=== PATIENT | female | born 1985 | race Caucasian/White ===

== ENCOUNTER 2018-05-07 19:38 | Emergency (ER) | payer OTHER, SELFPAY ==
[2018-05-07 19:39] VITALS: BP 126/77; PULSE 105; RESP 18; TEMP 37.2; O2SAT 98; BMI 28.3
[2018-05-07] MEDS: Morphine 4 MG/ML Syringe IV (20:51)
[2018-05-07] MEDS: 0.9% Normal Saline 1,000 ML 1000 ML IV (20:51)
[2018-05-07] MEDS: Ondansetron 4 MG/2 ML Vial IV (20:51)
[2018-05-07 21:03] LABS: Bacteria 0 SEEN /hpf (None Seen); Mucous, Urine 0 SEEN /hpf (<or=2+); Red Blood Cells-Urine 0 SEEN /hpf (0-5); White Blood Cells 0 SEEN /hpf (0-5)
[2018-05-07 21:13] LABS: Absolute Lymphocyte Count 0.53 X10^3/ul (0.83-4.51); Absolute Neutrophil Count 1.3 X10^3/uL (2.0-7.7); Basophil# 0.01 X10^3/uL; Basophil% 0.5 % (0-1); Hematocrit 38.3 % (37-47); Hemoglobin 12.1 g/dl (12.0-15.0); Lymphocyte # 0.53 X10^3/ul (4.0); Lymphocyte % 26.9 % (19-41); Mean Corp Hgb Conc 31.6 g/gl (32-36); Mean Corpuscular Hgb 26.7 pg (27.0-32.0); Mean Corpuscular Volume 84.4 fL (81-99); Mean Platelet Vol. 9.1 fl (6.2-12.0); Monocyte# 0.11 X10^3/uL; Monocyte% 5.6 % (0-10); Neutrophil # 1.32 X10^3/uL (2.7-7.7); Platelet Count 175 K/mm3 (150-450); RBC Distribution Width CV 14.4 % (11.6-14.6); RBC Distribution Width SD 44.6 fl (35.1-43.9); Red Blood Count 4.54 M/mm3 (4.2-5.4)
[2018-05-07 21:16] LABS: Color, Urine Yellow (Yellow); Glucose, Dipstick Normal (Normal); Ketone-Dipstick Negative (Negative); Leukocyte Esterase-Dipstick Negative /ul (Negative); Nitrite-Dipstick Negative (Negative); Occult Blood-Urine 25 /ul (Negative); Protein-Dipstick Negative (Negative); Urine Bilirubin Dipstick Negative (Negative); Urine Clarity Clear (Clear); Urine Urobilinogen Normal (Normal)
[2018-05-07 21:21] LABS: Squamous Epithelial Cells - UA 0-5 SEEN /hpf (5-10)
[2018-05-07 21:22] LABS: Differential Indicated SCAN CRITERIA MET; POSITIVE COUNT NO; POSITIVE DIFFERENTIAL YES; POSITIVE MORPHOLOGY NO
[2018-05-07 21:30] LABS: AST(SGOT) 49 U/L (15-37); Alanine Aminotransfer ALT/SGPT 62 U/L (13-56); Albumin, Serum 3.7 g/dL (3.2-5.0); Alkaline Phosphatase 118 U/L (45-117); Anion Gap 7 (5-15); BUN 8 mg/dL (7-18); BUN/Creat Ratio 9.2 RATIO (10-20); Bilirubin, Direct 0.11 mg/dL (0.00-0.30); Calcium,Total 8.5 mg/dL (8.5-10.1); Chloride 107 mmol/L (98-107); Creatinine, Serum 0.87 mg/dL (0.55-1.02); EST Glomerular Filtration Rate 80 mL/min (>60); Est Glom Filt Rate - Afr Amer 96 mL/min (>60); Estimated Creatinine Clearance 82.76 ml/min; Globulin 4.2 g/dL (2.2-4.2); Glucose 96 mg/dL (74-106); Lipase 172 U/L (73-393); Potassium 3.6 mmol/L (3.5-5.1); Protein, Total 7.9 g/dL (6.4-8.2); Sodium Level 139 mmol/L (136-145)
[2018-05-07 21:34] LABS: Pregnancy, Serum, hCG Quali. NEGATIVE Negative (0-9 Nonpreg)
[2018-05-07 21:47] LABS: Differential Comment SCANNED
[2018-05-07 22:58] VITALS: BP 111/66; PULSE 82; RESP 16; O2SAT 99
--- NOTE | 2018-05-07 23:15 | ED.DCSUM_ITS ---
- ER Visit Summary Date of Service: 05/07/18 Chief Complaint: Abdominal pain History of Present Illness: The patient is a [address] Horn. She is a G 10 P7 who reports that she had a miscarriage on March 24 at approximately 7 weeks 2 days of based on her last menstrual period. She is concerned that she has retained products of conception. Patient reports that following the miscarriage she had gradually improved and her vaginal bleeding had stopped. She did not in fact, she had a menstrual period approximately 10 days ago. She denies any odor to this. However, patient reports that 3 days ago she developed cramping suprapubic pain and low back pain. States pain is 6 out of 10 at worst and 1 out of 10 currently. It is worsened by nothing and relieved by nothing. She also states that she has spotting vaginally that began 3 days ago. She denies any vaginal discharge. She reports that her urine feels hot. She denies any frequency or hematuria. Patient also reports that she has had a fever of 101.3? and chills. She complains of a slight cough. She reports a headache is 410 severity. She has a history of similar headaches. She also has generalized weakness. Physical Examination: Vitals: Stable. Afebrile. General: Well-nourished and well-developed. Head: Normocephalic atraumatic. Neck: Supple, no lymphadenopathy. No JVD. Nontender. Cardiovascular: Regular rate and rhythm. No murmurs. Respiratory: No respiratory distress. Clear to auscultation bilaterally. Abdominal: Soft, moderate suprapubic and right lower quadrant tenderness to palpation, nondistended, normal bowel sounds. No guarding, rebound, or peritoneal signs. Back: Nontender. Extremities: Nontender, no edema. Skin: Normal color, no rash. Neurologic: Alert and oriented ?3. Cranial nerves II through XII are intact. Normal strength and sensation. Psych: Normal affect. Test Results: CBC is remarkable for a white count of 2. Chem-7 is normal. LFTs marked for an alk phos of 118, ALT of 62, and AST 49. UA is negative. test is negative. Transvaginal ultrasound shows endometrium to be 20 mm in thickness and heterogenous. There is no definite evidence of retained products of conception. Clinical Impression(s) from Imaging Studies Transvaginal US 05/07/18 20:31 IMPRESSION: The endometrium is thickened and heterogeneous in echogenicity. The endometrium measures 20 mm in thickness. There is no definite evidence of retained products of conception. There is a cervical nabothian cyst. There are bilateral simple ovarian cysts. There is a minimal amount of fluid in the cul-de-sac. Electronically Signed: Alfonso Enciso MD at 22:07 EDT , Service support , Abdomen/Pelvis CT 05/07/18 20:32 IMPRESSION: 1. Mild splenomegaly. 2. The uterus is bulky in size. The endometrium is thickened, measuring up to 13 mm. 3. There is an umbilical hernia containing a knuckle of nondistended small bowel. 4. 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 5. There is no evidence of free intra-abdominal or intrapelvic air, fluid, or inflammatory process. Electronically Signed: Alfonso Enciso MD at 23:05 EDT , Service support , Emergency Department Course and Treatment: Patient had an IV placed. She was given a liter normal saline. She was given dose of morphine and Zofran IV. She is resting comfortably. Treatment Plan: The patient was discussed with Dr. Reyes. Does not appear that at this time that there is an indication to take her to the operating room for a D&C. However, he would like her to follow-up in 1-2 days for another exam. Return to the emergency department for any worsening symptoms. Disposition: To home in improved and stable condition. Impression: 1. Thickened endometrium. 2. Leukopenia. 3. Umbilical hernia. This note was generated with [employer] dictation software. It may contain incorrect words, spelling, and punctuation that were not noted in review of the chart prior to signing ED Disposition - Plan for ED Patient: Disposition: Home or Assisted Living Chief Complaint: Vag Bleeding Instructions: ED Pelvic Pain [facility] Referrals: Omar Reyes MD [STAFF PHYSICIAN] - 1 Day for another exam
== END 2018-05-07 23:27 | disposition home or self-care (01) ==
PROVIDERS: Emergency Provider Emergency Medicine; Family Provider Family Medicine; PCP Family Medicine
DX: R93.8 Abnormal findings on diagnostic imaging of other specified body structures (principal); D72.819 Decreased white blood cell count, unspecified; K42.9 Umbilical hernia without obstruction or gangrene
CPT/HCPCS: 74177; 76830; 80048; 80076; 81001; 83690; 84703; 85025; 99283; J7030; Q9967; A4216; J2405

== ENCOUNTER 2023-10-13 13:59 | Inpatient (IN) | payer OTHER, SELFPAY ==
[2023-10-13] VITALS (9 sets, daily range): BP systolic 120–152; BP diastolic 83–95; PULSE 105–115; RESP 18–24; TEMP 36.4; O2SAT 97–100; BMI 32.1; BMI 30.5
--- OUTSIDE RECORDS SUMMARY | 2023-10-13 14:21 | XMS RPT_ITS | CCD ---
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 Name Role Phone UPTAIN, CRYSTAL CNM Admitting Unavailable UPTAIN, CRYSTAL CNM Attending Unavailable UPTAIN, CRYSTAL CNM Primary Care Unavailable UPTAIN, CRYSTAL CNM Attending Unavailable UPTAIN, CRYSTAL CNM Primary Care Unavailable UPTAIN, CRYSTAL CNM Admitting Unavailable Results Test Name Value Interpretation Reference Range Facil ity Encounters Encounter Date Encounter Type Care Provider Facility Start: 09-20-2022 End: 09-21-2022 Evaluation and management of inpatient CRYSTAL CNM [facility] Start: 07-27-2022 End: 07-27-2022 ambulatory CRYSTAL CNM [facility] Summary Purpose Family History No Family History Records FoundNo Family History Records FoundNo Family History Records Found Advance Directives No Advanced Directives Records FoundNo Advanced Directives Records FoundNo Advanced Directives Records Found Additional Source Comments INFORMATION SOURCE (unrecogn ized section and content) DATE CREATED AUTHOR AUTHOR'S ORGANIZ ATION 09/03/2022 [facility] DATE CREATED AUTHOR AUTHOR'S ORGANIZ ATION 09/21/2022 [facility] FOR RECORDS PERTAINING TO PATIENTS WHO ARE OR HAVE BEEN ENROLLED IN A CHEMICAL DEPENDENCY/SUBSTANCEABUSE PROGRAM, SOME INFORMATION MAY BE OMITTED. This clinical summary was aggregated from multiple sources. Caution should be exercised in using it in the provision of clinical care. This summary normalizes information from multiple sources, and as a consequence, information in this document may materially change the coding, format and clinical context of patient data. In addition, data may be omitted in some cases. CLINICAL DECISIONS SHOULD BE BASED ON THE PRIMARY CLINICAL RECORDS. [employer] provides no warranty or guarantee of the accuracy or completeness of information in this document.
--- NOTE | 2023-10-13 14:45 | EX.ED.DYSGE1 ---
HPI <AUSTIN George - Last Filed: 10/13/23 18:31> History of Present Illness Chief Complaint: Shortness of Breath Narrative Narrative: Patient presenting today due to shortness of breath that started suddenly this afternoon. She reports that she was walking down to the basement to grab clothes for her children when she had sudden onset shortness of breath. She reports midsternal chest pain with breathing. She reports on Saturday she had a few episodes of vomiting which has resolved. She denies any fevers, chills, abdominal pain. She is 9 weeks , she is . She denies any chronic health conditions. PFSH <AUSTIN George - Last Filed: 10/13/23 18:31> PFSH Home Medications No Known/Unobtainable [No Known Home Medications] 06/16/14 [History Last Taken Unknown] Allergy/AdvReac Type Severity Reaction Status Date / Time No Known Allergies Allergy Verified 05/07/18 19:42 Family History (Updated 10/13/23 @ 18:[address] Lachelle Fletcher DO) Sister FH: thromboembolic disease Social History (Updated 10/13/23 @ 18:[address] Lachelle Fletcher DO) household members: family housing: house current occupation: [employer] Smoking Status: Never smoker alcohol intake: never substance use type: does not use ROS <AUSTIN George - Last Filed: 10/13/23 18:31> ROS ED Constitutional Constitutional ED: Denies chills or fever(s) Cardiovascular Cardiovascular: Reports chest pain; Denies palpitations Respiratory/Chest Respiratory/Chest: Reports dyspnea, dyspnea on exertion and tachypnea; Denies cough Gastrointestinal Gastrointestinal: Denies abdominal pain, nausea or vomiting Genitourinary Genitourinary ED: Denies dysuria, hematuria or urinary frequency Musculoskeletal Musculoskeletal: Denies arthralgias or myalgias Integumentary Denies rash Neurologic Neurologic: Denies weakness EXAM <AUSTIN George Last Filed: 10/13/23 18:31> Physical Exam Const Vital Signs: 10/13/23 14:00 10/13/23 14:04 10/13/23 14:05 Temperature 97.6 F L Temperature Source Temporal Pulse Rate 112 H Respiratory Rate 24 H Respiratory Effort Short of Breath Respiratory Depth Normal Respiratory Pattern Tachypnea Blood Pressure 152/91 H Blood Pressure Mean 111 Pulse Ox 99 Oxygen Delivery Method Room Air Room Air 10/13/23 15:31 10/13/23 16:00 10/13/23 17:56 Temperature Temperature Source Pulse Rate 115 H 108 H 111 H Respiratory Rate 20 H 22 H 20 H Respiratory Effort Respiratory Depth Respiratory Pattern Blood Pressure 144/94 H 123/83 H 125/95 H Blood Pressure Mean 110 96 105 Pulse Ox 98 98 98 Oxygen Delivery Method Room Air Room Air Room Air 10/13/23 18:00 Temperature Temperature Source Pulse Rate 108 H Respiratory Rate 23 H Respiratory Effort Respiratory Depth Respiratory Pattern Blood Pressure 120/88 H Blood Pressure Mean 98 Pulse Ox 97 Oxygen Delivery Method Room Air Positive well nourished, well developed and no apparent distress General Appearance ED: well developed HEENT Reports normocephalic and head/scalp atraumatic Mouth ED: Yes moist mucous membranes normal Eyes PERRL and EOMs intact bilaterally Neck full ROM and supple Chest Wall inspection of chest normal Resp clear to auscultation bilaterally Resp Narrative: Tachypneic. Cardio regular rate and regular rhythm GI soft to palpation, non-tender, non-distended and no masses Back/Spine normal ROM and normal to inspection Extremity normal to inspection and full ROM Neuro oriented x3, CN's II-XII intact bilaterally, moves all extremities, no focal motor deficits and no sensory deficits noted Sensorium / Orientation: awake and alert Psych mental status grossly normal and thought process normal Skin no rashes or lesions noted and no wounds <Dr. Rita Austin, DO - Last Filed: 10/13/23 20:19> Physical Exam Const Vital Signs: 10/13/23 14:00 10/13/23 14:04 10/13/23 14:05 Temperature 97.6 F L Temperature Source Temporal Pulse Rate 112 H Respiratory Rate 24 H Respiratory Effort Short of Breath Respiratory Depth Normal Respiratory Pattern Tachypnea Blood Pressure 152/91 H Blood Pressure Mean 111 Pulse Ox 99 Oxygen Delivery Method Room Air Room Air 10/13/23 15:31 10/13/23 16:00 10/13/23 17:56 Temperature Temperature Source Pulse Rate 115 H 108 H 111 H Respiratory Rate 20 H 22 H 20 H Respiratory Effort Respiratory Depth Respiratory Pattern Blood Pressure 144/94 H 123/83 H 125/95 H Blood Pressure Mean 110 96 105 Pulse Ox 98 98 98 Oxygen Delivery Method Room Air Room Air Room Air 10/13/23 18:00 Temperature Temperature Source Pulse Rate 108 H Respiratory Rate 23 H Respiratory Effort Respiratory Depth Respiratory Pattern Blood Pressure 120/88 H Blood Pressure Mean 98 Pulse Ox 97 Oxygen Delivery Method Room Air [facility] <AUSTIN George - Last Filed: 10/13/23 18:31> [facility] Narrative Medical decision making narrative: Patient presenting due to sudden onset shortness of breath. Symptoms started when she was walking down into her basement this afternoon. did call squad. She does appears tachypneic. She reported having a history of a DVT during her last , however she said that this was never confirmed. She had swelling in one of her legs but never underwent an ultrasound or took blood thinners to treat this. She has no history of known blood clots. She reports that her sister did have a PE during her . Patient is currently 9 weeks , she has not had any issues to date but has not had an ultrasound to confirm intrauterine . Labs obtained and patient has a troponin of 866. Differentials include NSTEMI, myocarditis, pericarditis, PE. Cardiology was consulted, they recommend obtaining a CTA. I did speak with the radiologist who reports that CTA shows bilateral PEs, no evidence of right-sided heart strain. Dr. Marie with OB was consulted, he recommends treating with heparin. Transvaginal ultrasound will be obtained to confirm intrauterine . Pulmonology was consulted, this agreed that patient can stay here for treatment versus being transferred. Will speak with the hospitalist for admission. She has been started on a heparin drip. Lab Data Attestation: I reviewed the patient's lab results. Lab results narrative: Hemoglobin 11.9, potassium 3.1, troponin 866, TSH 0.22 Labs: Laboratory Results - last 24 hr 10/13/23 10/13/23 15:00 17:49 WBC 8.5 RBC 4.70 Hgb 11.9 L Hct 37.6 MCV 80.0 L MCH 25.3 L MCHC 31.6 L RDW Std Deviation 45.8 H RDW Coeff of Garima 15.9 H Plt Count 215 MPV 9.7 Immature Gran % (Auto) 0.200 Neut % (Auto) 78.6 H Lymph % (Auto) 15.8 L [place] % (Auto) 4.5 Eos % (Auto) 0.7 Baso % (Auto) 0.2 Absolute Neuts (auto) 6.7 Absolute Lymphs (auto) 1.35 Nucleated RBC % 0 PT 13.2 INR 1.0 APTT 25.1 Sodium 140 Potassium 3.1 L Chloride 109 H Carbon Dioxide 25.0 Anion Gap 6 BUN 5 L Creatinine 0.74 Est GFR (MDRD) Af Amer 113 Est GFR (MDRD) Non-Af 93 BUN/Creatinine Ratio 6.8 L Glucose 174 H Calcium 9.1 Iron 20 L TIBC 365 Iron Saturation 5.5 L Ferritin 16 Troponin I High Sens 866 H* 1840 H* B-Natriuretic Peptide 39.4 TSH 0.22 L Free T4 0.96 Radiography Diagnostic Testing: Clinical Impression(s) from Imaging Studies Chest X-Ray 10/13/23 15:14 IMPRESSION: No radiographic evidence of acute cardiopulmonary disease. Electronically Signed: Bryan Aguirre MD at 15:31 EST , Chest CTA 10/13/23 15:38 IMPRESSION: (NOT LISTED IN ORDER OF SIGNIFICANCE) There is no saddle embolus. There is no heart strain. Bilateral pulmonary emboli. Non standard communication findings protocol was initiated. 10/13/2023 4:29 PM Electronically Signed: Bryan Aguirre MD at 16:31 EST , ADDENDUM: 10/13/23 1647 IMPRESSION: (NOT LISTED IN ORDER OF SIGNIFICANCE) There is no saddle embolus. There is no heart strain. Bilateral pulmonary emboli. Non standard communication findings protocol was initiated. 10/13/2023 4:29 PM N.B. : The above Results were Read Back by Bryan Aguirre MD to AUSTIN George, and understanding confirmed on 10/13/2023 16:40:11 (ET). Electronically Signed: Bryan Aguirre MD at 16:31 EST , Obstetrics Ultrasound 10/13/23 15:38 IMPRESSION: There is a single live intrauterine with a heart rate of 170 bpm. Electronically Signed: Bryan Aguirre MD at 17:45 EST , EKG Initial EKG: Comments: 110 bpm, sinus tachycardia, ST depression in leads II, III, and aVF. <Dr. Rita Austin, DO - Last Filed: 10/13/23 20:19> [facility] Lab Data Labs: Laboratory Results - last 24 hr 10/13/23 10/13/23 15:00 17:49 WBC 8.5 RBC 4.70 Hgb 11.9 L Hct 37.6 MCV 80.0 L MCH 25.3 L MCHC 31.6 L RDW Std Deviation 45.8 H RDW Coeff of Garima 15.9 H Plt Count 215 MPV 9.7 Immature Gran % (Auto) 0.200 Neut % (Auto) 78.6 H Lymph % (Auto) 15.8 L [place] % (Auto) 4.5 Eos % (Auto) 0.7 Baso % (Auto) 0.2 Absolute Neuts (auto) 6.7 Absolute Lymphs (auto) 1.35 Nucleated RBC % 0 PT 13.2 INR 1.0 APTT 25.1 Sodium 140 Potassium 3.1 L Chloride 109 H Carbon Dioxide 25.0 Anion Gap 6 BUN 5 L Creatinine 0.74 Est GFR (MDRD) Af Amer 113 Est GFR (MDRD) Non-Af 93 BUN/Creatinine Ratio 6.8 L Glucose 174 H Calcium 9.1 Iron 20 L TIBC 365 Iron Saturation 5.5 L Ferritin 16 Troponin I High Sens 866 H* 1840 H* B-Natriuretic Peptide 39.4 TSH 0.22 L Free T4 0.96 Radiography Diagnostic Testing: Clinical Impression(s) from Imaging Studies Chest X-Ray 10/13/23 15:14 IMPRESSION: No radiographic evidence of acute cardiopulmonary disease. Electronically Signed: Bryan Aguirre MD at 15:31 EST , Chest CTA 10/13/23 15:38 IMPRESSION: (NOT LISTED IN ORDER OF SIGNIFICANCE) There is no saddle embolus. There is no heart strain. Bilateral pulmonary emboli. Non standard communication findings protocol was initiated. 10/13/2023 4:29 PM Electronically Signed: Bryan Aguirre MD at 16:31 EST , ADDENDUM: 10/13/23 1647 IMPRESSION: (NOT LISTED IN ORDER OF SIGNIFICANCE) There is no saddle embolus. There is no heart strain. Bilateral pulmonary emboli. Non standard communication findings protocol was initiated. 10/13/2023 4:29 PM N.B. : The above Results were Read Back by Bryan Aguirre MD to AUSTIN George, and understanding confirmed on 10/13/2023 16:40:11 (ET). Electronically Signed: Bryan Aguirre MD at 16:31 EST , Obstetrics Ultrasound 10/13/23 15:38 IMPRESSION: There is a single live intrauterine with a heart rate of 170 bpm. Electronically Signed: Bryan Aguirre MD at 17:45 EST , Rhythm Strip Rhythm Strip: Sinus Tach Rate: 110 Ectopy: None EKG Initial EKG: Attestation: I personally reviewed and interpreted this EKG as follows: Management Discussion w/another healthcare provider: Hospitalist and Global Sales Director (UNIT CLERK, Cardiology, Pulm) Treatment and Re-Evaluation :: I have personally performed a face to face assessment of the patient and have reviewed the [place] Note. I performed a substantive portion of the visit including all aspects of the following. My rico findings include: History is patient is a 37-year-old female with no significant past medical history of the (questionable history of DVT but states she never had it formally diagnosed or treated) presenting with worsening shortness of breath that started today. She had some mild stomach flu a couple days ago. She is not having significant chest pain but there is a can pleuritic component to her shortness of breath. Patient is currently approximately 9 weeks with her last menstrual period approximately the middle of July. She is . She follows with a sports leadership instructor [facility]. Has not had any evaluation for this yet. On arrival patient is ill-appearing. She is tachypneic and tachycardic. She is pale. Clear breath sounds. Abdomen soft and nontender. EKG shows tachycardia with ST depressions in the inferior and lateral leads. Differential includes pulmonary emboli, myocarditis, pericarditis, sepsis, pneumonia and symptomatic anemia and less likely ACS given the story. Patient is found to have significant elevation of her high-sensitivity troponin. Other labs largely normal. BNP is added on. Case is discussed with Dr. Godinez, cardiology on-call given her EKG abnormalities and his elevated troponin. He agrees that PE, aortic dissection and myocarditis are on the differential. He recommends a CTA. If there is no PE or aortic dissection likely transfer for further evaluation myocarditis. Defer aspirin until results come back. Discussed risk and benefits of contrast and radiation associated with early and at this time I feel that the benefits greatly with the risk. Patient and agreeable with obtaining a CT. CTA shows bilateral submassive pulmonary emboli. There is no signs of heart strain. Her BNP is surprisingly normal. Patient is given IV fluids and Tylenol with improvement of symptoms in the ER. She is hemodynamically stable and having no O2 requirements. Case then discussed with Dr. Mireles, pulmonology on-call who feels that without true signs of right heart strain (CT findings or elevated BNP) patient was unlikely to be a candidate for clot retrieval and could stay here. They will perform an echocardiogram. Case is discussed with gynecology on-call, Dr. Marsha Marie, who will is in agreement that it is best her mother is with [facility] baby and to start the patient on heparin drip. Did discuss with patient if she would like to be transferred for second opinion about clot retrieval at a tertiary facility. She is comfortable staying here and starting the heparin drip. Patient is admitted to hospital service, Dr. Fletcher. Transvaginal ultrasound does confirm single intrauterine gestation with heart tones present. Patient is uptrending troponin in the emergency room I suspect that is from the pulmonary emboli. Cardiology is aware of her EKG and troponin levels. Other additions or changes: [None] <Dr. Rita Austin, DO - Last Filed: 10/13/23 20:19> Critical Care Time Critical Care Time: Yes Critical care time (excluding procedures): 30-74 minutes (35), Discussing w/Patient &/or Family/Exchange Underwriting Consultant, Discussing w/Consultants, Arranging Admission or Transfer and Performing Direct Patient Care at Bedside Discharge Plan Dx/Rx/DC Orders Clinical Impression: Elevated troponin I level, , Abnormal TSH, Bilateral pulmonary embolism, Hypokalemia Disposition Disposition: Acute Care Hospital [facility] Discharge Date/Time: 10/13/23 19:28
--- NOTE | 2023-10-13 15:14 | RAD_ITS ---
EXAM: XR CHEST, 2 VIEWS CLINICAL INDICATION: chest pain TECHNIQUE: Frontal and lateral views of the chest. COMPARISON: No relevant prior studies available. FINDINGS: LUNGS AND PLEURAL SPACES: Unremarkable. No consolidation or edema. No pneumothorax. No effusion. HEART: Unremarkable. Cardiac silhouette not enlarged. MEDIASTINUM: Central airways and mediastinal contour are unremarkable. BONES/JOINTS: Unremarkable. No acute fracture. SOFT TISSUES: Unremarkable. RAD/Chest PA and Lateral IMPRESSION: No radiographic evidence of acute cardiopulmonary disease. Electronically Signed: Bryan Aguirre MD at 15:31 EST ,
[2023-10-13 15:18] LABS: Absolute Lymphocyte Count 1.35 X10^3/uL (0.83-4.51); Absolute Neutrophil Count 6.7 X10^3/uL (2.0-7.7); Basophil# 0.02 X10^3/uL; Basophil% 0.2 % (0-1); Eosinophil# 0.06 X10^3/uL; Eosinophils% 0.7 % (0-5); Hematocrit 37.6 % (37-47); Hemoglobin 11.9 g/dL (12.0-15.0); Lymphocyte # 1.35 X10^3/ul (0.83-4.51); Lymphocyte % 15.8 % (19-41); Mean Corp Hgb Conc 31.6 g/dL (32-36); Mean Corpuscular Hgb 25.3 pg (27.0-32.0); Mean Platelet Vol. 9.7 fl (6.2-12.0); Monocyte# 0.38 X10^3/uL; Monocyte% 4.5 % (0-10); NRBC Flagged by Analyzer 0 % (0-5); Neutrophil % 78.6 % (47-70); Platelet Count 215 K/mm3 (150-450); RBC Distribution Width CV 15.9 % (11.6-14.6); RBC Distribution Width SD 45.8 fl (35.1-43.9); White Blood Count 8.5 K/mm3 (4.4-11.0)
[2023-10-13 15:33] LABS: Anion Gap 6 (5-15); BUN 5 mg/dL (7-18); BUN/Creat Ratio 6.8 RATIO (10-20); Calcium,Total 9.1 mg/dL (8.5-10.1); Chloride 109 mmol/L (98-107); Creatinine, Serum 0.74 mg/dL (0.55-1.02); EST Glomerular Filtration Rate 93 mL/min (>60); Est Glom Filt Rate - Afr Amer 113 mL/min (>60); Glucose 174 mg/dL (74-106); Potassium 3.1 mmol/L (3.5-5.1); Sodium Level 140 mmol/L (136-145); Troponin-I HS (w/2H Reflex) 866 pg/mL (3.0-54.0)
--- NOTE | 2023-10-13 15:38 | CT_ITS ---
We are attempting to reach an attending provider to discuss findings. An addendum with communication details will be sent when the communication is complete. STUDY: CTA CHEST REASON FOR EXAM: Female, 37 years old. shortness of breath TECHNIQUE: The examination was performed with the intravenous administration of 100 cc of IV Isovue 370 contrast material. Post-processing of the angiographic images was performed, with axial imaging and 3D reconstruction. MIPS images were obtained. Individualized dose optimization techniques were used for this CT. COMPARISON: None. FINDINGS: There is no saddle embolus. There is no heart strain. Large bilateral pulmonary emboli. These extend from the main branch to the first and second order branches. Normal thoracic aorta and visualized great vessels. There is no demonstrated aortic dissection. Normal heart and pericardium with no evidence for calcifications of the coronary arteries. Normal mediastinum. Normal hilar regions. Normal visualized trachea and bronchi. The lungs are well expanded. Normal pulmonary parenchyma. Normal pleura. Normal chest wall structures. Normal osseous structures. Normal visualized upper abdomen. CT/CTA Chest W/WO Contrast IMPRESSION: (NOT LISTED IN ORDER OF SIGNIFICANCE) There is no saddle embolus. There is no heart strain. Bilateral pulmonary emboli. Non standard communication findings protocol was initiated. 10/13/2023 4:29 PM Electronically Signed: Bryan Aguirre MD at 16:31 EST ,
--- NOTE | 2023-10-13 15:38 | US_ITS ---
STUDY: FIRST TRIMESTER OBSTETRICAL ULTRASOUND REASON FOR EXAM: Female, 37 years old. to confirm -- PATIENT BEING ADMITTED WITH P.E''S TECHNIQUE: Transvaginal US was obtained to better visualized the ovaries. TECHNICAL QUALITY: Adequate. PRIOR ULTRASOUND: None. FINDINGS: There is visualization of a single gestational sac in a normal intrauterine position. The mean sac diameter (MSD) measures 33 mm, indicating an estimated gestational age (EGA) of 8 weeks, 4 days. The gestational sac shape is within normal limits. There is a visualized yolk sac. The yolk sac measures 4 mm. The placenta is non-visualized. Due to early gestation, the placenta is not seen. There is visualization of a live embryo. The crown-rump length (CRL) measures 25 mm, indicating an estimated gestational age (EGA) of 9 weeks, 0 days. There is demonstrated cardiac activity with a heart rate of 170 bpm. The estimated gestation age (EGA) by LMP is 9 weeks, 4 days. The estimated date of delivery (CLEO) by LMP is 11.29.23. The estimated gestation age (EGA) by US is 8 weeks, 6 days. The estimated date of delivery (CLEO) by US is 8.26.24. The uterus measures 13.5 cm. There is no demonstrated uterine fibroid. The cervix is closed. The right ovary measures 3 cm. There is no right ovarian cyst. There is no visualized right adnexal mass or complex lesion. The left ovary measures 3 cm. 60 mm left cyst. There is no visualized left adnexal mass or complex lesion. There is no fluid in the cul de sac. US/Transvaginal w/Preg US IMPRESSION: There is a single live intrauterine with a heart rate of 170 bpm. Electronically Signed: Bryan Aguirre MD at 17:45 EST ,
[2023-10-13] MEDS: Acetaminophen 325 MG Tablet 650 MG PO ×2 (15:47→23:30)
[2023-10-13] MEDS: 0.9% Normal Saline (1000mL) 1,000 ML 999 ML IV (15:48)
[2023-10-13 16:24] LABS: BNP,B-Type NATRIURETIC PEPTIDE 39.4 pg/mL (0-100)
[2023-10-13 16:36] LABS: Thyroid Stim Hormone (TSH) 0.22 uIU/mL (0.358-3.74)
[2023-10-13 17:03] LABS: Reflex Troponin-HS? (from REC) Y
[2023-10-13 17:09] LABS: Partial Thromboplast Time 25.1 Seconds (24.1-36.2)
[2023-10-13 17:17] LABS: Prothrombin Time (Protime)PT. 13.2 SECONDS (11.7-14.9)
[2023-10-13] MEDS: Heparin Injection (Vial) 5,000 UNIT/ML VIAL 4000 UNIT IV (17:45)
[2023-10-13] MEDS: HEPARIN/D5w 25,000 UNITS 25,000 UNITS/250 ML IV.SOLN. 10 UNITS CONT INF (17:49)
--- NOTE | 2023-10-13 18:15 | HP.PCM.HOS_ITS ---
HPI - General General Date of Admission: 10/13/23 Date of Service: 10/13/23 Chief Complaint: Shortness of breath HPI Narrative AUGUSTIN GARCIA, is a 37 F who presented to the emergency department at [facility] on 10/13/2023 due to acute onset shortness of breath. Patient reported that she was walking down to the basement to grab close for her children when she had sudden onset of shortness of breath. She reported that she also noted midsternal chest pain that was pleuritic in nature at that time as well. She had been feeling well overall other than last Saturday she had a couple episodes of vomiting but has had no other issues since. She is at 9 weeks and is . She has never had any previous thromboembolic events with primary pregnancies. She does have a sister who had a thromboembolic event during and was on Lovenox during her and for about 6 months following was anticoagulated. She has no other family members that she knows of who have had previous clotting disorders. Vital signs on presentation showed a temperature of 97.6, heart rates between 108 and 115, blood pressures 120/88, respiratory rate has been between 20 and 24 and oxygen saturations are 97 to 99% on room air. CBC shows a normal white count with a mild left shift at a 78.6% neutrophilia and I suspect this is a stress response as she has no signs of infection. Hemoglobin is 11.9 and she has microcytic which may be iron deficiency anemia related to so iron studies are pending. Coags were normal. Her chemistry panel revealed hypokalemia with a potassium of 3.1, normal renal function and a TSH of 0.22. BNP was normal at 39.4. Initial troponin was 866. EKG was sinus tachycardia with an S1Q3T3, normal intervals and no ST-T wave changes concerning for acute ischemia. Chest x-ray was unremarkable. CT of the chest showed no saddle emboli and no heart strain however she does have large bilateral PE that extend from the main branch to the first and second order branches. Obstetrics ultrasound was performed with 9 weeks and demonstrated a single live intrauterine with a heart rate of 170 bpm estimated 8 weeks and 6 days. Cervix was closed. No adnexal masses or complex lesions were identified and there was no fluid in the cul-de-sac. The case was discussed with pulmonary medicine and then they indicated that they would be willing to admit her here and she did not need thrombus retrieval. Recommended initiating heparin drip. PFSH no medical history Home Medications No Known/Unobtainable [No Known Home Medications] 06/16/14 [History Last Taken Unknown] Allergy/AdvReac Type Severity Reaction Status Date / Time No Known Allergies Allergy Verified 05/07/18 19:42 Family History (Updated 10/13/23 @ 18:[address] Lachelle Fletcher DO) Sister FH: thromboembolic disease no surgical history Social History (Updated 10/13/23 @ 18:[address] Lachelle Fletcher DO) household members: family housing: house current occupation: [employer] Smoking Status: Never smoker alcohol intake: never substance use type: does not use ROS Constitutional Constitutional: Reports fatigue; Denies anorexia, change in weight, chills, fever(s), malaise, night sweats, weakness or other Eyes Eyes: Denies blurry vision, change in eye color, change in vision, discharge from eye(s), double vision, erythema, eye pain, loss of vision or other ENT HEENT: Denies abnormal hearing, dysphagia, ear pain, epistaxis, headache(s), hearing loss, nasal congestion, nasal discharge, post nasal drip, sinus pressure, sore throat or other Cardiovascular Cardiovascular: Reports chest pain and dyspnea on exertion; Denies claudication, edema, lightheadedness, orthopnea, palpitations, paroxysmal nocturnal dyspnea, rapid heart rate, syncope or other Respiratory/Chest Respiratory/Chest: Reports dyspnea and shortness of breath with exertion; Denies cough, excessive phlegm production, hemoptysis, productive cough, shortness of breath at rest, wheezing or other Gastrointestinal Gastrointestinal: Denies abdominal pain, coffee ground emesis, constipation, diarrhea, dyspepsia, hematemesis, hematochezia, loose stools, melena, nausea, vomiting or other Genitourinary Genitourinary: Denies burning urination, difficulty urinating, dysuria, hematuria, nocturia, urinary frequency, urinary hesitancy, urinary incontinence, urinary urgency or other Musculoskeletal Musculoskeletal: Denies arthralgias, back pain, joint pain, joint stiffness, joint swelling, myalgias, neck pain or other Neurologic Neurologic: Denies abnormal gait, abnormal speech, confusion, disequilibrium, dizziness, focal weakness, headache(s), numbness, paresthesias, seizure-like activity, seizures, syncope, tingling, tremor(s) or other Psychiatric Psychiatric: Denies anxiety, depression, homicidal ideation, suicidal ideation or other Endocrine Endocrinology: Denies change in body appearance, cold intolerance, excessive sweating, heat intolerance, polydipsia, polyuria or other Hematologic/Lymphatic Hematologic/Lymphatic: Denies anemia, easy bleeding, easy bruising, lymphadenopathy or other Allergic/Immunologic Allergic/Immunologic: Denies rhinitis, hives, eczemia, asthma or other Vital Signs Vital Signs Vital Signs: 10/13/23 14:00 10/13/23 14:04 10/13/23 14:05 Temperature 97.6 F L Temperature Source Temporal Pulse Rate 112 H Respiratory Rate 24 H Respiratory Effort Short of Breath Respiratory Depth Normal Respiratory Pattern Tachypnea Blood Pressure 152/91 H Blood Pressure Mean 111 Pulse Ox 99 Oxygen Delivery Method Room Air Room Air 10/13/23 15:31 10/13/23 16:00 10/13/23 17:56 Temperature Temperature Source Pulse Rate 115 H 108 H 111 H Respiratory Rate 20 H 22 H 20 H Respiratory Effort Respiratory Depth Respiratory Pattern Blood Pressure 144/94 H 123/83 H 125/95 H Blood Pressure Mean 110 96 105 Pulse Ox 98 98 98 Oxygen Delivery Method Room Air Room Air Room Air Weight Weight: 87.7 kg Body Mass Index (BMI) 32.1 Physical Exam Const alert, oriented x3, no apparent distress, healthy appearing and well nourished; Negative for average body habitus Constitutional Narrative: Obese, Levy, white female, lying in bed, appears comfortable, nontoxic, at bedside General Appearance: cooperative HEENT normocephalic, head/scalp atraumatic, hearing grossly normal bilaterally and moist oral mucous membranes Eyes PERRL and EOMs intact bilaterally Eyes Narrative: No scleral icterus Resp normal respiratory effort, no retractions, no use of accessory muscles and clear to auscultation bilaterally Auscultation: Negative for rales, rhonchi or wheezes Cardio regular rhythm, S1 normal heart sound, S2 normal heart sound, no murmurs, no rub, no gallops and no clicks Cardio Narrative: Tachycardic GI normal to inspection, nondistended, normoactive bowel sounds, soft to palpation and non-tender Extremity no clubbing, cyanosis or edema Extremity Narrative: Pedal pulses are 2+ Neuro oriented x3, moves all extremities and no focal motor deficits Speech: speech normal Psych affect normal Psych Narrative: Very pleasant, interacts appropriately Results Lab / Micro Data 10/13/23 15:00 10/13/23 15:00 Labs: Laboratory Results - last 24 hr 10/13/23 15:00: WBC 8.5, RBC 4.70, Hgb 11.9 L, Hct 37.6, MCV 80.0 L, MCH 25.3 L, MCHC 31.6 L, RDW Std Deviation 45.8 H, RDW Coeff of Garima 15.9 H, Plt Count 215, MPV 9.7, Immature Gran % (Auto) 0.200, Neut % (Auto) 78.6 H, Lymph % (Auto) 15.8 L, Rosebud % (Auto) 4.5, Eos % (Auto) 0.7, Baso % (Auto) 0.2, Absolute Neuts (auto) 6.7, Absolute Lymphs (auto) 1.35, Nucleated RBC % 0, PT 13.2, INR 1.0, APTT 25.1, Sodium 140, Potassium 3.1 L, Chloride 109 H, Carbon Dioxide 25.0, Anion Gap 6, BUN 5 L, Creatinine 0.74, Est GFR (MDRD) Af Amer 113, Est GFR (MDRD) Non- Af 93, BUN/Creatinine Ratio 6.8 L, Glucose 174 H, Calcium 9.1, Troponin I High Sens 866 H*, B-Natriuretic Peptide 39.4, TSH 0.22 L Micro: Microbiology 10/13/23 14:55 Mucosa - Nose SARS-CoV-2, Influenza & RSV (PCR) - Final Imagaing Radiology Impression Chest X-Ray 10/13/23 15:14 IMPRESSION: No radiographic evidence of acute cardiopulmonary disease. Electronically Signed: Bryan Aguirre MD at 15:31 EST , Chest CTA 10/13/23 15:38 IMPRESSION: (NOT LISTED IN ORDER OF SIGNIFICANCE) There is no saddle embolus. There is no heart strain. Bilateral pulmonary emboli. Non standard communication findings protocol was initiated. 10/13/2023 4:29 PM Electronically Signed: Bryan Aguirre MD at 16:31 EST , ADDENDUM: 10/13/23 1647 IMPRESSION: (NOT LISTED IN ORDER OF SIGNIFICANCE) There is no saddle embolus. There is no heart strain. Bilateral pulmonary emboli. Non standard communication findings protocol was initiated. 10/13/2023 4:29 PM N.B. : The above Results were Read Back by Bryan Aguirre MD to AUSTIN George, and understanding confirmed on 10/13/2023 16:40:11 (ET). Electronically Signed: Bryan Aguirre MD at 16:31 EST , Obstetrics Ultrasound 10/13/23 15:38 IMPRESSION: There is a single live intrauterine with a heart rate of 170 bpm. Electronically Signed: Bryan Aguirre MD at 17:45 EST , Assessment & Plan Assessment/Plan (1) Bilateral pulmonary embolism: (2) Anemia affecting ninth : (3) Tachycardia: (4) Hypokalemia: (5) Elevated troponin I level: (6) Abnormal TSH: PLAN: Plan Bilateral pulmonary emboli -Not saddle on CT -No right heart strain seen on CT however troponin is elevated -Will cycle enzymes -BNP is normal -Check echocardiogram -Continue heparin drip initiated the emergency department -Will need Lovenox on discharge due to -This would be considered provoked as she is --> patient has not had any previous venous thromboembolic event with prior pregnancies -Pulmonary medicine consultation -Would recommend hematology follow-up as an outpatient to rule out any genetic predisposition given family history and Levy background Tachycardia -Suspect related to acute PE -Will monitor as she is treated Hypokalemia -40 mill equivalents p.o. potassium -Recheck in a.m. 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
--- OUTSIDE RECORDS SUMMARY | 2023-10-13 18:24 | XMS RPT_ITS | CCD ---
Author Name Unknown Address [address] [place] [address] Organization [facility] Care Team Providers Care Field Assessor Name Role Phone UPTAIN, CRYSTAL CNM Admitting Unavailable UPTAIN, CRYSTAL CNM Attending Unavailable UPTAIN, CRYSTAL CNM Primary Care Unavailable UPTAIN, CRYSTAL CNM Attending Unavailable UPTAIN, CRYSTAL CNM Primary Care Unavailable UPTAIN, CRYSTAL CNM Admitting Unavailable Results Test Name Value Interpretation Reference Range Facil ity Encounters Encounter Date Encounter Type Care Provider Facility Start: 09-20-2022 End: 09-21-2022 Evaluation and management of inpatient CRYSTAL CNM [facility] Start: 07-27-2022 End: 07-27-2022 ambulatory CRYSTAL CNM [facility] Summary Purpose Family History No Family History Records FoundNo Family History Records FoundNo Family History Records Found Advance Directives No Advanced Directives Records FoundNo Advanced Directives Records FoundNo Advanced Directives Records Found Additional Source Comments INFORMATION SOURCE (unrecogn ized section and content) DATE CREATED AUTHOR AUTHOR'S ORGANIZ ATION 09/03/2022 [facility] DATE CREATED AUTHOR AUTHOR'S ORGANIZ ATION 09/21/2022 [facility] FOR RECORDS PERTAINING TO PATIENTS WHO ARE [...] BE BASED ON THE PRIMARY CLINICAL RECORDS. [employer] provides no warranty or guarantee of the accuracy or completeness of information in this document.
[2023-10-13 18:26] LABS: Troponin-I HS 1840 pg/mL (3.0-54.0)
[2023-10-13 18:48] LABS: Iron 20 ug/dL (50-170); Iron Binding Capacity,Total 365 ug/dL (250-450); PERCENT IRON SATURATION 5.5 % (15.0-55.0); T4 Free Direct 0.96 ng/dL (0.76-1.46)
[2023-10-13 18:51] LABS: Ferritin 16 ng/mL (8-252)
--- NOTE | 2023-10-13 19:35 | VDLE_ITS ---
Reason For Study: Pulmonary Embolism RIGHT LEFT GSV is normal. GSV is normal. CFV is compressible, spontaneous, phasic, CFV is compressible, spontaneous, phasic, competent and demonstrates normal competent, and demonstrates normal augmentation. augmentation. FV is compressible, spontaneous, phasic, FV is compressible, spontaneous, phasic, competent and demonstrates normal competent and demonstrates normal augmentation. augmentation. POP V is compressible, spontaneous, phasic, POP V is compressible, spontaneous, phasic, competent and demonstrates normal competent and demonstrates normal augmentation. augmentation. T/P Trunk is compressible. T/P Trunk is compressible. PTV is compressible. PTV is compressible. RT PerV is compressible. LT PerV is compressible. Procedure This is a venous duplex using B-mode, color flow and spectral Doppler. Exam performed portable in patient room. A preliminary report was called and/or faxed to Lexis GARCIA. VL/Venous Duplex US - Quentin Extrem Interpretation Summary Deep veins of the bilateral lower extremities are patent and compressible segme ntally. There is no evidence of bilateral lower extremity deep vein thrombosis. The bilateral great saphenous veins appear patent and compressible segmentally. Ordering Physician: Lachelle Fletcher Referring Physician: Arie Horn Performed By: Pauline Martínez, GEORGIE, RVT
[2023-10-13] MEDS: Potassium Chloride Oral Tablet 20 MEQ 40 MEQ PO (20:00)
[2023-10-13 22:20] LABS: Troponin-I HS 1985 pg/mL (3.0-54.0)
[2023-10-14 00:21] VITALS: BP 118/86; PULSE 107; RESP 18; TEMP 36.4; O2SAT 99
--- NOTE | 2023-10-14 00:21 | NURSING ---
Patient states the tylenol helped with her chest pain feels much better. Denies any SOB
[2023-10-14 00:50] LABS: Partial Thromboplast Time 36.5 Seconds (24.1-36.2)
[2023-10-14] MEDS: Heparin Injection (Vial) 5,000 UNIT/ML VIAL IV (01:03)
[2023-10-14 03:58] VITALS: RESP 18; O2SAT 98
[2023-10-14 05:29] VITALS: BP 98/77; PULSE 100; RESP 18; TEMP 36.9; O2SAT 99
--- NOTE | 2023-10-14 05:55 | ECHOD_ITS ---
Reason For Study: PE Procedure This was a 2D Doppler, Color Flow transthoracic echocardiogram. Exam performed portable in patient room. Left Ventricle Normal LV size. D shaped septum in diastole. Left ventricular systolic function is normal. The estimated ejection fraction is 60 %. Stage 1 diastolic dysfunction. No regional wall motion abnormalities noted. Right Ventricle Moderately dilated right ventricle. Moderate global right ventricular systolic dysfunction. Apical sparing noted. Atria Normal left atrium. Normal right atrium. Mitral Valve Normal mitral valve. Tricuspid Valve Normal tricuspid valve. Mild to moderate (1-2+) tricuspid valve insufficiency. Pulmonary artery systolic pressure is 41 mmHg. Mild pulmonary hypertension. Aortic Valve Normal aortic valve. Trisinus/trileaflet aortic valve. Pulmonic Valve Normal pulmonic valve. Great Vessels Normal aortic root. The pulmonary artery is normal size. Normal inferior vena cava. Pericardium/Pleural No pericardial effusion. MMode/2D Measurements & Calculations LVIDd: 3.6 cm IVSd: 0.98 cm Ao root diam: 2.8 cm LVIDs: 2.1 cm LVPWd: 0.98 cm RVDd: 4.4 cm FS: 41.6 % LAV(MOD-bp): 29.1 ml LVAd ap4: 21.5 cm2 SV(MOD-sp4): 37.4 ml LAV(MOD-bp) Indexed: 15.3 ml/m2 LVLd ap4: 7.7 cm LAV(MOD-sp2): 26.9 ml EDV(MOD-sp4): 51.4 ml LAV(MOD-sp4): 27.9 ml EDV(sp4-el): 51.0 ml LVAs ap4: 10.3 cm2 LVLs ap4: 7.0 cm ESV(MOD-sp4): 14.0 ml ESV(sp4-el): 13.0 ml EF(MOD-sp4): 72.8 % EF(sp4-el): 74.6 % SV(sp4-el): 38.1 ml LA A4 area: 13.7 cm2 LA dimension(2D): 3.3 cm RA A4 area: 16.4 cm2 TAPSE: 1.3 cm Doppler Measurements & Calculations MV E max lopez: 38.9 cm/sec Lat Peak E' Lopez: 16.6 cm/sec Med Peak E' Lopez: 8.5 cm/sec MV A max lopez: 75.9 cm/sec E/E' lat: 2.4 E/E' med: 4.6 MV E/A: 0.51 Ao V2 max: 135.9 cm/sec LV V1 max: 111.1 cm/sec PA V2 max: 97.5 cm/sec Ao max P.4 mmHg LV V1 max P.9 mmHg TR max lopez: 308.0 cm/sec TR max P.9 mmHg ECHO/Echo Complete Interpretation Summary Normal LV size. Left ventricular systolic function is normal. The estimated ejection fraction is 60 %. D shaped septum in diastole. Stage 1 diastolic dysfunction. Moderately dilated right ventricle. Apical sparing noted Mild pulmonary hypertension. Ordering Physician: Lachelle Fletcher Referring Physician: Arie Horn Performed By: Maria T Alford RDCS
[2023-10-14 07:09] LABS: Absolute Lymphocyte Count 2.04 X10^3/uL (0.83-4.51); Absolute Neutrophil Count 5.3 X10^3/uL (2.0-7.7); Basophil# 0.02 X10^3/uL; Basophil% 0.3 % (0-1); Eosinophil# 0.04 X10^3/uL; Eosinophils% 0.5 % (0-5); Hematocrit 34.3 % (37-47); Lymphocyte # 2.04 X10^3/ul (0.83-4.51); Lymphocyte % 25.9 % (19-41); Mean Corp Hgb Conc 32.1 g/dL (32-36); Mean Corpuscular Hgb 25.4 pg (27.0-32.0); Mean Corpuscular Volume 79.2 fL (81-99); Mean Platelet Vol. 9.6 fl (6.2-12.0); Monocyte# 0.41 X10^3/uL; Monocyte% 5.2 % (0-10); NRBC Flagged by Analyzer 0 % (0-5); Neutrophil # 5.34 X10^3/uL (2.7-7.7); Neutrophil % 67.6 % (47-70); Platelet Count 228 K/mm3 (150-450); RBC Distribution Width CV 15.9 % (11.6-14.6); RBC Distribution Width SD 45.9 fl (35.1-43.9); Red Blood Count 4.33 M/mm3 (4.2-5.4); White Blood Count 7.9 K/mm3 (4.4-11.0)
[2023-10-14 07:42] LABS: ALB/GLOB Ratio 0.8 RATIO (0.9-2.4); AST(SGOT) 29 U/L (15-37); Alanine Aminotransfer ALT/SGPT 58 U/L (13-56); Albumin, Serum 2.8 g/dL (3.2-5.0); Alkaline Phosphatase 75 U/L (45-117); Anion Gap 6 (5-15); BUN 6 mg/dL (7-18); BUN/Creat Ratio 13.4 RATIO (10-20); Calcium,Total 8.5 mg/dL (8.5-10.1); Chloride 112 mmol/L (98-107); Creatinine, Serum 0.45 mg/dL (0.55-1.02); EST Glomerular Filtration Rate 165 mL/min (>60); Est Glom Filt Rate - Afr Amer 200 mL/min (>60); Estimated Creatinine Clearance 180.57 ml/min; Globulin 3.4 g/dL (2.2-4.2); Glucose 157 mg/dL (74-106); Magnesium 1.9 mg/dL (1.6-2.6); Phosphorus 2.6 mg/dL (2.5-4.9); Potassium 3.6 mmol/L (3.5-5.1); Protein, Total 6.2 g/dL (6.4-8.2); Sodium Level 138 mmol/L (136-145)
--- NOTE | 2023-10-14 08:00 | EX.PCM.CONCC ---
Assessment & Plan Assessment/Plan (1) Bilateral pulmonary embolism: PLAN: Plan RECOMMENDATIONS: 1. Okay to transition from heparin to Lovenox. 2. Await results of echocardiogram. 3. The patient may ultimately benefit from evaluation for any hypercoagulable conditions on an outpatient basis. 4. Perform walking oximetry study prior to consideration for discharge home. IMPRESSIONS: 1. Bilateral pulmonary embolism The patient presented with shortness of breath and chest discomfort with radiographic evidence of extensive bilateral pulmonary emboli, without evidence of right heart strain. Although BNP was normal, the patient did have an elevated troponin. Her thromboembolism is likely precipitated by her underlying . She has no pre-existing hypercoagulable conditions. The patient was initially managed with a heparin infusion. Okay from my perspective to transition to Lovenox. Her echocardiogram is still pending. I would recommend that she complete a walking oximetry study prior to consideration for discharge home. Otherwise, the patient will need to remain on Lovenox throughout the remainder of her . She may ultimately benefit from outpatient hematology evaluation for any underlying hypercoagulable conditions. This note was generated with [employer] dictation software. It may contain incorrect words, spelling, and punctuation that were not noted in checking the note before signing. HPI Consult Data Date of Consult: 10/14/23 HPI Narrative Reason for Consultation: Bilateral pulmonary emboli HPI Narrative: The patient is a 37-year-old female, with a history as outlined below, who presented to the emergency department on October 13 with shortness of breath. This was associated with midsternal chest discomfort as well. The patient is currently 9 weeks . She denied a history of venous thromboembolic disease. The patient did report that her sister was diagnosed with a DVT during her last 1 year ago. However, there is no family history of any hypercoagulable conditions. The patient denies any recent travel or prolonged immobility. On presentation to the emergency department, the patient was noted to be afebrile and hemodynamically stable. She was initially maintaining appropriate oxygen saturations on room air. Laboratory evaluation revealed no evidence of a leukocytosis. Chemistry profile was notable for a potassium of 3.1 and normal creatinine. BNP was normal. However, troponin was elevated initially at 866 and has climbed to 1985. CTA chest showed bilateral pulmonary emboli without evidence of right heart strain. The patient was subsequently placed on a heparin infusion and admitted to the progressive care unit for further management. Echocardiogram is still pending. [facility] Medical History no medical history Home Medications No Known/Unobtainable [No Known Home Medications] 06/16/14 [History Last Taken Unknown] Allergy/AdvReac Type Severity Reaction Status Date / Time No Known Allergies Allergy Verified 05/07/18 19:42 Family History (Updated 10/13/23 @ 18:[address] Lachelle Fletcher DO) Sister FH: thromboembolic disease Surgical History no surgical history Social History (Updated 10/13/23 @ 18:[address] Lachelle Fletcher, ) household members: family housing: house current occupation: [employer] Smoking Status: Never smoker alcohol intake: never substance use type: does not use ROS ROS Narrative 10 systems were reviewed with pertinent positives as noted in the HPI above. Physical Exam Const alert and no apparent distress General Appearance: cooperative HEENT normocephalic, head/scalp atraumatic and moist oral mucous membranes Eyes PERRL, EOMs intact bilaterally and conjunctivae normal Neck supple General: trachea midline Chest inspection of chest normal Resp normal respiratory effort Auscultation: Negative for rales, rhonchi or wheezes Cardio regular rate and regular rhythm GI normal to inspection, nondistended, normoactive bowel sounds Extremity no clubbing, cyanosis or edema Skin no rashes or lesions noted Neuro CN's II-XII intact bilaterally, moves all extremities and no focal motor deficits Psych cooperative and affect normal Lab / Micro Data 10/14/23 06:35 10/14/23 06:35 Labs: Laboratory Results - last 24 hr 10/13/23 15:00: WBC 8.5, RBC 4.70, Hgb 11.9 L, Hct 37.6, MCV 80.0 L, MCH 25.3 L, MCHC 31.6 L, RDW Std Deviation 45.8 H, RDW Coeff of Garima 15.9 H, Plt Count 215, MPV 9.7, Immature Gran % (Auto) 0.200, Neut % (Auto) 78.6 H, Lymph % (Auto) 15.8 L, [place] % (Auto) 4.5, Eos % (Auto) 0.7, Baso % (Auto) 0.2, Absolute Neuts (auto) 6.7, Absolute Lymphs (auto) 1.35, Nucleated RBC % 0, PT 13.2, INR 1.0, APTT 25.1, Sodium 140, Potassium 3.1 L, Chloride 109 H, Carbon Dioxide 25.0, Anion Gap 6, BUN 5 L, Creatinine 0.74, Est GFR (MDRD) Af Amer 113, Est GFR (MDRD) Non-Af 93, BUN/Creatinine Ratio 6.8 L, Glucose 174 H, Calcium 9.1, Troponin I High Sens 866 H*, B-Natriuretic Peptide 39.4, TSH 0.22 L 10/13/23 17:49: Iron 20 L, TIBC 365, Iron Saturation 5.5 L, Ferritin 16, Troponin I High Sens 1840 H*, Free T4 0.96 10/13/23 21:44: Troponin I High Sens 1985 H* 10/13/23 22:55: APTT 36.5 H 10/14/23 06:35: WBC 7.9, RBC 4.33, Hgb 11.0 L, Hct 34.3 L, MCV 79.2 L, MCH 25.4 L, MCHC 32.1, RDW Std Deviation 45.9 H, RDW Coeff of Garima 15.9 H, Plt Count 228, MPV 9.6, Immature Gran % (Auto) 0.500, Neut % (Auto) 67.6, Lymph % (Auto) 25.9, [place] % (Auto) 5.2, Eos % (Auto) 0.5, Baso % (Auto) 0.3, Absolute Neuts (auto) 5.3, Absolute Lymphs (auto) 2.04, Nucleated RBC % 0, Sodium 138, Potassium 3.6, Chloride 112 H, Carbon Dioxide 20.0 L, Anion Gap 6, BUN 6 L, Creatinine 0.45 L, Estim Creat Clear Calc 180.57, Est GFR (MDRD) Af Amer 200, Est GFR (MDRD) Non-Af 165, BUN/Creatinine Ratio 13.4, Glucose 157 H, Calcium 8.5, Phosphorus 2.6, Magnesium 1.9, Total Bilirubin 0.30, AST 29, ALT 58 H, Alkaline Phosphatase 75, Total Protein 6.2 L, Albumin 2.8 L, Globulin 3.4, Albumin/Globulin Ratio 0.8 L Micro: Microbiology 10/13/23 14:55 Mucosa - Nose SARS-CoV-2, Influenza & RSV (PCR) - Final Rhythm Strip Rhythm Strip: Sinus Tach Rate: 110 Ectopy: None Imagaing Radiology Impression Chest X-Ray 10/13/23 15:14 IMPRESSION: No radiographic evidence of acute cardiopulmonary disease. Electronically Signed: Bryan Aguirre MD at 15:31 EST , Chest CTA 10/13/23 15:38 IMPRESSION: (NOT LISTED IN ORDER OF SIGNIFICANCE) There is no saddle embolus. There is no heart strain. Bilateral pulmonary emboli. Non standard communication findings protocol was initiated. 10/13/2023 4:29 PM Electronically Signed: Bryan Aguirre MD at 16:31 EST Reading Location ID and State: [facility] / [place] , Service support , ADDENDUM: 10/13/23 1647 IMPRESSION: (NOT LISTED IN ORDER OF SIGNIFICANCE) There is no saddle embolus. There is no heart strain. Bilateral pulmonary emboli. Non standard communication findings protocol was initiated. 10/13/2023 4:29 PM N.B. : The above Results were Read Back by Bryan Aguirre MD to AUSTIN George, and understanding confirmed on 10/13/2023 16:40:11 (ET). Electronically Signed: Bryan Aguirre MD at 16:31 EST , Obstetrics Ultrasound 10/13/23 15:38 IMPRESSION: There is a single live intrauterine with a heart rate of 170 bpm. Electronically Signed: Bryan Aguirre MD at 17:45 EST , Charges/Coding Visit Charges Inpatient E&M: 97613 Init Hosp L2
--- NOTE | 2023-10-14 08:09 | PCM.PN.HOSP ---
Reason for Visit Reason for Visit: Diagnoses Hypokalemia (10/13/23) Other pulmonary embolism without acute cor pulmonale (10/13/23) Supervision of with grand multiparity, unspecified trimester (10/13/23) Anemia complicating , unspecified trimester (10/13/23) Tachycardia, unspecified (10/13/23) Other specified abnormal findings of blood chemistry (10/13/23) Objective Data Objective Data Vital Signs: Vital Signs Temp Pulse Resp BP Pulse Ox O2 Del Method 98.4 F 100 18 98/77 99 Room Air 10/14/23 05:29 10/14/23 05:29 10/14/23 05:29 10/14/23 05:29 10/14/23 05:29 10/14/23 05:29 Oxygen Delivery Method Room Air Weight: 183 lb 6.793 oz Body Mass Index (BMI) 30.5 Intake & Output: Intake and Output for Last 24 Hours 10/12/23 10/13/23 10/14/23 23:59 23:59 23:59 Intake Total 1000 / 1000 72.33 / 72.33 Balance 1000 / 1000 72.33 / 72.33 Lab / Micro Data 10/14/23 06:35 10/14/23 06:35 Labs: Laboratory Results - last 24 hr 10/13/23 15:00: WBC 8.5, RBC 4.70, Hgb 11.9 L, Hct 37.6, MCV 80.0 L, MCH 25.3 L, MCHC 31.6 L, RDW Std Deviation 45.8 H, RDW Coeff of Garima 15.9 H, Plt Count 215, MPV 9.7, Immature Gran % (Auto) 0.200, Neut % (Auto) 78.6 H, Lymph % (Auto) 15.8 L, [place] % (Auto) 4.5, Eos % (Auto) 0.7, Baso % (Auto) 0.2, Absolute Neuts (auto) 6.7, Absolute Lymphs (auto) 1.35, Nucleated RBC % 0, PT 13.2, INR 1.0, APTT 25.1, Sodium 140, Potassium 3.1 L, Chloride 109 H, Carbon Dioxide 25.0, Anion Gap 6, BUN 5 L, Creatinine 0.74, Est GFR (MDRD) Af Amer 113, Est GFR (MDRD) Non-Af 93, BUN/Creatinine Ratio 6.8 L, Glucose 174 H, Calcium 9.1, Troponin I High Sens 866 H*, B-Natriuretic Peptide 39.4, TSH 0.22 L 10/13/23 17:49: Iron 20 L, TIBC 365, Iron Saturation 5.5 L, Ferritin 16, Troponin I High Sens 1840 H*, Free T4 0.96 10/13/23 21:44: Troponin I High Sens 1985 H* 10/13/23 22:55: APTT 36.5 H 10/14/23 06:35: WBC 7.9, RBC 4.33, Hgb 11.0 L, Hct 34.3 L, MCV 79.2 L, MCH 25.4 L, MCHC 32.1, RDW Std Deviation 45.9 H, RDW Coeff of Garima 15.9 H, Plt Count 228, MPV 9.6, Immature Gran % (Auto) 0.500, Neut % (Auto) 67.6, Lymph % (Auto) 25.9, [place] % (Auto) 5.2, Eos % (Auto) 0.5, Baso % (Auto) 0.3, Absolute Neuts (auto) 5.3, Absolute Lymphs (auto) 2.04, Nucleated RBC % 0, Sodium 138, Potassium 3.6, Chloride 112 H, Carbon Dioxide 20.0 L, Anion Gap 6, BUN 6 L, Creatinine 0.45 L, Estim Creat Clear Calc 180.57, Est GFR (MDRD) Af Amer 200, Est GFR (MDRD) Non-Af 165, BUN/Creatinine Ratio 13.4, Glucose 157 H, Calcium 8.5, Phosphorus 2.6, Magnesium 1.9, Total Bilirubin 0.30, AST 29, ALT 58 H, Alkaline Phosphatase 75, Total Protein 6.2 L, Albumin 2.8 L, Globulin 3.4, Albumin/Globulin Ratio 0.8 L Micro: Microbiology 10/13/23 14:55 Mucosa - Nose SARS-CoV-2, Influenza & RSV (PCR) - Final Radiography Diagnostic Testing: Radiology Impression Chest X-Ray 10/13/23 15:14 IMPRESSION: No radiographic evidence of acute cardiopulmonary disease. Electronically Signed: Bryan Aguirre MD at 15:31 EST , Chest CTA 10/13/23 15:38 IMPRESSION: (NOT LISTED IN ORDER OF SIGNIFICANCE) There is no saddle embolus. There is no heart strain. Bilateral pulmonary emboli. Non standard communication findings protocol was initiated. 10/13/2023 4:29 PM Obstetrics Ultrasound 10/13/23 15:38 IMPRESSION: There is a single live intrauterine with a heart rate of 170 bpm. Rhythm Strip Rhythm Strip: Sinus Tach Rate: 110 Ectopy: None Physical Exam Narrative Patient is short of breath, dyspnea at rest. Denies chest pain or tightness. Seen and examined. Physical exam General: Alert, Oriented x3, Cooperative HEENT: Atraumatic, PERRLA, EOMI, Normocephalic Oral: No Gingival or Mucosal Lesions/ Ulcerations Neck: Supple, No JVD, Negative Carotid Bruits Lungs: Air entry diminished in bilateral lung bases. No crepitation/rhonchi Cardiovascular: Regular rate, Regular Rhythm, P2 not loud. No murmurs Abdomen: Bowel Sounds Present, Soft, Non Tender, Non-Distended : No renal angle tenderness. No suprapubic tenderness. Extremities: No edema, Capillary Refill Less than 3 Seconds Skin: No rashes, No breakdown Musculoskeletal: No Tenderness to Palpation of Joints or Extremities Neurological: Cranial nerves II-XII grossly intact, DTR 2+/4. No acute focal neurological deficit. Psych/Mental Status: Flat affect Assessment & Plan Assessment/Plan (1) Bilateral pulmonary embolism: (2) Anemia affecting ninth : (3) Hypokalemia: PLAN: Plan This is a 37-year-old female was admitted with shortness of breath, midsternal chest discomfort and found to be 9 weeks . No previous history of thromboembolic disease. Bilateral pulmonary emboli resulting into moderate RV dilatation/right heart failure and elevated troponin -Not saddle on CT -No right heart strain seen on CT , troponin elevated 866, 1840 and 1984. -BNP is normal -2D echo shows moderate dilatation of RV. EF 60%. Consistent with mild pulmonary hypertension -Patient's heparin drip changed to Lovenox. I talked to flake drier Dr. Call. He recommended to continue enoxaparin 1 mg/kg body weight till 6 weeks . Needs to see her after she completes enoxaparin after liver. -Pulmonary medicine consultation reviewed and appreciated. Hypokalemia -40 mill equivalents p.o. potassium -Recheck in a.m. -Check a magnesium level Abnormal TSH -TSH on presentation was 0.22. Free T4 normal at 0.96. -Suspect euthyroid sick. Repeat thyroid function test after 6 weeks. Microcytic anemia -Suspect patient may be iron deficiency as she is Serum iron 20, TIBC normal. Iron saturation of 5.5% ferritin 16 consistent with iron deficiency anemia. IV iron infusion ordered and then continue oral iron supplement 9 week -Nonviable at this point so no [employer] involvement needed at this time -She is -Ultrasound was performed and did demonstrate a viable fetus with a heart rate of 170 -Outpatient follow-up after discharge DVT prophylaxis -Full anticoagulation as noted above CODE STATUS Full code Clinical Impression(s) from Imaging Studies Chest X-Ray 10/13/23 15:14 IMPRESSION: No radiographic evidence of acute cardiopulmonary disease. Electronically Signed: Bryan Aguirre MD at 15:31 EST , Chest CTA 10/13/23 15:38 IMPRESSION: (NOT LISTED IN ORDER OF SIGNIFICANCE) There is no saddle embolus. There is no heart strain. Bilateral pulmonary emboli. Non standard communication findings protocol was initiated. 10/13/2023 4:29 PM Electronically Signed: Bryan Aguirre MD at 16:31 EST , ADDENDUM: 10/13/23 1647 IMPRESSION: (NOT LISTED IN ORDER OF SIGNIFICANCE) There is no saddle embolus. There is no heart strain. Bilateral pulmonary emboli. Non standard communication findings protocol was initiated. 10/13/2023 4:29 PM N.B. : The above Results were Read Back by Bryan Aguirre MD to AUSTIN George, and understanding confirmed on 10/13/2023 16:40:11 (ET). Electronically Signed: Bryan Aguirre MD at 16:31 EST , Obstetrics Ultrasound 10/13/23 15:38 IMPRESSION: There is a single live intrauterine with a heart rate of 170 bpm. Electronically Signed: Bryan Aguirre MD at 17:45 EST , Echocardiogram 10/14/23 05:55 Interpretation Summary Normal LV size. Left ventricular systolic function is normal. The estimated ejection fraction is 60 %. D shaped septum in diastole. Stage 1 diastolic dysfunction. Moderately dilated right ventricle. Apical sparing noted Mild pulmonary hypertension. Charges/Coding Visit Charges Inpatient E&M: 49421 Subs Hosp L2
[2023-10-14 08:16] LABS: Partial Thromboplast Time 40.3 Seconds (24.1-36.2)
[2023-10-14 09:17] VITALS: BP 122/82; PULSE 108; RESP 16; TEMP 36.5; O2SAT 96
[2023-10-14] MEDS: Acetaminophen 325 MG Tablet 650 MG PO (09:21)
[2023-10-14] MEDS: Enoxaparin 80 MG/0.8 ML Syringe SC ×2 (10:18→20:37)
--- NOTE | 2023-10-14 10:55 | CASEMGMT ---
RADHA BROOKS Face to Face with patient for initial transition planning/care coordination assessment. RN CM introduced self and role at [facility]. Patient lying in bed, alert and oriented, at bedside. Patient willing to participate in assessment and is able to answer all questions appropriately. Care providers, pharmacy, and demographics verified. Patient wishes to discharge home, denies need for home health at this time. Patient states she has no further needs or concerns at this time. CM to follow for discharge planning needs that may arise. PCP: Kory Specialists: Beth[facility] Glover [place] Preferred Pharmacy: [facility]; [facility] retail at discharge. Insurance: [employer] Prescription Benefit: none Living Will/HPOA:none LNOK: Living Arrangements: Patient lives with and family in a 3 story home with bed and bath on first floor, 3 steps and railing to enter the home. Patient states she is independent at home. Transportation: driving service DME/HHC: Patient has access to shower chair and wheelchair. Patient has generator for electricity. Will monitor for home oxygen, prefers [employer] for DME. No previous HHC or SNF Disposition Plan: Patient to discharge home with family support and follow-up plans in place. Violet KIM, RN, CM
[2023-10-14 14:29] VITALS: BP 112/72; PULSE 101; RESP 16; TEMP 36.7; O2SAT 98
[2023-10-14] MEDS: Sodium Ferric Gluconat/Sucrose 250 MG in 0.9% Normal Saline (250mL Bag) 250 ML 135 MG IV (16:43)
[2023-10-14] MEDS: 0.9% Saline Lock 10 ML Syringe IV (16:44)
[2023-10-14 20:35] VITALS: BP 116/78; PULSE 95; RESP 14; TEMP 36.6; O2SAT 98
[2023-10-15 03:00] VITALS: BP 107/70; PULSE 85; RESP 14; TEMP 36.9; O2SAT 95
[2023-10-15 07:33] VITALS: O2SAT 96
--- NOTE | 2023-10-15 08:08 | DCINST_ITS ---
Discharge Instructions Diet Discharge Diet: No restrictions Activity Discharge Activity: Return to Normal Activity Weight Bearing Status: Weight bearing as tolerated Dressing / Incision Call your doctor if you observe: Fever of 101 or Higher, Coldness, Increased Pain, Numbness or Tingling, Change in Color, Inability to urinate, Inability to have a bowel movement, Using more than 1 pad per hour, Shortness of breath, Dizziness, Fainting spells, Swelling in the ankles, Chest pain, Prolonged hiccupping, Increased palpitations (irregular heartbeat) and Calf discomfort Follow Up Care When: IN 2 WEEKS Test Results: Test results from this visit will be discussed in further detail at your follow- up appointment, if applicable. Discharge Plan Admission Admit Date/Time: 10/13/23 18:11 Attending Provider: Gilson Daily Primary Care Provider: Arie Horn Consulting Providers: Richy Kitchen; Valdez Sullivan; Kaden Mireles; Alex Gardner; Tiffani Pereira; Telly Franklin; Brandi Madera; Maggy Adhikari; Esau Davis; Tony Giang; Xavier Colón; Alejandro Herrera; Lachelle Fletcher Discharge Orders/Prescriptions Prescriptions: New enoxaparin 80 mg/0.8 mL Syringe 80 mg subcut Q12 30 Days Qty: 48 0RF Rx Instructions: Enoxaparin to continue throughout to 6 weeks . folic acid 1 mg tablet 1 mg PO DAILY Qty: 30 2RF ferrous sulfate [FeroSul] 325 mg (65 mg iron) tablet 325 mg PO QODAY Qty: 30 2RF ascorbic acid (vitamin C) 500 mg tablet 500 mg PO BID Qty: 60 2RF Referrals / Follow Up: Donn Aguilar MD [Med Staff - Active Staff] - Within 1 Month (Follow up blood clot in lungs) Lesley Castillo MD [Med Staff - Active Staff] - See Referral Note (After delivery of the baby.) Arie Horn DO [Primary Care Provider] - Within 1 Week Disposition Disposition (needs filled in before D/C Order can be placed): Home, Self Care
--- NOTE | 2023-10-15 08:13 | DS.PCM_ITS ---
Providers Date of Admission: 10/13/23 Primary Care Physician: Dr. Arie Horn, Consultations 10/13/23 19:35 Consult: Net Mobile Developer / Pulmonary Medicine Routine Consulting Provider: Intensivists/Pulmonary Med Reason for Consult: PE EMERGENT Consult: No Notified: No Date Notified: 10/13/23 Time Notified: 18:13 10/14/23 00:23 Consult: Net Mobile Developer / Pulmonary Medicine Routine Consulting Provider: Intensivists/Pulmonary Med Reason for Consult: PE EMERGENT Consult: No Notified: Yes Date Notified: 10/14/23 Time Notified: 00:23 Method of Notification: Verbal Reason For Visit: B PULMONARY EMBOLI Diagnosis Discharge Diagnosis (1) Bilateral pulmonary embolism: Status: Acute Code(s): I26.99 - Other pulmonary embolism without acute cor pulmonale (2) Anemia affecting ninth : Status: Acute Code(s): O99.019 - Anemia complicating , unspecified trimester; O09.40 - Supervision of with grand multiparity, unspecified trimester (3) Hypokalemia: Status: Acute Code(s): E87.6 - Hypokalemia Plan This is a 37-year-old female was admitted with shortness of breath, midsternal c hest discomfort and found to be 9 weeks . No previous history of thromboembolic disease. Bilateral pulmonary emboli resulting into moderate RV dilatation/right heart failure and elevated troponin -Not saddle on CT -No right heart strain seen on CT , troponin elevated 866, 1840 and 1985. -BNP is normal -2D echo shows moderate dilatation of RV. EF 60%. Consistent with mild pulmonary hypertension -Patient's heparin drip changed to Lovenox. I talked to litigation associate Dr. Call. He recommended to continue enoxaparin 1 mg/kg body weight till 6 weeks . The patient needs to see him after she completes enoxaparin in hematology clinic for workup for hypercoagulable disorder. -Pulmonary medicine consultation reviewed and appreciated. 10/15: Tachypnea has resolved. Pulse ox 96% on room air. Hypokalemia -40 mill equivalents p.o. potassium Hypokalemia resolved. Abnormal TSH -TSH on presentation was 0.22. Free T4 normal at 0.96. -Suspect euthyroid sick. Repeat thyroid function test after 6 weeks. Microcytic anemia -Suspect patient may be iron deficiency as she is Serum iron 20, TIBC normal. Iron saturation of 5.5% ferritin 16 consistent with iron deficiency anemia. IV iron infusion ordered and then continue oral iron supplement 10/15: Prescriptions given for ferrous sulfate and ascorbic acid and folic acid. 9 week -Nonviable at this point so no MONUMENT STONECUTTER involvement needed at this time -She is -Ultrasound was performed and did demonstrate a viable fetus with a heart rate of 170 -Outpatient follow-up after discharge DVT prophylaxis -Full anticoagulation as noted above CODE STATUS Full code Discharge medication reconciliation done. Discharge follow-up instructions completed. Discharge process discussed with the patient and all questions were answered to patient's satisfaction. Follow with PCP in 1 to 2 weeks Total time spent, exact 35 minutes on discharge meds reconciliation, examination, coordination of care with nurses and ancillary staff, review of imaging and blood test and discussion with the patient on follow-up instructions. Clinical Impression(s) from Imaging Studies Chest X-Ray 10/13/23 15:14 IMPRESSION: No radiographic evidence of acute cardiopulmonary disease. Electronically Signed: Bryan Aguirre MD at 15:31 EST , Chest CTA 10/13/23 15:38 IMPRESSION: (NOT LISTED IN ORDER OF SIGNIFICANCE) There is no saddle embolus. There is no heart strain. Bilateral pulmonary emboli. Non standard communication findings protocol was initiated. 10/13/2023 4:29 PM Electronically Signed: Bryan Aguirre MD at 16:31 EST , ADDENDUM: 10/13/23 1647 IMPRESSION: (NOT LISTED IN ORDER OF SIGNIFICANCE) There is no saddle embolus. There is no heart strain. Bilateral pulmonary emboli. Non standard communication findings protocol was initiated. 10/13/2023 4:29 PM N.B. : The above Results were Read Back by Bryan Aguirre MD to AUSTIN George, and understanding confirmed on 10/13/2023 16:40:11 (ET). Electronically Signed: Bryan Aguirre MD at 16:31 EST , Obstetrics Ultrasound 10/13/23 15:38 IMPRESSION: There is a single live intrauterine with a heart rate of 170 bpm. Electronically Signed: Bryan Aguirre MD at 17:45 EST , Echocardiogram 10/14/23 05:55 Interpretation Summary Normal LV size. Left ventricular systolic function is normal. The estimated ejection fraction is 60 %. D shaped septum in diastole. Stage 1 diastolic dysfunction. Moderately dilated right ventricle. Apical sparing noted Mild pulmonary hypertension. Medications at Discharge Home Medications ascorbic acid (vitamin C) 500 mg tablet 500 mg PO BID #60 tabs 10/15/23 enoxaparin 80 mg/0.8 mL subcutaneous syringe 80 mg (0.8 mL) subcut Q12 1 month #48 mL 10/15/23 ferrous sulfate 325 mg (65 mg iron) tablet (FeroSul) 325 mg PO QODAY #30 tabs 10/15/23 folic acid 1 mg tablet 1 mg PO DAILY #30 tabs 10/15/23 Physical Exam Narrative Patient does not have chest pain or shortness of breath. Shortness of breath is improved. Patient had mild tiny bit coughed up some blood. Seen and examined. Physical exam General: Alert, Oriented x3, Cooperative HEENT: Atraumatic, PERRLA, EOMI, Normocephalic Oral: Oral mucosa moist. No Gingival or Mucosal Lesions/ Ulcerations Neck: Supple, No JVD, Negative Carotid Bruits Lungs: Air entry equal in bilateral lung bases. No crepitation/rhonchi Cardiovascular: Regular rate, Regular Rhythm, P2 not loud. No murmurs Abdomen: Bowel Sounds Present, Soft, Non Tender, Non-Distended : No renal angle tenderness. No suprapubic tenderness. Extremities: No edema, Capillary Refill Less than 3 Seconds Skin: No rashes, No breakdown Musculoskeletal: No Tenderness to Palpation of Joints or Extremities Neurological: Cranial nerves II-XII grossly intact, DTR 2+/4. No acute focal neurological deficit. Psych/Mental Status: Flat affect Weight / BMI Weight Weight: 183 lb 6.793 oz Body Mass Index (BMI) 30.5 ABG / Lab / Microbiology Data 10/14/23 06:35 10/14/23 06:35 Laboratory: Laboratory Results - last 24 hr 10/14/23 06:35: APTT 40.3 H Microbiology: Microbiology 10/13/23 14:55 Mucosa - Nose SARS-CoV-2, Influenza & RSV (PCR) - Final Radiography Diagnostic Testing: Radiology Impression Venous Doppler Study 10/13/23 19:35 Interpretation Summary Deep veins of the bilateral lower extremities are patent and compressible segmentally. There is no evidence of bilateral lower extremity deep vein thrombosis. The bilateral great saphenous veins appear patent and compressible segmentally. Ordering Physician: Lachelle Fletcher Referring Physician: Arie Horn Performed By: Pauline Martínez RDCS, RVT Echocardiogram 10/14/23 05:55 Interpretation Summary Normal LV size. Left ventricular systolic function is normal. The estimated ejection fraction is 60 %. D shaped septum in diastole. Stage 1 diastolic dysfunction. Moderately dilated right ventricle. Apical sparing noted Mild pulmonary hypertension. Ordering Physician: Lachelle Fletcher Referring Physician: Arie Horn Performed By: Maria T Alford RDCS D/C Instructions Discharge Diet: No restrictions Weight Bearing Status: Weight bearing as tolerated Call your doctor if you observe: Fever of 101 or Higher, Coldness, Increased Pain, Numbness or Tingling, Change in Color, Inability to urinate, Inability to have a bowel movement, Using more than 1 pad per hour, Shortness of breath, Dizziness, Fainting spells, Swelling in the ankles, Chest pain, Prolonged hiccupping, Increased palpitations (irregular heartbeat) and Calf discomfort When: IN 2 WEEKS Meaningful Use Info Meaningful Use Diagnoses (Choose all that apply): VTE VTE Anticoag overlap given w/in hospital stay or rx'd at me?: Yes Pt receive overlap for 5 days?: No Reason overlap not ordered, prescribed, or given for 5 days: Treatment Not Indicated Discharge Plan Admission Admit Date/Time: 10/13/23 18:11 Attending Provider: Gilson Daily Primary Care Provider: Arie Horn Consulting Providers: Richy Kitchen; Valdez Sullivan; Kaden Mireles; Alex Gardner; Tiffani Pereira; Telly Franklin; Brandi Madera; Maggy Adhikari; Esau Davis; Tony Giang; Xavier Colón; Alejandro Herrera; Lachelle Fletcher Discharge Orders/Prescriptions Prescriptions: New enoxaparin 80 mg/0.8 mL Syringe 80 mg subcut Q12 30 Days Qty: 48 0RF Rx Instructions: Enoxaparin to continue throughout to 6 weeks . folic acid 1 mg tablet 1 mg PO DAILY Qty: 30 2RF ferrous sulfate [FeroSul] 325 mg (65 mg iron) tablet 325 mg PO QODAY Qty: 30 2RF ascorbic acid (vitamin C) 500 mg tablet 500 mg PO BID Qty: 60 2RF Referrals / Follow Up: Donn Aguilar MD [Med Staff - Active Staff] - Within 1 Month (Follow up blood clot in lungs) Lesley Castillo MD [Med Staff - Active Staff] - See Referral Note (After delivery of the baby.) Arie Horn DO [Primary Care Provider] - Within 1 Week Kaden Mireles DO [Med Staff - Active Staff] - Within 1 Month (Bilateral pulmonary embolism with RV dilatation) Disposition Disposition (needs filled in before D/C Order can be placed): Home, Self Care Charges/Coding Visit Charges Inpatient E&M: 59369 Disch Hosp >30min
[2023-10-15 08:33] VITALS: BP 117/77; PULSE 88; RESP 16; TEMP 36.3; O2SAT 96
[2023-10-15] MEDS: Enoxaparin 80 MG/0.8 ML Syringe SC (08:44)
--- NOTE | 2023-10-15 10:42 | CASEMGMT ---
Patient has order for discharge. Patient discharging on Lovenox, cost is $62.50. RN CM in to discuss needs at discharge. RN CM updated patient regarding cost of medication. Patient and deny needs or help at discharge. Patient denies any questions or concerns.
[2023-10-15 10:46] VITALS: O2SAT 96; O2SAT 98
== END 2023-10-15 13:14 | disposition home or self-care (01) | DRG 831 ==
LOC: ED 14:34 → PCU 18:19
PROVIDERS: Physician Assistant; Admitting Provider Internal Medicine; Emergency Provider Emergency Medicine; PCP Family Medicine; Visit Provider Internal Medicine
DX: O88.211 Thromboembolism in pregnancy, first trimester (principal); I26.09 Other pulmonary embolism with acute cor pulmonale; D50.8 Other iron deficiency anemias; E87.6 Hypokalemia; O99.011 Anemia complicating pregnancy, first trimester; O99.891 Other specified diseases and conditions complicating pregnancy; R94.6 Abnormal results of thyroid function studies; O99.281 Endocrine, nutritional and metabolic diseases complicating pregnancy, first trimester; Z3A.09 9 weeks gestation of pregnancy
CPT/HCPCS: 36415; 71046; 71275; 76817; 80048; 80053; 82728; 83540; 83550; 83735; 83880; 84100; 84439; 84443; 84484; 85025; 85610; 85730; 87631; 93005; 93306; 93970; 94668; 97802; 99252; 99285; J7030; J7050; Q9967; A4216; G0463; J2916

== ENCOUNTER 2023-11-18 10:04 | Emergency (ER) | payer OTHER, SELFPAY ==
[2023-11-18 10:05] VITALS: BP 133/76; PULSE 86; RESP 18; TEMP 36.2; O2SAT 99
--- NOTE | 2023-11-18 10:23 | EKG12_ITS ---
Test Reason : CP/SOB Blood Pressure : / mmHG Vent. Rate : 081 BPM Atrial Rate : 081 BPM P-R Int : 150 ms QRS Dur : 084 ms QT Int : 380 ms P-R-T Axes : 048 060 024 degrees QTc Int : 441 ms Normal sinus rhythm Normal ECG Confirmed by ROLAND JUAREZ, MANOHAR ([id number]), offline editor AMOR ORTIZ ([id number]) on 11/25/2023 9:49:46 AM Referred By: Confirmed By:MITA WATKINS MD
--- NOTE | 2023-11-18 10:24 | ED.VIS.DYS ---
HPI History of Present Illness Chief Complaint: Shortness of Breath Informant: patient and spouse/S.O. Onset/Context/Timing Onset: Weeks Context: gradual Current Severity: Mild Maximum Severity: Mild Worsened by: Exertion Relieved by: Rest Associated Symptoms Negative for cough Chest Pain: Positive for None Narrative Narrative: 38-year-old female history of multiple pulmonary emboli diagnosed on October 13 with CTA. She is currently 15 weeks . Ab1. She has a due date of May 15 this year. She been short of breath since diagnosed with blood clots in September. She is currently and has been on Lovenox shots twice daily and says she has not missed them. Denies any chest pain. No fever or cough. PE Risk Factors: Positive for Prior DVT or PE and - (15 weeks .); Negative for Cancer, OCP + Smoking + > 35, Recent immobilization, Recent surgery or Recent travel Prior similar symptoms: Yes Recent Illness/Hospitalization: Yes PFSH PFSH Medical History Abnormal TSH Bilateral pulmonary embolism Home Medications ascorbic acid (vitamin C) 500 mg tablet 500 mg PO BID #60 tabs 10/15/23 [Rx Last Taken Unknown] enoxaparin 80 mg/0.8 mL subcutaneous syringe 80 mg (0.8 mL) subcut Q12 1 month #48 mL 10/15/23 [Rx Last Taken Unknown] ferrous sulfate 325 mg (65 mg iron) tablet (FeroSul) 325 mg PO QODAY #30 tabs 10/15/23 [Rx Last Taken Unknown] folic acid 1 mg tablet 1 mg PO DAILY #30 tabs 10/15/23 [Rx Last Taken Unknown] Allergy/AdvReac Type Severity Reaction Status Date / Time No Known Allergies Allergy Verified 11/18/23 10:04 Family History Sister FH: thromboembolic disease Social History household members: family housing: house current occupation: [employer] Smoking Status: Never smoker alcohol intake: never substance use type: does not use ROS ROS ED ROS Narrative Shortness of breath. Review of Systems ROS Unobtainable: Denies due to encephalopathy Constitutional Constitutional ED: Denies chills or fever(s) Eyes Eyes: Denies blurry vision ENT ENT ED: Denies ear pain Cardiovascular Cardiovascular: Denies chest pain Respiratory/Chest Respiratory/Chest: Reports dyspnea and dyspnea on exertion; Denies cough Gastrointestinal Gastrointestinal: Denies abdominal pain Genitourinary Genitourinary ED: Denies dysuria or hematuria Musculoskeletal Musculoskeletal: Denies arthralgias Integumentary Denies abscess Neurologic Neurologic: Denies headache(s) Psychiatric Psychiatric: Denies anxiety Endocrine Endocrinology: Denies cold intolerance Hematologic/Lymphatic Hematologic/Lymphatic: Denies lymphadenopathy Allergic/Immunologic Allergic/Immunologic ED: Denies mouth swelling, tongue swelling or urticaria EXAM Physical Exam Narrative Exam Narrative: 38-year-old female no acute distress. Vital signs stable afebrile. Heart rate 86. Pulse ox 99% on room air no signs hypoxia. Clinically looks well. at bedside. HEENT exam unremarkable. Moist membranes. Neck nontender no JVD. No lymphadenopathy. Lungs clear to auscultation bilaterally. Heart regular rhythm no murmur. Rate about 85. Chest wall and ribs nontender. Abdomen soft nontender. Normal bowel sounds no peritoneal signs. Gravid nontender uterus. Moving all 4 extremities. Calves are nontender without edema or cords. Neurologically she is awake alert no focal motor deficits. Const Vital Signs: 11/18/23 10:05 11/18/23 10:36 11/18/23 10:36 Temperature 97.1 F L Temperature Source Temporal Pulse Rate 86 Respiratory Rate 18 Respiratory Effort Normal Non-Labored Respiratory Depth Normal Respiratory Pattern Normal Blood Pressure 133/76 H Blood Pressure Mean 95 Pulse Ox 99 100 Oxygen Delivery Method Room Air Room Air Room Air 11/18/23 11:57 11/18/23 13:28 Temperature Temperature Source Pulse Rate 76 81 Respiratory Rate 16 16 Respiratory Effort Respiratory Depth Respiratory Pattern Blood Pressure 120/69 108/67 Blood Pressure Mean 86 80 Pulse Ox 98 98 Oxygen Delivery Method Room Air Room Air Positive well nourished and well developed; Negative for cachectic, contractures or unkempt General Appearance ED: well developed and NAD; Negative for unkempt, cachectic, contractures or pallor Nutritional Appearance: Negative for cachectic HEENT Reports moist mucous membranes atraumatic; Negative for trauma or tenderness Eyes PERRL and EOMs intact bilaterally General Eye ED: Negative for pale conjunctiva or scleral icterus Neck no lymphadenopathy, supple, no meningeal signs and no JVD General: Negative for tenderness Lymph Lymphatic: Negative for other Chest Wall Chest: Negative for other Resp normal respiratory effort and clear to auscultation bilaterally Effort and Inspection: Negative for pain with movement Auscultation: Negative for rales, rhonchi or wheezes Cardio regular rate, regular rhythm, S1 normal heart sound, S2 normal heart sound and no murmurs Rate: Negative for bradycardia or tachycardic Rhythm: Negative for abnormal rhythm GI non-tender, non-distended and no masses GI Narrative: Gravid uterus. Nontender. Auscultation: normoactive bowel sounds Palpation: soft; Negative for tender, guarding or rebound tenderness present Back/Spine no CVA tenderness and normal to inspection General Back: Negative for CVA tenderness Extremity normal to inspection General Extremety ED: Negative for edema or tenderness General Extremity: Negative for edema Neuro CN's II-XII intact bilaterally Sensorium / Orientation: alert, oriented to person, oriented to place and oriented to time; Negative for orientation impaired, confused, lethargic or stuporous Speech: speech normal Motor Exam: strength 5/5 throughout Psych mental status grossly normal Appearance: Negative for unkempt Attitude: No agitated Mood & Affect: Negative for depressed, anxious or tearful Thought Process: normal thought process Skin no wounds and skin turgor normal General Skin Exam: Negative for jaundice or pallor Lesions: no lesions Rashes: no rashes Trauma: Negative for abrasion or laceration MDM MDM MDM Narrative Medical decision making narrative: 38-year-old female currently 15 weeks with a due date in April. Diagnosed with blood clots bilaterally in late September. Has been on Lovenox shots since then. Complaint shortness of breath. Vital signs are stable. Pulse ox 9 9%. Screening labs are being obtained. Repeat exam patient doing well at 2:25 PM. We went over all of her test results. Potassium slightly low. Otherwise she will continue her Lovenox shots. And follow-up she has an OB appointment at the end of this week. Return if she is feeling worse. History & Record Review Discussion w/independent historian: Patient Additional record(s) reviewed:: Prior inpatient record, Prior outpatient record, Prior ED visit and Prior labs Lab Data Attestation: I reviewed the patient's lab results. Lab results narrative: CBC normal. White count 7. H&H 13 and 39. Platelets 226. BMP shows a potassium 3.2. 7. BUN is 6 creatinine 0.5. Glucose 77. Troponin 5. Chest x-ray normal. Labs: Laboratory Results - last 24 hr 11/18/23 10:30 WBC 7.4 RBC 4.83 Hgb 13.0 Hct 39.7 MCV 82.2 MCH 26.9 L MCHC 32.7 RDW Std Deviation 52.6 H RDW Coeff of Garima 17.6 H Plt Count 226 MPV 9.2 Immature Gran % (Auto) 0.700 Neut % (Auto) 64.3 Lymph % (Auto) 27.4 [place] % (Auto) 6.4 Eos % (Auto) 0.9 Baso % (Auto) 0.3 Absolute Neuts (auto) 4.8 Absolute Lymphs (auto) 2.03 Nucleated RBC % 0 Sodium 138 Potassium 3.2 L Chloride 109 H Carbon Dioxide 22.0 Anion Gap 7 BUN 6 L Creatinine 0.52 L Estim Creat Clear Calc 153.72 Est GFR (MDRD) Af Amer 170 Est GFR (MDRD) Non-Af 141 BUN/Creatinine Ratio 11.6 Glucose 77 Calcium 9.3 Troponin I High Sens 5 Radiography Chest X-Ray - ED: 1 View, Read by ED Physician, Read by Radiologist, Heart, Lungs, Mediastinum, Bony Structures and No Acute Disease Diagnostic Testing: Clinical Impression(s) from Imaging Studies Chest X-Ray 11/18/23 10:25 IMPRESSION: Normal x-ray examination of the chest. Electronically Signed: Anton Vitale MD at 10:51 EST , Chest x-ray, portable, single view interpreted by myself and the radiologist shows no acute abnormality. Normal cardiac silhouette. Normal lung sauceda. No effusions. No infiltrates. Rhythm Strip Rhythm Strip: Sinus Rhythm Rate: 81 Ectopy: None EKG Initial EKG: Attestation: I personally reviewed and interpreted this EKG as follows: Interpretation: Sinus Rhythm and No Acute Injury Pattern Comments: Normal sinus rhythm rate 81 no acute signs of PA or ischemia. Discharge Plan Triage Chief Complaint: Shortness of Breath ED Provider: Reese Steele Dx/Rx/DC Orders Clinical Impression: History of blood clots, Acute dyspnea, Chronic anticoagulation, Second trimester Instructions: Pulmonary Embolism, ED Dyspnea Prescriptions: No Action enoxaparin 80 mg/0.8 mL Syringe 80 mg subcut Q12 30 Days Qty: 48 0RF Rx Instructions: Enoxaparin to continue throughout to 6 weeks . folic acid 1 mg tablet 1 mg PO DAILY Qty: 30 2RF ferrous sulfate [FeroSul] 325 mg (65 mg iron) tablet 325 mg PO QODAY Qty: 30 2RF ascorbic acid (vitamin C) 500 mg tablet 500 mg PO BID Qty: 60 2RF Primary Care Provider: Arie Horn Referrals: Arie Horn DO [Primary Care Provider] - Samantha Blandon MD [Med Staff - Active Staff] - Keep Luis M appointment Activity Restrictions/Additional Instructions: Make sure you continue your Lovenox shots. Follow-up with your [facility] appointment later this week. Your potassium was slightly low at 3.2 plenty of fruits and vegetables and that should improve. Disposition Disposition: Home, Self Care
--- NOTE | 2023-11-18 10:25 | RAD_ITS ---
STUDY: X-RAY CHEST REASON FOR EXAM: Female, 38 years old. Chest pain TECHNIQUE: Single AP portable view of the chest. COMPARISON: Comparison is made with prior study dated October 13, 2023. FINDINGS: The lungs are clear and expanded. There is no demonstrated pleural abnormality. Normal size heart. Normal mediastinum and arlet. Normal visualized pulmonary arteries. Normal visualized aortic arch and descending thoracic aorta. Normal visualized thoracic spine. Normal visualized ribs, clavicles, and shoulders. There is no demonstrated abnormality of the visualized soft tissue structures of the upper abdomen. RAD/Chest 1 View (Portable) IMPRESSION: Normal x-ray examination of the chest. Electronically Signed: Anton Vitale MD at 10:51 [facility] ,
[2023-11-18 10:36] VITALS: O2SAT 100; BMI 30.1
[2023-11-18 10:53] LABS: Absolute Lymphocyte Count 2.03 X10^3/uL (0.83-4.51); Absolute Neutrophil Count 4.8 X10^3/uL (2.0-7.7); Basophil# 0.02 X10^3/uL; Basophil% 0.3 % (0-1); Eosinophil# 0.07 X10^3/uL; Eosinophils% 0.9 % (0-5); Hematocrit 39.7 % (37-47); Lymphocyte # 2.03 X10^3/ul (0.83-4.51); Lymphocyte % 27.4 % (19-41); Mean Corp Hgb Conc 32.7 g/dL (32-36); Mean Corpuscular Hgb 26.9 pg (27.0-32.0); Mean Corpuscular Volume 82.2 fL (81-99); Mean Platelet Vol. 9.2 fl (6.2-12.0); Monocyte# 0.47 X10^3/uL; Monocyte% 6.4 % (0-10); NRBC Flagged by Analyzer 0 % (0-5); Neutrophil # 4.76 X10^3/uL (2.7-7.7); Neutrophil % 64.3 % (47-70); Platelet Count 226 K/mm3 (150-450); RBC Distribution Width CV 17.6 % (11.6-14.6); RBC Distribution Width SD 52.6 fl (35.1-43.9); Red Blood Count 4.83 M/mm3 (4.2-5.4); White Blood Count 7.4 K/mm3 (4.4-11.0)
[2023-11-18 11:14] LABS: Anion Gap 7 (5-15); BUN 6 mg/dL (7-18); BUN/Creat Ratio 11.6 RATIO (10-20); Calcium,Total 9.3 mg/dL (8.5-10.1); Chloride 109 mmol/L (98-107); Creatinine, Serum 0.52 mg/dL (0.55-1.02); EST Glomerular Filtration Rate 141 mL/min (>60); Est Glom Filt Rate - Afr Amer 170 mL/min (>60); Estimated Creatinine Clearance 153.72 ml/min; Glucose 77 mg/dL (74-106); Potassium 3.2 mmol/L (3.5-5.1); Sodium Level 138 mmol/L (136-145); Troponin-I HS 5 pg/mL (3.0-54.0)
[2023-11-18 11:57] VITALS: BP 120/69; PULSE 76; RESP 16; O2SAT 98
[2023-11-18 13:28] VITALS: BP 108/67; PULSE 81; RESP 16; O2SAT 98
[2023-11-18 14:36] VITALS: BP 112/72; PULSE 81; RESP 16; TEMP 36.6; O2SAT 100
== END 2023-11-18 14:38 | disposition home or self-care (01) ==
PROVIDERS: Emergency Provider Emergency Medicine; PCP Family Medicine; Visit Provider Emergency Medicine
DX: O99.891 Other specified diseases and conditions complicating pregnancy (principal); R06.02 Shortness of breath; O09.522 Supervision of elderly multigravida, second trimester; Z79.01 Long term (current) use of anticoagulants; Z86.711 Personal history of pulmonary embolism; Z3A.15 15 weeks gestation of pregnancy
CPT/HCPCS: 71045; 80048; 84484; 85025; 93005; 99284; A4216

== ENCOUNTER 2024-04-30 07:17 | Inpatient (IN) | payer SELFPAY ==
[2024-04-30] VITALS (18 sets, daily range): BP systolic 99–129; BP diastolic 54–79; PULSE 65–102; RESP 15–18; TEMP 36.2–36.9; O2SAT 97–99; BMI 32.3
[2024-04-30] MEDS: Lactated Ringers 1,000 ML 50 ML IV (07:55)
[2024-04-30 08:21] LABS: Absolute Lymphocyte Count 1.32 X10^3/uL (0.83-4.51); Absolute Neutrophil Count 4.8 X10^3/uL (2.0-7.7); Basophil# 0.04 X10^3/uL; Basophil% 0.6 % (0-1); Eosinophil# 0.09 X10^3/uL; Eosinophils% 1.3 % (0-5); Hematocrit 34.6 % (37-47); Hemoglobin 11.8 g/dL (12.0-15.0); Lymphocyte # 1.32 X10^3/ul (0.83-4.51); Lymphocyte % 19.3 % (19-41); Mean Corp Hgb Conc 34.1 g/dL (32-36); Mean Corpuscular Hgb 30.9 pg (27.0-32.0); Mean Corpuscular Volume 90.6 fL (81-99); Mean Platelet Vol. 9.5 fl (6.2-12.0); Monocyte# 0.41 X10^3/uL; NRBC Flagged by Analyzer 0 % (0-5); Neutrophil # 4.83 X10^3/uL (2.7-7.7); Neutrophil % 70.8 % (47-70); Platelet Count 150 K/mm3 (150-450); RBC Distribution Width CV 14.6 % (11.6-14.6); RBC Distribution Width SD 47.7 fl (35.1-43.9); Red Blood Count 3.82 M/mm3 (4.2-5.4); White Blood Count 6.8 K/mm3 (4.4-11.0)
[2024-04-30 08:28] LABS: Bedside Glucose 152 mg/dL (74-106)
--- NOTE | 2024-04-30 08:34 | PCM.HP.OB ---
HPI - General General Date of Admission: 04/30/24 Date of Service: 04/30/24 Chief Complaint: induction HPI Narrative AUGUSTIN GARCIA, is a 38 F who presents for scheduled IOL. She offers no complaints. No pain, vb, lof. Good FM. PFSH [facility] Medical History (Updated 04/30/24 @ 08:[address] Bhargavi Wade, DO) Abnormal TSH Bilateral pulmonary embolism Home Medications ?Medication ?Instructions ?Recorded ?Last Taken ?Type ascorbic acid (vitamin C) 500 mg 500 mg PO BID vitamin #60 tabs 10/15/23 04/29/24 Rx tablet enoxaparin 80 mg/0.8 mL 80 mg (0.8 mL) subcut Q12 10/15/23 04/29/24 Rx subcutaneous syringe pulmonary embolism 1 month #48 mL ferrous sulfate 325 mg (65 mg 325 mg PO QODAY anemia #30 tabs 10/15/23 04/29/24 Rx iron) tablet (FeroSul) folic acid 1 mg tablet 1 mg PO DAILY #30 tabs 10/15/23 04/30/24 Rx insulin NPH isoph U-100 human 100 22 unit subcut DAILY diabetes 04/30/24 04/29/24 History unit/mL subcutaneous suspension (Humulin N NPH U-100 Insulin (isophane susp)) insulin lispro 100 unit/mL 6 unit subcut DAILY diabetes 04/30/24 04/29/24 History subcutaneous solution [id number] 5 ml PO DAILY 04/30/24 04/29/24 History Allergy/AdvReac Type Severity Reaction Status Date / Time No Known Allergies Allergy Verified 04/30/24 07:30 Family History (Reviewed 11/21/23 @ 08:26 by Marita Murillo FIRE PREVENTION INSPECTOR, FIRE PREVENTION INSPECTOR-C) Sister FH: thromboembolic disease Social History (Reviewed 11/21/23 @ 08:26 by Marita Murillo FIRE PREVENTION INSPECTOR, FIRE PREVENTION INSPECTOR-C) household members: family housing: house current occupation: [employer] Smoking Status: Never smoker alcohol intake: never substance use type: does not use NST FHR Rate Baby A Baseline: 145 Variability:: Moderate Accelerations:: 15 x 15 Decelerations:: None NST Reactive:: Yes FHR Category:: Category I Uterine Activity:: irregular Vital Signs Vital Signs Vital Signs: 04/30/24 08:08 04/30/24 08:08 04/30/24 08:08 Pulse Rate 96 Blood Pressure 116/75 BP Systolic 116 BP Diastolic 75 Pulse Ox 98 Weight Weight: 194 lb 4 oz Body Mass Index (BMI) 32.3 Physical Exam Const alert and no apparent distress General Appearance: comfortable HEENT normocephalic Resp normal respiratory effort GI soft to palpation, non-tender and non-distended Narrative: Cvx 4/70/-2, head well applied Labs Labs Labs: Antibody Screen Pending Hct 34.6 % (37-47) L Hgb 11.8 g/dL (12.0-15.0) L Obstetrics Ultrasound Syphilis Total Ab Pending Assessment & Plan (1) Bilateral pulmonary embolism: PLAN: Therapeutic lovenox held 24 hours (2) 38 weeks gestation of : (3) Advanced maternal age (AMA) in : (4) GDM, class A2: PLAN: Poorly controlled in . Discussed with patient may need insulin drip. Diabetic protocol (5) History of hemorrhage: (6) History of : (7) Encounter for planned induction of labor: PLAN: AROM performed in usual sterile fashion with return of clear fluid. Pitocin per protocol. GBS negative. Pelvis adequate and EFW < 4500 grams. Anticipate vaginal delivery
[2024-04-30 09:42] LABS: Bedside Glucose 113 mg/dL (74-106)
[2024-04-30 09:50] LABS: Syphilis Antibodies Non-reactive
[2024-04-30] MEDS: Oxytocin 15 Units/NS 250ml 15 UNITS/250 ML IV.SOLN 2 UNITS IV (10:22)
[2024-04-30 10:58] LABS: Bedside Glucose 115 mg/dL (74-106)
[2024-04-30 11:59] LABS: Bedside Glucose 113 mg/dL (74-106)
[2024-04-30 12:43] LABS: Bedside Glucose 93 mg/dL (74-106)
--- NOTE | 2024-04-30 12:51 | PCM.PN.BLA ---
Progress Note pt feeling cramping and ctx's are mild for her. Assessment & Plan Assessment/Plan (1) Encounter for planned induction of labor: PLAN: Cvx unchanged. Cont pitocin per protocol. Patient leaking small amounts of clear fluid. On cervical exam hole in amniotic membranes digitally extended and moderate amount of clear fluid noted on exam. head well applied to cervix and category 1 tracing. Anticipate vaginal delivery. (2) History of : (3) History of hemorrhage: (4) GDM, class A2: (5) Advanced maternal age (AMA) in : (6) 38 weeks gestation of :
--- NOTE | 2024-04-30 14:12 | PCM.OPRPT ---
Problems Associated Problem List Diagnoses (1) Vaginal delivery: (2) Encounter for planned induction of labor: (3) History of : (4) History of hemorrhage: (5) GDM, class A2: (6) Advanced maternal age (AMA) in : (7) 38 weeks gestation of : (8) Bilateral pulmonary embolism: Report of Operation Date of Procedure: 04/30/24 Pre-Operative Diagnosis: 38 week gestation, PE in , uncontrolled A2GDM, AMA Post-Operative Diagnosis: As above Surgery/Procedure Performed:: Description of Surgical Findings:: Called for delivery. Upon entering the room, infant was on mother's chest bonding and the cord was clamped and cut. A VMI was delivered by nursing staff with loose nuchal cord x 1 that was reduced. The cord was clamped and cut prior to entering the room. Apgars 8, 9. The placenta was delivered with fundal massage and noted to be normal appearing and intact with 3VC. Fundus firm and bleeding hemostatic. No lacerations noted. Vaginal sweep performed and sponge count was correct. Surgeon: Bhargavi Wade Type of Anesthesia: None Special Medications: None Specimen's removed: Placenta Drains: None Estimated Blood Loss (mL): 150 Fluids Replaced: N/A Description of Procedure: See above Grafts/Implants Used: None Complications None Admit VTE Documentation VTE Present on Admission: Yes VTE Mechan Device Prophylaxis: SCD's VTE Pharm Prophylaxis ordered?: Yes
[2024-04-30] MEDS: Oxytocin 15 Units/NS 250ml 15 UNITS/250 ML IV.SOLN 83 UNITS IV (14:22)
[2024-04-30 15:11] LABS: Bedside Glucose 142 mg/dL (74-106)
[2024-04-30] MEDS: Acetaminophen 500 MG Tablet 1000 MG PO (15:42)
--- NOTE | 2024-04-30 20:15 | NURSING ---
pt educated on Rubella Non Immune status. Pt declined MMR vaccine.
[2024-04-30] MEDS: Enoxaparin 80 MG/0.8 ML Syringe SC (21:58)
[2024-04-30 22:24] LABS: Bedside Glucose 119 mg/dL (74-106)
[2024-05-01 03:30] VITALS: BP 99/72; PULSE 77; RESP 15; TEMP 36.2; O2SAT 97
[2024-05-01 06:34] LABS: Bedside Glucose 106 mg/dL (74-106)
--- NOTE | 2024-05-01 08:31 | PCM.PN.OB ---
Subjective Subjective Doing well. Breast feeding. Pain and bleeding controlled. Ambulating without difficulty. Objective Data Objective Data Vital Signs: Vital Signs Temp Pulse Resp BP Pulse Ox O2 Del Method 97.2 F L 77 15 99/72 97 Room Air 05/01/24 03:30 05/01/24 03:30 05/01/24 03:30 05/01/24 03:30 05/01/24 03:30 05/01/24 03:30 Oxygen Delivery Method Room Air Weight: 88.11 kg Body Mass Index (BMI) 32.3 Intake & Output: Intake and Output for Last 24 Hours 04/29/24 04/30/24 05/01/24 23:59 23:59 23:59 Intake Total 741.44 / 741.44 Output Total 150 / 150 Balance 591.44 / 591.44 Lab / Micro Data 04/30/24 07:50 Labs: Laboratory Results - last 24 hr 04/30/24 07:50: Syphilis Total Ab Non-reactive, Blood Type A POSITIVE, Antibody Screen NEGATIVE 04/30/24 09:23: POC Glucose 113 H 04/30/24 10:37: POC Glucose 115 H 04/30/24 11:38: POC Glucose 113 H 04/30/24 12:23: POC Glucose 93 04/30/24 14:50: POC Glucose 142 H 04/30/24 21:58: POC Glucose 119 H 05/01/24 06:15: POC Glucose 106 ROS Constitutional Constitutional: Denies fatigue, fever(s) or malaise Eyes Eyes: Denies change in vision ENT HEENT: Denies dizziness or headache(s) Cardiovascular Cardiovascular: Denies chest pain, dyspnea or lightheadedness Respiratory/Chest Respiratory/Chest: Denies cough or dyspnea Gastrointestinal Gastrointestinal: Denies change in bowel habits Genitourinary Genitourinary: Denies burning urination or genital lesions Integumentary Integumentary: Denies rash Neurologic Neurologic: Denies confusion, dizziness, headache(s), numbness or weakness Physical Exam Const alert and no apparent distress Narrative: Fundus firm, below umbilicus. Assessment & Plan (1) Vaginal delivery: (2) GDM, class A2: (3) Advanced maternal age (AMA) in : (4) Bilateral pulmonary embolism:
[2024-05-01 08:37] VITALS: BP 102/76; PULSE 79; RESP 16; TEMP 36.6; O2SAT 97
--- NOTE | 2024-05-01 08:39 | PCM.DC.SUM ---
Providers Date of Admission: 04/30/24 Date of Discharge: 05/01/24 Primary Care Physician: Dr. Arie Horn DO Reason For Visit: INDUCTION Diagnosis Discharge Diagnosis (1) Vaginal delivery: Status: Acute Code(s): O80 - Encounter for full-term uncomplicated delivery (2) GDM, class A2: Status: Acute Code(s): O24.419 - Gestational diabetes mellitus in , unspecified control (3) Advanced maternal age (AMA) in : Status: Acute (4) Bilateral pulmonary embolism: Status: Acute Code(s): I26.99 - Other pulmonary embolism without acute cor pulmonale Medications at Discharge Home Medications ferrous sulfate 325 mg (65 mg iron) tablet (FeroSul) 325 mg PO QODAY anemia #30 tabs 10/15/23 folic acid 1 mg tablet 1 mg PO DAILY #30 tabs 10/15/23 insulin NPH isoph U-100 human 100 unit/mL subcutaneous suspension (Humulin N NPH U-100 Insulin (isophane susp)) 22 unit subcut DAILY diabetes 04/30/24 insulin lispro 100 unit/mL subcutaneous solution 6 unit subcut DAILY diabetes 04/30/24 ybzqdnhjpbrf-cynn-nieqcuzo 5 ml PO DAILY 04/30/24 enoxaparin 80 mg/0.8 mL subcutaneous syringe 80 mg (0.8 mL) subcut Q12 pulmonary embolism 1 month #48 mL 05/01/24 Hospital Course Operations None Procedures None Summary of Care Provided Minutes Spent on Discharge: 22 Physical Exam Const alert and no apparent distress Narrative: Fundus firm, below umbilicus. Weight / BMI Weight Weight: 88.11 kg Body Mass Index (BMI) 32.3 ABG / Lab / Microbiology Data 04/30/24 07:50 Laboratory: Laboratory Results - last 24 hr 04/30/24 07:50: Syphilis Total Ab Non-reactive, Blood Type A POSITIVE, Antibody Screen NEGATIVE 04/30/24 09:23: POC Glucose 113 H 04/30/24 10:37: POC Glucose 115 H 04/30/24 11:38: POC Glucose 113 H 04/30/24 12:23: POC Glucose 93 04/30/24 14:50: POC Glucose 142 H 04/30/24 21:58: POC Glucose 119 H 05/01/24 06:15: POC Glucose 106 D/C Instructions May resume sexual activity in: 6 weeks Please Follow Up With: Samantha Blandon MD When: Follow up with our office in 1-2 and 6 weeks or as needed. [phone] Meaningful Use Info Meaningful Use Meaningful Use Diagnoses (Choose all that apply): None applicable Ischemic Stroke Statin Dosing Therapy Reference: STATIN DOSE THERAPY REFERENCE: * Patients > 75 years receive moderate or high dose statin therapy. * Patients 75 years or YOUNGER should receive HIGH intensity statin dose unless contraindicated. You will be required to document reason for non-treatment if statin daily dose does not meet guidelines. HIGH DOSE STATIN THERAPY DAILY Atorvastatin > than or = to 40 mg Rosuvastatin > than or = to 20 mg Amlodipine + Atorvastatin > than or = to 2.5/40 mg Ezetimibe + Simvastatin 10/80 mg Simvastatin 80mg Discharge Plan Admission Admit Date/Time: 04/30/24 07:17 Primary Reason for Your Visit: IOL Attending Provider: Bhargavi Wade Primary Care Provider: Arie Horn Discharge Orders/Prescriptions Prescriptions: Continued folic acid 1 mg tablet 1 mg PO DAILY Qty: 30 2RF ferrous sulfate [FeroSul] 325 mg (65 mg iron) tablet 325 mg PO QODAY Qty: 30 2RF Humulin N NPH U-100 Insulin 100 unit/mL suspension 22 unit subcut DAILY Rx Instructions: 22 UNITS BEFORE BREAKFAST AND 48 UNITS BEFORE BED insulin lispro 100 unit/mL solution 6 unit subcut DAILY Rx Instructions: 8 UNITS WITH BREAKFAST AND 6 UNITS WITH DINNER jzfkpfhvwzeu-btlu-sjschutz Liquid 5 ml PO DAILY enoxaparin 80 mg/0.8 mL Syringe 80 mg subcut Q12 30 Days Qty: 48 1RF Rx Instructions: Enoxaparin to continue throughout to 6 weeks . Discontinued ascorbic acid (vitamin C) 500 mg tablet 500 mg PO BID Qty: 60 2RF Referrals / Follow Up: Arie Horn DO [Primary Care Provider] -
[2024-05-01 09:03] LABS: Bedside Glucose 101 mg/dL (74-106)
[2024-05-01] MEDS: Enoxaparin 80 MG/0.8 ML Syringe SC (10:36)
[2024-05-01 11:07] LABS: Bedside Glucose 180 mg/dL (74-106)
--- NOTE | 2024-05-01 11:17 | CASEMGMT ---
Social Work Assessment Labor and Delivery Unit Patient Address: [address] [place] [address] [address] [place] [address] Phone number: [phone] Date of Referral: 04/30/24 Time of Referral:?1947 Referred By: Bhargavi Wade Date of Intervention: ?05/01/24? Time of Intervention:? 929 Reason for Referral:? History obtained from: medical records, MOB and FOB Household composition: Patient's parent/guardian status:? ? Medical History: ? Educational Status:? Financial Status: Supplies:?? Childcare/Caregiver(s):? Transportation:?? Programs/Agencies Involved: ??? Children Services/Legal Issues:??? Behavioral Health Issues: ??Mental Health History:??? Substance Use History:?? Family History:? Drug Screens: ?? Family/Social Stressors:? Support Systems: Depression/Shaken Baby/Safe Sleeping:? ASSESSMENT:? Safe Plan of Care for related to substance use:? PLAN:? ?No other services requested or indicated.
--- NOTE | 2024-05-01 11:21 | CASEMGMT ---
Social Work Assessment Labor and Delivery Unit Patient Address:[address] [place] [address] [address] [place] [address] Phone number: [phone] Date of Referral: 04/30/24 Time of Referral:? 1947 Referred By: Bhargavi Wade Date of Intervention: ??05/01/24 Time of Intervention:? 914 Reason for Referral:?hx of depression Sw completed chart review and acknowledges social work consult due to maternal history of depression. Sw presented to bedside and introduced self to mother of baby (MOB- Yajaira) and father of baby (FOB- Gato). Sw explained reason for sw involvement and completed psychosocial assessment. History obtained from: medical records, MOB and FOB Household composition: Currently residing in the family home is MIKAELA TURNER, their 9 older children (Darby- 17, Lindy- 16, Annie- 15, John- 14, Leda- 10, Paul- 8, Cathy- 6, Karen- 4, Lisa- 18 mos) and now baby when ready for discharge. Parents deny any issues or concerns regarding their housing. Patient's parent/guardian status:? ?MOB states that she and MIKAELA met in the [facility] community, they have been together for 18 years. No concerns reported of domestic violence or intimate partner violence. Medical History: ?JOHNNY is 11, para- 8- now 9 following labor and delivery. JOHNNY received routine care during with [facility]. JOHNNY presented to hospital for scheduled induction of labor at 38 weeks gestation and delivered baby via vaginal delivery on 04/30/24. Baby boy, named Kahlil, was born weighing 8lb 1oz with apgars of 8 and 9 at one and five minutes of life, respectfully. JOHNNY is breast feeding and states that it is going okay, baby will be followed by Dr. Horn for pediatric care. Educational Status:? Both parents completed 8th grade- as is common in the [facility] community. 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 Supplies:?? Parents have obtained all necessary baby supplies, including: care seat, safe sleep space, clothes, diapers and wipes. Childcare/Caregiver(s):? MOB will be the primary caregiver to baby, with help from her older children. Transportation:?? Parents use horse and buggy for transportation needs, and hire a lokie driver for longer distance trips. Programs/Agencies Involved: ??Parents are not connected to any community resources that provide financial assistance. ? Children Services/Legal Issues:?No history of children services involvement. NO issues or concerns warranting referral to be made at this time. ?? Behavioral Health Issues: ??Mental Health History: FORoshan denies mental health history. MOB states that she has never been diagnosed with anxiety or depression, but is able to recognize that she has experienced depression in the past. MOB states that they lost their first baby due to medical issues when he was a couple of weeks old. MOB states that when she got with her second baby, she experienced a lot of guilt and grief. MOB states that she has been prescribed medications to help her mental health several times after her deliveries. MOB states that she has not been on any medications since 2018, and reports that she knows how to manage her mental health symptoms now without medication assistance. ??? Substance Use History: Parents deny substance use?? Family History:?No family history of addiction or significant mental health diagnoses. ???Drug Screens: ??No drug screens completed. Family/Social Stressors:? Parents deny any issues or concerns Support Systems: MOB states that MIKAELA and her siblings are her biggest supports. Depression/Shaken Baby/Safe Sleeping:? Sw educated parents on signs and symptoms of bay blues and mood and anxiety disorders. MOB states that she has been able to recognize that she starts to have the blues during her , and then her period is not bad- she starts to feel more like herself after she delivers the baby. MOB states that she feels really good now, denies feeling anxious or sad. FOB reports that he would be able to recognize if MOB were struggling with her mental health during this time and would know how to help and support her. Sw educated parents on shaken baby prevention and ABCs of safe sleep. ASSESSMENT:? MOB and baby admitted following labor and delivery. MOB and FOB both interacted and participated in completion of psychosocial assessment. MOB was talkative and open regarding her mental health history which is not always common in the [facility] culture. FOB also allowed MOB to answer questions asked by sw. Parents appear to be positive supports to one another. Parents open and receptive to sw involvement and support. Literature provided on signs and symptoms of baby blues and mood and anxiety disorders to be on the lookout for, shaken baby and safe sleep information, [employer] Me Grow info and list of [place] resources. PLAN:? MOB and baby to be discharged when medically ready for discharge. ?No other services requested or indicated. Hector Ellis, FOREST TECHNOLOGY PROFESSOR, HANDTOOLS REPAIRER
[2024-05-01 12:32] LABS: Bedside Glucose 100 mg/dL (74-106)
[2024-05-01 12:57] VITALS: BP 104/69; PULSE 78; RESP 16; TEMP 36; O2SAT 96
== END 2024-05-01 15:00 | disposition home or self-care (01) | DRG 805 ==
PROVIDERS: Admitting Provider Obstetrics & Gynecology; PCP Family Medicine; Referring Provider Obstetrics & Gynecology; Visit Provider Obstetrics & Gynecology
DX: O88.22 Thromboembolism in childbirth (principal); Z37.0 Single live birth; I26.99 Other pulmonary embolism without acute cor pulmonale; O24.429 Gestational diabetes mellitus in childbirth, unspecified control; O69.81X0 Labor and delivery complicated by cord around neck, without compression, not applicable or unspecified; Z79.01 Long term (current) use of anticoagulants; Z3A.38 38 weeks gestation of pregnancy; Z87.59 Personal history of other complications of pregnancy, childbirth and the puerperium
CPT/HCPCS: 59025; 59050; 82962; 85025; 86780; 86850; 86900; 86901; 99221; J7120; G0378

== ENCOUNTER 2025-05-28 20:39 | Emergency (ER) | payer SELFPAY ==
[2025-05-28 20:40] VITALS: BP 145/95; PULSE 83; RESP 16; TEMP 36.4; O2SAT 100; BMI 29.1
--- NOTE | 2025-05-28 22:02 | EDS_ITS ---
HPI History of Present Illness Chief Complaint: Lower Extremity Injury [facility] Medical History (Updated 05/28/25 @ 23:[address] David Avila, DO) History of blood transfusion hemorrhage depression Headache Diabetes mellitus Abnormal TSH Bilateral pulmonary embolism Home Medications ?Medication ?Instructions ?Recorded ?Last Taken ?Type soybean, fermented 50 mg capsule 100 mg PO BID 5 05/28/25 History (Nattokinase) sunflax complex 1,000 mg PO BID 05/28/25 Unk nown History zinc 50 mg capsule 50 mg PO DAILY 05/28/25 Unkn own History Allergy/AdvReac Type Severity Reaction Status Date / Time No Known Allergies Allergy Verified 05/28/25 20:41 Family History (Reviewed 11/21/23 @ 08:26 by Marita Murillo CHIEF SUBSTATION OPERATOR, CHIEF SUBSTATION OPERATOR-C) Sister FH: thromboembolic disease Surgical History History of gynecologic surgery History of surgery Social History (Reviewed 11/21/23 @ 08:26 by Marita Murillo CHIEF SUBSTATION OPERATOR, CHIEF SUBSTATION OPERATOR-C) household members: family housing: house current occupation: [employer] Smoking Status: Never smoker alcohol intake: never substance use type: does not use EXAM Physical Exam Const Vital Signs: 05/28/25 20:40 Temperature 97.6 F L Temperature Source Oral Pulse Rate 83 Respiratory Rate 16 Blood Pressure 145/95 H Blood Pressure Mean 111 Pulse Ox 100 Oxygen Delivery Method Room Air MDM MDM MDM Narrative Medical decision making narrative: HISTORY OF PRESENT ILLNESS: Chief complaint: Thigh pain 39-year-old female presents concern for right upper thigh pain. Notes from recent bruising is localized to the right thigh. 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 She further states her daughter came up to her and put her fingers onto her thigh which caused some pain but otherwise no trauma noted. She notes bruising and she felt like her vein burst in her leg. Patient denies active cancer, being bedridden for greater than 3 days, denies unilateral leg swelling, denies any varicose veins, denies any calf tenderness, denies tenderness along deep venous system. Denies major surgery within 12 weeks, recent paralysis, previous DVT. REVIEW OF SYSTEMS: Pertinent positives: Leg pain Pertinent negatives: Leg swelling, numbness, tingling PHYSICAL EXAM: Nursing triage notes reviewed, Vital signs reviewed Constitutional: please see mdm Extremities: No edema, TTP Neuro: Intact sensation L1-S1 dermatomal distributions. Intact 5/5 strength in hip flexion (T12-L3). Knee extension (L2-L4). Ankle dorsiflexion (L4-L5). Ankle plantar flexion (S1). Great toe extension (L5). 2+ patellar and Achilles DTRs. Skin: No rash or lesions noted approximate 2 x 2 area of ecchymosis noted to the right anterior thigh. No palpable hematoma. No crepitus bullae fluctuance or induration MEDICAL DECISION MAKING: Chief Complaint: please see HPI External records reviewed: Reviewed prior imaging studies: Reviewed DVT ultrasound from September 2023 which is negative for acute DVT Factors affecting care: none Social determinants of health: none History obtained from others: none Consults: none [facility] Narrative: Patient was initially hemodynamically stable, afebrile and nontoxic-appearing. Exam with TTP over right thigh. Obvious bruising over right thigh. No cellulitis. No palpable hematoma or abscess. No pain along the deep veins of the right thigh or right calf. I considered the following differential diagnosis: Musculoskeletal injury, DVT, cellulitis, hematoma The patient's exam is most consistent with bruise Offered DVT ultrasound given history of PE patient refused ultrasound this time stating she did not think she had blood clot and is comfortable maximization that she is suffering from a bruise. Patient was discharged stable condition. Strict return precautions were discussed The patient and/or family, caregivers express understanding. The patient and/or family, caregivers agrees with the plan. Shared decision making: I will have a discussion with the patient and or visitors regarding risk/benefits of further testing or admission. They will be made aware of of the risk/benefits inherent in this decision they will be given the opportunity to voice understanding. Total critical care time today provided was at least 0 minutes. This excludes separately billable procedures. Critical care time (if documented) is secondary to the patient having high probability of clinically significant/life threatening deterioration in the patient's condition which required my urgent intervention. Impression: 1. acute leg pain 2. Hx of PE Dispo: discharge home This note was generated with [employer] dictation software. It may contain incorrect words, spelling, and punctuation that were not noted in review of the chart prior to signing. Discharge Plan Triage Chief Complaint: Lower Extremity Injury ED Provider: David Avila Dx/Rx/DC Orders Clinical Impression: Contusion Instructions: Bruises (Contusions) Prescriptions: No Action Nattokinase 50 mg capsule 100 mg PO BID sunflax complex 1,000 mg PO BID zinc 50 mg capsule 50 mg PO DAILY Primary Care Provider: Dania Dean NP Referrals: Arie Horn, DO [Non-Staff] - Activity Restrictions/Additional Instructions: Thank you for trusting us with your care today! Your presentation is most consistent with a bruise. This should resolve on its own. He can take Tylenol and ibuprofen as well as ice to relieve symptoms Please take Tylenol (2 pills, 650 mg), ibuprofen (2 pills, 400 mg) every 6 hours as needed for pain and fever control. Please return to the emergency department if your symptoms change or worsen. Specifically develop chest pain, shortness of breath or if you lose consciousness. Please follow with your primary care physician for further outpatient evaluation and management. Print Language: Sammarinese Disposition Disposition: Home, Self Care
--- OUTSIDE RECORDS SUMMARY | 2025-05-28 22:22 | XMS RPT_ITS | CCD ---
Author Organization [facility]iniSyn[facility] Care Team Providers Care Negative Cutter Name Role Phone UPTAIN, CRYSTAL CNM Admitting Unavailable UPTAIN, CRYSTAL CNM Attending Unavailable UPTAIN, CRYSTAL CNM Primary Care Unavailable UPTAIN, CRYSTAL CNM Attending Unavailable UPTAIN, CRYSTAL CNM Primary Care Unavailable UPTAIN, CRYSTAL CNM Admitting Unavailable Dr. Arie Escoto Primary Care Provider Dr. Riat Austin Emergency Provider Dr. Lachelle Fletcher Admit Provider Dr. Lachelle Fletcher Attending Provider Dr. Lachelle Fletcher Other Provider Dr. Richy Kitchen Other Provider Dr. Valdez Sullivan Other Provider Dr. Kaden Mireles Attending Provider Dr. Kaden Mireles Other Provider Dr. Alex Gardner Other Provider Dr. Tiffani Pereira Other Provider Dr. Telly Franklin Other Provider Dr. Brandi Madera Other Provider Dr. Maggy Adhikari Other Provider Unavailable Dr. Esau Davis Other Provider Dr. Tony Giang Other Provider Dr. Xavier Colón Other Provider Dr. Alejandro Herrera Other Provider Dr. Gilson Daily Other Provider Dr. Gilson Daily Attending Provider [phone] Dr. Jairon Delgado Attending Provider [phone] John Teixeira Attending Provider [phone] Unavailable Primary Care Provider Unavailabl e Unavailable Primary Care Provider Unavailabl e Arie Escoto DO Primary Care Provider [phone] John Teixeira Attending Unavailable Tigist, Arie Primary Care Unavailable Tigist, Arie Primary Care Unavailable Richy Kitchen Consulting Unavailable Chance, Lachelle Admitting Unavailable Gilson Daily Attending Unavailable Nate, Valdez Consulting Unavailable Brown, Kaden Consulting Unavailable Kendra, Alex Consulting Unavailable Habtegebriel, Tiffani Consulting Unavailab le Dand, Telly Consulting Unavailable Cassy, Brandi Consulting Unavailable Aljundi, Lamia Consulting Unavailable Irukulla, Esau Consulting Unavailable Rahat, Tony Consulting Unavailable Eldon, Xavier Consulting Unavailable Javier, Alejandro Consulting Unavailable Chance, Lachelle Consulting Unavailable Killian Gilson Consulting Unavailable Linda Fletcheryn Attending Unavailable Kaden Mireles Attending Unavailable Gilson Daily Referring Unavailable TigistArie Primary Care Unavailable TigistrAie grajeda Referring Unavailable Lidia WEISS, Marita Attending Unavailable Jairon Delgado Attending Unavailable Tigist, Arie Primary Care Unavailable Linda Fletcheryn Referring Unavailable Wiswell, Isra Admitting Unavailable Isra Wade Attending Unavailable Wiswell, Isra Referring Unavailable TigistArie Primary Care Unavailable Tigist, Arie Primary Care Unavailable Reese Steele Attending Unavailable Tigist, Arie Primary Care Unavailable Imtiaz Richy Consulting Unavailable Chance, Lachelle Admitting Unavailable Gilson Daily Attending Unavailable Nate, Valdez Consulting Unavailable Brown, Kaden Consulting Unavailable Kendra, Alex Consulting Unavailable Habtegebriel, Tiffani Consulting Unavailab le Dand, Telly Consulting Unavailable Cassy, Brandi Consulting Unavailable Aljundi, Lamia Consulting Unavailable Irukulla, Esau Consulting Unavailable Rahat, Tony Consulting Unavailable Eldon, Xavier Consulting Unavailable Javier, Alejandro Consulting Unavailable Chance, Lachelle Consulting Unavailable DONN LOVE Referring Unavailable ARIE ESCOTO Primary Care Unavailable SELF Referring Unavailable DONN LOVE Attending Unavailable TIGIST ARIEJAMAR RUTH Primary Care Unavailable WISKEE, ISRA Attending Unavailable WISWELL, ISRA Referring Unavailable TIGIST, ARIE WINCIL Primary Care Unavailable BOBBY SHARP Attending Unavailable TIGIST, ARIE WINCIL Primary Care Unavailable WISWELL, ISRA Referring Unavailable BOBBY SHARP Attending Unavailable TIGIST, ARIE WINCIL Primary Care Unavailable KIESHA CHILDS Attending Unavailable SELF Referring Unavailable TIGIST, ARIEJAMAR NIELSENCIL Primary Care Unavailable MAURO, ISRA Attending Unavailable SELF Referring Unavailable TIGIST, ARIEJAMAR NIELSENCIL Primary Care Unavailable SELF Referring Unavailable TIGIST, ARIE WINCIL Primary Care Unavailable FAISAL CARTER Attending Unavaila ble Medications Current Medications Medication Drug Class(es) Dates Sig (Normalized) Sig (Original) Ascorbic Acid (20 sources) Vitamin C Start: 10-15-2023 take 1 tablet by mouth twice daily ascorbic acid (VITAMIN C ORAL) Take 1 tablet by mouth two times a day. 10/15/2023 Active Start: 10-15-2023 take 1 tablet by jackie th twice daily ascorbic acid (VITAMIN C ORAL) Take 1 tablet by mouth two times a day. 0 10/15/2023 Active Start: 10-15-2023 ascorbic acid (VITAMIN C ORAL) TWICE A DAY 0 10/15/2023 Active Start: 10-15-2023 take 500 mg by mouth twice kiet ly Ascorbic Acid (Vitamin C) Active 500 MG PO TWICE A DAY 60 October 15, 2023 12:00am Comment on above: TWICE A DAY Take 1 tablet by jackie th two times a day. chromium picolinate 0.2 mg oral tablet (20 sources) take 1 tablet by mouth three times daily Chromium Picolinate 200 mcg tab Take 1 tablet by mouth three times a day. Active copper 313 mg drug implant (4 sources) Copper-containing Intrauterine Device Start: copper (PARAGARD) 380 square mm intrauterine device 1 Intra Uterine Device by INTRAUTERINE route one time only for 1 dose. 1 Each 07/29/2024 Active Start: 07-22-2024 End: 07-22-2024 copper (PARAGARD) 380 square mm intrauterine device 1 Intra Uterine Device by INTRAUTERINE route one time only for 1 dose. 1 Each 07/22/2024 07/22/2024 Discontinued Start: 07-22-2024 End: 07-22-2024 copper intrauterine device 3 80 square mm (PARAGARD) docosahexaenoic acid/epa (FI SH OIL ORAL) (20 sources) take 2 capsules by mouth three times daily docosahexaenoic acid/epa (FISH OIL ORAL) Take 2 capsules by mouth three times a day. Active take 2 capsules by m outh three times daily docosahexaenoic acid/epa (FISH OIL ORAL) Take 2 capsules by mouth three times a day. 0 Active Comment on above: Take 2 capsules by m outh three times a day. 0.8 ml enoxaparin sodium 100 mg/ml prefilled syringe (20 sources) Low Molecular Weight Heparin Start: 05-11-20 End: 06-10-20 inject 0.9 mL by subcutaneous injection every twelve hours enoxaparin (LOVENOX) 80 mg/0.8 mL Indications: Routine follow-up Inject 0.9 mL subcutaneously every 12 hours. 96 mL 05/11/2024 06/10/2024 Active Start: 10-15-2023 End: 04-26-2024 enoxaparin (LOVENOX) 80 mg/0 .8 mL Indications: 24 weeks gestation of , History of blood clots INJECT CONTENTS OF ONE SYRINGE SUBCUTANEOUSLY EVERY TWELVE HOURS 0.8 mL 2 01/27/2024 04/26/2024 Active Start: 10-15-2023 Enoxaparin Act saurav 80 MG SC EVERY 12 HOURS 48 October 15, 2023 12:00am Enoxaparin to continue throughout to 6 weeks . Comment on above: INJECT CONTENTS OF O NE SYRINGE SUBCUTANEOUSLY EVERY TWELVE HOURS ferrous sulfate 325 mg oral tablet (20 sources) Start: 01-16-2024 End: 03-10-2024 take 1 tablet by mouth every other day ferrous sulfate 325 mg (65 mg iron) tablet Take 1 tablet by mouth every other day. 30 tablet 2 03/10/2024 Active Start: 10-15-2023 End: 01-16-2024 take 1 tablet by mouth every other day ferrous sulfate 325 mg (65 mg iron) tablet Take 325 mg by mouth every other day. 0 10/15/2023 01/16/2024 Discontinued Comment on above: Take by mouth. Take 325 mg by mouth every other day. folic acid 1 mg oral tablet (20 sources) Start: 10-15-2023 End: 01-16-2024 take 1 tablet by mouth once daily folic acid 1 mg tablet Take 1 tablet by mouth once daily. 100 tablet 1 01/16/2024 Active Comment on above: DAILY Take 1 mg by mouth o nce daily. insulin isophane, human 100 unt/ml injectable suspension (20 sources) Start: 06-22-2024 HUMULIN N NPH U-100 INSULIN 100 unit/mL injection Administer 22 units before breakfast and 48 units before bed 10 mL 1 06/22/2024 Active Start: 04-24-2024 End: 06-19-2024 HUMULIN N NPH U-100 INSULIN 100 unit/mL injection Administer 22 units before breakfast and 48 units before bed 10 mL 1 04/24/2024 06/19/2024 Discontinued Start: 04-09-2024 End: 04-24-2024 HUMULIN N NPH U-100 INSULIN 100 unit/mL injection Administer 18 units before breakfast and 48 units before bed 10 mL 1 04/16/2024 04/24/2024 Discontinued Start: 04-02-2024 End: 04-09-2024 HUMULIN N NPH U-100 INSULIN 100 unit/mL injection Administer 14 units before breakfast and 46 units before bed 10 mL 1 04/02/2024 04/09/2024 Discontinued Start: 03-20-2024 End: 04-02-2024 HUMULIN N NPH U-100 INSULIN 100 unit/mL injection Administer 12 units before breakfast and 40 units before bed 10 mL 1 03/20/2024 04/02/2024 Discontinued Start: 03-10-2024 End: 03-17-2024 HUMULIN N NPH U-100 INSULIN 100 unit/mL injection Administer 12 units before gino breakfast and 30 units before bed 10 mL 1 03/17/2024 03/17/2024 Discontinued Start: 02-21-2024 End: 03-10-2024 HUMULIN N NPH U-100 INSULIN 100 unit/mL injection Indications: Pre-existing diabetes mellitus in in second trimester Administer 10 units before lunch and 14 units before dinner 10 mL 1 02/21/2024 03/10/2024 Discontinued Start: 02-04-2024 HUMULIN N NPH U-100 INSULIN 100 unit/mL injection Indications: Pre-existing diabetes mellitus in in second trimester Administer 10 units before breakfast and 12 units before dinner 10 mL 1 02/04/2024 Active Start: 01-27-2024 End: 02-04-2024 HUMULIN N NPH U-100 INSULIN 100 unit/mL injection Inject 18 Units subcutaneously daily at bedtime. 10 mL 1 01/27/2024 02/04/2024 Discontinued Start: 01-27-2024 End: 01-27-2024 HUMULIN N NPH U-100 INSULIN 100 unit/mL injection Inject 20 Units subcutaneously daily at bedtime. 10 mL 1 01/27/2024 01/27/2024 Discontinued Start: 01-24-2024 End: 01-27-2024 HUMULIN N NPH U-100 INSULIN 100 unit/mL injection Inject 16 Units subcutaneously daily at bedtime. 10 mL 1 01/24/2024 01/27/2024 Discontinued Start: 01-16-2024 HUMULIN N NPH U-100 INSULIN 100 unit/mL injection Inject 12 Units subcutaneously daily at bedtime. 10 mL 1 01/16/2024 Active insulin lispro 100 unt/ml injectable solution (20 sources) Insulin Analog Start: 04-24-2024 inject 8 [IU] by subcutaneous injection before breakfast insulin lispro 100 unit/mL injection Inject 8 units subcutaneously before breakfast and dinner. 3 mL 2 04/24/2024 Active Start: 04-16-2024 End: 04-24-2024 inject 6 [IU] by subcutaneous injection before breakfast insulin lispro 100 unit/mL injection Inject 6 units subcutaneously before breakfast and dinner. 0 04/16/2024 04/24/2024 Discontinued Start: 04-02-2024 End: 04-16-2024 inject 6 [IU] by subcutaneous injection once daily at dinner insulin lispro 100 unit/mL injection Inject 6 Units subcutaneously daily with dinner. 3 mL 1 04/02/2024 04/16/2024 Discontinued isopropyl alcohol 0.7 ml/ml medicated pad (20 sources) Start: 12-18-2023 alcohol swabs (ALCOHOL PREP PADS) Indications: Gestational diabetes mellitus (GDM) in second trimester, gestational diabetes method of control unspecified Use as directed to check glucose levels up to seven times daily. 200 Each 8 12/18/2023 Active Comment on above: Use as directed to c heck glucose levels up to seven times daily. metFORMIN hydrochloride 1000 mg oral tablet (6 sources) Biguanide Start: 07-06-2024 take 1 tablet by mouth twice daily metFORMIN (GLUCOPHAGE) 1,000 mg tablet Indications: Type 2 diabetes mellitus without complication, with long-term current use of insulin (HCC) Take 1 tablet by mouth two times a day. 180 tablet 07/06/2024 Active miconazole nitrate 20 mg/ml topical cream (5 sources) Azole Antifungal Start: 07-06-2024 miconazole 2 % cream Indications: care and examination , problem Apply a pea sized amount to nipples after each feed. 42.5 g 1 07/06/2024 Active OTC PRODUCT (20 sources) take 1 capsule by mouth three times weekly OTC PRODUCT Super Greens: Take one capsule by mouth three times weekly. Active take 1 capsule by mouth three ti mes weekly OTC PRODUCT Super Greens: Take one capsule by mouth three times weekly. 0 Active Comment on above: Super Greens: Take o ne capsule by mouth three times weekly. PNV no.95/ferrous fum/folic ac ( ORAL) (20 sources) PNV no.95/ferrou s fum/folic ac ( ORAL) Take 1 Tablespoonful by mouth once daily. Active PNV no.95/ferrou s fum/folic ac ( ORAL) Take 1 Tablespoonful by mouth once daily. 0 Active PNV no.95/ferrou s fum/folic ac ( ORAL) Take by mouth. 0 Active Comment on above: Take by mouth. Take 1 Tablespoonful by mouth once daily. 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-24-2024 Chronic Contraceptive and procreative management (20 sources) Sterilization requested; Translations: [Encounter for sterilization] Onset: 02-24-2024 02-24-2024 Episodic Diabetes mellitus without complication (2 sources) Type 2 diabetes mellitus without complication; Translations: [Type 2 diabetes mellitus without complications] Onset: 07-06-2024 07-06-2024 Chronic Diabetes or abnormal glucose tolerance complicating ; childbirth; or the puerperium (9 sources) Diabetes mellitus in mother complicating , childbirth AND/OR puerperium; Translations: [Unspecified pre-existing diabetes mellitus in , second trimester] 02-04-2024 Chronic Other complications of (2 sources) Anemia in mother complicating , childbirth AND/OR puerperium; Translations: [Anemia complicating , unspecified trimester] 10-13-2023 Chronic Other complications of (3 sources) Anemia complicating , unspecified trimester; Translations: [Anemia of mother, antepartum condition or complication] Onset: 10-24-2023 10-13-2023 Chronic Other complications of (1 source) Maternal obesity complicating , childbirth and the puerperium, antepartum; Translations: [Obesity complicating , second trimester] 12-30-2023 Chronic Other complications of (19 sources) High risk ; Translations: [Supervision of high risk , unspecified, first trimester] Onset: 10-25-2023 10-30-2023 Episodic Other complications of (10 sources) History of gestational diabetes mellitus; Translations: [Supervision of with other poor reproductive or obstetric history, unspecified trimester] Onset: 10-30-2023 10-30-2023 Episodic Other complications of (1 source) Headache; Translations: [Other specified related conditions, third trimester] 03-10-2024 Episodic Other complications of (1 source) Thromboembolism in , first trimester; Translations: [Thromboembolism in , first trimester] Onset: 03-28-2024 Episodic Phlebitis; thrombophlebitis and thromboembolism (1 source) H/O: thrombosis; Translations: [Personal history of other venous thrombosis and embolism] 01-27-2024 Episodic Residual codes; unclassified (4 sources) Gestation period, 11 weeks; Translations: [11 weeks gestation of ] Onset: 10-25-2023 10-30-2023 Episodic Residual codes; unclassified (3 sources) H/O: ; Translations: [Personal history of other complications of , childbirth and the puerperium] Onset: 10-30-2023 10-30-2023 Episodic Residual codes; unclassified (1 source) Gestation period, 10 weeks; Translations: [10 weeks gestation of ] 10-25-2023 Episodic Residual codes; unclassified (1 source) Gestation period, 15 weeks; Translations: [15 weeks gestation of ] 11-22-2023 Episodic Residual codes; unclassified (3 sources) Gestation period, 20 weeks; Translations: [20 weeks gestation of ] 12-30-2023 Episodic Residual codes; unclassified (1 source) Gestation period, 22 weeks; Translations: [22 weeks gestation of ] 01-16-2024 Episodic Residual codes; unclassified (1 source) Gestation period, 24 weeks; Translations: [24 weeks gestation of ] 01-27-2024 Episodic Residual codes; unclassified (2 sources) Gestation period, 28 weeks; Translations: [28 weeks gestation of ] 02-24-2024 Episodic Residual codes; unclassified (1 source) Gestation period, 30 weeks; Translations: [30 weeks gestation of ] 03-10-2024 Episodic Residual codes; unclassified (1 source) Gestation period, 32 weeks; Translations: [32 weeks gestation of ] 03-24-2024 Episodic Residual codes; unclassified (1 source) Gestation period, 33 weeks; Translations: [33 weeks gestation of ] 04-02-2024 Episodic Residual codes; unclassified (2 sources) Gestation period, 34 weeks; Translations: [34 weeks gestation of ] 04-09-2024 Episodic Residual codes; unclassified (1 source) Gestation period, 35 weeks; Translations: [35 weeks gestation of ] 04-16-2024 Episodic Residual codes; unclassified (1 source) Gestation period, 37 weeks; Translations: [37 weeks gestation of ] 04-24-2024 Episodic Residual codes; unclassified (1 source) 38 weeks gestation of ; Translations: [38 weeks gestation of ] Onset: 05-01-2024 Episodic Residual codes; unclassified (1 source) Difficulty in feeding at breast; Translations: [Other specified personal risk factors, not elsewhere classified] 07-06-2024 Episodic Unclassified (1 source) Other specified diseases and conditions complicating ; Translations: [Other specified diseases and conditions complicating ] Onset: 11-22-2023 Past or Other Problems Problem Classification Problem Date Documented Date Episodic/Chronic Cardiac dysrhythmias (5 sources) Tachycardia; Translations: [Tachycardia, unspecified] Onset: 10-24-2023 10-13-2023 Episodic Diabetes mellitus without complication (20 sources) High hemoglobin A1c level; Translations: [Other abnormal glucose] Onset: 11-25-2023 Resolved: 01-16-2024 11-25-2023 Episodic Diabetes or abnormal glucose tolerance complicating ; childbirth; or the puerperium (20 sources) Gestational diabetes mellitus; Translations: [Gestational diabetes mellitus in , unspecified control] Onset: 10-30-2023 Resolved: 01-16-2024 12-30-2023 Episodic Fluid and electrolyte disorders (5 sources) Hypokalemia; Translations: [Hypokalemia] Onset: 10-24-2023 10-13-2023 Episodic Other aftercare (1 source) 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; Translations: [Type 2 diabetes mellitus without complication, with long-term current use of insulin (HCC)] Onset: 07-06-2024 Episodic Other complications of (20 sources) Multigravida of advanced maternal age; Translations: [Supervision of elderly multigravida, first trimester] Onset: 10-25-2023 10-30-2023 Episodic Other complications of (20 sources) History of hemorrhage; Translations: [Supervision of with other poor reproductive or obstetric history, first trimester] Onset: 10-30-2023 10-30-2023 Episodic Other complications of (20 sources) Diseases of the digestive system complicating , first trimester; Translations: [Other current conditions classifiable elsewhere of mother, antepartum condition or complication] Onset: 10-30-2023 10-30-2023 Episodic Other complications of (1 source) Supervision of with grand multiparity, unspecified trimester; Translations: [Supervision of with grand multiparity, unspecified trimester] Onset: 10-24-2023 Episodic Other lower respiratory disease (1 source) Dyspnea, unspecified; Translations: [Dyspnea, unspecified] Onset: 11-21-2023 Episodic Other and delivery including normal (20 sources) with uncertain dates; Translations: [Encounter for supervision of normal , unspecified, first trimester] Onset: 10-25-2023 Resolved: 11-22-2023 10-30-2023 Episodic Other screening for suspected conditions (not mental disorders or infectious disease) (11 sources) High troponin I level; Translations: [Other specified abnormal findings of blood chemistry] Onset: 10-24-2023 10-13-2023 Episodic Pulmonary heart disease (20 sources) Pulmonary embolism; Translations: [Other pulmonary embolism without acute cor pulmonale] Onset: 10-24-2023 10-13-2023 Episodic Residual codes; unclassified (20 sources) Family history of stillbirth; Translations: [Family history of other specified conditions] Onset: 10-30-2023 10-30-2023 Episodic Residual codes; unclassified (20 sources) Family history of neurological disorder; Translations: [Family history of other congenital malformations, deformations and chromosomal abnormalities] Onset: 10-30-2023 10-30-2023 Episodic Residual codes; unclassified (20 sources) Personal history of other complications of , childbirth and the puerperium; Translations: [Personal history of other genital system and obstetric disorders] Onset: 10-30-2023 11-22-2023 Episodic Results Test Name Value Interpretation Reference Range Facility OV 08-21-2024 CNOV Office Visit (OBGYWM) ---- RADHAAUGUSTIN K ([id number]) 1985 F Date Time Provider Department 08/21/24 1:30 PM BOBBY SHARP During your visit today, we recorded the following information about you: Blood pressure Weight 118/60 88.5 kg Bobby Sharp APRN.WHARF LABOURER 08/21/2024 1:32 PM Signed Automotive Salesperson offered: Patient declines. Augustininocencia Garcia presents today for IUD check. She had a Paraguard placed on 07/29/2024. She has had no complications since placement. REVIEW OF SYSTEMS: SHIRT LINE OPERATOR: Negative for abnormal vaginal bleeding, abnormal vaginal discharge SENSITIVE EXAM: The sensitive examination was discussed with the Patient or Patient's Authorized Foundry Worker Apprentice. As applicable, any other physician, advance practice provider, medical student, or other health professional student that will be observing or involved in the sensitive examination for educational or training purposes was discussed with the Patient or Authorized Foundry Worker Apprentice. The Patient or Authorized Foundry Worker Apprentice has agreed to proceed with the sensitive examination. (Sensitive examination includes inspection and/or palpation of the breasts, pelvis, prostate and anorectal regions). PHYSICAL EXAMINATION: BP 118/60 Wt 195 lb (88.5kg) LMP 08/09/2023 ABDOMEN:soft, non-tender, no masses, no hepatosplenomegaly, and no lymphadenopathy EXTERNAL GENITALIA: Normal genitalia and Bartholins, Urethra, Sken'e normal CERVIX: smooth, no lesions and IUD strings visualized. IUD strings visible. UTERUS: normal size, regular, non-tender, and freely mobile ADNEXA: negative for tenderness or masses IMPRESSION/PLAN: IUD correctly positioned. Follow up for annual exam or sooner if needed. Medical Decision Making: Problems: Minimal: Self-limited or minor problem Risk: Minimal: Minimal risk from testing/treatment Moderate: Drug management Medical Decision Making Level: 2 - Straightforward Referring Provider: SELF [200] Allergies As of Date: 08/21/2024 (No Known Allergies) Date Reviewed: 08/21/2024 Reviewed by: Bobby Sharp APRN.WHARF LABOURER - Fully Assessed Reason for Visit: Follow Up [171] Cmt: IUD check Primary Visit Diagnosis:Surveilla nce of previously prescribed intrauterine contraceptive device [Z30.431] Prescriptions as of 08/21/2024 - copper (PARAGARD) 380 square mm intrauterine device 1 Intra Uterine Device by INTRAUTERINE route one time only for 1 dose. - metFORMIN (GLUCOPHAGE) 1,000 mg tablet Take 1 tablet by mouth two times a day. - miconazole 2 % cream Apply a pea sized amount to nipples after each feed. - Insulin Syringe-Needle U-100 0.3 mL 31 gauge x 5/16 1 Each two times a day as needed. - HUMULIN N NPH U-100 INSULIN 100 unit/mL injection Administer 22 units before breakfast and 48 units before bed - insulin lispro 100 unit/mL injection Inject 8 units subcutaneously before breakfast and dinner. - Chromium Picolinate 200 mcg tab Take 1 tablet by mouth three times a day. - blood sugar diagnostic test strip Use as directed to check glucose levels up to seven times daily. - Lancets Use as directed to check glucose levels up to seven times daily. - alcohol swabs (ALCOHOL PREP PADS) Use as directed to check glucose levels up to seven times daily. - docosahexaenoic acid/epa (FISH OIL ORAL) Take 2 capsules by mouth three times a day. - ascorbic acid (VITAMIN C ORAL) Take 1 tablet by mouth two times a day. - PNV no.95/ferrous fum/folic ac ( ORAL) Take 1 Tablespoonful by mouth once daily. Problem List As Of Date 08/21/2024 Noted Resolved Advanced maternal age in multigravida, first tr*10/25/2023 History of pulmonary embolism [Z86.711] 10/25/2023 with uncertain dates in first trimest*10/25/2023 11/22/2023 Insulin controlled gestational diabetes mellitu*10/30/2023 01/16/2024 History of [Z87.59] 10/30/2023 History of hemorrhage, currently pre*10/30/2023 Anxiety [F41.9] 10/30/2023 Family history of stillbirth [Z84.89] 10/30/2023 Family history of neural tube defect [Z82.79] 10/30/2023 Constipation during in first trimeste*10/30/2023 Elevated glucose tolerance test [R73.09] 11/25/2023 01/16/2024 Gestational diabetes mellitus (GDM) in second t*12/18/2023 Request for sterilization [Z30.2] 02/24/2024 Disposition: Return in 1 year (on 08/21/2025) for Annual Exam. Follow-up and Disposition History for Encounter Date Provider Department Center 08/21/2024 [id number] SHARP [facility] Encounter Status:Closed by BOBBY SHARP on 08/21/24 [facility] CNOVon 07-22-2024 CNOV Office Visit (ROBERT) ---- AUGUSTIN GARCIA ([id number]) 1985 F Date Time Provider Department 07/22/24 10:15 AM BOBBY SHARP During your visit today, we recorded the following information about you: Blood pressure Weight 114/78 87.1 kg Bobby Sharp APRN.CNP 07/29/2024 10:31 AM Addendum Automotive Salesperson offered: Patient declines. Augustin presents today for IUD insertion for contraception. Patient's last menstrual period was 08/09/2023. GC/chlamydia: Not done: no risk factors and/or patient declines screening test: negative Side effects including irregular bleeding were discussed with the patient. The patient understands that it should be removed in 10 years or sooner if the patient desires a . IUD source: office provided IUD lot #: [id number] Exp date: 06/23/2029 UNIVERSAL PROTOCOL / SAFETY CHECKLIST Procedure to be Performed: Intrauterine Device (IUD) insertion Paraguard Sign In: A Moment of CARE was completed. Personnel directly involved with the procedure wore the appropriate PPE (Personal Protective Equipment). Patient/Surrogate Stated/Verified: PATIENT VERIFIED(optional for EMERGENT procedures): Patient name, Date of , Relevant allergies, and The intended procedure Time Out Communication: Intended patient and procedure match the source documents. Consent documented and matches the intended procedure. Sign Out: SIGN OUT (optional for EMERGENT procedures): No specimen collected. All instruments, equipment, possible retained foreign bodies accounted for. Post-procedure follow-up management communicated and Plan of Care Visit completed when applicable. Bobby Sharp APRN.CNP The cervix was prepped with betadine. The uterus sounded to 7 cm and the uterus is Midposition.. Using sterile technique, the ParaGuard IUD was inserted without difficulty and the string was cut to 2-3 cm from the external os of the cervix. Patient tolerated procedure well. PLAN: Patient was advised to observe for signs and symptoms of infection including but not limited to fever, malodorous vaginal discharge and/or pain. The patient was told to check the string monthly for accurate placement. Bleeding expectations were reviewed. Follow up in one month. JENNIFER Anton Reanna, MA 07/22/2024 10:19 AM Signed POST IUD INSTRUCTIONS You may have irregular bleeding during the first 3 months of use. You may have mild-severe cramping for the next 48 hours. You may use over the counter medication (Motrin, Tylenol) as needed. Your IUD must be removed or replaced based on the following table: IUD Type Removed or replaced within: Mary Ann 3 years Kyleena 5 years Mirena 8 years Liletta 8 years Paragard 10 years Call the office for signs/symptoms of infection such as severe cramping, fever, or unusual bleeding. Check for string placement as instructed by your doctor. If you have any additional questions, please contact the office. Nahomy Rudd RN 07/22/2024 11:26 AM Signed Addended by: NAHOMY RUDD on: 07/22/2024 11:26 AM Modules accepted: Orders Referring Provider: ISRA WADE [[id number]] Allergies As of Date: 07/22/2024 (No Known Allergies) Date Reviewed: 07/22/2024 Reviewed by: Bobby Sharp APRN.WHARF LABOURER - Fully Assessed Reason for Visit: Insertion Of IUD [291] Primary Visit Diagnosis:Encounter for IUD insertion [Z30.430] Order(s):INSERT INTRAUTERINE DEVICE [[id number]] Order #: [id number] UA DIP,URINE HCG (POC) [5190231] Order #: [id number]. #:[id number] [] copper intrauterine device 380 square mm (PARAGARD)Disp: Rfl: copper (PARAGARD) 380 square mm intrauterine device1 Intra Uterine Device by INTRAUTERINE route one time only for 1 dose.Disp: 1 EachRfl: 0 Prescriptions as of 07/29/2024 - copper (PARAGARD) 380 square mm intrauterine device 1 Intra Uterine Device by INTRAUTERINE route one time only for 1 dose. - metFORMIN (GLUCOPHAGE) 1,000 mg tablet Take 1 tablet by mouth two times a day. - miconazole 2 % cream Apply a pea sized amount to nipples after each feed. - Insulin Syringe-Needle U-100 0.3 mL 31 gauge x 5/16 1 Each two times a day as needed. - HUMULIN N NPH U-100 INSULIN 100 unit/mL injection Administer 22 units before breakfast and 48 units before bed - insulin lispro 100 unit/mL injection Inject 8 units subcutaneously before breakfast and dinner. - Chromium Picolinate 200 mcg tab Take 1 tablet by mouth three times a day. - blood sugar diagnostic test strip Use as directed to check glucose levels up to seven times daily. - Lancets Use as directed to check glucose levels up to seven times daily. - alcohol swabs (ALCOHOL PREP PADS) Use as directed to check glucose levels up to seven times daily. - docosahexaenoic acid/epa (FISH OIL ORAL) Take 2 capsules by mouth three times a day. - ascorbic acid (more content not included)... Normal [facility] CNOVSPon 07-22-2024 CNOVSP Visit (SP) Office (DAPHNE) ---- AUGUSTIN GARCIA ([id number]) 1985 F Date Time Provider Department 07/22/24 9:00 AM KIESHA CHILDS During your visit today, we recorded the following information about you: Temperature Pulse Blood pressure Weight 97.1 degrees 93/minute 110/72 88 kg Kiesha Childs 07/24/2024 2:45 PM Signed Augustin Garcia 1985 HISTORY OF PRESENT ILLNESS: Augustin Garcia is a 38 year old female 17 weeks sudden onset dyspnea. Went to ER, CT scan showed multiple PE. Now on lovenox. Had possible similar symptoms last . Did not get it evaluated, and symptoms resolved in a few weeks. Now feels bettr on ac. 10 previous pregnancies went ok. Sister had a PE with . Other sisters with phlebitis. Here for follow up, 8 weeks post , off of lovenox. Reviewed hypercoag panel results with Dr. Love prior to visit. Interval Hx: Mrs. Garcia presents today for follow up of hypercoag workup. She reports feeling well. Denies new issues. No SOB, CP, palpitations. No edema. Denies bleeding or bruising. 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 Reviewed general preventative measures for DVTs. Reviewed that this is also hereditary. Pt acknowledged. CLINICAL IMPRESSION: PE in setting of , as such provoked Elevated Factor VII, demonstrated increased risk of blood clots - general prevention measures, no need for continued anticoagulation - expressed caution with hormonal OTCs RECOMMENDATION/PLAN : 1. Follow up as needed. Written and verbal health teaching given to patient, patient verbalizes understanding and agrees with treatment plan. PAST MEDICAL HISTORY Diagnosis Date Gestational diabetes Pulmonary embolism (HCC) 10/13/2023 PAST SURGICAL HISTORY Procedure Laterality Date DANDC, DIAG AND/OR THERAPEUTIC 2018 PAST SURGICAL HISTORY OF cyst removed from back FAMILY HISTORY Problem Relation Age of Onset No Known Problems Mother strong maternal side of diabetes - mother not officially diagnosed Hypertension Father DVT Sister other (gestational diabetes) Sister No Known Problems Sister No Known Problems Sister No Known Problems Sister No Known Problems Sister No Known Problems Sister No Known Problems Brother No Known Problems Brother No Known Problems Brother Diabetes Maternal Grandmother No Known Problems Maternal Grandfather No Known Problems Paternal Grandmother No Known Problems Paternal Grandfather Social History Tobacco Use Smoking status: Never Smokeless tobacco: Never Vaping Use Vaping status: Never Used Substance Use Topics Alcohol use: Never Drug use: Never ALLERGIES: ALLERGIES No Known Allergies CURRENT OUTPATIENT MEDICATIONS: metFORMIN (GLUCOPHAGE) 1,000 mg tablet Take 1 tablet by mouth two times a day. miconazole 2 % cream Apply a pea sized amount to nipples after each feed. Insulin Syringe-Needle U-100 0.3 mL 31 gauge x 5/16 1 Each two times a day as needed. HUMULIN N NPH U-100 INSULIN 100 unit/mL injection Administer 22 units before breakfast and 48 units before bed blood sugar diagnostic test strip Use as directed to check glucose levels up to seven times daily. Lancets Use as directed to check glucose levels up to seven times daily. alcohol swabs (ALCOHOL PREP PADS) Use as directed to check glucose levels up to seven times daily. PNV no.95/ferrous fum/folic ac ( ORAL) Take 1 Tablespoonful by mouth once daily. insulin lispro 100 unit/mL injection Inject 8 units subcutaneously before breakfast and dinner. ferrous sulfate 325 mg (65 mg iron) tablet Take 1 tablet by mouth every other day. (Patient not taking: Reported on 07/06/2024) Chromium Picolinate 200 mcg tab Take 1 tablet by mouth three times a day. folic acid 1 mg tablet Take 1 tablet by mouth once daily. (Patient not taking: Reported on 05/11/2024) OTC PRODUCT Super Greens: Take one capsule by mouth three times weekly. (Patient not taking: Reported on 07/06/2024) docosahexaenoic acid/epa (FISH OIL ORAL) Take 2 capsules by mouth three times a day. ascorbic acid (VITAMIN C ORAL) Take 1 tablet by mouth two times a day. REVIEW OF SYSTEMS: GENERAL: No fever, night sweats, weight loss or malaise. All other reviewed and negative other than HPI. All systems reviewed on 07/22/2024 with pertinent positives and negatives as outlined in the interval history. PHYSICAL EXAMINATION: VITAL SIGNS: BP 110/72 Pulse 93 Temp (Src) 97.1 (Temporal) Wt 194 lb (88.0kg) SpO2 97% LMP 08/09/2023 GENERAL APPEARANCE: Well appearing, in no acute distress, alert and oriented x3, well-hydrated, well nourished. LUNG (more content not included)... Normal [facility] UA DIP,URINE HCG (POC)on Beta HCG ( test) Ql (U) Negative Negative [facility] Comment on above: Location:[facility], [address], [place], [address] Brand Communications Manager (POCT) Internal QC [facility] Location:[facility], [address], [place], [address] [facility] POINT OF CARE [facility] Viviana 07-13-2024 STEW Telephone (DAPHNE) ---- AUGUSTIN GARCIA ([id number]) 1985 F Date Time Provider Department 07/13/24 DONN LOVE During your visit today, we recorded the following information about you: Marianela Fall 07/13/2024 10:21 AM Signed Lvm for patient to return the call. When patient calls back see if she can be moved to [facility] on the 07/22 Marianela Portilloparker BonillaAlexandria 07/14/2024 9:04 AM Signed Rescheduled with patient Allergies As of Date: 07/13/2024 (No Known Allergies) Date Reviewed: 07/06/2024 Reviewed by: Dania Zapata MA - Fully Assessed Reason for Visit: Appointment [186] Prescriptions as of 07/14/2024 - metFORMIN (GLUCOPHAGE) 1,000 mg tablet Take 1 tablet by mouth two times a day. - miconazole 2 % cream Apply a pea sized amount to nipples after each feed. - Insulin Syringe-Needle U-100 0.3 mL 31 gauge x 5/16 1 Each two times a day as needed. - HUMULIN N NPH U-100 INSULIN 100 unit/mL injection Administer 22 units before breakfast and 48 units before bed - insulin lispro 100 unit/mL injection Inject 8 units subcutaneously before breakfast and dinner. - ferrous sulfate 325 mg (65 mg iron) tablet Take 1 tablet by mouth every other day. - Chromium Picolinate 200 mcg tab Take 1 tablet by mouth three times a day. - folic acid 1 mg tablet Take 1 tablet by mouth once daily. - blood sugar diagnostic test strip Use as directed to check glucose levels up to seven times daily. - Lancets Use as directed to check glucose levels up to seven times daily. - alcohol swabs (ALCOHOL PREP PADS) Use as directed to check glucose levels up to seven times daily. - OTC PRODUCT Super Greens: Take one capsule by mouth three times weekly. - docosahexaenoic acid/epa (FISH OIL ORAL) Take 2 capsules by mouth three times a day. - ascorbic acid (VITAMIN C ORAL) Take 1 tablet by mouth two times a day. - PNV no.95/ferrous fum/folic ac ( ORAL) Take 1 Tablespoonful by mouth once daily. Problem List As Of Date 07/13/2024 Noted Resolved Advanced maternal age in multigravida, first tr*10/25/2023 History of pulmonary embolism [Z86.711] 10/25/2023 with uncertain dates in first trimest*10/25/2023 11/22/2023 Insulin controlled gestational diabetes mellitu*10/30/2023 01/16/2024 History of [Z87.59] 10/30/2023 History of hemorrhage, currently pre*10/30/2023 Anxiety [F41.9] 10/30/2023 Family history of stillbirth [Z84.89] 10/30/2023 Family history of neural tube defect [Z82.79] 10/30/2023 Constipation during in first trimeste*10/30/2023 Elevated glucose tolerance test [R73.09] 11/25/2023 01/16/2024 Gestational diabetes mellitus (GDM) in second t*12/18/2023 Request for sterilization [Z30.2] 02/24/2024 Encounter Status:Closed by ALEXANDRIA TAVERAS on 07/14/24 Normal [facility] CARDIOLIPIN IGG ABSon 2023 Cardiolipin IgG IA Qn (S) <9.0 Normal <15.0 [facility] Comment on above: Order Comment: Speci men Type: BLOOD SPECIMENOrdering Facility: [facility] Address: [address] [place] [address] Result Comment: <15 GPL Negative 15-20 GPL Indeterminate >20 GPL Positive The following results were obtained with the [employer] QUANTA Lite STEVE IgG III KATELYN. Cardiolipin IgG values obtained with the different manufacturers' assay methods may not be used interchangeably. The magnitude of the reported IgG levels cannot be correlated to an endpoint titer. Performed By: #### C NATALY, 5076-5, [facility] ####[facility] LABCLIA [id number] [facility] [id number] STATES OF [facility] CARDIOLIPIN IGM ABSon 2023 Cardiolipin IgM IA Qn (S) <9.0 Normal <12.5 [facility] Comment on above: Order Comment: Speci men Type: BLOOD SPECIMENOrdering Facility: [facility] Address: [address] [place] [address] Result Comment: <12. 5 MPL Negative 12.5-20 MPL Indeterminate >20 MPL Positive The following results were obtained with the [employer] QUANTA Lite STEVE IgM III KATELYN. Cardiolipin IgM values obtained with the different manufacturers' assay methods may not be used interchangeably. The magnitude of the reported IgM levels cannot be correlated to an endpoint titer. ??? Performed By: #### C NATALY, 5076-5, [place] ####[facility] LABCLIA [id number] [address] OF [facility] CNOVon 07-06-2024 CNOV Office Visit (ENWSTR) ---- AUGUSTIN GARCIA ([id number]) 1985 F Date Time Provider Department 07/06/24 2:20 PM FAISAL CARTER ENWSTR During your visit today, we recorded the following information about you: Temperature Pulse Blood pressure Weight 97.9 degrees 83/minute 120/70 86.7 kg Height 1.626 m Faisal Carter MD 07/12/2024 9:41 PM Signed [facility] Follow up note Referred by: Siri Narvaez APRN. CARMELINA Chief complaint: Diabetes Mellitus during History of present illness: Augustin Garcia is a 38 year old female with history of bilateral PE at 9 weeks of who initially presented to Endocrinology for evlaution of gestational diabetes mellitus at 25 weeks of gestation This was her 11th . She was told that she had GDM during last and then now She declined going on basal bolus recommended for better control during gestation We kept adjusting the doses of insulin as OBGYN sent us her readings, but I did not see her after the initial visit Delivery was on April 30. She is 3 months now Current regimen: Insulin NPH 24 units at bedtime, lispro 5 units with dinner. Denies any oral medication use in the past Denies missing any doses, using abdomen for insulin injections, and for lovenox For Bilateral PE at 9 weeks of - she is on lovenox Hba1c 6.3% at 12-13 weeks of gestation No hyperglycemic symptoms reported No known micro or macrovascular complications. She denies any eye exam done between last and this She has not seen diabetes education/dietitian in the past. She was offered a booklet guide to diabetes management by OBGYN and reports being helpful . Blood sugars -Self monitoring of blood sugar via fingerstick: 4 x daily -Brought blood glucose log for review: yes -BG log reviewed: --Fastin-140s --2 hours post breakfast: ranging from 90s-150s --Prelunch -90s-140s --2 hours post lunch- ranging from 110s-150s -- Predinner- 100s-150s --2 hours post dinner- ranging from 100s-150s . Hypoglycemia -Hypoglycemic episodes: occasionally -Frequency and timing of hypoglycemia: most tines after breakfast, often occurs if she a low protein meal -Hypoglycemia awareness: yes, feels shaky . Lifestyle -Exercise: not much -Diet: Breakfast: Lunch: Dinner: she is trying to eat low carb meals Eye exam: December 2023, no retinopathy ?Neuropathy: tingling in feet for the last few years ROS: SYSTEMIC: Denies fatigue, malaise, energy, Weight has been stable, heat/cold intolerance, polydipsia EYES: Denies blurring of vision, diplopia, pain/discomfort, excessive tearing, swelling of eye lids, bulging, redness, dryness, NECK: Denies goiter, lump, pain/discomfort, dysphagia, hoarseness, sore thorat RESPIRATORY: Denies dyspnea at rest/with exertion, orthopnea cough, pleuritic chest pain, snoring, apnea episodes CARDIOVASCULAR: Chest pain, palpitations, irregular heart beats GASTRO-INTESTINAL:D enies Nausea, vomiting, abdominal pain, hyperdefecation, rectal bleeding NEUROLOGICAL: Denies dizziness, lightheadedness, weakness, cramping, numbness/tingling of extremities MUSCULOSKELETAL: Denies joint pain, stiffness, swelling, cramping or weakness. GENITOURINARY: Denies polyuria, recurrent UTI/yeast infections SKIN: Denies dryness, brittle nails, hair loss, alopecia, excessive sweating, flushing, darkening of skin PSYCHIATRIC: Denies anxiety, depression, panic attacks, irritability, mood swings Past Medical History PAST MEDICAL HISTORY Diagnosis Date Gestational diabetes Pulmonary embolism (HCC) 10/13/2023 Past Surgical History PAST SURGICAL HISTORY Procedure Laterality Date DANDC, DIAG AND/OR THERAPEUTIC 2019 PAST SURGICAL HISTORY OF cyst removed from back Family History FAMILY HISTORY Problem Relation Age of Onset No Known Problems Mother strong maternal side of diabetes - mother not officially diagnosed Hypertension Father DVT Sister other (gestational diabetes) Sister No Known Problems Sister No Known Problems Sister No Known Problems Sister No Known Problems Sister No Known Problems Sister No Known Problems Brother No Known Problems Brother No Known Problems Brother Diabetes Maternal Grandmother No Known Problems Maternal Grandfather No Known Problems Paternal Grandmother No Known Problems Paternal Grandfather Social History Social History Tobacco Use Smoking status: Never Smokeless tobacco: Never Vaping Use Vaping status: Never Used Substance Use Topics Alcohol use: Never Drug use: Never Allergies ALLERGIES No Known Allergies Current Medications Current Outpatient Medications Medication Sig Dispense Refill Insulin Syringe-Needle U-100 0.3 mL 31 gauge x 5/16 1 Each two times a day as needed. 60 Each 1 HUMUL (more content not included)... Normal [facility] CNOVSPon 07-06-2024 CNOVSP Visit (SP) Office (DAPHNE) ---- RADHAAUGUSTIN Junie ([id number]) 1985 F Date Time Provider Department 07/06/24 11:30 AM DONN LOVE During your visit today, we recorded the following information about you: Temperature Pulse Blood pressure Weight 97.2 degrees 71/minute 104/69 87.8 kg Donn Love MD 07/06/2024 12:06 PM Signed (Elements copied from my note dated December 03, 2023, have been reviewed and updated where appropriate, and all reflect current assessment and medical decision making from today's encounter, July 06, 2024) HISTORY OF PRESENT ILLNESS: Augustin K Radha is a 38 year old female 17 weeks sudden onset dyspnea. Went to ER, CT scan showed multiple PE. Now on lovenox. Had possible similar symptoms last . Did not get it evaluated, and symptoms resolved in a few weeks. Now feels bettr on ac. 10 previous pregnancies went ok. Sister had a PE with . Other sisters with phlebitis. Here for follow up, 8 weeks post , off of lovenox. CLINICAL IMPRESSION: PE in setting of , as such provoked RECOMMENDATION/PLAN : 1. Will check hypercoagulation panel now. Follow up in 2 weeks Written and verbal health teaching given to patient, patient verbalizes understanding and agrees with treatment plan. PAST MEDICAL HISTORY Diagnosis Date Gestational diabetes Pulmonary embolism (HCC) 10/13/2023 PAST SURGICAL HISTORY Procedure Laterality Date DANDC, DIAG AND/OR THERAPEUTIC 2018 PAST SURGICAL HISTORY OF cyst removed from back FAMILY HISTORY Problem Relation Age of Onset No Known Problems Mother strong maternal side of diabetes - mother not officially diagnosed Hypertension Father DVT Sister other (gestational diabetes) Sister No Known Problems Sister No Known Problems Sister No Known Problems Sister No Known Problems Sister No Known Problems Sister No Known Problems Brother No Known Problems Brother No Known Problems Brother Diabetes Maternal Grandmother No Known Problems Maternal Grandfather No Known Problems Paternal Grandmother No Known Problems Paternal Grandfather Social History Tobacco Use Smoking status: Never Smokeless tobacco: Never Vaping Use Vaping status: Never Used Substance Use Topics Alcohol use: Never Drug use: Never ALLERGIES: ALLERGIES No Known Allergies CURRENT OUTPATIENT MEDICATIONS: HUMULIN N NPH U-100 INSULIN 100 unit/mL injection Administer 22 units before breakfast and 48 units before bed insulin lispro 100 unit/mL injection Inject 8 units subcutaneously before breakfast and dinner. Chromium Picolinate 200 mcg tab Take 1 tablet by mouth three times a day. docosahexaenoic acid/epa (FISH OIL ORAL) Take 2 capsules by mouth three times a day. ascorbic acid (VITAMIN C ORAL) Take 1 tablet by mouth two times a day. PNV no.95/ferrous fum/folic ac ( ORAL) Take 1 Tablespoonful by mouth once daily. Insulin Syringe-Needle U-100 0.3 mL 31 gauge x 5/16 1 Each two times a day as needed. ferrous sulfate 325 mg (65 mg iron) tablet Take 1 tablet by mouth every other day. (Patient not taking: Reported on 07/06/2024) folic acid 1 mg tablet Take 1 tablet by mouth once daily. (Patient not taking: Reported on 05/11/2024) blood sugar diagnostic test strip Use as directed to check glucose levels up to seven times daily. Lancets Use as directed to check glucose levels up to seven times daily. alcohol swabs (ALCOHOL PREP PADS) Use as directed to check glucose levels up to seven times daily. OTC PRODUCT Super Greens: Take one capsule by mouth three times weekly. (Patient not taking: Reported on 07/06/2024) REVIEW OF SYSTEMS: GENERAL: No fever, night sweats, weight loss or malaise. All other reviewed and negative other than HPI. PHYSICAL EXAMINATION: VITAL SIGNS: BP 104/69 Pulse 71 Temp (Src) 97.2 (Temporal) Wt 193 lb 8 oz (87.8kg) SpO2 97% LMP 08/09/2023 GENERAL APPEARANCE: Well appearing, in no acute distress, alert and oriented x3, well-hydrated, well nourished. I spent a total of 20 minutes on the date of the service which included preparing to see the patient, [id number] patient care, completing clinical documentation, obtaining and/or reviewing separately obtained history, counseling and educating the patient/family/care consultant, independently interpreting results (not separately reported), and communicating results to the patient/family/care consultant. Electronically Signed: Donn Love MD July 06, 2024 Referring Provider: SELF [200] Allergies As of Date: 07/06/2024 (No Known Allergies) Date Reviewed: 07/06/2024 Reviewed by: Rachid Dean MA - Fully Assessed Reason for Visit: Established Patient [175] Primary Visit Diagnosis:History of pulmonary embolism [Z86.711] Order(s):HYPERCOAG DIAG PNL [SQHYPER] Order #: [id number] FUTURE Follow-u (more content not included)... Normal [facility] COAG CORE PANEL Hailey 2023 aPTT Coag (PPP) [Time] 26.8 s Normal 23.0-32.[address] [facility] Comment on above: Order Comment: Speci men Type: BLOOD SPECIMENOrdering Facility: [facility] Address: [address] [place] [address] [place] [id number] Performed By: #### C ORPNL ####[facility] LABIA [id number] [place] [address] [place] Fibrinogen Coag (PPP) [Mass/Vol] 366 mg/dL Normal 200-400 [facility] Comment on above: Order Comment: Speci men Type: BLOOD SPECIMENOrdering Facility: [facility] Address: [address] [place] [address] Performed By: #### C ORPNL ####[facility] [id number] [place] [address] [place] INR Coag (PPP) [Relative time] 1.0 {INR} Normal 0.9-1.3 [facility] Comment on above: Order Comment: Speci men Type: BLOOD SPECIMENOrdering Facility: [facility] Address: [address] [place] [address] Result Comment: Nehal min K Antagonist (VKA) Therapeutic Range: INR 2 to 3 (Target INR of 2.5) Note: For patients treated with VKA drugs, such as warfarin, the [place] [employer] 2012 Guideline recommends a therapeutic INR range of 2 to 3 (target INR of 2.5). This recommendation includes high-risk patients with antiphospholipid syndrome with previous arterial or venous thromboembolism, current-generation mechanical or bioprosthetic aortic heart valve replacement. Note: Patients with mechanical aortic valve replacement and additional risk factors for thromboembolic events (atrial fibrillation, previous thromboembolism, LV dysfunction, hypercoagulable conditions) or an older generation mechanical AVR (i.e., ball in-Cage) or any mechanical MVR should have a INR therapeutic range of 2.5 to 3.5 (target INR of 3). Deacon GH, et al. Chest 2012, 141:7S-47S Matt RA, et al. [facility] 2017, 70: 252-289 Performed By: #### C ORPNL ####[facility] LABIA [id number] [place] [address] [place] PT Coag (PPP) [Time] 10.7 s Normal 9.7-13.0 [facility] Comment on above: Order Comment: Speci men Type: BLOOD SPECIMENOrdering Facility: [facility] Address: [address] [place] [address] Performed By: #### C ORPNL ####[facility] LABCLIA [id number] [place] [address] [place] CRP SerPl-mCncon 07-06-2024 CRP [Mass/Vol] 0.4 mg/dL Normal <0.9 [facility] Comment on above: Order Comment: Speci men Type: BLOOD SPECIMENOrdering Facility: [facility] Address: [address] [place] [address] Performed By: #### 1 988-5 ####[facility] LABIA [id number] [address] [place] Cardiolipin IgA Ser IA-aCnco n 07-06-2024 Cardiolipin IgA IA Qn (S) <9.0 Normal <12.0 [facility] Comment on above: Order Comment: Speci men Type: BLOOD SPECIMENOrdering Facility: [facility] Address: [address] [place] [address] Result Comment: <12 APL Negative 12-20 APL Indeterminate >20 APL Positive The following results were obtained with the [employer] QUANTA Lite STEVE IgA III KATELYN. Cardiolipin IgA values obtained with the different manufacturers' assay methods may not be used interchangeably. The magnitude of the reported IgA levels cannot be correlated to an endpoint titer. Performed By: #### C NATALY, 5076-5, VICKY ####[facility] LABIA [id number] [place] [address] [place] HYPERCOAG PANELon 07-06-2024 Activated protein C resistance Coag (PPP) [Time ratio] 2.52 Ratio Normal >1.96 [facility] Comment on above: Order Comment: Speci men Type: BLOOD SPECIMENOrdering Facility: [facility] Address: [address] [place] [address] Performed By: #### H COAG ####[facility] [id number] [place] [address] [place] Antithrombin actual/normal Chromogenic method (PPP) [Rel catalytic activity/Vol] 113 % Normal 84-138 [facility] Comment on above: Order Comment: Speci men Type: BLOOD SPECIMENOrdering Facility: [facility] Address: [address] [place] [address] Performed By: #### H COAG ####[facility] [id number] [place] [address] [place] aPTT Coag (Bld) [Time] 25.3 s Normal 24.0-35.1 [facility] Comment on above: Order Comment: Speci men Type: BLOOD SPECIMENOrdering Facility: [facility] Address: [address] [place] [address] Performed By: #### H COAG ####[facility] [id number] [place] [address] [place] aPTT W excess hexagonal phase phospholipid Coag (PPP) [Time] 41.4 seconds Normal 34.0-51.8 [facility] Comment on above: Order Comment: Speci men Type: BLOOD SPECIMENOrdering Facility: [facility] Address: [address] [place] [address] Performed By: #### H COAG ####[facility] [id number] [address] [place] Coagulation factor VIII activity actual/normal Coag (PPP) [Relative time] 209 % High 50-173 [facility] Comment on above: Order Comment: Speci men Type: BLOOD SPECIMENOrdering Facility: [facility] Address: [address] [place] [address] Result Comment: This test was developed, and its performance characteristics determined by the [facility] Department of Pathology and Laboratory Medicine. It has not been cleared or approved by the FDA. The [facility] Department of Pathology and Laboratory Medicine is regulated under CLIA as qualified to perform high-complexity testing. This test is used for clinical purposes. It should not be regarded as investigational or for research. Performed By: #### H COAG ####[facility] [id number] [place] [address] [place] Coagulation factor X activated act Coag Qn (PPP) <0.10 Normal <0.10 [facility] Comment on above: Order Comment: Speci men Type: BLOOD SPECIMENOrdering Facility: [facility] Address: [address] [place] [address] Result Comment: This test was developed, and its performance characteristics determined by the [facility] Department of Pathology and Laboratory Medicine. It has not been cleared or approved by the FDA. The [facility] Department of Pathology and Laboratory Medicine is regulated under CLIA as qualified to perform high-complexity testing. This test is used for clinical purposes. It should not be regarded as investigational or for research. Performed By: #### H COAG ####[facility] [id number] [place] [address] [place] Delta dRVVT Coag (PPP) [Time diff] 1.8 delta seconds Normal <7.1 [facility] Comment on above: Order Comment: Speci men Type: BLOOD SPECIMENOrdering Facility: [facility] Address: [address] [place] [address] Performed By: #### H COAG ####[facility] [id number] [place] [address] [place] dRVVT W excess hexagonal phase phospholipid actual/normal Coag (PPP) [Relative time] 39.6 seconds Normal 34.2-47.9 [facility] Comment on above: Order Comment: Speci men Type: BLOOD SPECIMENOrdering Facility: [facility] Address: [address] [place] [address] Performed By: #### H COAG ####[facility] [id number] [id number] [address] [place] Protein C actual/normal Coag (PPP) [Relative time] 155 % High 76-147 [facility] Comment on above: Order Comment: Speci men Type: BLOOD SPECIMENOrdering Facility: [facility] Address: [address] [place] [address] Performed By: #### H COAG ####[facility] LABCLIA [id number] [address] [place] Protein S actual/normal Coag (PPP) [Relative time] 79 % Normal 59-152 [facility] Comment on above: Order Comment: Speci men Type: BLOOD SPECIMENOrdering Facility: [facility] Address: [address] [place] [address] Performed By: #### H COAG ####[facility] LABIA [id number] [address] [place] Thrombin time Coag (PPP) [Time] <16.8 Normal <18.6 [facility] Comment on above: Order Comment: Speci men Type: BLOOD SPECIMENOrdering Facility: [facility] Address: [address] [place] [address] Performed By: #### H COAG ####[facility] [id number] [address] [place] PROTHROMBIN GENE PCRon 07-06 PROTHROMBIN GENE MUTATION Normal [facility] Comment on above: Order Comment: Speci men Type: BLOOD SPECIMENOrdering Facility: [facility] Address: [address] [place] [address] Result Comment: Prot hrombin Gene Mutation Laboratory Accession Number: [id number] Result: NORMAL Interpretation: The DNA sample is negative for the c.*97G>A variant (legacy name 88531V>A) in the 3' untranslated region of the Factor II (F2) gene. This result is not associated with an increased risk of thromboembolic disease. Thromboembolic disease is a multifactorial disorder and other causes are not excluded by this result. Methodology: Isolated Genomic DNA from the patient's blood specimen is evaluated for the c*97G>A (g.[id number]) variant of the F2 gene [RefSeq [id number];GRCh38/hg38] by multiplex polymerase chain reaction (PCR) followed by melting curve analysis. Limitations: This assay is designed to detect the c.*97G>A (78011H>A) variant in the F2 gene. Uncommon variants or single nucleotide polymorphisms may affect binding of probes and may rarely result in false negative, false positive or indeterminate results. This assay does not detect other disease-associated rare variants in F2 or other causes of thromboembolic disease. Disclaimer: This test was developed and its performance characteristics determined by [facility]'s Pathology and Laboratory Medicine Department. It has not been cleared or approved by the FDA. [facility]'s Pathology and Laboratory Medicine Department is regulated under CLIA as certified to perform high-complexity testing. This test is used for clinical purposes. It should not be regarded as investigational or for research. Testing and interpretation performed at [facility], [address] [place] [address]. [place] Number: [id number] References: 1) Inheritied Thrombophilias in . ACOG Practice Bulletin. No. 197. [place] [employer]. Obsete Gynecol 2018;132:e18-34. 2) Opalt SR, Cami FR, Julio César PH, and Brittni HOPE. A common genetic variation in the 3'-untranslated region of the prothrombin gene is associated with elevated plasma prothrombin levels and an increase in venous thrombosis. Blood 88:3698-703, 1995. 3) Charissa I, Ferny V, Jennifer C, Robbie K. Prothrombin 18097Q>T: 16 new cases, association with the 09534B>G polymorphism, and literature review. J Thromb Haemost. 2009;9:1585-7. As reviewed by Wendy Rivas, PhD, HCLD Performed By: #### P SHAN ####[facility] FILIBERTOWYMAGDALENO [id number] [address] CNPSahara 06-25-2024 CNPN Telephone (OBGYWM) ---- AUGUSTIN GARCIA ([id number]) 1985 F Date Time Provider Department 06/25/24 ISRA WADE During your visit today, we recorded the following information about you: Marisel Li LPN 06/25/2024 3:31 PM Addendum Left message to call office. Does patient want to schedule tubal sterilization or have IUD inserted? Patient will need to have surgery at [facility] d/t being self pay. Patient will need medical clearance for surgery from endocrinology and hemalogy Lynn Kunz RN 06/26/2024 9:17 AM Signed Spoke with patient. She would like tubal sterilization. She has appointments with endocrinology and hematology on Saturday. Aware we will reach out to her with the next available date for [place]. RADHA Mccall Annalee, LPN 07/17/2024 3:53 PM Signed Left message to call office. Next available date for surgery at [facility] is 08/18/2024 w/ Dr. Fields. Patient will need a pre-operative appointment Lynn Kunz RN 08/10/2024 2:31 PM Signed Patient had IUD inserted on 07/22/24. Lynn Kunz RN Allergies As of Date: 06/25/2024 (No Known Allergies) Date Reviewed: 04/24/2024 Reviewed by: Dania Zapata MA - Fully Assessed Reason for Visit: Schedule Surgery [1330] Prescriptions as of 08/10/2024 - copper (PARAGARD) 380 square mm intrauterine device 1 Intra Uterine Device by INTRAUTERINE route one time only for 1 dose. - metFORMIN (GLUCOPHAGE) 1,000 mg tablet Take 1 tablet by mouth two times a day. - miconazole 2 % cream Apply a pea sized amount to nipples after each feed. - Insulin Syringe-Needle U-100 0.3 mL 31 gauge x 5/16 1 Each two times a day as needed. - HUMULIN N NPH U-100 INSULIN 100 unit/mL injection Administer 22 units before breakfast and 48 units before bed - insulin lispro 100 unit/mL injection Inject 8 units subcutaneously before breakfast and dinner. - Chromium Picolinate 200 mcg tab Take 1 tablet by mouth three times a day. - blood sugar diagnostic test strip Use as directed to check glucose levels up to seven times daily. - Lancets Use as directed to check glucose levels up to seven times daily. - alcohol swabs (ALCOHOL PREP PADS) Use as directed to check glucose levels up to seven times daily. - docosahexaenoic acid/epa (FISH OIL ORAL) Take 2 capsules by mouth three times a day. - ascorbic acid (VITAMIN C ORAL) Take 1 tablet by mouth two times a day. - PNV no.95/ferrous fum/folic ac ( ORAL) Take 1 Tablespoonful by mouth once daily. Problem List As Of Date 06/25/2024 Noted Resolved Advanced maternal age in multigravida, first tr*10/25/2023 History of pulmonary embolism [Z86.711] 10/25/2023 with uncertain dates in first trimest*10/25/2023 11/22/2023 Insulin controlled gestational diabetes mellitu*10/30/2023 01/16/2024 History of [Z87.59] 10/30/2023 History of hemorrhage, currently pre*10/30/2023 Anxiety [F41.9] 10/30/2023 Family history of stillbirth [Z84.89] 10/30/2023 Family history of neural tube defect [Z82.79] 10/30/2023 Constipation during in first trimeste*10/30/2023 Elevated glucose tolerance test [R73.09] 11/25/2023 01/16/2024 Gestational diabetes mellitus (GDM) in second t*12/18/2023 Request for sterilization [Z30.2] 02/24/2024 Encounter Status:Closed by LYNN KUNZ on 08/10/24 Normal [facility] Bedside Glucoseon 05-01-2024 FINGERSTICK GLU 100 mg/dL Normal 74-106 [facility] Comment on above: Result Comment: HANSA FELIX OF PATIENT CARE PER NURSING PROTOCOL Performed By: #### L 501.080 #### [facility] [address] [place], [address] FINGERSTICK GLU 180 mg/dL High 74-106 [facility] Comment on above: Result Comment: HANSA GEMENT OF PATIENT CARE PER NURSING PROTOCOL Performed By: #### L 501.080 #### [facility] [address] [place], [address] FINGERSTICK GLU 101 mg/dL Normal 74-106 [facility] Comment on above: Result Comment: HANSA GEMENT OF PATIENT CARE PER NURSING PROTOCOL Performed By: #### L 501.080 #### [facility] [address] [place], [address] FINGERSTICK GLU 106 mg/dL Normal 74-106 [facility] Comment on above: Result Comment: HANSA GEMENT OF PATIENT CARE PER NURSING PROTOCOL Performed By: #### L 501.080 #### [facility] [address] [place], [address] Bedside Glucoseon 04-30-2024 FINGERSTICK GLU 119 mg/dL High 74-106 [facility] Comment on above: Result Comment: HANSA GEMENT OF PATIENT CARE PER NURSING PROTOCOL Performed By: #### L 501.080 #### [facility] [address] [place], [address] FINGERSTICK GLU 142 mg/dL High 74-106 [facility] Comment on above: Result Comment: HANSA GEMENT OF PATIENT CARE PER NURSING PROTOCOL Performed By: #### L 501.080 #### [facility] [address] [place], [address] FINGERSTICK GLU 93 mg/dL Normal 74-106 [facility] Comment on above: Result Comment: HANSA GEMENT OF PATIENT CARE PER NURSING PROTOCOL Performed By: #### L 501.080 ####[facility] [address] [place], [address] FINGERSTICK GLU 113 mg/dL High 74-106 [facility] Comment on above: Result Comment: HANSA GEMENT OF PATIENT CARE PER NURSING PROTOCOL Performed By: #### L 501.080 #### [facility] [address] [place], [address] FINGERSTICK GLU 115 mg/dL High 74-106 [facility] Comment on above: Result Comment: HANSA GEMENT OF PATIENT CARE PER NURSING PROTOCOL Performed By: #### L 501.080 #### [facility] [address] [place], [address] FINGERSTICK GLU 113 mg/dL High 74-106 [facility] Comment on above: Result Comment: HANSA GEMENT OF PATIENT CARE PER NURSING PROTOCOL Performed By: #### L 501.080 #### [facility] [address] [place], [address] FINGERSTICK GLU 152 mg/dL High 74-106 [facility] Comment on above: Result Comment: HANSA GEMENT OF PATIENT CARE PER NURSING PROTOCOL Performed By: #### L 501.080 #### [facility] [address] [place], [address] CBC W/Diff, Automatedon 08-0 8-2024 Absolute Lymph 1.32 X10 3/uL Normal 0.83-4.51 [facility] Comment on above: Performed By: #### L 501.080 #### [facility] [address] [place], [address] Absolute Neut 4.8 X10 3/uL Normal 2.0-7.7 [facility] Comment on above: Performed By: #### L 501.080 #### [facility] [address] [place], [address] Basophils/100 WBC (Bld) 0.6 % Normal 0-1 [facility] Comment on above: Performed By: #### L 501.080 #### [facility] [address] [place], [address] Eosinophils/100 WBC (Bld) 1.3 % Normal 0-5 [facility] Comment on above: Performed By: #### L 501.080 #### [facility] [address] [place], [address] Erythrocyte distribution width (RBC) [Ratio] 14.6 % Normal 11.6-14.6 [facility] Comment on above: Performed By: #### L 501.080 #### [facility] [address] [place], [address] Hematocrit (Bld) [Volume fraction] 34.6 % Low 37-47 [facility] Comment on above: Performed By: #### L 501.080 #### [facility] [address] [place], [address] Hemoglobin (Bld) [Mass/Vol] 11.8 g/dL Low 12.0-15.0 [facility] Comment on above: Performed By: #### L 501.080 #### [facility] [address] [place], [address] IG% 2.000 High 0.0-0.9 [facility] Comment on above: Result Comment: IG% - Immature Granulocytes (promyelocytes, myelocytes and metamyelocytes) > 1% indicates that a LEFT SHIFT is Present. Performed By: #### L 501.080 #### [facility] [address] [place], [address] Lymphocytes/100 WBC (Bld) 19.3 % Normal 19-41 [facility] Comment on above: Performed By: #### L 501.080 #### [facility] [address] [place], [address] MCH (RBC) [Entitic mass] 30.9 pg Normal 27.0-32.0 [facility] Comment on above: Performed By: #### L 501.080 #### [facility] [address] [place], [address] MCHC (RBC) [Mass/Vol] 34.1 g/dL Normal 32-36 [facility] Comment on above: Performed By: #### L 501.080 #### [facility] [address] [place], [address] MCV (RBC) [Entitic vol] 90.6 fL Normal 81-99 [facility] Comment on above: Performed By: #### L 501.080 #### [facility] [address] [place], [address] Monocytes/100 WBC (Bld) 6.0 % Normal 0-10 [facility] Comment on above: Performed By: #### L 501.080 #### [facility] [address] [place], [address] Neutrophils/100 WBC (Bld) 70.8 % High 47-70 [facility] Comment on above: Performed By: #### L 501.080 #### [facility] [address] [place], [address] Nucleated RBC (Bld) [#/Vol] 0 10*3/uL Normal 0-5 [facility] Comment on above: Performed By: #### L 501.080 #### [facility] [address] [place], [address] Platelet mean volume (Bld) [Entitic vol] 9.5 fL Normal 6.2-12.0 [facility] Comment on above: Performed By: #### L 501.080 #### [facility] [address] [place], [address] Platelets (Bld) [#/Vol] 150 10*3/uL Normal 150-450 [facility] Comment on above: Performed By: #### L 501.080 #### [facility] [address] [place], [address] RBC (Bld) [#/Vol] 3.82 10*6/uL Low 4.2-5.4 [facility] Comment on above: Performed By: #### L 501.080 #### [facility] [address] [place], [address] RDW SD 47.7 fl High 35.1-43.9 [facility] Comment on above: Performed By: #### L 501.080 #### [facility] [address] [place], [address] WBC (Bld) [#/Vol] 6.8 10*3/uL Normal 4.4-11.0 [facility] Comment on above: Performed By: #### L 501.080 #### [facility] [address] [place], [address] H AND P Exam - OB/GYNon 08-0 H&P Exam - PROPERTY CLERK [facility] Medical Records Department [address] [place] [address] H P Exam - PROPERTY CLERK 04/30/24 0834 MR#: [id number] Acct: [id number] Name: AUGUSTIN GARCIA Rep #: [id number] : 1985 38 From: Isra Wade DO PCP: Dr. Arie Escoto, Status:ADM IN Location: [id number] HPI - General General Date of Admission: 04/30/24 Date of Service: 04/30/24 Chief Complaint: induction HPI Narrative AUGUSTIN GARCIA, is a 38 F who presents for scheduled IOL. She offers no complaints. No pain, vb, lof. Good FM. PFSH [facility] Medical History (Updated 04/30/24 @ 08:[address] Isra Wade, DO) Abnormal TSH Bilateral pulmonary embolism Home Medications ???Medication ???Instructions ???Recorded ???Last Taken ???Type ascorbic acid (vitamin C) 500 mg 500 mg PO BID vitamin #60 tabs 10/15/23 04/29/24 Rx tablet enoxaparin 80 mg/0.8 mL 80 mg (0.8 mL) subcut Q12 10/15/23 04/29/24 Rx subcutaneous syringe pulmonary embolism 1 month #48 mL ferrous sulfate 325 mg (65 mg 325 mg PO QODAY anemia #30 tabs 10/15/23 04/29/24 Rx iron) tablet (FeroSul) folic acid 1 mg tablet 1 mg PO DAILY #30 tabs 10/15/23 04/30/24 Rx insulin NPH isoph U-100 human 100 22 unit subcut DAILY diabetes 04/30/24 04/29/24 History unit/mL subcutaneous suspension (Humulin N NPH U-100 Insulin (isophane susp)) insulin lispro 100 unit/mL 6 unit subcut DAILY diabetes 04/30/24 04/29/24 History subcutaneous solution wcahsdgsyodo-lokt-a inerals 5 ml PO DAILY 04/30/24 04/29/24 History Allergy/AdvReac Type Severity Reaction Status Date / Time No Known Allergies Allergy Verified 04/30/24 07:30 Family History Sister FH: thromboembolic disease Social History household members: family housing: house current occupation: [employer] Smoking Status: Never smoker alcohol intake: never substance use type: does not use NST FHR Rate Baby A Baseline: 145 Variability:: Moderate Accelerations:: 15 x 15 Decelerations:: None NST Reactive:: Yes FHR Category:: Category I Uterine Activity:: irregular Vital Signs Vital Signs Vital Signs: 04/30/24 08:08 04/30/24 08:08 04/30/24 08:08 Pulse Rate 96 Blood Pressure 116/75 BP Systolic 116 BP Diastolic 75 Pulse Ox 98 Weight Weight: 194 lb 4 oz Body Mass Index (BMI) 32.3 Physical Exam Const alert and no apparent distress General Appearance: comfortable HEENT normocephalic Resp normal respiratory effort GI soft to palpation, non-tender and non-distended Narrative: Cvx 4/70/-2, head well applied Labs Labs Labs: Antibody Screen Pending Hct 34.6 % (37-47) L Hgb 11.8 g/dL (12.0-15.0) L Obstetrics Ultrasound Syphilis Total Ab Pending Assessment Plan (1) Bilateral pulmonary embolism: PLAN: Therapeutic lovenox held 24 hours (2) 38 weeks gestation of : (3) Advanced maternal age (AMA) in : (4) GDM, class A2: PLAN: Poorly controlled in . Discussed with patient may need insulin drip. Diabetic protocol (5) History of hemorrhage: (6) History of : (7) Encounter for planned induction of labor: PLAN: AROM performed in usual sterile fashion with return of clear fluid. Pitocin per protocol. GBS negative. Pelvis adequate and EFW < 4500 grams. Anticipate vaginal delivery 04/30/24 0837 Cosigner Signature (if applicable): CC: Dr. Arie Escoto DO; Dr. Isra Wade DO Signed Normal [facility] L509.8000on 04-30-2024 Syphilis Abs Non-Reactive [facility] Comment on above: Performed By: #### L 501.080 #### [facility] [address] [place], [address] Operative Reporton [address] [facility] Medical Records Department [address] [place] [address] Operative Report 04/30/24 1412 MR#: [id number] Acct: [id number] Name: AUGUSTIN GARCIA Rep #: [id number] : 1985 38 From: Isra Wade DO PCP: Dr. Arie Escoto DO Status:ADM IN Location: [id number] Problems Associated Problem List Diagnoses (1) Vaginal delivery: (2) Encounter for planned induction of labor: (3) History of : (4) History of hemorrhage: (5) GDM, class A2: (6) Advanced maternal age (AMA) in : (7) 38 weeks gestation of : (8) Bilateral pulmonary embolism: Report of Operation Date of Procedure: 04/30/24 Pre-Operative Diagnosis: 38 week gestation, PE in , uncontrolled A2GDM, AMA Post-Operative Diagnosis: As above Surgery/Procedure Performed:: Description of Surgical Findings:: Called for delivery. Upon entering the room, infant was on mother's chest bonding and the cord was clamped and cut. A VMI was delivered by nursing staff with loose nuchal cord x 1 that was reduced. The cord was clamped and cut prior to entering the room. Apgars 8, 9. The placenta was delivered with fundal massage and noted to be normal appearing and intact with 3VC. Fundus firm and bleeding hemostatic. No lacerations noted. Vaginal sweep performed and sponge count was correct. Surgeon: Isra Wade Type of Anesthesia: None Special Medications: None Specimen's removed: Placenta Drains: None Estimated Blood Loss (mL): 150 Fluids Replaced: N/A Description of Procedure: See above Grafts/Implants Used: None Complications None Admit VTE Documentation VTE Present on Admission: Yes VTE Mechan Device Prophylaxis: SCD's VTE Pharm Prophylaxis ordered?: Yes 04/30/24 8305 Cosigner Signature (if applicable): CC: Dr. Arie Escoto DO; Dr. Isra Wade, DO Signed Normal [facility] Type AND Screenon 04-30-2024 ABO and Rh group Nom (Bld) Blood group A Rh(D) positive Normal [facility] Comment on above: Order Comment: Labor Performed By: #### L 501.080 #### [facility] [address] [place], [address] URINE OB DIP B/Oon 4 Glucose Ql (U) 100 mg/dL Neg [facility] Interpretation and review of laboratory results Normal [facility] Protein.monoclonal (U) [Mass/Vol] Negative Neg mg/dL [facility] URINE OB DIP B/Oon 4 Glucose Ql (U) Negative Neg mg/dL [facility] Protein.monoclonal (U) [Mass/Vol] Negative Neg mg/dL [facility] Examination level ultrasound on 04-09-2024 [facility] Radiology Study observation (narrative) [facility] URINE OB DIP B/Oon 4 Glucose Ql (U) Negative Neg mg/dL [facility] Interpretation and review of laboratory results Normal [facility] Protein.monoclonal (U) [Mass/Vol] Negative Neg mg/dL [facility] URINE OB DIP B/Oon 4 Glucose Ql (U) Negative Neg mg/dL [facility] Protein.monoclonal (U) [Mass/Vol] Negative Neg mg/dL [facility] URINE OB DIP B/Oon 4 Glucose Ql (U) Negative Neg mg/dL [facility] Interpretation and review of laboratory results Normal [facility] Protein.monoclonal (U) [Mass/Vol] Negative Neg mg/dL [facility] Examination level ultrasound on 02-24-2024 [facility] Radiology Study observation (narrative) [facility] URINE OB DIP B/Oon 4 Glucose Ql (U) Negative Neg mg/dL [facility] Interpretation and review of laboratory results Normal [facility] Protein.monoclonal (U) [Mass/Vol] Negative Neg mg/dL [facility] URINE OB DIP B/Oon 4 Glucose Ql (U) Negative Neg mg/dL [facility] Interpretation and review of laboratory results Normal [facility] Protein.monoclonal (U) [Mass/Vol] Negative Neg mg/dL [facility] URINE OB DIP B/Oon 4 Glucose Ql (U) Negative Neg mg/dL [facility] Protein.monoclonal (U) [Mass/Vol] Negative Neg mg/dL [facility] Examination level ultrasound on 12-30-2023 [facility] URINE OB DIP B/Oon 4 Glucose Ql (U) Negative Neg mg/dL [facility] Protein.monoclonal (U) [Mass/Vol] Negative Neg mg/dL [facility] Pulmonary Visit Reporton Pulmonary Visit Report [facility]monary Medicine of [address] [place] [address] OFFICE VISIT Date of Service: 11/21/23 MR#: [id number] Acct: [id number] Name: HUMAIRA GARCIAAH Junie Rep #: [id number] : 1985 Provider: LIAM Murillo Age/Sex: 38/F [place] [facility] [place] Status: Signed Assessment and Plan Assessment and Plan (1) Acute dyspnea: Status: Acute Plan: Walking oximetry performed in the office today. See nursing documentation for results. I have encouraged them to continuous pickling line pickler a portable pulse oximeter. The patient would benefit from being able to check not only her oxygen saturation but also her heart rate. She did not experience hypoxia, however tachycardia was noted. She does not currently require any supplemental oxygen. (2) Bilateral pulmonary embolism: Status: Acute Plan: Continue anticoagulation through and 6 weeks . Follow-up with Dr. Mireles for evaluation and determination on whether or not anticoagulation is necessary. (3) Second trimester : Status: Acute Plan: Complicates exam, plan, care and prognosis. Orders: Orders Walking Oximetry Today R06.00 - Dyspnea, unspecified HPI Hospital FU Chief Complaint: Hospital follow-up HPI Comments Details: This patient presents to the office today for hospital follow-up after recent hospitalization at [facility] from October 13 through October 15, 2023 for pulmonary embolism. She is ambulatory, currently on room air and accompanied today by her . She presented to the emergency department with shortness of breath and mild chest discomfort. It was noted that she was 9 weeks . No history of thromboembolic disease. CT scan of the chest did show large bilateral pulmonary emboli. Likely secondary to her . She was treated with anticoagulants and discharged on Lovenox with recommendations to continue through 6 weeks . The patient would likely benefit from a hypercoagulable workup . The patient was ambulated prior to hospital discharge and did not require any supplemental oxygen. No evidence of right heart strain. The patient reports that she was ambulated prior to hospital discharge and determined that she did not require supplemental oxygen. She states that it only appointments she has attended since hospital discharge her oxygen saturation has been fine. She does not currently have a portable pulse oximeter at home. She does have shortness of breath on exertion. She is exerted quite easily. Her chest tightness is improving but not gone. She denies any cough, sputum production or hemoptysis. She denies any wheezing, chest tightness, chest pain or palpitations. She is compliant with Lovenox subcutaneous injections. She has not noticed any bleeding side effects such as hematemesis, hematochezia or melena stools. She is 12 para 9, therefore this is not her first . She did not have any blood clot complications with previous pregnancies. She does believe she may have had a small superficial blood clots in the right lower extremity during her last , however it was not problematic. She is a lifelong never smoker. No recent travel. No other clotting risk factors identified. Intake Vital Signs 10/14/23 12:16 11/18/23 10:05 11/21/23 07:37 11/21/23 08:44 11/21/23 08:45 11/21/23 08:46 11/21/23 08:47 11/21/23 08:48 11/21/23 08:49 11/21/23 08:50 Height 5 ft 5 in 5 ft 5 in 5 ft 5 in Weight: 186 lb BMI 30.9 BP 120/76 Blood Pressure Location Lt brachial Position Sitting Respiration 24 H Pulse 80 98 103 H 101 H 111 H 93 100 104 H Pulse Source Monitor Monitor Monitor Monitor Monitor Monitor Monitor Monitor Temp 97.3 F L Temperature Source Temporal Artery Pulse Oximetry (%) 99 98 99 99 99 99 99 99 Oxygen Delivery Method room air room air room air room air room air room air room air room air Comment RESTING MIN 1 MIN 2 REST BREAK NEEDED MIN 3 MIN 4 MIN 5 MIN 6 Intake Visit Reasons: Hospital FU Coffee Grower Required: No DME Vendor: n/a Accompanied by: Is patient in pain?: No Allergies No Known Allergies Allergy (Verified 11/21/23 08:16) Medications ascorbic acid (vitamin C) 500 mg tablet 500 mg PO BID #60 tabs 10/15/23 [Rx Confirmed 11/21/23] enoxaparin 80 mg/0.8 mL subcutaneous syringe 80 mg (0.8 mL) subcut Q12 1 month #48 mL 10/15/23 [Rx Confirmed 11/21/23] ferrous sulfate 325 mg (65 mg iron) tablet (FeroSul) 325 mg PO QODAY #30 tabs 10/15/23 [Rx Confirmed 11/21/23] folic acid 1 mg tablet 1 mg PO DAILY #30 tabs 10/15/23 [Rx Confirmed 11/21/23] [facility] Medical History (Updated 11/21/23 @ 08:46 by Marita Murillo FOOD CHECKER, FOOD CHECKER-C) Abnormal TSH Bilateral pulmonary embolism Family History (Reviewed 11/21/23 (more content not included)... Normal [facility] 12 Lead EKGon 11-18-2023 12 Lead EKG [facility] Cardiovascular Services [address] [place] [address] 12 Lead EKG 11/18/23 1011 MR#: [id number] Acct: [id number] Name: AUGUSTIN GARCIA Rep #: [id number] : 1985 38 From: Nadya Zarate MD Attending Dr: Dr. Reese Steele MD Status: DEP E R Ordering Dr: Reese Steele MD Date: 11/18/23 Location: ED Sex: F C Admitted: Test Reason : CP/SOB Blood Pressure : / mmHG Vent. Rate : 081 BPM Atrial Rate : 081 BPM P-R Int : 150 ms QRS Dur : 084 ms QT Int : 380 ms P-R-T Axes : 048 060 024 degrees QTc Int : 441 ms Normal sinus rhythm Normal ECG Confirmed by ROLAND JUAREZ, MANOHAR ([id number]), photography editor AMOR ORTIZ ([id number]) on 11/25/2023 9:49:46 AM Referred By: Confirmed By:MITA ZARATE MD 11/25/23 0949 Date Nadya Zarate MD CC: Dr. Reese Steele MD; Dr. Arie Escoto, Signed Normal [facility] Basic Metabolic Profile (BMP )on 11-18-2023 BUN/CRE 11.6 RATIO Normal 10-20 [facility] Comment on above: Order Comment: 'TROP ' Serial specimen #1, #2 or #3: 1 Performed By: #### L 501.080 #### [facility] [address] [place], [address] CA,Total 9.3 mg/dL Normal 8.5-10.1 [facility] Comment on above: Order Comment: 'TROP ' Serial specimen #1, #2 or #3: 1 Performed By: #### L 501.080 #### [facility] [address] [place], [place], [address] Chloride [Moles/Vol] 109 mmol/L High 98-107 [facility] Comment on above: Order Comment: 'TROP ' Serial specimen #1, #2 or #3: 1 Performed By: #### L 501.080 #### [facility] [address] [place], [address] CO2 [Moles/Vol] 22.0 mmol/L Normal 21.0-32.0 [facility] Comment on above: Order Comment: 'TROP ' Serial specimen #1, #2 or #3: 1 Performed By: #### L 501.080 #### [facility] [address] [place], [address] Creatinine [Mass/Vol] 0.52 mg/dL Low 0.55-1.02 [facility] Comment on above: Order Comment: 'TROP ' Serial specimen #1, #2 or #3: 1 Result Comment: The validity of the calculated GFR GFRAA in patients over 70 years has not been determined. Clinical correlation is essential. Performed By: #### L 501.080 #### [facility] [address] [place], [address] ECRCL 153.72 ml/min Normal [facility] Comment on above: Order Comment: 'TROP ' Serial specimen #1, #2 or #3: 1 Performed By: #### L 501.080 #### [facility] [address] [place], [address] EST GFR - AA 170 mL/min Normal >60 [facility] Comment on above: Order Comment: 'TROP ' Serial specimen #1, #2 or #3: 1 Result Comment: Afri can Salvadorean GFR Calc Performed By: #### L 501.080 #### [facility] [address] [place], [address] GAP 7 Normal 5-15 [facility] Comment on above: Order Comment: 'TROP ' Serial specimen #1, #2 or #3: 1 Performed By: #### L 501.080 #### [facility] [address] [place], [address] GFR/1.73 sq M.predicted among non-blacks MDRD (S/P/Bld) [Vol rate/Area] 141 mL/min/{1.73_m2} Normal >60 [facility] Comment on above: Order Comment: 'TROP ' Serial specimen #1, #2 or #3: 1 Result Comment: Non- GFR Calc Performed By: #### L 501.080 #### [facility] [address] [place], [address] Glucose [Mass/Vol] 77 mg/dL Normal 74-106 [facility] Comment on above: Order Comment: 'TROP ' Serial specimen #1, #2 or #3: 1 Performed By: #### L 501.080 #### [facility] [address] [place], [address] Potassium [Moles/Vol] 3.2 mmol/L Low 3.5-5.1 [facility] Comment on above: Order Comment: 'TROP ' Serial specimen #1, #2 or #3: 1 Performed By: #### L 501.080 #### [facility] [address] [place], [address] Sodium [Moles/Vol] 138 mmol/L Normal 136-145 [facility] Comment on above: Order Comment: 'TROP ' Serial specimen #1, #2 or #3: 1 Performed By: #### L 501.080 #### [facility] [address] [place], [address] Urea nitrogen [Mass/Vol] 6 mg/dL Low 7-18 [facility] Comment on above: Order Comment: 'TROP ' Serial specimen #1, #2 or #3: 1 Performed By: #### L 501.080 #### [facility] [address] [place], [address] CBC W/Diff, Automatedon 02-2 Absolute Lymph 2.03 X10 3/uL Normal 0.83-4.51 [facility] Comment on above: Performed By: #### L 501.080 #### [facility] [address] [place], [address] Absolute Neut 4.8 X10 3/uL Normal 2.0-7.7 [facility] Comment on above: Performed By: #### L 501.080 #### [facility] [address] [place], [address] Basophils/100 WBC (Bld) 0.3 % Normal 0-1 [facility] Comment on above: Performed By: #### L 501.080 #### [facility] [address] [place], [address] Eosinophils/100 WBC (Bld) 0.9 % Normal 0-5 [facility] Comment on above: Performed By: #### L 501.080 #### [facility] [address] [place], [address] Erythrocyte distribution width (RBC) [Ratio] 17.6 % High 11.6-14.6 [facility] Comment on above: Performed By: #### L 501.080 #### [facility] [address] [place], [address] Hematocrit (Bld) [Volume fraction] 39.7 % Normal 37-47 [facility] Comment on above: Performed By: #### L 501.080 #### [facility] [address] [place], [address] Hemoglobin (Bld) [Mass/Vol] 13.0 g/dL Normal 12.0-15.0 [facility] Comment on above: Performed By: #### L 501.080 #### [facility] [address] [place], [address] IG% 0.700 Normal 0.0-0.9 [facility] Comment on above: Result Comment: IG% - Immature Granulocytes (promyelocytes, myelocytes and metamyelocytes) > 1% indicates that a LEFT SHIFT is Present. Performed By: #### L 501.080 #### [facility] [address] [place], [address] Lymphocytes/100 WBC (Bld) 27.4 % Normal 19-41 [facility] Comment on above: Performed By: #### L 501.080 #### [facility] [address] [place], [address] MCH (RBC) [Entitic mass] 26.9 pg Low 27.0-32.0 [facility] Comment on above: Performed By: #### L 501.080 #### [facility] [address] [place], [address] MCHC (RBC) [Mass/Vol] 32.7 g/dL Normal 32-36 [facility] Comment on above: Performed By: #### L 501.080 #### [facility] [address] [place], [address] MCV (RBC) [Entitic vol] 82.2 fL Normal 81-99 [facility] Comment on above: Performed By: #### L 501.080 #### [facility] [address] [place], [address] Monocytes/100 WBC (Bld) 6.4 % Normal 0-10 [facility] Comment on above: Performed By: #### L 501.080 #### [facility] [address] [place], [address] Neutrophils/100 WBC (Bld) 64.3 % Normal 47-70 [facility] Comment on above: Performed By: #### L 501.080 #### [facility] [address] [place], [address] Nucleated RBC (Bld) [#/Vol] 0 10*3/uL Normal 0-5 [facility] Comment on above: Performed By: #### L 501.080 #### [facility] [address] [place], [address] Platelet mean volume (Bld) [Entitic vol] 9.2 fL Normal 6.2-12.0 [facility] Comment on above: Performed By: #### L 501.080 #### [facility] [address], [address] Platelets (Bld) [#/Vol] 226 10*3/uL Normal 150-450 [facility] Comment on above: Performed By: #### L 501.080 #### [facility] [address], [address] RBC (Bld) [#/Vol] 4.83 10*6/uL Normal 4.2-5.4 [facility] Comment on above: Performed By: #### L 501.080 #### [facility] [address] [place], [address] RDW SD 52.6 fl High 35.1-43.9 [facility] Comment on above: Performed By: #### L 501.080 #### [facility] [address], [address] WBC (Bld) [#/Vol] 7.4 10*3/uL Normal 4.4-11.0 [facility] Comment on above: Performed By: #### L 501.080 #### [facility] [address] [place], [address] Chest 1 View (Portable)on Chest 1 View (Portable) [facility] Imaging Services [address] [place] [address] Chest 1 View (Portable) MR#: [id number] Acct: [id number] Name: AUGUSTIN GARCIA Rep #: [id number] : 1985 F 38 From: Anton simeon MD PCP: Dr. Arie Escoto DO Status: PRE ER Study: Chest 1 View (Portable) Date of Exam: 11/18/23 Exam# [id number] Ordering Dr: Reese Steele MD -[id number] STUDY: X-RAY CHEST REASON FOR EXAM: Female, 38 years old. Chest pain TECHNIQUE: Single AP portable view of the chest. COMPARISON: Comparison is made with prior study dated October 13, 2023. FINDINGS: The lungs are clear and expanded. There is no demonstrated pleural abnormality. Normal size heart. Normal mediastinum and arlet. Normal visualized pulmonary arteries. Normal visualized aortic arch and descending thoracic aorta. Normal visualized thoracic spine. Normal visualized ribs, clavicles, and shoulders. There is no demonstrated abnormality of the visualized soft tissue structures of the upper abdomen. RAD/Chest 1 View (Portable) IMPRESSION: Normal x-ray examination of the chest. Electronically Signed: Anton Vitale MD at 10:51 EST , CC: Dr. Reese Steele MD; Dr. Arie Escoto DO Professor Of Environmental Science: Signed Normal [facility] Emergency Department Summary on 11-18-2023 Emergency Department Summary [facility] Medical Records Department [address] [place] [id number] Emergency Department Summary 11/18/23 MR#: [id number] Acct: [id number] Name: AUGUSTIN GARCIA Rep #: [id number] : 1985 38 From: Reese Steele MD PCP: Dr. Arie Escoto, DO Status:REG ER Location: ED HPI History of Present Illness Chief Complaint: Shortness of Breath Informant: patient and spouse/S.O. Onset/Context/Pearl henderson Onset: Weeks Context: gradual Current Severity: Mild Maximum Severity: Mild Worsened by: Exertion Relieved by: Rest Associated Symptoms Negative for cough Chest Pain: Positive for None Narrative Narrative: 38-year-old female history of multiple pulmonary emboli diagnosed on October 13 with CTA. She is currently 15 weeks . Ab1. She has a due date of May 15 this year. She been short of breath since diagnosed with blood clots in September. She is currently and has been on Lovenox shots twice daily and says she has not missed them. Denies any chest pain. No fever or cough. PE Risk Factors: Positive for Prior DVT or PE and - (15 weeks .); Negative for Cancer, OCP + Smoking + > 35, Recent immobilization, Recent surgery or Recent travel Prior similar symptoms: Yes Recent Illness/Hospitaliza tion: Yes PFSH PFSH Medical History Abnormal TSH Bilateral pulmonary embolism Home Medications ascorbic acid (vitamin C) 500 mg tablet 500 mg PO BID #60 tabs 10/15/23 [Rx Last Taken Unknown] enoxaparin 80 mg/0.8 mL subcutaneous syringe 80 mg (0.8 mL) subcut Q12 1 month #48 mL 10/15/23 [Rx Last Taken Unknown] ferrous sulfate 325 mg (65 mg iron) tablet (FeroSul) 325 mg PO QODAY #30 tabs 10/15/23 [Rx Last Taken Unknown] folic acid 1 mg tablet 1 mg PO DAILY #30 tabs 10/15/23 [Rx Last Taken Unknown] Allergy/AdvReac Type Severity Reaction Status Date / Time No Known Allergies Allergy Verified 11/18/23 10:04 Family History Sister FH: thromboembolic disease Social History household members: family housing: house current occupation: [employer] Smoking Status: Never smoker alcohol intake: never substance use type: does not use ROS ROS ED ROS Narrative Shortness of breath. Review of Systems ROS Unobtainable: Denies due to encephalopathy Constitutional Constitutional ED: Denies chills or fever(s) Eyes Eyes: Denies blurry vision ENT ENT ED: Denies ear pain Cardiovascular Cardiovascular: Denies chest pain Respiratory/Chest Respiratory/Chest: Reports dyspnea and dyspnea on exertion; Denies cough Gastrointestinal Gastrointestinal: Denies abdominal pain Genitourinary Genitourinary ED: Denies dysuria or hematuria Musculoskeletal Musculoskeletal: Denies arthralgias Integumentary Denies abscess Neurologic Neurologic: Denies headache(s) Psychiatric Psychiatric: Denies anxiety Endocrine Endocrinology: Denies cold intolerance Hematologic/Lymphat ic Hematologic/Lymphat ic: Denies lymphadenopathy Allergic/Immunologi c Allergic/Immunologi c ED: Denies mouth swelling, tongue swelling or urticaria EXAM Physical Exam Narrative Exam Narrative: 38-year-old female no acute distress. Vital signs stable afebrile. Heart rate 86. Pulse ox 99% on room air no signs hypoxia. Clinically looks well. at bedside. HEENT exam unremarkable. Moist membranes. Neck nontender no JVD. No lymphadenopathy. Lungs clear to auscultation bilaterally. Heart regular rhythm no murmur. Rate about 85. Chest wall and ribs nontender. Abdomen soft nontender. Normal bowel sounds no peritoneal signs. Gravid nontender uterus. Moving all 4 extremities. Calves are nontender without edema or cords. Neurologically she is awake alert no focal motor deficits. Const Vital Signs: 11/18/23 10:05 11/18/23 10:36 11/18/23 10:36 Temperature 97.1 F L Temperature Source Temporal Pulse Rate 86 Respiratory Rate 18 Respiratory Effort Normal Non-Labored Respiratory Depth Normal Respiratory Pattern Normal Blood Pressure 133/76 H Blood Pressure Mean 95 Pulse Ox 99 100 Oxygen Delivery Method Room Air Room Air Room Air 11/18/23 11:57 11/18/23 13:28 Temperature Temperature Source Pulse Rate 76 81 Respiratory Rate 16 16 Respiratory Effort Respiratory Depth Respiratory Pattern Blood Pressure 120/69 108/67 Blood Pressure Mean 86 80 Pulse Ox 98 98 Oxygen Delivery Method Room Air Room Air Positive well nourished and well developed; Negative for cachectic, contractures or unkempt General Appearance ED: well developed and NAD; Negative for unkempt, cachectic, contractures or pallor Nutritional Appearance: Negative for cachectic HEENT Re (more content not included)... Normal [facility] L501.4020on 11-18-2023 TROPONIN-I HS 5 pg/mL Normal 3.0-54.0 [facility] Comment on above: Order Comment: 'TROP ' Serial specimen #1, #2 or #3: 1 Result Comment: Meagan vela Note: New Test Units and Gender Specific Reference Ranges. For more information see Policy Stat Procedure [facility] High Sensitivity Troponin (TNIH) and attachments. Performed By: #### L 501.080 #### [facility] [address] [place], [address] POC SUPERVISOR TWISTING DEPARTMENT ULTRASOUNDon 10-30-19 [facility] Discharge Instructionon 09-24 Discharge Instruction [facility] Medical Records Department [address] [place] [address] Instructions for Home/Discharge Instructions 10/15/23 0808 MR#: [id number] Acct: [id number] Name: AUGUSTIN GARCIA Rep #: [id number] : 1985 37 From: Gilson Daily MD PCP: Dr. Arie Escoto, DO Status:ADM IN Discharge Instructions Diet Discharge Diet: No restrictions Activity Discharge Activity: Return to Normal Activity Weight Bearing Status: Weight bearing as tolerated Dressing / Incision Call your doctor if you observe: Fever of 101 or Higher, Coldness, Increased Pain, Numbness or Tingling, Change in Color, Inability to urinate, Inability to have a bowel movement, Using more than 1 pad per hour, Shortness of breath, Dizziness, Fainting spells, Swelling in the ankles, Chest pain, Prolonged hiccupping, Increased palpitations (irregular heartbeat) and Calf discomfort Follow Up Care When: IN 2 WEEKS Test Results: Test results from this visit will be discussed in further detail at your follow-up appointment, if applicable. Discharge Plan Admission Admit Date/Time: 10/13/23 18:11 Attending Provider: Gilson Daily Primary Care Provider: Arie Escoto Consulting Providers: Richy Kitchen; Valdez Sullivan; Kaden Mireles; Alex Gardner; Louis Pereira; Telly Franklin; Brandi Madera; Maggy Adhikari; Esau Davis; Tony Giang; Xavier Colón; Alejandro Herrera; Lachelle Fletcher Discharge Orders/Prescription s Prescriptions: New enoxaparin 80 mg/0.8 mL Syringe 80 mg subcut Q12 30 Days Qty: 48 0RF Rx Instructions: Enoxaparin to continue throughout to 6 weeks . folic acid 1 mg tablet 1 mg PO DAILY Qty: 30 2RF ferrous sulfate [FeroSul] 325 mg (65 mg iron) tablet 325 mg PO QODAY Qty: 30 2RF ascorbic acid (vitamin C) 500 mg tablet 500 mg PO BID Qty: 60 2RF Referrals / Follow Up: Donn Love MD [Med Staff - Active Staff] - Within 1 Month (Follow up blood clot in lungs) eLsley Castillo MD [Med Staff - Active Staff] - See Referral Note (After delivery of the baby.) Arie Escoto DO [Primary Care Provider] - Within 1 Week Disposition Disposition (needs filled in before D/C Order can be placed): Home, Self Care 10/15/23 0813 Gilson Daily MD CC: Dr. Richy Kitchen MD; Dr. Valdez Sullivan MD; Dr. Kaden Mireles DO; Dr. Alex Gardner MD; Dr. Telly Franklin MD; Dr. Lachelle Fletcher DO; Dr. Brandi Madera MD; Dr. Maggy Adhikari MD; Dr. Arie Escoto DO; Dr. Esau Davis MD; Dr. Tony Giang MD; Dr. Xavier Colón MD; Dr. Alejandro Herrera MD; Dr. Tiffani Pereira MD Signed Normal [facility] Absolute lymphocyte countOrd ered By: Lachelle Fletcher on 10-14-2023 Lymphocytes Auto (Unsp spec) [#/Vol] 2.04 10*3/uL 0.83-4.51 [facility] Activated partial thrombopla stin time (aPTT) in platelet poor plasma by coagulation aOrdered By: Lachelle Fletcher on 10-14-2023 aPTT Coag (PPP) [Time] 40.3 s 24.1-36.2 [facility] Automated lymphocyte count a s percentage of total leukocytesOrdered By: Lachelle Fletcher on 10-14-2023 Lymphocytes/100 WBC Auto (Unsp spec) 25.9 % 19-41 [facility] Basophil percentageOrdered B y: Lachelle Fletcher on 10-14-2023 Basophil percentage 2.6 mg/dL 2.5-4.9 [facility] Basophils/100 WBC (Bld) 0.3 % 0-1 [facility] Bilirubin [Mass/Vol] 0.30 mg/dL 0.20-1.00 [facility] Comment on above: For patients on eltr ombopag therapy, use of Dimension [place] TBIL is not recommended. Chloride [Moles/Vol] 112 mmol/L 98-107 [facility] Eosinophils/100 WBC (Bld) 0.5 % 0-5 [facility] Glucose [Mass/Vol] 157 mg/dL 74-106 [facility] Comment on above: Fasting Glucose resu lt greater than or equal to 126 mg/dL suggests DIABETES MELLITUS per A.D.A. criteria. Hemoglobin (Bld) [Mass/Vol] 11.0 g/dL 12.0-15.0 [facility] Monocytes/100 WBC (Bld) 5.2 % 0-10 [facility] Neutrophils (Bld) [#/Vol] 5.3 10*3/uL 2.0-7.7 [facility] Neutrophils/100 WBC (Bld) 67.6 % 47-70 [facility] Potassium [Moles/Vol] 3.6 mmol/L 3.5-5.1 [facility] Protein [Mass/Vol] 6.2 g/dL 6.4-8.2 [facility] Sodium [Moles/Vol] 138 mmol/L 136-145 [facility] WBC (Bld) [#/Vol] 7.9 10*3/uL 4.4-11.0 [facility] CBC W/Diff, Automatedon 09-24 Absolute Lymph 2.04 X10 3/uL Normal 0.83-4.51 [facility] Comment on above: Performed By: #### L 501.080 #### [facility] [address] [place], [address] Absolute Neut 5.3 X10 3/uL Normal 2.0-7.7 [facility] Comment on above: Performed By: #### L 501.080 #### [facility] [address] [place], [address] Basophils/100 WBC (Bld) 0.3 % Normal 0-1 [facility] Comment on above: Performed By: #### L 501.080 #### [facility] [address] [place], [address] Eosinophils/100 WBC (Bld) 0.5 % Normal 0-5 [facility] Comment on above: Performed By: #### L 501.080 #### [facility] [address] [place], [address] Erythrocyte distribution width (RBC) [Ratio] 15.9 % High 11.6-14.6 [facility] Comment on above: Performed By: #### L 501.080 #### [facility] [address] [place], [address] Hematocrit (Bld) [Volume fraction] 34.3 % Low 37-47 [facility] Comment on above: Performed By: #### L 501.080 #### [facility] [address] [place], [address] Hemoglobin (Bld) [Mass/Vol] 11.0 g/dL Low 12.0-15.0 [facility] Comment on above: Performed By: #### L 501.080 #### [facility] [address] [place], [address] IG% 0.500 Normal 0.0-0.9 [facility] Comment on above: Result Comment: IG% - Immature Granulocytes (promyelocytes, myelocytes and metamyelocytes) > 1% indicates that a LEFT SHIFT is Present. Performed By: #### L 501.080 #### [facility] [address] [place], [address] Lymphocytes/100 WBC (Bld) 25.9 % Normal 19-41 [facility] Comment on above: Performed By: #### L 501.080 #### [facility] [address] [place], [address] MCH (RBC) [Entitic mass] 25.4 pg Low 27.0-32.0 [facility] Comment on above: Performed By: #### L 501.080 #### [facility] [address] [place], [address] MCHC (RBC) [Mass/Vol] 32.1 g/dL Normal 32-36 [facility] Comment on above: Performed By: #### L 501.080 #### [facility] [address] [place], [address] MCV (RBC) [Entitic vol] 79.2 fL Low 81-99 [facility] Comment on above: Performed By: #### L 501.080 #### [facility] [address] [place], [address] Monocytes/100 WBC (Bld) 5.2 % Normal 0-10 [facility] Comment on above: Performed By: #### L 501.080 #### [facility] [address] [place], [address] Neutrophils/100 WBC (Bld) 67.6 % Normal 47-70 [facility] Comment on above: Performed By: #### L 501.080 #### [facility] [address] [place], [address] Nucleated RBC (Bld) [#/Vol] 0 10*3/uL Normal 0-5 [facility] Comment on above: Performed By: #### L 501.080 #### [facility] [address] [place], [address] Platelet mean volume (Bld) [Entitic vol] 9.6 fL Normal 6.2-12.0 [facility] Comment on above: Performed By: #### L 501.080 #### [facility] [address] [place], [address] Platelets (Bld) [#/Vol] 228 10*3/uL Normal 150-450 [facility] Comment on above: Performed By: #### L 501.080 #### [facility] [address] [place], [address] RBC (Bld) [#/Vol] 4.33 10*6/uL Normal 4.2-5.4 [facility] Comment on above: Performed By: #### L 501.080 #### [facility] [address] [place], [address] RDW SD 45.9 fl High 35.1-43.9 [facility] Comment on above: Performed By: #### L 501.080 #### [facility] [address] [place], [address] WBC (Bld) [#/Vol] 7.9 10*3/uL Normal 4.4-11.0 [facility] Comment on above: Performed By: #### L 501.080 #### [facility] [address] [place], [address] Comprehensive Metabolic Prof ilon 10-14-2023 Albumin [Mass/Vol] 2.8 g/dL Low 3.2-5.0 [facility] Comment on above: Performed By: #### L 501.080 #### [facility] [address] [place], [address] Albumin/Globulin [Mass ratio] 0.8 {ratio} Low 0.9-2.4 [facility] Comment on above: Performed By: #### L 501.080 #### [facility] [address] [place], [address] ALK P 75 U/L Normal 45-117 [facility] Comment on above: Performed By: #### L 501.080 #### [facility] [address] [place], [address] ALT [Catalytic activity/Vol] 58 U/L High 13-56 [facility] Comment on above: Performed By: #### L 501.080 #### [facility] [address] [place], [address] AST [Catalytic activity/Vol] 29 U/L Normal 15-37 [facility] Comment on above: Performed By: #### L 501.080 #### [facility] [address] [place], [address] Bilirubin [Mass/Vol] 0.30 mg/dL Normal 0.20-1.00 [facility] Comment on above: Result Comment: For patients on eltrombopag therapy, use of Dimension [place] TBIL is not recommended. Performed By: #### L 501.080 #### [facility] [address] [place], [address] BUN/CRE 13.4 RATIO Normal 10-20 [facility] Comment on above: Performed By: #### L 501.080 #### [facility] [address] [place], [address] CA,Total 8.5 mg/dL Normal 8.5-10.1 [facility] Comment on above: Performed By: #### L 501.080 #### [facility] [address] [place], [address] Chloride [Moles/Vol] 112 mmol/L High 98-107 [facility] Comment on above: Performed By: #### L 501.080 #### [facility] [address] [place], [address] CO2 [Moles/Vol] 20.0 mmol/L Low 21.0-32.0 [facility] Comment on above: Performed By: #### L 501.080 #### [facility] [address] [place], [address] Creatinine [Mass/Vol] 0.45 mg/dL Low 0.55-1.02 [facility] Comment on above: Result Comment: The validity of the calculated GFR GFRAA in patients over 70 years has not been determined. Clinical correlation is essential. Performed By: #### L 501.080 #### [facility] [address] [place], [address] ECRCL 180.57 ml/min Normal [facility] Comment on above: Performed By: #### L 501.080 #### [facility] [address] [place], [address] EST GFR - AA 200 mL/min Normal >60 [facility] Comment on above: Result Comment: Afri can Salvadorean GFR Calc Performed By: #### L 501.080 #### [facility] [address] [place], [address] GAP 6 Normal 5-15 [facility] Comment on above: Performed By: #### L 501.080 #### [facility] [address] [place], [address] GFR/1.73 sq M.predicted among non-blacks MDRD (S/P/Bld) [Vol rate/Area] 165 mL/min/{1.73_m2} Normal >60 [facility] Comment on above: Result Comment: Non- GFR Calc Performed By: #### L 501.080 #### [facility] [address] [place], [address] Globulin (S) [Mass/Vol] 3.4 g/dL Normal 2.2-4.2 [facility] Comment on above: Performed By: #### L 501.080 #### [facility] [address], [address] Glucose [Mass/Vol] 157 mg/dL High 74-106 [facility] Comment on above: Result Comment: Fast ing Glucose result greater than or equal to 126 mg/dL suggests DIABETES MELLITUS per A.D.A. criteria. Performed By: #### L 501.080 #### [facility] [address] [place], [address] Potassium [Moles/Vol] 3.6 mmol/L Normal 3.5-5.1 [facility] Comment on above: Performed By: #### L 501.080 #### [facility] [address] [place], [address] Sodium [Moles/Vol] 138 mmol/L Normal 136-145 [facility] Comment on above: Performed By: #### L 501.080 #### [facility] [address] [place], [address] T PROT 6.2 g/dL Low 6.4-8.2 [facility] Comment on above: Performed By: #### L 501.080 #### [facility] [address] [place], [address] Urea nitrogen [Mass/Vol] 6 mg/dL Low 7-18 [facility] Comment on above: Performed By: #### L 501.080 #### [facility] [address], [address] Consultation - Intensiviston 10-14-2023 Consultation - [facility] Technician [facility] Medical Records Department [address] [place] [address] Consultation - [facility] Techn[facility] 10/14/23 0800 MR#: [id number] Acct: [id number] Name: AUGUSTIN GARCIA Rep #: [id number] : 1985 37 From: Kaden Mireles DO PCP: Dr. Arie Escoto, DO Status:ADM IN Location: [place] [address]-1 Assessment Plan Assessment/Plan (1) Bilateral pulmonary embolism: PLAN: Plan RECOMMENDATIONS: 1. Okay to transition from heparin to Lovenox. 2. Await results of echocardiogram. 3. The patient may ultimately benefit from evaluation for any hypercoagulable conditions on an outpatient basis. 4. Perform walking oximetry study prior to consideration for discharge home. IMPRESSIONS: 1. Bilateral pulmonary embolism The patient presented with shortness of breath and chest discomfort with radiographic evidence of extensive bilateral pulmonary emboli, without evidence of right heart strain. Although BNP was normal, the patient did have an elevated troponin. Her thromboembolism is likely precipitated by her underlying . She has no pre-existing hypercoagulable conditions. The patient was initially managed with a heparin infusion. Okay from my perspective to transition to Lovenox. Her echocardiogram is still pending. I would recommend that she complete a walking oximetry study prior to consideration for discharge home. Otherwise, the patient will need to remain on Lovenox throughout the remainder of her . She may ultimately benefit from outpatient hematology evaluation for any underlying hypercoagulable conditions. This note was generated with [employer] dictation software. It may contain incorrect words, spelling, and punctuation that were not noted in checking the note before signing. HPI Consult Data Date of Consult: 10/14/23 HPI Narrative Reason for Consultation: Bilateral pulmonary emboli HPI Narrative: The patient is a 37-year-old female, with a history as outlined below, who presented to the emergency department on October 13 with shortness of breath. This was associated with midsternal chest discomfort as well. The patient is currently 9 weeks . She denied a history of venous thromboembolic disease. The patient did report that her sister was diagnosed with a DVT during her last 1 year ago. However, there is no family history of any hypercoagulable conditions. The patient denies any recent travel or prolonged immobility. On presentation to the emergency department, the patient was noted to be afebrile and hemodynamically stable. She was initially maintaining appropriate oxygen saturations on room air. Laboratory evaluation revealed no evidence of a leukocytosis. Chemistry profile was notable for a potassium of 3.1 and normal creatinine. BNP was normal. However, troponin was elevated initially at 866 and has climbed to 1985. CTA chest showed bilateral pulmonary emboli without evidence of right heart strain. The patient was subsequently placed on a heparin infusion and admitted to the progressive care unit for further management. Echocardiogram is still pending. [facility] Medical History no medical history Home Medications No Known/Unobtainable [No Known Home Medications] 06/16/14 [History Last Taken Unknown] Allergy/AdvReac Type Severity Reaction Status Date / Time No Known Allergies Allergy Verified 05/07/18 19:42 Family History (Updated 10/13/23 @ 18:[address] Lachelle Fletcher DO) Sister FH: thromboembolic disease Surgical History no surgical history Social History (Updated 10/13/23 @ 18:[address] 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 Smoking Status: Never smoker alcohol intake: never substance use type: does not use ROS ROS Narrative 10 systems were reviewed with pertinent positives as noted in the HPI above. Physical Exam Const alert and no apparent distress General Appearance: cooperative HEENT normocephalic, head/scalp atraumatic and moist oral mucous membranes Eyes PERRL, EOMs intact bilaterally and conjunctivae normal Neck supple General: trachea midline Chest inspection of chest normal Resp normal respiratory effort Auscultation: Negative for rales, rhonchi or wheezes Cardio regular rate and regular rhythm GI normal to inspection, nondistended, normoactive bowel sounds Extremity no clubbing, cyanosis or edema Skin no rashes or lesions noted Neuro CN's II-XII intact bilaterally, moves all extremities and no focal motor deficits Psych cooperative and affect normal Lab / Micro Data 10/14/23 06:35 10/14/23 06:35 Labs: Laboratory Results - last 24 hr 10/13/23 15:00: WBC 8.5, RBC 4.70, Hgb 11.9 L, Hct 37.6, MCV 80.0 L, MCH 25.3 L, MCHC 31.6 L, RDW Std Deviation 45.8 H, RDW Coeff of Garima 15.9 H, Plt Count 215, MPV 9.7, Immature Gran % (Auto (more content not included)... Normal [facility] Determination of erythrocyte mean corpuscular volume (MCV)Ordered By: Lachelle Fletcher on 10-14-2023 MCV (RBC) [Entitic vol] 79.2 fL 81-99 [facility] Echo Completeon 10-14-2023 Echo Complete [facility] [address] [place] [address] Echo Complete 10/14/23 0927 MR#: [id number] Acct: [id number] Name: AUGUSTIN GARCIA Rep #: [id number] : 1985 37 From: John Teixeira MD Attending Dr: Dr. Gilson Daily MD Status: ADM IN Ordering Dr: Lachelle Fletcher DO Date: 10/14/23 Location: [facility] Sex: F C Admitted: 10/13/23 Reason For Study: PE Procedure This was a 2D Doppler, Color Flow transthoracic echocardiogram. Exam performed portable in patient room. Left Ventricle Normal LV size. D shaped septum in diastole. Left ventricular systolic function is normal. The estimated ejection fraction is 60 %. Stage 1 diastolic dysfunction. No regional wall motion abnormalities noted. Right Ventricle Moderately dilated right ventricle. Moderate global right ventricular systolic dysfunction. Apical sparing noted. Atria Normal left atrium. Normal right atrium. Mitral Valve Normal mitral valve. Tricuspid Valve Normal tricuspid valve. Mild to moderate (1-2+) tricuspid valve insufficiency. Pulmonary artery systolic pressure is 41 mmHg. Mild pulmonary hypertension. Aortic Valve Normal aortic valve. Trisinus/trileaflet aortic valve. Pulmonic Valve Normal pulmonic valve. Great Vessels Normal aortic root. The pulmonary artery is normal size. Normal inferior vena cava. Pericardium/Pleural No pericardial effusion. MMode/2D Measurements Calculations LVIDd: 3.6 cm IVSd: 0.98 cm Ao root diam: 2.8 cm LVIDs: 2.1 cm LVPWd: 0.98 cm RVDd: 4.4 cm FS: 41.6 % LAV(MOD-bp): 29.1 ml LVAd ap4: 21.5 cm2 SV(MOD-sp4): 37.4 ml LAV(MOD-bp) Indexed: 15.3 ml/m2 LVLd ap4: 7.7 cm LAV(MOD-sp2): 26.9 ml EDV(MOD-sp4): 51.4 ml LAV(MOD-sp4): 27.9 ml EDV(sp4-el): 51.0 ml LVAs ap4: 10.3 cm2 LVLs ap4: 7.0 cm ESV(MOD-sp4): 14.0 ml ESV(sp4-el): 13.0 ml EF(MOD-sp4): 72.8 % EF(sp4-el): 74.6 % SV(sp4-el): 38.1 ml LA A4 area: 13.7 cm2 LA dimension(2D): 3.3 cm RA A4 area: 16.4 cm2 TAPSE: 1.3 cm Doppler Measurements Calculations MV E max raza: 38.9 cm/sec Lat Peak E' Raza: 16.6 cm/sec Med Peak E' Raza: 8.5 cm/sec MV A max raza: 75.9 cm/sec E/E' lat: 2.4 E/E' med: 4.6 MV E/A: 0.51 Ao V2 max: 135.9 cm/sec LV V1 max: 111.1 cm/sec PA V2 max: 97.5 cm/sec Ao max P.4 mmHg LV V1 max P.9 mmHg TR max raza: 308.0 cm/sec TR max P.9 mmHg ECHO/Echo Complete Interpretation Summary Normal LV size. Left ventricular systolic function is normal. The estimated ejection fraction is 60 %. D shaped septum in diastole. Stage 1 diastolic dysfunction. Moderately dilated right ventricle. Apical sparing noted Mild pulmonary hypertension. __ Ordering Physician: Lachelle Fletcher Referring Physician: Arie Escoto Performed By: Maria T Alford RDCS 10/14/231334 Date John Teixeira MD CC: Dr. Lachlele Fletcher DO; Dr. Arie Escoto DO; Dr. Gilson Daily MD Date Dictated: 10/14/23926 Date Transcribed: 10/14/231334 Professor Of Environmental Science: Poncho Iyer [facility] Erythrocyte distribution wid th ratioOrdered By: Lachelle Fletcher on 10-14-2023 Erythrocyte distribution width (RBC) [Ratio] 15.9 % 11.6-14.6 [facility] Erythrocyte distribution wid th standard deviationOrdered By: Lachelle Fletcher on 10-14-2023 Erythrocyte distribution width (RBC) [Entitic vol] 45.9 fL 35.1-43.9 [facility] Hematocrit Auto (Bld) [Volum e fraction]Ordered By: Lachelle Fletcher on 10-14-2023 Hematocrit (Bld) [Volume fraction] 34.3 % 37-47 [facility] Immature granulocytes/100 WB C Auto (Bld)Ordered By: Lachelle Fletcher on 10-14-2023 Immature granulocytes/100 WBC (Bld) 0.500 % 0.0-0.9 [facility] Comment on above: IG% - Immature Granu locytes (promyelocytes, myelocytes and metamyelocytes) > 1% indicates that a LEFT SHIFT is Present. Laboratory - Chemistry and C hemistry - challengeOrdered By: Lachelle Fletcher on 10-14-2023 Albumin/Globulin [Mass ratio] 0.8 {ratio} 0.9-2.4 [facility] ALP [Catalytic activity/Vol] 75 U/L 45-117 [facility] ALT [Catalytic activity/Vol] 58 U/L 13-56 [facility] CO2 [Moles/Vol] 20.0 mmol/L 21.0-32.0 [facility] Globulin (S) [Mass/Vol] 3.4 g/dL 2.2-4.2 [facility] Magnesium [Mass/Vol] 1.9 mg/dL 1.6-2.6 [facility] Urea nitrogen/Creatinine [Mass ratio] 13.4 mg/mg 10-20 [facility] Laboratory - Hematology and Cell countsOrdered By: Lachelle Fletcher on 10-14-2023 MCH (RBC) [Entitic mass] 25.4 pg 27.0-32.0 [facility] MCHC (RBC) [Mass/Vol] 32.1 g/dL 32-36 [facility] Nucleated RBC/100 WBC (Bld) [Ratio] 0 % 0-5 [facility] [facility] Platelets (Bld) [#/Vol] 228 10*3/uL 150-450 [facility] Magnesiumon 10-14-2023 Magnesium [Mass/Vol] 1.9 mg/dL Normal 1.6-2.6 [facility] Comment on above: Performed By: #### L 501.080 #### [facility] [address] [place], [address] No Panel InformationOrdered By: Lachelle Fletcher on 10-14-2023 Estimated Creatinine Clearance Calc 180.57 ml/min [facility] Estimated GFR (MDRD) Amer 200 mL/min >60 [facility] Comment on above: GFR Calc Estimated GFR (MDRD) Non-Af Amer 165 mL/min >60 [facility] Comment on above: Non- GFR Calc Partial Thromboplast Timeon 10-14-2023 aPTT Coag (Bld) [Time] 40.3 s High 24.1-36.2 [facility] Comment on above: Performed By: #### L 300.4310 #### [facility] [address] [place], [address] aPTT Coag (Bld) [Time] 36.5 s High 24.1-36.2 [facility] Comment on above: Performed By: #### L 300.4310 ####[facility] [address] [place], [address] Phosphoruson 10-14-2023 Phosphate [Mass/Vol] 2.6 mg/dL Normal 2.5-4.9 [facility] Comment on above: Performed By: #### L 501.080 #### [facility] [address] [place], [address] Platelet mean volume [place]-Ec ker (Bld) [Entitic vol]Ordered By: Lachelle Fletcher on 10-14-2023 Platelet mean volume (Bld) [Entitic vol] 9.6 fL 6.2-12.0 [facility] RBC Auto (Bld) [#/Vol]Ordere d By: Lachelle Fletcher on 10-14-2023 RBC (Bld) [#/Vol] 4.33 10*6/uL 4.2-5.4 [facility] Serum or plasma calcium favian urement (mass/volume)Ordered By: Lachelle Fletcher on 10-14-2023 Calcium [Mass/Vol] 8.5 mg/dL 8.5-10.1 [facility] Serum or plasma creatinine m easurement (mass/volume)Ordered By: Lachelle Fletcher on 10-14-2023 Creatinine [Mass/Vol] 0.45 mg/dL 0.55-1.02 [facility] Comment on above: The validity of the calculated GFR & GFRAA in patients over 70 years has not been determined. Clinical correlation is essential. Serum or plasma urea nitroge n measurement (mass/volume)Ordered By: Lachelle Fletcher on 10-14-2023 Urea nitrogen [Mass/Vol] 6 mg/dL 7-18 [facility] Thin prep Papanicolaou smear with manual screeningOrdered By: Lachelle Fletcher on 10-14-2023 Thin prep Papanicolaou smear with manual screening 2.8 g/dL 3.2-5.0 [facility] Thin prep Papanicolaou smear with manual screening 29 U/L 15-37 [facility] Thin prep Papanicolaou smear with manual screening 6 5-15 [facility] Absolute lymphocyte countOrd ered By: Basilia Izaguirre on 10-13-2023 Lymphocytes Auto (Unsp spec) [#/Vol] 1.35 10*3/uL 0.83-4.51 [facility] Activated partial thrombopla stin time (aPTT) in platelet poor plasma by coagulation aOrdered By: Basilia Izaguirre on 10-13-2023 aPTT Coag (PPP) [Time] 25.1 s 24.1-36.2 [facility] Automated blood erythrocyte count (number/volume)Ordered By: Basilia Izaguirre on 10-13-2023 RBC (Bld) [#/Vol] 4.70 10*6/uL Normal 4.2-5.4 [facility] Comment on above: Performed By: #### L 500.2500, L501.5425, L100.0100 ####[facility] [address] [place], [address] Automated blood hematocrit ( percentage)Ordered By: Basilia Izaguirre on 10-13-2023 Hematocrit (Bld) [Volume fraction] 37.6 % Normal 37-47 [facility] Comment on above: Performed By: #### L 500.2500, L501.5425, L100.0100 ####[facility] [address] [place], [address] Automated lymphocyte count a s percentage of total leukocytesOrdered By: Basliia Izaguirre on 10-13-2023 Lymphocytes/100 WBC Auto (Unsp spec) 15.8 % 19-41 [facility] BNP,B-Type NATRIURETIC PEPTI DEOrdered By: Basilia Izaguirre on 10-13-2023 Natriuretic peptide B (Bld) [Mass/Vol] 39.4 pg/mL Normal 0-100 [facility] Comment on above: Performed By: #### L 503.6620, L501.9520 #### [facility] [address] [place], [address] Basic Metabolic Profile (BMP )on 10-13-2023 BUN/CRE 6.8 RATIO Low 10-20 [facility] Comment on above: Order Comment: 1Y Performed By: #### L 500.2500, L501.5425, L100.0100 ####[facility] [address] [place], [address] CA,Total 9.1 mg/dL Normal 8.5-10.1 [facility] Comment on above: Order Comment: 1Y Performed By: #### L 500.2500, L501.5425, L100.0100 ####[facility] [address] [place], [address] EST GFR - AA 113 mL/min Normal >60 [facility] Comment on above: Order Comment: 1Y Result Comment: Afri can Salvadorean GFR Calc Performed By: #### L 500.2500, L501.5425, L100.0100 ####[facility] [address] [place], [address] GAP 6 Normal 5-15 [facility] Comment on above: Order Comment: 1Y Performed By: #### L 500.2500, L501.5425, L100.0100 ####[facility] [address] [place], [address] GFR/1.73 sq M.predicted among non-blacks MDRD (S/P/Bld) [Vol rate/Area] 93 mL/min/{1.73_m2} Normal >60 [facility] Comment on above: Order Comment: 1Y Result Comment: Non- GFR Calc Performed By: #### L 500.2500, L501.5425, L100.0100 ####[facility] [address] [place], [address] Basic Metabolic Profile (BMP )Ordered By: Basilia Izaguirre on 10-13-2023 CO2 [Moles/Vol] 25.0 mmol/L Normal 21.0-32.0 [facility] Comment on above: Order Comment: 1Y Performed By: #### L 500.2500, L501.5425, L100.0100 ####[facility] [address] [place], [address] Basophil percentageOrdered B y: Basilia Izaguirre on 10-13-2023 Chloride [Moles/Vol] 109 mmol/L High 98-107 [facility] Comment on above: Order Comment: 1Y Performed By: #### L 500.2500, L501.5425, L100.0100 ####[facility] [address] [place], [address] Glucose [Mass/Vol] 174 mg/dL High 74-106 [facility] Comment on above: Fasting Glucose resu lt greater than or equal to 126 mg/dL suggests DIABETES MELLITUS per A.D.A. criteria. Order Comment: 1Y Result Comment: Fast ing Glucose result greater than or equal to 126 mg/dL suggests DIABETES MELLITUS per A.D.A. criteria. Performed By: #### L 500.2500, L501.5425, L100.0100 ####[facility] [address] [place], [address] Potassium [Moles/Vol] 3.1 mmol/L Low 3.5-5.1 [facility] Comment on above: Order Comment: 1Y Performed By: #### L 500.2500, L501.5425, L100.0100 ####[facility] [address] [place], [address] Sodium [Moles/Vol] 140 mmol/L Normal 136-145 [facility] Comment on above: Order Comment: 1Y Performed By: #### L 500.2500, L501.5425, L100.0100 ####[facility] [address] [place], [address] Basophils/100 WBC (Bld) 0.2 % Normal 0-1 [facility] Comment on above: Performed By: #### L 500.2500, L501.5425, L100.0100 ####[facility] [address] [place], [address] Eosinophils/100 WBC (Bld) 0.7 % Normal 0-5 [facility] Comment on above: Performed By: #### L 500.2500, L501.5425, L100.0100 ####[facility] [address] [place], [address] Hemoglobin (Bld) [Mass/Vol] 11.9 g/dL Low 12.0-15.0 [facility] Comment on above: Performed By: #### L 500.2500, L501.5425, L100.0100 ####[facility] [address] [place], [address] Monocytes/100 WBC (Bld) 4.5 % Normal 0-10 [facility] Comment on above: Performed By: #### L 500.2500, L501.5425, L100.0100 ####[facility] [address] [place], [address] Neutrophils/100 WBC (Bld) 78.6 % High 47-70 [facility] Comment on above: Performed By: #### L 500.2500, L501.5425, L100.0100 ####[facility] [address] [place], [address] WBC (Bld) [#/Vol] 8.5 10*3/uL Normal 4.4-11.0 [facility] Comment on above: Performed By: #### L 500.2500, L501.5425, L100.0100 ####[facility] [address] [place], [address] Neutrophils (Bld) [#/Vol] 6.7 10*3/uL 2.0-7.7 [facility] CBC W/Diff, Automatedon -2 Absolute Lymph 1.35 X10 3/uL Normal 0.83-4.51 [facility] Comment on above: Performed By: #### L 500.2500, L501.5425, L100.0100 ####[facility] [address] [place], [address] Absolute Neut 6.7 X10 3/uL Normal 2.0-7.7 [facility] Comment on above: Performed By: #### L 500.2500, L501.5425, L100.0100 ####[facility] [address] [place], [address] IG% 0.200 Normal 0.0-0.9 [facility] Comment on above: Result Comment: IG% - Immature Granulocytes (promyelocytes, myelocytes and metamyelocytes) > 1% indicates that a LEFT SHIFT is Present. Performed By: #### L 500.2500, L501.5425, L100.0100 ####[facility] [address] [place], [address] Lymphocytes/100 WBC (Bld) 15.8 % Low 19-41 [facility] Comment on above: Performed By: #### L 500.2500, L501.5425, L100.0100 ####[facility] [address] [place], [address] Nucleated RBC (Bld) [#/Vol] 0 10*3/uL Normal 0-5 [facility] Comment on above: Performed By: #### L 500.2500, L501.5425, L100.0100 ####[facility] [address] [place], [address] RDW SD 45.8 fl High 35.1-43.9 [facility] Comment on above: Performed By: #### L 500.2500, L501.5425, L100.0100 ####[facility] [address] [place], [address] CBC W/Diff, AutomatedOrdered By: Basilia Izaguirre on 10-13-2023 MCH (RBC) [Entitic mass] 25.3 pg Low 27.0-32.0 [facility] Comment on above: Performed By: #### L 500.2500, L501.5425, L100.0100 ####[facility] [address] [place], [address] MCHC (RBC) [Mass/Vol] 31.6 g/dL Low 32-36 [facility] Comment on above: Performed By: #### L 500.2500, L501.5425, L100.0100 ####[facility] [address] [place], [address] Platelets (Bld) [#/Vol] 215 10*3/uL Normal 150-450 [facility] Comment on above: Performed By: #### L 500.2500, L501.5425, L100.0100 ####[facility] [address] [place], [address] CTA Chest W/WO Contraston CTA Chest W/WO Contrast [facility] Imaging Services [address] [place] [address] CTA Chest W/WO Contrast MR#: [id number] Acct: [id number] Name: AUGUSTIN GARCIA Rep #: [id number] : 1985 F 37 From: Bryan Hernández PCP: Dr. Arie Escoto, DO Status: REG ER Study: CTA Chest W/WO Contrast Date of Exam: 10/13/23 Exam# [id number] Ordering Dr: Basilia Izaguirre PA ADDENDUM by Dr. Bryan Aguirre MD on 10/13/23 at 1631 [id number] STUDY: CTA CHEST REASON FOR EXAM: Female, 37 years old. shortness of breath TECHNIQUE: The examination was performed with the intravenous administration of 100 cc of IV Isovue 370 contrast material. Post-processing of the angiographic images was performed, with axial imaging and 3D reconstruction. MIPS images were obtained. Individualized dose optimization techniques were used for this CT. COMPARISON: None. FINDINGS: There is no saddle embolus. There is no heart strain. Large bilateral pulmonary emboli. These extend from the main branch to the first and second order branches. Normal thoracic aorta and visualized great vessels. There is no demonstrated aortic dissection. Normal heart and pericardium with no evidence for calcifications of the coronary arteries. Normal mediastinum. Normal hilar regions. Normal visualized trachea and bronchi. The lungs are well expanded. Normal pulmonary parenchyma. Normal pleura. Normal chest wall structures. Normal osseous structures. Normal visualized upper abdomen. 10/13/23 1631 Date cc: Dr. Arie Escoto DO; AUSTIN George * Signed ADDENDUM by Dr. Bryan Aguirre MD on 10/13/[address]/CTA Chest W/WO Contrast IMPRESSION: (NOT LISTED IN ORDER OF SIGNIFICANCE) There is no saddle embolus. There is no heart strain. Bilateral pulmonary emboli. Non standard communication findings protocol was initiated. 10/13/2023 4:29 PM N.B. : The above Results were Read Back by Bryan Aguirre MD to AUSTIN George, and understanding confirmed on 10/13/2023 16:40:11 (ET). Electronically Signed: Bryan Aguirre MD at 16:31 EST , 10/13/23 1647 Date cc: Dr. Arie Escoto DO; AUSTIN George * Signed We are attempting to reach an attending provider to discuss findings. An addendum with communication details will be sent when the communication is complete. [id number] STUDY: CTA CHEST REASON FOR EXAM: Female, 37 years old. shortness of breath TECHNIQUE: The examination was performed with the intravenous administration of 100 cc of IV Isovue 370 contrast material. Post-processing of the angiographic images was performed, with axial imaging and 3D reconstruction. MIPS images were obtained. Individualized dose optimization techniques were used for this CT. COMPARISON: None. FINDINGS: There is no saddle embolus. There is no heart strain. Large bilateral pulmonary emboli. These extend from the main branch to the first and second order branches. Normal thoracic aorta and visualized great vessels. There is no demonstrated aortic dissection. Normal heart and pericardium with no evidence for calcifications of the coronary arteries. Normal mediastinum. Normal hilar regions. Normal visualized trachea and bronchi. The lungs are well expanded. Normal pulmonary parenchyma. Normal pleura. Normal chest wall structures. Normal osseous structures. Normal visualized upper abdomen. CT/CTA Chest W/WO Contrast IMPRESSION: (NOT LISTED IN ORDER OF SIGNIFICANCE) There is no saddle embolus. There is no heart strain. Bilateral pulmonary emboli. Non standard communication findings protocol was initiated. 10/13/2023 4:29 PM Electronically Signed: Bryan Aguirre MD at 16:31 EST , CC: Dr. Arie Escoto DO; AUSTIN George Professor Of Environmental Science: Signed Normal [facility] Chest PA and Lateralon 10-13 Chest PA and Lateral [facility] Imaging Services [address] [place] [address] Chest PA and Lateral MR#: [id number] Acct: [id number] Name: AUGUSTIN GARCIA Rep #: [id number] : 1985 F 37 From: Bryan Hernández PCP: Dr. Arie Escoto DO Status: REG ER Study: Chest PA and Lateral Date of Exam: 10/13/23 Exam# [id number] Ordering Dr: Basilia Izaguirre -[id number] EXAM: XR CHEST, 2 VIEWS CLINICAL INDICATION: chest pain TECHNIQUE: Frontal and lateral views of the chest. COMPARISON: No relevant prior studies available. FINDINGS: LUNGS AND PLEURAL SPACES: Unremarkable. No consolidation or edema. No pneumothorax. No effusion. HEART: Unremarkable. Cardiac silhouette not enlarged. MEDIASTINUM: Central airways and mediastinal contour are unremarkable. BONES/JOINTS: Unremarkable. No acute fracture. SOFT TISSUES: Unremarkable. RAD/Chest PA and Lateral IMPRESSION: No radiographic evidence of acute cardiopulmonary disease. Electronically Signed: Bryan Aguirre MD at 15:31 EST , CC: Dr. Arie Escoto DO; AUSTIN George Professor Of Environmental Science: Signed Normal [facility] Determination of erythrocyte mean corpuscular volume (MCV)Ordered By: Basilia Izaguirre on 10-13-2023 MCV (RBC) [Entitic vol] 80.0 fL Low 81-99 [facility] Comment on above: Performed By: #### L 500.2500, L501.5425, L100.0100 ####[facility] [address] [place], [address] Emergency Department Summary on 10-13-2023 Emergency Department Summary [facility] Medical Records Department [address] [place] [address] Emergency Department Summary 10/13/23 MR#: [id number] Acct: [id number] Name: AUGUSTIN GARCIA Rep #: [id number] : 1985 37 From: Rita Austin DO PCP: Dr. Arie Escoto DO Status:ADM IN Location: [place] [address] HPI History of Present Illness Chief Complaint: Shortness of Breath Narrative Narrative: Patient presenting today due to shortness of breath that started suddenly this afternoon. She reports that she was walking down to the basement to grab clothes for her children when she had sudden onset shortness of breath. She reports midsternal chest pain with breathing. She reports on Saturday she had a few episodes of vomiting which has resolved. She denies any fevers, chills, abdominal pain. She is 9 weeks , she is . She denies any chronic health conditions. PFSH PFSH Home Medications No Known/Unobtainable [No Known Home Medications] 06/16/14 [History Last Taken Unknown] Allergy/AdvReac Type Severity Reaction Status Date / Time No Known Allergies Allergy Verified 05/07/18 19:42 Family History (Updated 10/13/23 @ 18:[address] Lachelle Fletcher DO) Sister FH: thromboembolic disease Social History (Updated 10/13/23 @ 18:[address] 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 Smoking Status: Never smoker alcohol intake: never substance use type: does not use ROS ROS ED Constitutional Constitutional ED: Denies chills or fever(s) Cardiovascular Cardiovascular: Reports chest pain; Denies palpitations Respiratory/Chest Respiratory/Chest: Reports dyspnea, dyspnea on exertion and tachypnea; Denies cough Gastrointestinal Gastrointestinal: Denies abdominal pain, nausea or vomiting Genitourinary Genitourinary ED: Denies dysuria, hematuria or urinary frequency Musculoskeletal Musculoskeletal: Denies arthralgias or myalgias Integumentary Denies rash Neurologic Neurologic: Denies weakness EXAM Physical Exam Const Vital Signs: 10/13/23 14:00 10/13/23 14:04 10/13/23 14:05 Temperature 97.6 F L Temperature Source Temporal Pulse Rate 112 H Respiratory Rate 24 H Respiratory Effort Short of Breath Respiratory Depth Normal Respiratory Pattern Tachypnea Blood Pressure 152/91 H Blood Pressure Mean 111 Pulse Ox 99 Oxygen Delivery Method Room Air Room Air 10/13/23 15:31 10/13/23 16:00 10/13/23 17:56 Temperature Temperature Source Pulse Rate 115 H 108 H 111 H Respiratory Rate 20 H 22 H 20 H Respiratory Effort Respiratory Depth Respiratory Pattern Blood Pressure 144/94 H 123/83 H 125/95 H Blood Pressure Mean 110 96 105 Pulse Ox 98 98 98 Oxygen Delivery Method Room Air Room Air Room Air 10/13/23 18:00 Temperature Temperature Source Pulse Rate 108 H Respiratory Rate 23 H Respiratory Effort Respiratory Depth Respiratory Pattern Blood Pressure 120/88 H Blood Pressure Mean 98 Pulse Ox 97 Oxygen Delivery Method Room Air Positive well nourished, well developed and no apparent distress General Appearance ED: well developed HEENT Reports normocephalic and head/scalp atraumatic Mouth ED: Yes moist mucous membranes normal Eyes PERRL and EOMs intact bilaterally Neck full ROM and supple Chest Wall inspection of chest normal Resp clear to auscultation bilaterally Resp Narrative: Tachypneic. Cardio regular rate and regular rhythm GI soft to palpation, non-tender, non-distended and no masses Back/Spine normal ROM and normal to inspection Extremity normal to inspection and full ROM Neuro oriented x3, CN's II-XII intact bilaterally, moves all extremities, no focal motor deficits and no sensory deficits noted Sensorium / Orientation: awake and alert Psych mental status grossly normal and thought process normal Skin no rashes or lesions noted and no wounds Physical Exam Const Vital Signs: 10/13/23 14:00 10/13/23 14:04 10/13/23 14:05 Temperature 97.6 F L Temperature Source Temporal Pulse Rate 112 H Respiratory Rate 24 H Respiratory Effort Short of Breath Respiratory Depth Normal Respiratory Pattern Tachypnea Blood Pressure 152/91 H Blood Pressure Mean 111 Pulse Ox 99 Oxygen Delivery Method Room Air Room Air 10/13/23 15:31 10/13/23 16:00 10/13/23 17:56 Temperature Temperature Source Pulse Rate 115 H 108 H 111 H Respiratory Rate 20 H 22 H 20 H Respiratory Effort Respiratory Depth Respiratory Pattern Blood Pressure 144/94 H 123/83 H 125/95 H Blood Pressure Mean 110 96 105 Pulse Ox 98 98 98 Oxygen Delivery Method Room Air Room Air Room Air 10/13/23 18:00 [place] (more content not included)... Normal [facility] Erythrocyte distribution wid th ratioOrdered By: Basilia Izaguirre on 10-13-2023 Erythrocyte distribution width (RBC) [Ratio] 15.9 % High 11.6-14.6 [facility] Comment on above: Performed By: #### L 500.2500, L501.5425, L100.0100 ####[facility] [address] [place], [place], [address] Erythrocyte distribution wid th standard deviationOrdered By: Basilia Izaguirre on 10-13-2023 Erythrocyte distribution width (RBC) [Entitic vol] 45.8 fL 35.1-43.9 [facility] Ferritinon 10-13-2023 Ferritin [Mass/Vol] 16 ng/mL Normal 8-252 [facility] Comment on above: Performed By: #### L 503.6550 #### [facility] [address] [place], [place], [address] H AND P Exam - Hospitaliston 10-13-2023 H&P Exam - Hospitalist [facility] Medical Records Department [address] [place] [address] H P Exam - Hospitalist 10/13/23 1815 MR#: [id number] Acct: [id number] Name: AUGUSTIN GARCAI Rep #: [id number] : 1985 37 From: Lachelle Fletcher DO PCP: Dr. Arie Escoto, DO Status:ADM IN Location: [facility] [id number] HPI - General General Date of Admission: 10/13/23 Date of Service: 10/13/23 Chief Complaint: Shortness of breath HPI Narrative AUGUSTIN GARCIA, is a 37 F who presented to the emergency department at [facility] on 10/13/2023 due to acute onset shortness of breath. Patient reported that she was walking down to the basement to grab close for her children when she had sudden onset of shortness of breath. She reported that she also noted midsternal chest pain that was pleuritic in nature at that time as well. She had been feeling well overall other than last Saturday she had a couple episodes of vomiting but has had no other issues since. She is at 9 weeks and is . She has never had any previous thromboembolic events with primary pregnancies. She does have a sister who had a thromboembolic event during and was on Lovenox during her and for about 6 months following was anticoagulated. She has no other family members that she knows of who have had previous clotting disorders. Vital signs on presentation showed a temperature of 97.6, heart rates between 108 and 115, blood pressures 120/88, respiratory rate has been between 20 and 24 and oxygen saturations are 97 to 99% on room air. CBC shows a normal white count with a mild left shift at a 78.6% neutrophilia and I suspect this is a stress response as she has no signs of infection. Hemoglobin is 11.9 and she has microcytic which may be iron deficiency anemia related to so iron studies are pending. Coags were normal. Her chemistry panel revealed hypokalemia with a potassium of 3.1, normal renal function and a TSH of 0.22. BNP was normal at 39.4. Initial troponin was 866. EKG was sinus tachycardia with an S1Q3T3, normal intervals and no ST-T wave changes concerning for acute ischemia. Chest x-ray was unremarkable. CT of the chest showed no saddle emboli and no heart strain however she does have large bilateral PE that extend from the main branch to the first and second order branches. Obstetrics ultrasound was performed with 9 weeks and demonstrated a single live intrauterine with a heart rate of 170 bpm estimated 8 weeks and 6 days. Cervix was closed. No adnexal masses or complex lesions were identified and there was no fluid in the cul-de-sac. The case was discussed with pulmonary medicine and then they indicated that they would be willing to admit her here and she did not need thrombus retrieval. Recommended initiating heparin drip. PFSH no medical history Home Medications No Known/Unobtainable [No Known Home Medications] 06/16/14 [History Last Taken Unknown] Allergy/AdvReac Type Severity Reaction Status Date / Time No Known Allergies Allergy Verified 05/07/18 19:42 Family History (Updated 10/13/23 @ 18:[address] Lachelle Fletcher DO) Sister FH: thromboembolic disease no surgical history Social History (Updated 10/13/23 @ 18:[address] 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 Smoking Status: Never smoker alcohol intake: never substance use type: does not use ROS Constitutional Constitutional: Reports fatigue; Denies anorexia, change in weight, chills, fever(s), malaise, night sweats, weakness or other Eyes Eyes: Denies blurry vision, change in eye color, change in vision, discharge from eye(s), double vision, erythema, eye pain, loss of vision or other ENT HEENT: Denies abnormal hearing, dysphagia, ear pain, epistaxis, headache(s), hearing loss, nasal congestion, nasal discharge, post nasal drip, sinus pressure, sore throat or other Cardiovascular Cardiovascular: Reports chest pain and dyspnea on exertion; Denies claudication, edema, lightheadedness, orthopnea, palpitations, paroxysmal nocturnal dyspnea, rapid heart rate, syncope or other Respiratory/Chest Respiratory/Chest: Reports dyspnea and shortness of breath with exertion; Denies cough, excessive phlegm production, hemoptysis, productive cough, shortness of breath at rest, wheezing or other Gastrointestinal Gastrointestinal: Denies abdominal pain, coffee ground emesis, constipation, diarrhea, dyspepsia, hematemesis, hematochezia, loose stools, melena, nausea, vomiting or other Genitourinary Genitourinary: Denies burning urination, difficulty urinating, dysuria, hematuria, nocturia, urinary frequency, urinary hesitancy, urinary incontinence, urinary urgency or other Musculoskeletal Musculoskeletal: Denies arthralgias, back pain, joint pain, joint stiffness, joint swelling, (more content not included)... Normal [facility] Immature granulocytes/100 WB C Auto (Bld)Ordered By: Basilia Izaguirre on 10-13-2023 Immature granulocytes/100 WBC (Bld) 0.200 % 0.0-0.9 [facility] Comment on above: IG% - Immature Granu locytes (promyelocytes, myelocytes and metamyelocytes) > 1% indicates that a LEFT SHIFT is Present. International normalized rat io (INR) calculationOrdered By: Basilia Izaguirre on 10-13-2023 INR Coag (PPP) [Relative time] 1.0 {INR} Normal [facility] Comment on above: Order Comment: ADD O N Performed By: #### L 501.080 #### [facility] [address] [place], [address] Iron measurement (mass/mass) Ordered By: Lachelle Fletcher on 10-13-2023 Iron (Unsp spec) [Mass/Mass] 20 ug/dL 50-170 [facility] Iron+Iron Binding Capacityon 10-13-2023 Iron [Mass/Vol] 20 ug/dL Low 50-170 [facility] Comment on above: Performed By: #### L 503.6030, L506.0400 ####[facility] [address] [place], [address] IRON SATURATION 5.5 Low 15.0-55.0 [facility] Comment on above: Performed By: #### L 503.6030, L506.0400 ####[facility] [address] [place], [address] TIBC 365 ug/dL Normal 250-450 [facility] Comment on above: Performed By: #### L 503.6030, L506.0400 ####[facility] [address] [place], [address] L501.4020on 10-13-2023 TROPONIN-I HS 1985 pg/mL Invalid Interpretation Code 3.0-54.0 [facility] Comment on above: Order Comment: 'TROP ' Serial specimen #1, #2 or #3: 3 Result Comment: Crit ical Result(s) Called at: 22:18:58 10/13/2023 by: Shahnaz Nash. Results read back by same. Please Note: New Test Units and Gender Specific Reference Ranges. For more information see Policy Stat Procedure [facility] High Sensitivity Troponin (TNIH) and attachments. Performed By: #### L 501.4020 ####[facility] [address] [place], [address] TROPONIN-I HS 1840 pg/mL Invalid Interpretation Code 3.0-54.0 [facility] Comment on above: Result Comment: Crit ical Result(s) Called at: 18:25:11 10/13/2023 by: Shahnaz Vargas. Results read back by same. Please Note: New Test Units and Gender Specific Reference Ranges. For more information see Policy Stat Procedure [facility] High Sensitivity Troponin (TNIH) and attachments. Performed By: #### L 501.4020 ####[facility] [address] [place], [address] L501.5425on 10-13-2023 TROPONIN-I HS 866 pg/mL Invalid Interpretation Code 3.0-54.0 [facility] Comment on above: Order Comment: 1Y Result Comment: Crit ical Result(s) Called at: 15:32:15 10/13/2023 by: Shahnaz Honeycutt to JOEeal. Results read back by same. Please Note: New Test Units and Gender Specific Reference Ranges. For more information see Policy Stat Procedure [facility] High Sensitivity Troponin (TNIH) and attachments. Performed By: #### L 501.080 #### [facility] [address] [place], [address] Laboratory - Chemistry and C hemistry - challengeOrdered By: Lachelle Fletcher on 10-13-2023 Ferritin [Mass/Vol] 16 ng/mL 8-252 [facility] - Chemistry and C hemistry - challengeOrdered By: Basilia Izaguirre on 10-13-2023 Urea nitrogen/Creatinine [Mass ratio] 6.8 mg/mg 10-20 [facility] - Hematology and Cell countsOrdered By: Basilia Izaguirre on 10-13-2023 Nucleated RBC/100 WBC (Bld) [Ratio] 0 % 0-5 [facility] - Microbiology an d Antimicrobial susceptibilityOrdered By: Basilia Izaguirre on 10-13-2023 SARS-CoV-2 (COVID-19) RNA AGNES+probe Ql (Unsp spec) [facility] M100.678on 10-13-2023 M100.678 SARS-CoV-2 (COVID 19) Negative INFLUENZA A Negative INFLUENZA B Negative RSV PCR Negative Normal [facility] Comment on above: Performed By: #### M 100.678 ####[facility] [address] [place], [place], [address] Mean platelet volume determi nationOrdered By: Basilia Izaguirre on 10-13-2023 Platelet mean volume (Bld) [Entitic vol] 9.7 fL Normal 6.2-12.0 [facility] Comment on above: Performed By: #### L 500.2500, L501.5425, L100.0100 ####[facility] [address] [place], [place], [address] No Panel InformationOrdered By: Lachelle Fletcher on 10-13-2023 Troponin I High Sensitivity 1985 pg/mL 3.0-54.0 [facility] Comment on above: Critical Result(s) C alled at: 22:18:58 10/13/2023 by: Shahnaz Nash. Results read back by same. Please Note: New Test Units and Gender Specific Reference Ranges. For more information see Policy Stat Procedure [facility] High Sensitivity Troponin (TNIH) and attachments. Total Iron Binding Capacity 365 ug/dL 250-450 [facility] No Panel InformationOrdered By: Basilia Izaguirre on 10-13-2023 Troponin I High Sensitivity 1840 pg/mL 3.0-54.0 [facility] Comment on above: Critical Result(s) C alled at: 18:25:11 10/13/2023 by: Shahnaz Vargas. Results read back by same. Please Note: New Test Units and Gender Specific Reference Ranges. For more information see Policy Stat Procedure [facility] High Sensitivity Troponin (TNIH) and attachments. Estimated GFR (MDRD) Amer 113 mL/min >60 [facility] Comment on above: GFR Calc Estimated GFR (MDRD) Non-Af Amer 93 mL/min >60 [facility] Comment on above: Non- GFR Calc Partial Thromboplast Timeon 10-13-2023 aPTT Coag (Bld) [Time] 25.1 s Normal 24.1-36.2 [facility] Comment on above: Order Comment: ADD O N Performed By: #### L 501.080 #### [facility] [address] [place], [place], [address] Prothrombin Time w/INROrdere d By: Basilia Izaguirre on 10-13-2023 PT Coag (PPP) [Time] 13.2 s Normal 11.7-14.9 [facility] Comment on above: Order Comment: ADD O N Performed By: #### L 501.080 #### [facility] [address] [place], [address] Serum or plasma calcium favian urement (mass/volume)Ordered By: Basilia Izaguirre on 10-13-2023 Calcium [Mass/Vol] 9.1 mg/dL 8.5-10.1 [facility] Serum or plasma creatinine m easurement (mass/volume)Ordered By: Basilia Izaguirre on 10-13-2023 Creatinine [Mass/Vol] 0.74 mg/dL Normal 0.55-1.02 [facility] Comment on above: The validity of the calculated GFR & GFRAA in patients over 70 years has not been determined. Clinical correlation is essential. Order Comment: 1Y Result Comment: The validity of the calculated GFR GFRAA in patients over 70 years has not been determined. Clinical correlation is essential. Performed By: #### L 500.2500, L501.5425, L100.0100 ####[facility] [address] [place], [address] Serum or plasma iron saturat ion measurement (mass fraction)Ordered By: Lachelle Fletcher on 10-13-2023 Iron saturation [Mass fraction] 5.5 % 15.0-55.0 [facility] Serum or plasma thyroid stim ulating hormone (TSH) measurement (units/volume)Ordered By: Basilia Izaguirre on 10-13-2023 TSH Qn 0.22 uIU/mL 0.358-3.74 [facility] Serum or plasma urea nitroge n measurement (mass/volume)Ordered By: Basilia Izaguirre on 10-13-2023 Urea nitrogen [Mass/Vol] 5 mg/dL Low 7-18 [facility] Comment on above: Order Comment: 1Y Performed By: #### L 500.2500, L501.5425, L100.0100 ####[facility] [address] [place], [address] T4 Free Directon 10-13-2023 T4 FREE DIRECT 0.96 ng/dL Normal 0.76-1.46 [facility] Comment on above: Performed By: #### L 503.6030, L506.0400 ####[facility] [address] [place], [address] Thin prep Papanicolaou smear with manual screeningOrdered By: Lachelle Fletcher on 10-13-2023 Thin prep Papanicolaou smear with manual screening 0.96 ng/dL 0.76-1.46 [facility] Thin prep Papanicolaou smear with manual screeningOrdered By: Basilia Izaguirre on 10-13-2023 Thin prep Papanicolaou smear with manual screening 6 5-15 [facility] Thyroid Stim Hormone (TSH)on 10-13-2023 TSH 0.22 uIU/mL Low 0.358-3.74 [facility] Comment on above: Performed By: #### L 503.6620, L501.9520 #### [facility] [address] [place], [address] Transvaginal w/Preg USon Transvaginal w/Preg US [facility] Services [address] [place] [address] Transvaginal w/Preg US MR#: [id number] Acct: [id number] Name: AUGUSTIN GARCIA Rep #: [id number] : 1985 F 37 From: Bryan Hernández PCP: Dr. Arie Escoto, DO Status: [facility] ER Study: Transvaginal w/Preg US Date of Exam: 10/13/23 Exam# [id number] Ordering Dr: Basilia Izaguirre -[id number] STUDY: FIRST TRIMESTER OBSTETRICAL ULTRASOUND REASON FOR EXAM: Female, 37 years old. to confirm -- PATIENT BEING ADMITTED WITH P.E''S TECHNIQUE: Transvaginal US was obtained to better visualized the ovaries. TECHNICAL QUALITY: Adequate. PRIOR ULTRASOUND: None. FINDINGS: There is visualization of a single gestational sac in a normal intrauterine position. The mean sac diameter (MSD) measures 33 mm, indicating an estimated gestational age (EGA) of 8 weeks, 4 days. The gestational sac shape is within normal limits. There is a visualized yolk sac. The yolk sac measures 4 mm. The placenta is non-visualized. Due to early gestation, the placenta is not seen. There is visualization of a live embryo. The crown-rump length (CRL) measures 25 mm, indicating an estimated gestational age (EGA) of 9 weeks, 0 days. There is demonstrated cardiac activity with a heart rate of 170 bpm. The estimated gestation age (EGA) by LMP is 9 weeks, 4 days. The estimated date of delivery (CLEO) by LMP is 11.29.23. The estimated gestation age (EGA) by US is 8 weeks, 6 days. The estimated date of delivery (CLEO) by US is 8.26.24. The uterus measures 13.5 cm. There is no demonstrated uterine fibroid. The cervix is closed. The right ovary measures 3 cm. There is no right ovarian cyst. There is no visualized right adnexal mass or complex lesion. The left ovary measures 3 cm. 60 mm left cyst. There is no visualized left adnexal mass or complex lesion. There is no fluid in the cul de sac. US/Transvaginal w/Preg US IMPRESSION: There is a single live intrauterine with a heart rate of 170 bpm. Electronically Signed: Bryan Aguirre MD at 17:45 EST Reading Location ID and State: [facility] / [place] , Service support , CC: Dr. Arie Escoto DO; AUSTIN George Professor Of Environmental Science: Signed Normal [facility] Venous Duplex US - Quentin Extre [facility] 10-13-2023 Venous Duplex US - Quentin Extrem [facility] [address] [place] [address] Venous Duplex US - Quentin Extrem 10/14/23 0850 MR#: [id number] Acct: [id number] Name: AUGUSTIN GARCIA Rep #: [id number] : 1985 37 From: Jairon Delgado MD Attending Dr: Dr. Gilson Daily MD Status: ADM IN Ordering Dr: Lachelle Fletcher DO Date: 10/13/23 Location: [facility] Sex: F C Admitted: 10/13/23 Reason For Study: Pulmonary Embolism RIGHT LEFT GSV is normal. GSV is normal. CFV is compressible, spontaneous, phasic, CFV is compressible, spontaneous, phasic, competent and demonstrates normal competent, and demonstrates normal augmentation. augmentation. FV is compressible, spontaneous, phasic, FV is compressible, spontaneous, phasic, competent and demonstrates normal competent and demonstrates normal augmentation. augmentation. POP V is compressible, spontaneous, phasic, POP V is compressible, spontaneous, phasic, competent and demonstrates normal competent and demonstrates normal augmentation. augmentation. T/P Trunk is compressible. T/P Trunk is compressible. PTV is compressible. PTV is compressible. RT PerV is compressible. LT PerV is compressible. Procedure This is a venous duplex using B-mode, color flow and spectral Doppler. Exam performed portable in patient room. A preliminary report was called and/or faxed to Lexis GARCIA. VL/Venous Duplex US - Quentin Extrem Interpretation Summary Deep veins of the bilateral lower extremities are patent and compressible segmentally. There is no evidence of bilateral lower extremity deep vein thrombosis. The bilateral great saphenous veins appear patent and compressible segmentally. __ Ordering Physician: Lachelle Fletcher Referring Physician: Arie Escoto Performed By: Pauline Martínez, GEORGIE, RVT 10/14/23 1524 Date Jairon Delgado MD CC: Dr. Lachelle Fletcher DO; Dr. Arie Escoto DO; Dr. Gilson Daily MD Date Dictated: 10/14/23 0850 Date Transcribed: 10/14/231523 Professor Of Environmental Science: Signed Normal [facility] CBC + DIFFon 09-21-2022 Baso # 0.00 x10EE3/UL Normal 0.00 - 0.10 [facility] Comment on above: Performed By: #### 2 74621 #### [facility],[address] [place] [address] Basophils/100 WBC (Bld) 0.3 % Normal 0.0 - 2.0 [facility] Comment on above: Performed By: #### 2 98516 #### [facility],[address] [place] [address] CBC + DIFF Normal [facility] Comment on above: Result Comment: CBC- COMPLETE BLOOD COUNT Performed By: #### 2 73215 #### [facility],[address] [place] [address] EO # 0.10 x10EE3/UL Normal 0.00 - 0.50 [facility] Comment on above: Performed By: #### 2 93861 #### [facility],[address] [place] [address] Eosinophils/100 WBC (Bld) 0.9 % Normal 0.0 - 7.0 [facility] Comment on above: Performed By: #### 2 35337 #### [facility],[address] [place] [address] Erythrocyte distribution width (RBC) [Ratio] 17.2 % High 12.0 - 15.6 [facility] Comment on above: Performed By: #### 2 03176 #### [facility],[address] [place] [address] Hematocrit (Bld) [Volume fraction] 35.1 % Normal 34.0 - 46.0 [facility] Comment on above: Performed By: #### 2 03804 #### [facility],[address] [place] [address] Hemoglobin (Bld) [Mass/Vol] 11.8 g/dL Low 12.0 - 16.0 [facility] Comment on above: Performed By: #### 2 48337 #### [facility],[address] [place] [address] Lymph # 1.70 x10EE3/UL Normal 0.80 - 2.80 [facility] Comment on above: Performed By: #### 2 71645 #### [facility],[address] [place] [address] Lymphocytes/100 WBC (Bld) 18.9 % Low 20.0 - 45.0 [facility] Comment on above: Performed By: #### 2 17620 #### [facility],[address] [place] [address] MANUAL DIFF N/A Normal [facility] Comment on above: Performed By: #### 2 81287 #### [facility],[address] [place] [address] MCH (RBC) [Entitic mass] 30 pg Normal 27 - 33 [facility] Comment on above: Performed By: #### 2 00079 #### [facility],[address] [place] [address] MCHC 34 X10 3 Normal 32 - 36 [facility] Comment on above: Performed By: #### 2 47832 #### [facility],[address] [place] [address] MCV (RBC) [Entitic vol] 89 fL Normal 80 - 99 [facility] Comment on above: Performed By: #### 2 39955 #### [facility],[address] [place] [address] Niobrara # 0.40 x10EE3/UL Normal 0.20 - 1.00 [facility] Comment on above: Performed By: #### 2 98811 #### [facility],[address] [place] [address] MONOS % 5.1 % Normal 0.0 - 10.0 [facility] Comment on above: Performed By: #### 2 28481 #### [facility],[address] [place] [address] Morphology Kelvin (Bld) [Interp] N/A Normal [facility] Comment on above: Result Comment: {CD] Performed By: #### 2 78422 #### [facility],[address] [place] [address] Neut # 6.60 x10EE3/UL Normal 1.50 - 7.10 [facility] Comment on above: Performed By: #### 2 29348 #### [facility],[address] [place] [address] Neutrophils/100 WBC (Bld) 74.8 % Normal 46.0 - 76.0 [facility] Comment on above: Performed By: #### 2 27278 #### [facility],[address] [place] [address] PLATELET 170 x10EE3/UL Normal 150 - 450 [facility] Comment on above: Performed By: #### 2 49752 #### [facility],[address] [place] [address] Platelet mean volume (Bld) [Entitic vol] 8.1 fL Normal 6.6 - 10.5 [facility] Comment on above: Result Comment: AUTO MATED DIFFERENTIAL Performed By: #### 2 89797 #### [facility],[address] [place] [address] RBC 3.95 x 10EE6/UL Low 4.10 - 5.30 [facility] Comment on above: Performed By: #### 2 33707 #### [facility],[address] [place] [address] WBC 8.8 x 10EE3/UL Normal 4.5 - 10.8 [facility] Comment on above: Performed By: #### 2 05540 #### [facility],[address] [place] [address]355 BB TYPE & SCREENon 2 ABO A Normal [facility] Comment on above: Performed By: #### 2 53257 #### [facility],[address] [place] [address]20[address] ANTIBODY SCR Negative Normal [facility] Comment on above: Performed By: #### 2 06047 #### [facility],[address] [place] [address] BB TYPE & SCREEN Normal [facility] Comment on above: Result Comment: TYPE , Rh, AND SCREEN Performed By: #### 2 07260 #### [facility],[address] [place] [address]44[address] Rh Nom (Bld) Positive Normal [facility] Comment on above: Performed By: #### 2 13674 #### [facility],[address] [place] [address] CBC + DIFFon 09-20-2022 Baso # 0.00 x10EE3/UL Normal 0.00 - 0.10 [facility] Comment on above: Performed By: #### 2 05410 #### [facility],[address] [place] [address] Basophils/100 WBC (Bld) 0.3 % Normal 0.0 - 2.0 [facility] Comment on above: Performed By: #### 2 18864 #### [facility],[address] [place] [address] CBC + DIFF Normal [facility] Comment on above: Result Comment: CBC- COMPLETE BLOOD COUNT Performed By: #### 2 87351 #### [facility],[address] [place] [address] EO # 0.00 x10EE3/UL Normal 0.00 - 0.50 [facility] Comment on above: Performed By: #### 2 72083 #### [facility],[address] [place] [address] Eosinophils/100 WBC (Bld) 0.3 % Normal 0.0 - 7.0 [facility] Comment on above: Performed By: #### 2 31318 #### [facility],[address] [place] [address] Erythrocyte distribution width (RBC) [Ratio] 16.8 % High 12.0 - 15.6 [facility] Comment on above: Performed By: #### 2 82610 #### [facility],[address] [place] [address] Hematocrit (Bld) [Volume fraction] 35.0 % Normal 34.0 - 46.0 [facility] Comment on above: Performed By: #### 2 24520 #### [facility],[address] [place] [address] Hemoglobin (Bld) [Mass/Vol] 11.6 g/dL Low 12.0 - 16.0 [facility] Comment on above: Performed By: #### 2 88947 #### [facility],[address] [place] [address] 67[address] Lymph # 1.60 x10EE3/UL Normal 0.80 - 2.80 [facility] Comment on above: Performed By: #### 2 19626 #### [facility],[address] [place] [address]492 Lymphocytes/100 WBC (Bld) 22.7 % Normal 20.0 - 45.0 [facility] Comment on above: Performed By: #### 2 70840 #### [facility],[address] [place] [address] MANUAL DIFF N/A Normal [facility] Comment on above: Performed By: #### 2 76871 #### [facility],[address] [place] [address] MCH (RBC) [Entitic mass] 29 pg Normal 27 - 33 [facility] Comment on above: Performed By: #### 2 85257 #### [facility],[address] [place] [address]23 MCHC 33 X10 3 Normal 32 - 36 [facility] Comment on above: Performed By: #### 2 88494 #### [facility],[address] [place] [address] MCV (RBC) [Entitic vol] 89 fL Normal 80 - 99 [facility] Comment on above: Performed By: #### 2 56993 #### [facility],[address] [place] [address] Niobrara # 0.40 x10EE3/UL Normal 0.20 - 1.00 [facility] Comment on above: Performed By: #### 2 [id number] #### [facility],[address] [place] [id number] MONOS % 5.7 % Normal 0.0 - 10.0 [facility] Comment on above: Performed By: #### 2 75213 #### [facility],[address] [place] [address] Morphology Kelvin (Bld) [Interp] N/A Normal [facility] Comment on above: Result Comment: {CD] Performed By: #### 2 [id number] #### [facility],[address] [place] [address] Neut # 5.10 x10EE3/UL Normal 1.50 - 7.10 [facility] Comment on above: Performed By: #### 2 70295 #### [facility],[address] [place] [address] Neutrophils/100 WBC (Bld) 71.0 % Normal 46.0 - 76.0 [facility] Comment on above: Performed By: #### 2 86626 #### [facility],[address] [place] [address] PLATELET 189 x10EE3/UL Normal 150 - 450 [facility] Comment on above: Performed By: #### 2 [id number] #### [facility],[address] [place] [address] Platelet mean volume (Bld) [Entitic vol] 8.3 fL Normal 6.6 - 10.5 [facility] Comment on above: Result Comment: AUTO MATED DIFFERENTIAL Performed By: #### 2 60401 #### [facility],[address] [place] [address] RBC 3.94 x 10EE6/UL Low 4.10 - 5.30 [facility] Comment on above: Performed By: #### 2 06976 #### [facility],[address] [place] [address] WBC 7.2 x 10EE3/UL Normal 4.5 - 10.8 [facility] Comment on above: Performed By: #### 2 54243 #### [facility],[address] [place] [address] STREPTOCOCCUS, GROUP B CULTU REon 09-03-2022 STREPTOCOCCUS, GROUP B CULTURE SEE NOTE Normal [facility] Comment on above: Result Comment: STREPTOCOCCUS, GROUP B CULTURE Micro Number: [id number] Test Status: Final Specimen Source: Cervix Specimen Quality: Adequate Result: No group B Streptococcus isolated Note per CDC guidelines optimal recovery is achieved by swabbing both the lower vagina and rectum (through the anal sphincter). Performed By: #### 5 617 #### [facility] [address], [address] [place] [id number] Shift Superintendent Caustic Cresylate: Eladio Mcguire MD GLUCOSE TOLERANCE-3 HOURon 1 09-26-2021 GLUCOSE TOLERANCE-3 HOUR Normal [facility] Comment on above: Result Comment: 3 HO UR GLUCOSE TOLERANCE Reference Range BLOOD Adult(non) Adult() FASTING _121 mg/dl <100 mg/dL 95 mg/dL 07/27/22.7.HEM. HIGH FASTING CALLED TO OFFICE, OK TO PROCE 1 HOUR _210 mg/dl 70-115 mg/dL 180 mg/dL 07/27/221317.HEM. 2 HOUR _213 mg/dl <140 mg/dL 155 mg/dL 07/27/227.HEM. 3 HOUR _159 mg/dl 70-115 mg/dL 140 mg/dL 07/27/22.HEM. URINE-GLUCOSE Fasting......... _NA (NORMAL) 07/27/22.HEM. 1 hour.......... _NA (NORMAL) 07/27/22.HEM. 2 hours......... _NA (NORMAL) 07/27/22.HEM. 3 hours......... _NA (NORMAL) 07/27/22.HEM. URINE-KETONES Fasting......... _NA (NEGATIVE) 07/27/22.HEM. 1 hour.......... _NA (NEGATIVE) 07/27/22.HEM. 2 hour.......... _NA (NEGATIVE) 07/27/22.HEM. 3 hour.......... _NA (NEGATIVE) 07/27/22.HEM. Performed By: #### 2 26101 #### [facility],[address] [place] [address] GLUCOSE, GESTATIONAL SCREEN (50G)-135 CUTOFFon 07-14-2022 Glucose [Mass/Vol] 187 mg/dL High <135 [facility] Comment on above: Result Comment: One hour value of > or = 135 mg/dL indicates the need for a diagnostic 75 g dose 2-hour or 100 g dose 3-hour oral glucose tolerance test; patient fasting is required. Performed By: #### 5 , 7359 #### [facility] [place] [address] Shift Superintendent Caustic Cresylate: Eladio Mcguire MD HEMOGLOBINon 07-14-2022 Hemoglobin (Bld) [Mass/Vol] 10.4 g/dL Low 11.7-15.5 [facility] Comment on above: Performed By: #### 5 , 6913 #### [facility] [address], [address] [place] [address] Shift Superintendent Caustic Cresylate: Eladio Mcguire MD CBLon 07-01-2019 CBL . MICRO - Microbiology PROCEDURE: Blood Culture (bacterial) [*1] SOURCE: Blood BODY SITE: COLLECTED DATE/TIME: 06/26/2019 05:34 EDT RECEIVED DATE/TIME: 06/26/2019 15:15 EDT START DATE/TIME: 06/26/2019 15:15 EDT FREE TEXT SOURCE: FINAL REPORTS Final Report [] Verified Date/Time/Personnel : 07/01/2019 15:59 EDT Blood Culture: No Growth at 5 days. PRELIMINARY REPORTS Preliminary Report [] Verified Date/Time/Personnel : 06/26/2019 15:59 EDT Culture has been received in lab and is no growth to date. Routine cultures are held for 5 days. Performing Locations *1: This test was performed at: [address], [address] [place] [address] ([place]) Comment on above: Performed By: #### C BC, ADIFF, ANEU #### [address] [address] #### BMP, GFR #### [place] [address] CBL . MICRO - Microbiology PROCEDURE: Blood Culture (bacterial) [*1] SOURCE: Blood BODY SITE: COLLECTED DATE/TIME: 06/26/2019 05:34 EDT RECEIVED DATE/TIME: 06/26/2019 15:15 EDT START DATE/TIME: 06/26/2019 15:15 EDT FREE TEXT SOURCE: FINAL REPORTS Final Report [] Verified Date/Time/Personnel : 07/01/2019 15:59 EDT Blood Culture: No Growth at 5 days. PRELIMINARY REPORTS Preliminary Report [] Verified Date/Time/Personnel : 06/26/2019 15:59 EDT Culture has been received in lab and is no growth to date. Routine cultures are held for 5 days. Performing Locations *1: This test was performed at: [address], [address] [place] [address] ([place]) Comment on above: Performed By: #### C BL #### [place] [address] Final Surgical Pathology Rep [facility] 07-01-2019 Final Surgical Pathology Report . Pathology Reports Accession: Collected Date/Time: Received Date/Time: Pathologist: [id number] 06/26/2019 09:40 EDT 06/26/2019 14:06 TRAVIST ALBIN RAMIREZ MD Final Surgical Pathology Report DIAGNOSIS: UTERINE CONTENTS - FRAGMENTS OF DECIDUALIZED TISSUE. NO CHORIONIC VILLI IDENTIFIED. COMMENT: [facility] - D# [id number] CLINICAL INFORMATION: Procedure: dilation and curettage WITH SUCTION Preoperative diagnosis: retained placenta Postoperative diagnosis: same SPECIMEN: A PRODUCTS OF CONCEPTION GROSS DESCRIPTION: Received in formalin labeled products of conception is an 8.8 x 6 by 1.5 cm aggregate of red membranous tissue and an abundant amount of dark red blood clot. No chorionic villi, parts or vesicles are grossly identified. RS -7 Dictated by Sarai AVILA ([facility]) MICROSCOPIC DESCRIPTION: Slides reviewed. Electronically Signed by Pathology Report verified by [facility] Electronically signed by ALBIN RAMIREZ Sign out Date: 07/01/2019 14:30 Performing Lab: [address] Normal [facility] ([place]) Comment on above: Performed By: #### C BC, ADIFF, ANEU #### [place] [address] #### BMP, GFR #### [place] [address] .Auto Diffon 06-26-2019 Ammonia (P) [Mass/Vol] 0.40 10 3/mcL Normal 0.15-1.00 [facility] ([place]) Comment on above: Performed By: #### C BC, ADIFF, ANEU #### [place] [address] #### BMP, GFR #### [place] [address] Basophils (Bld) [#/Vol] 0.00 10 3/mcL Normal 0.00-0.19 [facility] ([place]) Comment on above: Performed By: #### C BC, ADIFF, ANEU #### [place] [address] #### BMP, GFR #### [address] [address] Basophils/100 WBC (Bld) 0.2 % Normal 0.0-2.5 [facility] ([place]) Comment on above: Performed By: #### C BC, ADIFF, ANEU #### [address] [address] #### BMP, GFR #### [address] [address] Eosinophils (Bld) [#/Vol] 0.00 10 3/mcL Normal 0.00-0.40 [facility] ([place]) Comment on above: Performed By: #### C BC, ADIFF, ANEU #### [address] [address] #### BMP, GFR #### [address] [address] Eosinophils/100 WBC (Bld) 0.1 % Normal 0.0-7.0 [facility] ([place]) Comment on above: Performed By: #### C BC, ADIFF, ANEU #### [address] [address] #### BMP, GFR #### [address] [address] Lymphocytes (Bld) [#/Vol] 1.00 10 3/mcL Normal 0.77-3.85 [facility] ([place]) Comment on above: Performed By: #### C BC, ADIFF, ANEU #### [place] [address] #### BMP, GFR #### [address] [address] Lymphocytes/100 WBC (Bld) 13.8 % Normal 10.0-50.0 [facility] ([place]) Comment on above: Performed By: #### C BC, ADIFF, ANEU #### [address] [address] #### BMP, GFR #### [address] [address] Monocytes/100 WBC (Bld) 5.3 % Normal 1.7-13.0 [facility] ([place]) Comment on above: Performed By: #### C BC, ADIFF, ANEU #### [place] [address] [address] #### BMP, GFR #### [address] [address] Neutrophils/100 WBC (Bld) 80.6 % High 37.0-80.0 [facility] ([place]) Comment on above: Performed By: #### C BC, ADIFF, ANEU #### [place] [address] [address] #### BMP, GFR #### [address] [address] .GFRon 06-26-2019 GFR 150 ml/min/1.73sqm Normal [facility] ([place]) Comment on above: Result Comment: GFR Population mean for , Non- Americans Ages 20-29 = 116 mL/min/1.73 sq.m. Ages 30-39 = 107 mL/min/1.73 sq.m. Ages 40-49 = 99 mL/min/1.73 sq.m. Ages 50-59 = 93 mL/min/1.73 sq.m. Ages 60-69 = 85 mL/min/1.73 sq.m. Ages 70+ = 75 mL/min/1.73 sq.m. Chronic Kidney Disease: Less than 60 mL/min/1.73 square meters End Stage Renal Disease: Less than 15 mL/min/1.73 square meters Performed By: #### C BC, ADIFF, ANEU #### [place] [address] [address] #### BMP, GFR #### [address] [address] GFR Non- 124 ml/min/1.73sqm Normal [facility] ([place]) Comment on above: Result Comment: GFR Population mean for , Non- Americans Ages 20-29 = 116 mL/min/1.73 sq.m. Ages 30-39 = 107 mL/min/1.73 sq.m. Ages 40-49 = 99 mL/min/1.73 sq.m. Ages 50-59 = 93 mL/min/1.73 sq.m. Ages 60-69 = 85 mL/min/1.73 sq.m. Ages 70+ = 75 mL/min/1.73 sq.m. Chronic Kidney Disease: Less than 60 mL/min/1.73 square meters End Stage Renal Disease: Less than 15 mL/min/1.73 square meters Performed By: #### C BCROBERT, ANEU #### [place] [address] #### BMP, GFR #### [address] [address] .NEUABSon 06-26-2019 Neutrophils (Bld) [#/Vol] 5.70 10 3/mcL Normal 2.85-6.16 [facility] ([place]) Comment on above: Performed By: #### C ROBERT SHORT, ANEU #### [place] [address] #### BMP, GFR #### [address] [address] BMPon 06-26-2019 Calcium [Mass/Vol] 7.8 mg/dL Low 8.4-10.2 [facility] ([place]) Comment on above: Performed By: #### ROBERT HOFFMANN, ANEU #### [place] [address] #### BMP, GFR #### [place] [id number] Chloride [Moles/Vol] 101 mmol/L Normal 98-107 [facility] ([place]) Comment on above: Performed By: #### C ROBERT SHORT, ANEU #### [place] [address] #### BMP, GFR #### [address] [address] CO2 [Moles/Vol] 22 mmol/L Normal 22-29 [facility] ([place]) Comment on above: Performed By: #### ROBERT HOFFMANN, ANEU #### [address] [address] #### BMP, GFR #### [address] [address] Creatinine [Mass/Vol] 0.56 mg/dL Normal 0.55-1.02 [facility] ([place]) Comment on above: Performed By: #### C BC, ADIFF, ANEU #### [address] [address] #### BMP, GFR #### [address] [address] Electrolyte Balance 9.0 mEq/L Normal [facility] ([place]) Comment on above: Performed By: #### C BC, ADIFF, ANEU #### [place] [id number] #### BMP, GFR #### [address] [address] Glucose [Mass/Vol] 127 mg/dL High 70-105 [facility] ([place]) Comment on above: Performed By: #### C BC, ADIFF, ANEU #### [place] [address] #### BMP, GFR #### [address] [address] Potassium [Moles/Vol] 3.6 mmol/L Normal 3.5-5.1 [facility] ([place]) Comment on above: Performed By: #### C BC, ADIFF, ANEU #### [place] [id number] #### BMP, GFR #### [address] [address] Sodium [Moles/Vol] 132 mmol/L Low 136-145 [facility] ([place]) Comment on above: Performed By: #### C BC, ADIFF, ANEU #### [address] [address] #### BMP, GFR #### [address] [address] Urea nitrogen [Mass/Vol] 8 mg/dL Normal 7-18 [facility] ([place]) Comment on above: Performed By: #### C ROBERT SHORT, ANEU #### [address] [address] #### BMP, GFR #### [address] [address] Urea nitrogen/Creatinine [Mass ratio] 14 ratio Normal 7-27 [facility] ([place]) Comment on above: Performed By: #### C ROBERT SHORT, ANEU #### [address] [address] #### BMP, GFR #### [address] [address] CBCon 06-26-2019 Erythrocyte distribution width (RBC) [Ratio] 14.7 % High 11.5-14.5 [facility] ([place]) Comment on above: Performed By: #### C ROBERT SHORT, ANEU #### [place] [address] #### BMP, GFR #### [address] [address] Hematocrit (Bld) [Volume fraction] 22.0 % Low 37.0-47.0 [facility] ([place]) Comment on above: Performed By: #### C ROBERT SHORT, ANEU #### [place] [address] #### BMP, GFR #### [address] [address] Hemoglobin (Bld) [Mass/Vol] 7.4 G/dL Low 12.0-16.0 [facility] ([place]) Comment on above: Performed By: #### C BCROBERT, ANEU #### [place] [address] #### BMP, GFR #### [address] [address] MCH (RBC) [Entitic mass] 29.3 pg Normal 27.0-31.2 [facility] ([place]) Comment on above: Performed By: #### C BCJULIETTEIFF, ANEU #### [address] [address] #### BMP, GFR #### [address] [address] MCHC (RBC) [Mass/Vol] 33.6 G/dL Normal 33.0-37.0 [facility] ([place]) Comment on above: Performed By: #### C BC, ADIFF, ANEU #### [place] [address] #### BMP, GFR #### [address] [address] MCV (RBC) [Entitic vol] 87.0 fL Normal 80.0-94.0 [facility] ([place]) Comment on above: Performed By: #### C ROBERT SHORT, ANEU #### [place] [address] #### BMP, GFR #### [address] [address] Platelet mean volume (Bld) [Entitic vol] 6.8 fL Low 7.4-10.4 [facility] ([place]) Comment on above: Performed By: #### C ROBERT SHORT, ANEU #### [place] [address] #### BMP, GFR #### [address] [address] Platelets (Bld) [#/Vol] 138 10 3/mcL Normal 130-400 [facility] ([place]) Comment on above: Performed By: #### C BC, ADIFF, ANEU #### [address] [address] #### BMP, GFR #### [address] [address] RBC (Bld) [#/Vol] 2.53 10 6/mcL Low 4.20-5.40 [facility] ([place]) Comment on above: Performed By: #### C BC, ADIFF, ANEU #### [place] [id number] #### BMP, GFR #### [address] [address] WBC (Bld) [#/Vol] 7.10 10 3/mcL Normal 4.60-10.80 [facility] ([place]) Comment on above: Performed By: #### C BC, ADIFF, ANEU #### [place] [address] #### BMP, GFR #### [address] [address] FIBon 06-26-2019 Fibrinogen 258 mg/dL Low 292-711 [facility] ([place]) Comment on above: Performed By: #### F IB #### [place] [address] Gel ABOon 06-26-2019 ABO/Rh Interp Positive [facility] ([place]) Comment on above: Performed By: #### A PATEL ABDULLAHI #### [address] [address] Gel ABSon 06-26-2019 Antibody Screen Gel Negative Normal [facility] ([place]) Comment on above: Performed By: #### PATEL KHAN #### [address] [address] RBC (Product)on 06-26-2019 RBC (Bld) [#/Vol] RBC Ready for Pickup Normal [facility] ([place]) Comment on above: Performed By: #### R BCP #### [address] [address] US PELVIS NON-OB COMPLETEon 06-26-2019 US PELVIS NON-OB COMPLETE ORIGINAL US PELVIS NON-OB TRANSABDOMINAL AND TRANSVAGINAL CLINICAL STATEMENT: vaginal bleeding, evaluate for retained products of conception. One day . COMPARISON: None FINDINGS: The uterus is enlarged measuring 19.3 x 11.4 x 11.5 cm. Endometrial canal is heterogeneous and thickened measuring 2.6 cm in the body of the uterus. The lower uterine segment shows disproportionate enlargement and there is greater widening of endometrial canal in the lower uterine segment to a width of 8 cm. This is heterogeneous. There is not significant blood flow in this endometrial thickening. The ovaries are not visible due to enlarged uterus. No free fluid is present in the pelvis. IMPRESSION: Marked thickening of endometrial canal in lower uterine segment. The contents do not show vascularity. This may be blood clot or nonvascular retained products of conception. Interpreted By: Shai Lorenzo MD Preliminary Report By: Shai Lorenzo MD Electronically Signed By: Shai Lorenzo MD Dictated Date: 06/26/2019 7:43:24 AM Prelim Date: 06/26/2019 7:43:24 AM Sign Date: 06/26/2019 7:49:07 AM Ordering Provider:Shimon Layne [facility] ([place]) Vital Signs Date Time Vital Sign Value Performing Clinician Facility 08-21-2024 13:18-0500 Body mass index (BMI) [Ratio] 33.47 kg/m2 Bobby Aron TOTHN.WHARF LABOURER Work Phone: [facility] 08-21-2024 13:18-0500 Body weight 88.45 kg Bobby Hastu HEALTH PHYSICS TECHNICIAN.WHARF LABOURER Work Phone: [facility] 08-21-2024 13:18-0500 Diastolic blood pressure 60 mm[Hg] Bobby Haury HEALTH PHYSICS TECHNICIAN.WHARF LABOURER Work Phone: [facility] 08-21-2024 13:18-0500 Systolic blood pressure 118 mm[Hg] Bobby Haury HEALTH PHYSICS TECHNICIAN.WHARF LABOURER Work Phone: [facility] 07-22-2024 10:49-0400 Diastolic blood pressure 78 mm[Hg] Bobby Haury HEALTH PHYSICS TECHNICIAN.WHARF LABOURER Work Phone: [facility] 07-22-2024 10:49-0400 Systolic blood pressure 114 mm[Hg] Bobby Haury HEALTH PHYSICS TECHNICIAN.WHARF LABOURER Work Phone: [facility] 07-22-2024 10:26-0400 Body mass index (BMI) [Ratio] 32.96 kg/m2 Bobby Hastu HEALTH PHYSICS TECHNICIAN.WHARF LABOURER Work Phone: [facility] 07-22-2024 10:26-0400 Body weight 87.09 kg Bobby Hastu HEALTH PHYSICS TECHNICIAN.WHARF LABOURER Work Phone: [facility] 07-22-2024 08:55-0400 Body mass index (BMI) [Ratio] 33.3 kg/m2 Kiesha Childs Work Phone: [facility] 07-22-2024 08:55-0400 Body temperature 97.11 [degF] Kiesha Childs Work Phone: [facility] 07-22-2024 08:55-0400 Body weight 88 kg Kieshabryn Childs Work Phone: [facility] 07-22-2024 08:55-0400 Diastolic blood pressure 72 mm[Hg] Kiesha Childs Work Phone: [facility] 07-22-2024 08:55-0400 Heart rate 93 /min Kiesha Childs Work Phone: [facility] 07-22-2024 08:55-0400 SaO2% (BldA) [Mass fraction] 97 % Kiesha Childs Work Phone: [facility] 07-22-2024 08:55-0400 Systolic blood pressure 110 mm[Hg] Kiesha Childs Work Phone: [facility] 07-06-2024 15:17-0400 Body mass index (BMI) [Ratio] 32.82 kg/m2 Isra Wade MD Work Phone: [facility] 07-06-2024 15:17-0400 Body weight 86.73 kg Isra Wade MD Work Phone: [facility] 07-06-2024 15:17-0400 Diastolic blood pressure 70 mm[Hg] Isra Wade MD Work Phone: [facility] 07-06-2024 15:17-0400 Systolic blood pressure 102 mm[Hg] Isra Wade MD Work Phone: [facility] 07-06-2024 14:18-0400 Body height 162.6 cm Faisal Carter MD Work Phone: [facility] 07-06-2024 14:18-0400 Body mass index (BMI) [Ratio] 32.82 kg/m2 Faisal Carter MD Work Phone: [facility] 07-06-2024 14:18-0400 Body temperature 97.9 [degF] Faisal Carter MD Work Phone: [facility] 07-06-2024 14:18-0400 Body weight 86.73 kg Faisal Carter MD Work Phone: [facility] 07-06-2024 14:18-0400 Diastolic blood pressure 70 mm[Hg] Faisal Carter MD Work Phone: [facility] 07-06-2024 14:18-0400 Heart rate 83 /min Faisal Carter MD Work Phone: [facility] 07-06-2024 14:18-0400 SaO2% (BldA) [Mass fraction] 96 % Faisal Carter MD Work Phone: [facility] 07-06-2024 14:18-0400 Systolic blood pressure 120 mm[Hg] Faisal Carter MD Work Phone: [facility] 07-06-2024 11:45-0400 Body mass index (BMI) [Ratio] 33.21 kg/m2 Donn Love MD Work Phone: [facility] 07-06-2024 11:45-0400 Body temperature 97.2 [degF] Dnon Love MD Work Phone: [facility] 07-06-2024 11:45-0400 Body weight 87.77 kg Donn Love MD Work Phone: [facility] 07-06-2024 11:45-0400 Diastolic blood pressure 69 mm[Hg] Donn Love MD Work Phone: [facility] 07-06-2024 11:45-0400 Heart rate 71 /min Donn Love MD Work Phone: [facility] 07-06-2024 11:45-0400 SaO2% (BldA) [Mass fraction] 97 % Donn Love MD Work Phone: [facility] 07-06-2024 11:45-0400 Systolic blood pressure 104 mm[Hg] Donn Love MD Work Phone: [facility] 05-11-2024 09:26-0400 Body mass index (BMI) [Ratio] 31.24 kg/m2 Isra Wade MD Work Phone: [facility] 05-11-2024 09:26-0400 Body weight 82.56 kg Isra Wade MD Work Phone: [facility] 05-11-2024 09:26-0400 Diastolic blood pressure 64 mm[Hg] Isra Wade MD Work Phone: [facility] 05-11-2024 09:26-0400 Systolic blood pressure 102 mm[Hg] Isra Wade MD Work Phone: [facility] 04-24-2024 09:45-0400 Body mass index (BMI) [Ratio] 33.81 kg/m2 Isra Wade MD Work Phone: [facility] 04-24-2024 09:45-0400 Body weight 89.36 kg Isra Wade MD Work Phone: [facility] 04-24-2024 09:45-0400 Diastolic blood pressure 75 mm[Hg] Isra Wade MD Work Phone: [facility] 04-24-2024 09:45-0400 Systolic blood pressure 114 mm[Hg] Isra Wade MD Work Phone: [facility] 04-16-2024 10:20-0400 Body mass index (BMI) [Ratio] 33.13 kg/m2 Jordy Marie MD Work Phone: [facility] 04-16-2024 10:20-0400 Body weight 87.54 kg Jordy Marie MD Work Phone: [facility] 04-16-2024 10:20-0400 Diastolic blood pressure 78 mm[Hg] Jordy Marie MD Work Phone: [facility] 04-16-2024 10:20-0400 Systolic blood pressure 116 mm[Hg] Jordy Marie MD Work Phone: [facility] 04-09-2024 10:48-0400 Body mass index (BMI) [Ratio] 33.33 kg/m2 Isra Wdae MD Work Phone: [facility] 04-09-2024 10:48-0400 Body weight 88.09 kg Isra Wade MD Work Phone: [facility] 04-09-2024 10:48-0400 Diastolic blood pressure 70 mm[Hg] Isra Wade MD Work Phone: [facility] 04-09-2024 10:48-0400 Systolic blood pressure 112 mm[Hg] Isra Wade MD Work Phone: [facility] 04-02-2024 13:28-0400 Body mass index (BMI) [Ratio] 33.13 kg/m2 Jordy Marie MD Work Phone: [facility] 04-02-2024 13:28-0400 Body weight 87.54 kg Jordy Marie MD Work Phone: [facility] 04-02-2024 13:28-0400 Diastolic blood pressure 71 mm[Hg] Jordy Marie MD Work Phone: [facility] 04-02-2024 13:28-0400 Systolic blood pressure 106 mm[Hg] Jordy Marie MD Work Phone: [facility] 03-24-2024 13:41-0400 Body mass index (BMI) [Ratio] 32.96 kg/m2 Samantha Fields MD Work Phone: [facility] 03-24-2024 13:41-0400 Body weight 87.09 kg Samantha Fields MD Work Phone: [facility] 03-24-2024 13:41-0400 Diastolic blood pressure 80 mm[Hg] Samantha Fields MD Work Phone: [facility] 03-24-2024 13:41-0400 Systolic blood pressure 118 mm[Hg] Samantha Fields MD Work Phone: [facility] 03-10-2024 10:43-0400 Body mass index (BMI) [Ratio] 33.13 kg/m2 Samantha Fields MD Work Phone: [facility] 03-10-2024 10:43-0400 Body weight 87.54 kg Samantha Fields MD Work Phone: [facility] 03-10-2024 10:43-0400 Diastolic blood pressure 62 mm[Hg] Samantha Fields MD Work Phone: [facility] 03-10-2024 10:43-0400 Systolic blood pressure 108 mm[Hg] Samantha Fields MD Work Phone: [facility] 02-24-2024 10:27-0400 Body mass index (BMI) [Ratio] 32.65 kg/m2 Isra Wade MD Work Phone: [facility] 02-24-2024 10:27-0400 Body weight 86.27 kg Isra Wade MD Work Phone: [facility] 02-24-2024 10:27-0400 Diastolic blood pressure 74 mm[Hg] Isra Wade MD Work Phone: [facility] 02-24-2024 10:27-0400 Systolic blood pressure 120 mm[Hg] Isra Wade MD Work Phone: [facility] 02-04-2024 09:56-0400 Body height 162.6 cm Faisal Carter MD Work Phone: [facility] 02-04-2024 09:56-0400 Body mass index (BMI) [Ratio] 32.37 kg/m2 Faisal Carter MD Work Phone: [facility] 02-04-2024 09:56-0400 Body weight 85.55 kg Faisal Carter MD Work Phone: [facility] 02-04-2024 09:56-0400 Diastolic blood pressure 76 mm[Hg] Faisal Carter MD Work Phone: [facility] 02-04-2024 09:56-0400 Heart rate 90 /min Faisal Carter MD Work Phone: [facility] 02-04-2024 09:56-0400 Respiratory rate 17 /min Faisal Carter MD Work Phone: [facility] 02-04-2024 09:56-0400 SaO2% (BldA) [Mass fraction] 97 % Faisal Carter MD Work Phone: [facility] 02-04-2024 09:56-0400 Systolic blood pressure 102 mm[Hg] Faisal Carter MD Work Phone: [facility] 01-27-2024 08:22-0400 Body mass index (BMI) [Ratio] 32.85 kg/m2 Isra Wade MD Work Phone: [facility] 01-27-2024 08:22-0400 Body weight 85.46 kg Isra Wade MD Work Phone: [facility] 01-27-2024 08:22-0400 Diastolic blood pressure 62 mm[Hg] Isra Wade MD Work Phone: [facility] 01-27-2024 08:22-0400 Systolic blood pressure 100 mm[Hg] Isra Wade MD Work Phone: [facility] 01-16-2024 08:45-0400 Body mass index (BMI) [Ratio] 32.78 kg/m2 Jordy Marie MD Work Phone: [facility] 01-16-2024 08:45-0400 Body weight 85.28 kg Jordy Marie MD Work Phone: [facility] 01-16-2024 08:45-0400 Diastolic blood pressure 70 mm[Hg] Jordy Marie MD Work Phone: [facility] 01-16-2024 08:45-0400 Systolic blood pressure 110 mm[Hg] Jordy Marie MD Work Phone: [facility] 12-30-2023 14:12-0400 Body weight 86.64 kg Sirigonzalez Narvaez APRN.CNM Work Phone: [facility] 12-30-2023 14:12-0400 Diastolic blood pressure 68 mm[Hg] Siri Narvaez HEALTH PHYSICS TECHNICIAN.CNM Work Phone: [facility] 12-30-2023 14:12-0400 Systolic blood pressure 100 mm[Hg] Siri Narvaez APRN.CNM Work Phone: [facility] 12-03-2023 11:31-0400 Body height 161.3 cm Donn Love MD Work Phone: [facility] 12-03-2023 11:31-0400 Body temperature 98.29 [degF] Donn Love MD Work Phone: [facility] 12-03-2023 11:31-0400 Body weight 85.28 kg Donn Love MD Work Phone: [facility] 12-03-2023 11:31-0400 Diastolic blood pressure 74 mm[Hg] Donn Love MD Work Phone: [facility] 12-03-2023 11:31-0400 Heart rate 84 /min Donn Love MD Work Phone: [facility] 12-03-2023 11:31-0400 SaO2% (BldA) [Mass fraction] 98 % Donn Love MD Work Phone: [facility] 12-03-2023 11:31-0400 Systolic blood pressure 114 mm[Hg] Donn Love MD Work Phone: [facility] 11-22-2023 10:10-0500 Body weight 84.82 kg Samantha Fields MD Work Phone: [facility] 11-22-2023 10:10-0500 Diastolic blood pressure 68 mm[Hg] Samantha Fields MD Work Phone: [facility] 11-22-2023 10:10-0500 Systolic blood pressure 116 mm[Hg] Samantah Fields MD Work Phone: [facility] 10-15-2023 10:46-0500 Inhaled oxygen flow rate 0 L/min Dr. Arie Escoto Work Phone: [facility] 10-15-2023 10:46-0500 SaO2% (BldA) [Mass fraction] 96 % Dr. Arie Escoto Work Phone: 9(769)386-704036 [address] 10-15-2023 08:33-0500 Body temperature 97.4 [degF] Dr. Arie Escoto Work Phone: 8(488)251-268636 [address] 10-15-2023 08:33-0500 Diastolic blood pressure 77 mm[Hg] Dr. Arie Escoto Work Phone: 7(300)205-135536 [address] 10-15-2023 08:33-0500 Heart rate 88 /min Dr. Arie Escoto Work Phone: 7(498)605-981736 [address] 10-15-2023 08:33-0500 Respiratory rate 16 /min Dr. Arie Escoto Work Phone: 0(867)944-875936 [address] 10-15-2023 08:33-0500 Systolic blood pressure 117 mm[Hg] Dr. Arie Escoto Work Phone: 4(965)355-241336 [address] 10-14-2023 12:16-0500 Body height 165.[address] Arie Escoto Work Phone: 7(032)422-890661 [place] [address] 10-14-2023 12:16-0500 Body weight 83.[address] Arie Escoto Work Phone: 4(523)969-433736 [address] 10-13-2023 19:46-0500 Body mass index (BMI) [Ratio] 30.5 kg/m2 Dr. Arie Escoto Work Phone: [facility] 10-13-2023 18:00-0500 Diastolic blood pressure 88 mm[Hg] Dr. Arie Escoto Work Phone: 1(708)736-006861 [place] [address] 10-13-2023 18:00-0500 Heart rate 108 /min Dr. Arie Escoto Work Phone: [facility] 10-13-2023 18:00-0500 Respiratory rate 23 /min Dr. Arie Escoto Work Phone: [facility] 10-13-2023 18:00-0500 SaO2% (BldA) [Mass fraction] 97 % Dr. Arie Escoto Work Phone: [facility] 10-13-2023 18:00-0500 Systolic blood pressure 120 mm[Hg] Dr. Arie Escoto Work Phone: [facility] 10-13-2023 16:56-0500 Body height 165.[address] Arie Escoto Work Phone: [facility] 10-13-2023 16:56-0500 Body mass index (BMI) [Ratio] 32.1 kg/m2 Dr. Arie Escoto Work Phone: [facility] 10-13-2023 16:56-0500 Body weight 87.[address] Arie Escoto Work Phone: [facility] 10-13-2023 14:00-0500 Body temperature 97.6 [degF] Dr. Arie Escoto Work Phone: [facility] Encounters Encounter Date Encounter Type Care Provider Facility Start: 08-21-2024 End: 08-21-2024 ambulatory BOBBY SHARP Facility:[facility] Start: 08-21-2024 End: 08-21-2024 Patient encounter procedure Bobby Sharp APRN.WHARF LABOURER Work Phone: OB/Gynecology Comment on above: Surveillance of prev iously prescribed intrauterine contraceptive device (Primary Dx) Start: 07-22-2024 End: 07-22-2024 ambulatory ISRA WADE Facility:[facility] Start: 07-22-2024 End: 07-22-2024 Patient encounter procedure Bobby Sharp APRN.WHARF LABOURER Work Phone: OB/Gynecology Comment on above: Encounter for IUD in sertion (Primary Dx) Congenital factor II disorder (HCC) (Primary Dx); History of pulmonary embolism Start: 07-13-2024 End: 07-14-2024 Telephone encounter Donn Love MD Work Phone: Hematology/Oncology Comment on above: Appointment Start: 07-06-2024 End: 07-06-2024 ambulatory ISRA WADE Facility:[facility] Start: 07-06-2024 End: 07-06-2024 Patient encounter procedure Isra aWde MD Work Phone: OB/Gynecology Comment on above: care and examination (Primary Dx); Encounter for initial prescription of intrauterine contraceptive device (IUD); problem Type 2 diabetes heather itus without complication, with long-term current use of insulin (HCC) (Primary Dx) Start: 07-06-2024 End: 07-06-2024 ambulatory SELF Facility:[facility] Start: 07-06-2024 End: 07-06-2024 ambulatory Donn Love MD Work Phone: Hematology/Oncology Comment on above: History of pulmonary embolism (Primary Dx) Start: 07-06-2024 End: 07-06-2024 Patient encounter procedure Donn Love MD Work Phone: Hematology/Oncology Start: 07-02-2024 End: 07-02-2024 Refill Isra Wade MD Work Phone: OB/Gynecology Comment on above: Refill Request Start: 06-25-2024 End: 08-10-2024 Telephone encounter Isra Wade MD Work Phone: OB/Gynecology Comment on above: Schedule Surgery Start: 06-19-2024 End: 06-22-2024 Refill Isra Wade MD Work Phone: OB/Gynecology Comment on above: Refill Request Start: 05-11-2024 End: 05-11-2024 ambulatory ISRA WADE Facility:[facility] Start: 05-11-2024 End: 05-11-2024 Patient encounter procedure Isra Wade MD Work Phone: OB/Gynecology Comment on above: Routine f ollow-up (Primary Dx) Start: 05-01-2024 Refill Lynn mendez MD Work Phone: OB/Gynecology Start: 04-30-2024 End: 05-01-2024 Evaluation and management of inpatient Isra Mauro Facility:[facility] Start: 04-24-2024 End: 04-24-2024 Patient encounter procedure Isra Wade MD Work Phone: OB/Gynecology Comment on above: 37 weeks gestation o f (Primary Dx); AMA (advanced maternal age) multigravida 35+, third trimester; Supervision of high risk in third trimester; Pre-existing diabetes mellitus in in third trimester Start: 04-16-2024 End: 04-16-2024 Patient encounter procedure Jordy Marie MD Work Phone: OB/Gynecology Comment on above: 35 weeks gestation o f (Primary Dx); AMA (advanced maternal age) multigravida 35+, third trimester; Supervision of high risk in third trimester; Pre-existing diabetes mellitus in in third trimester Start: 04-14-2024 Telephone encounter Samantha Fields MD Work Phone: OB/Gynecology Comment on above: OB Blood Sugar Readi ngs Start: 04-09-2024 End: 04-09-2024 Patient encounter procedure Isra Wade MD Work Phone: OB/Gynecology Comment on above: 34 weeks gestation o f (Primary Dx); AMA (advanced maternal age) multigravida 35+, third trimester; Pre-existing diabetes mellitus in in third trimester; Supervision of high risk in third trimester Gestational diabetes mellitus (GDM) in second trimester, gestational diabetes method of control unspecified (Primary Dx); AMA (advanced maternal age) multigravida 35+, second trimester; 34 weeks gestation of Start: 04-06-2024 Telephone encounter Lynn elam MD Work Phone: OB/Gynecology Comment on above: Results Start: 04-02-2024 End: 04-02-2024 Patient encounter procedure Jordy Marie MD Work Phone: OB/Gynecology Comment on above: 33 weeks gestation o f (Primary Dx); AMA (advanced maternal age) multigravida 35+, third trimester; Pre-existing diabetes mellitus in in third trimester; Supervision of high risk in third trimester Start: 03-24-2024 End: 03-24-2024 Patient encounter procedure Samantha Fields MD Work Phone: OB/Gynecology Comment on above: Supervision of high risk in third trimester (Primary Dx); AMA (advanced maternal age) multigravida 35+, third trimester; Pre-existing diabetes mellitus in in third trimester; 32 weeks gestation of ; History of blood clot to lungs during Start: 03-16-2024 Telephone encounter Samantha Fields MD Work Phone: OB/Gynecology Comment on above: OB Blood Sugars Start: 03-10-2024 End: 03-10-2024 Patient encounter procedure Samantha Fields MD Work Phone: OB/Gynecology Comment on above: Supervision of high risk in third trimester (Primary Dx); AMA (advanced maternal age) multigravida 35+, third trimester; Pre-existing diabetes mellitus in in third trimester; History of blood clot to lungs during ; 30 weeks gestation of ; Headache in , antepartum, third trimester Start: 03-09-2024 Telephone encounter Kaushal baker Medicine Start: 03-02-2024 Telephone encounter Isra giles MD Work Phone: OB/Gynecology Start: 02-24-2024 End: 02-24-2024 Patient encounter procedure Continuous Wave Operator [facility] Work Phone: OB/Gynecology Comment on above: Encounter for ultras ound to check growth (Primary Dx); AMA (advanced maternal age) multigravida 35+, second trimester; Gestational diabetes mellitus (GDM) in second trimester, gestational diabetes method of control unspecified; 28 weeks gestation of Pre-existing diabete s mellitus in in second trimester (Primary Dx); AMA (advanced maternal age) multigravida 35+, second trimester; 28 weeks gestation of ; Request for sterilization Start: 02-19-2024 Telephone encounter Shania Higgins MD Work Phone: OB/Gynecology Comment on above: BS Log Start: 02-10-2024 Telephone encounter Shania Higgins MD Work Phone: OB/Gynecology Comment on above: Blood Sugar Reading Start: 02-04-2024 End: 02-04-2024 Patient encounter procedure Faisal Carter MD Work Phone: Endocrinology Comment on above: Pre-existing diabete s mellitus in in second trimester (Primary Dx); 20 weeks gestation of Start: 02-03-2024 Telephone encounter Samantha Fields MD Work Phone: OB/Gynecology Comment on above: blood sugars Start: 01-27-2024 Telephone encounter Isra giles MD Work Phone: OB/Gynecology Comment on above: Medication Problem Start: 01-27-2024 End: 01-27-2024 Patient encounter procedure Isra Wade MD Work Phone: OB/Gynecology Comment on above: 24 weeks gestation o f (Primary Dx); AMA (advanced maternal age) multigravida 35+, second trimester; Gestational diabetes mellitus (GDM) in second trimester, gestational diabetes method of control unspecified; History of blood clots Start: 01-21-2024 Telephone encounter Jordy elizabeth MD Work Phone: OB/Gynecology Start: 01-16-2024 End: 01-16-2024 Patient encounter procedure Jordy Marie MD Work Phone: OB/Gynecology Comment on above: 22 weeks gestation o f (Primary Dx); AMA (advanced maternal age) multigravida 35+, second trimester; Gestational diabetes mellitus (GDM) in second trimester, gestational diabetes method of control unspecified; Insulin controlled gestational diabetes mellitus (GDM) in second trimester Start: 12-30-2023 End: 12-30-2023 Patient encounter procedure Siri Narvaez APRN.CNM Work Phone: OB/Gynecology Comment on above: Gestational diabetes mellitus (GDM) in second trimester, gestational diabetes method of control unspecified (Primary Dx); AMA (advanced maternal age) multigravida 35+, second trimester; 20 weeks gestation of Encounter for anatomic survey (Primary Dx); AMA (advanced maternal age) multigravida 35+, second trimester; Obesity affecting in second trimester, unspecified obesity type; 20 weeks gestation of Start: 12-03-2023 Telephone encounter Bobby sharif APRN.WHARF LABOURER Work Phone: OB/Gynecology Comment on above: Results Start: 12-03-2023 End: 12-03-2023 ambulatory Donn Love MD Work Phone: Hematology/Oncology Comment on above: History of pulmonary embolism Start: 12-03-2023 End: 12-03-2023 Patient encounter procedure Donn Love MD Work Phone: [facility] Start: 11-25-2023 Telephone encounter Bobby sharif APRN.WHARF LABOURER Work Phone: OB/Gynecology Comment on above: Results; Orders Start: 11-22-2023 End: 11-22-2023 Patient encounter procedure Samantha Fields MD Work Phone: OB/Gynecology Comment on above: Encounter for superv ision of high risk in first trimester, antepartum (Primary Dx); 15 weeks gestation of ; AMA (advanced maternal age) multigravida 35+, second trimester; History of pulmonary embolism; History of ; Family history of neural tube defect; History of gestational diabetes in prior , currently Start: 11-21-2023 End: 11-21-[address] [facility] [place] [place] Start: 11-18-2023 End: 11-18-2023 Emergency department patient visit [facility] Facility:[facility] Start: 10-30-2023 Telephone encounter Adam torre DO Work Phone: Hematology/Oncology Comment on above: New Patient Start: 10-30-2023 End: 10-30-2023 Patient encounter procedure Bobby Sharp APRN.WHARF LABOURER Work Phone: OB/Gynecology Comment on above: with uncer tain dates in first trimester (Primary Dx) Start: 10-25-2023 End: 10-25-2023 Patient encounter procedure Bobby Sharp APRN.WHARF LABOURER Work Phone: OB/Gynecology Comment on above: Encounter for superv ision of high risk in first trimester, antepartum (Primary Dx); with uncertain dates in first trimester; 10 weeks gestation of ; Advanced maternal age in multigravida, first trimester; History of pulmonary embolism Start: 10-18-2023 Telephone encounter Donn evans MD Work Phone: Hematology/Oncology Comment on above: New Patient Start: 10-15-2023 Non-patient / Non-visit Dr. Bernice Escoto Work Phone: [facility] Work Phone: Start: 10-14-2023 ambulatory John Teixeira Facility:[facility] Start: 10-14-2023 Non-patient / Non-visit Dr. Bernice Escoto Work Phone: [facility] Start: 10-14-2023 Non-patient / Non-visit Dr. Bernice Escoto Work Phone: [facility] Work Phone: Start: 10-13-2023 Non-patient / Non-visit Dr. Bernice Escoto Work Phone: [facility] Work Phone: Start: 10-13-2023 ambulatory Aire Escoto Facility:[facility] Start: 10-13-2023 End: 10-15-2023 Evaluation and management of inpatient Dr. Arie Escoto Work Phone: [facility] Work Phone: Start: 09-20-2022 End: 09-21-2022 Evaluation and management of inpatient [facility] Start: 07-27-2022 End: 07-27-[address] [facility] Procedures Date Procedure Procedure Detail Performing Clinician Start: 07-22-2024 UA DIP,URINE HCG (POC) Bobby Sharp APRN.WHARF LABOURER Work Phone: Start: 04-24-2024 Urnls dip stick/tabl et rgnt non-auto w/o micrscp Isra Wade MD Work Phone: Start: 04-16-2024 URINE OB DIP B/O Jordy Marie MD Work Phone: Start: 04-09-2024 URINE OB DIP B/O Isra garcia MD Work Phone: Start: 04-09-2024 Us preg uterus after 1st trimest 09/23 gestation Isra Wade MD Work Phone: Start: 04-02-2024 URINE OB DIP B/O Jordy Marie MD Work Phone: Start: 03-24-2024 URINE OB DIP B/O Markos Fields MD Work Phone: Start: 02-24-2024 URINE OB DIP B/O Isra garcia MD Work Phone: Start: 02-24-2024 Us preg uterus after 1st trimest 09/23 gestation Isra Wade MD Work Phone: Start: 01-27-2024 URINE OB DIP B/O Isra garcia MD Work Phone: Start: 01-16-2024 URINE OB DIP B/O Jordy Marei MD Work Phone: Start: 12-30-2023 Us preg uterus after 1st trimest 09/23 gestation Samantha Fields MD Work Phone: Start: 11-22-2023 URINE OB DIP B/O Markos Fields MD Work Phone: Start: 10-30-2023 Us uterus l imited 1/ fetuses Bobby Sharp HEALTH PHYSICS TECHNICIAN.WHARF LABOURER Work Phone: Start: 10-30-2023 Adult depression scr eening assessment Isra Wade MD Work Phone: Start: 10-13-2023 CT angiography of ch est with contrast Dr. Arie Escoto Work Phone: Start: 10-13-[address] ic ultrasonography Dr. Arie Escoto Work Phone: Start: 10-13-2023 Plain chest X-ray Dr. Andrea Escoto Work Phone: Start: 10-13-2023 SARS-CoV-2, Influenz a & RSV (PCR) Dr. Arie Escoto Work Phone: Plan of Treatment Date Care Activity Detail Author Start: 10-30-2028 Screening for malign ant neoplasm of cervix [facility] Start: 08-23-2025 End: 08-23-2025 Patient encounter procedure 08/23/2025 2:45 PM EST Office Visit OB/Gynecology [address] [place] [address] Bobby Sharp APRN.WHARF LABOURER [address] [place] [address] Annual OB/Gynecology Comment on above: Annual Start: 10-30-2024 Depression Screening Depression [facility] Start: 10-06-2024 End: 01-05-2025 Microalbumin/Creatinine [Mass Ratio] in Urine ALBUMIN/CREATININE RATIO, URINE Lab Routine Type 2 diabetes mellitus without complication, with long-term current use of insulin (HCC) Expected: 10/06/2024, Expires: 01/05/2025 [facility] Comment on above: Expected: 10/06/2024 , Expires: 01/05/2025 Start: 08-19-2024 End: 08-19-2024 Patient encounter procedure 08/19/2024 10:45 AM EST Office Visit OB/Gynecology [address] [place] [address] Bobby Sharp APRN.WHARF LABOURER [address] [place] [address] IUD follow up OB/Gynecology Comment on above: IUD follow up Start: 07-22-2024 End: 07-22-2024 Patient encounter procedure 07/22/2024 10:15 AM EDT Office Visit OB/Gynecology [address] [place] [address] Bobby Sharp, NOREEN.WHARF LABOURER [address] [place] [address] IUD insert OB/Gynecology Comment on above: IUD insert Start: 07-22-2024 End: 07-22-2024 ambulatory Hematology/Oncology Comment on above: 2 WK OV* Start: 07-06-2024 End: 07-06-2024 Patient encounter procedure Endocrinology Comment on above: Gestational diabetes mellitus (GDM) in second trimester, gestational diabetes method of control unspecified [O24.419] PP Start: 07-06-2024 End: 10-05-2024 Comprehensive metabolic 2000 panel - Serum or Plasma COMPREHENSIVE METABOLIC PANEL Lab Routine Type 2 diabetes mellitus without complication, with long-term current use of insulin (HCC) Expected: 07/06/2024, Expires: 10/05/2024 [facility] Comment on above: Expected: 07/06/2024 , Expires: 10/05/2024 Start: 07-06-2024 End: 10-05-2024 Hemoglobin A1c in Blood HEMOGLOBIN A1C Lab Routine Type 2 diabetes mellitus without complication, with long-term current use of insulin (HCC) Expected: 07/06/2024, Expires: 10/05/2024 [facility] Work Phone: Comment on above: Expected: 07/06/2024 , Expires: 10/05/2024 Start: 07-06-2024 End: 10-05-2024 HYPERCOAG DIAG PNL [facility] Work Phone: Comment on above: Expected: 07/06/2024 , Expires: 10/05/2024 Start: 07-06-2024 End: 10-05-2024 Lipid 1996 panel - Serum or Plasma LIPID PANEL BASIC Lab Routine Type 2 diabetes mellitus without complication, with long-term current use of insulin (HCC) Expected: 07/06/2024, Expires: 10/05/2024 [facility] Comment on above: Expected: 07/06/2024 , Expires: 10/05/2024 Start: 07-06-2024 End: 01-13-2025 Thyrotropin [Units/volume] in Serum or Plasma THYROID STIMULATING HORMONE Lab Routine Type 2 diabetes mellitus without complication, with long-term current use of insulin (HCC) Expected: 07/06/2024, Expires: 10/05/2024 [facility] Comment on above: Expected: 07/06/2024 , Expires: 10/05/2024 Start: 07-06-2024 End: 07-06-2024 ambulatory 07/06/2024 11:30 AM EDT Visit (SP) Office Hematology/Oncology [address] [place] [address] [place] [address] [place] [address] OV* Hematology/Oncology Comment on above: OV* Start: 05-24-2024 Covid-19 Vaccine ( season) Covid-19 Vaccine () [facility] Start: 05-24-2024 Influenza vaccination [facility] Start: 04-24-2024 End: 04-24-2024 Patient encounter procedure 04/24/2024 10:50 AM EDT Routine Office Visit OB/Gynecology [address] [place] [address] Isra Wade MD [address] [place] [address] OB/NST - sign induction papers (already scheduled for April 30 at 7am) OB/Gynecology Comment on above: OB/NST - sign induct ion papers (already scheduled for April 30 at 7am) Start: 04-24-2024 End: 04-24-2024 Patient encounter procedure 04/24/2024 9:30 AM EDT Routine Office Visit OB/Gynecology [address] [place] [address] NST OB/Gynecology Comment on above: NST Start: 04-16-2024 End: 04-16-2024 Patient encounter procedure OB/Gynecology Comment on above: NST/ OB OB Start: 04-09-2024 End: 04-09-2024 Patient encounter procedure OB/Gynecology Comment on above: Growth Us NST HILARY/ growth US & NST HILARY/ growth US & NST , have PSS look at Ophthamology referral note to inform patient of scheduling appt TY Start: 04-02-2024 End: 04-02-2024 Patient encounter procedure OB/Gynecology Comment on above: Nst OB Start: 03-19-2024 End: 03-19-2024 Patient encounter procedure 03/19/2024 9:20 AM EDT Office Visit Endocrinology [address] [place], [place] [id number] Faisal Carter MD [address] [place], [place] [address] 1 MTH F/U Endocrinology Comment on above: 1 MTH F/U Start: 03-16-2024 End: 03-16-2024 Patient encounter procedure 03/16/2024 8:30 AM EDT Office [place] [address] [employer] [facility] Comment on above: SELF-PAY Start: 03-10-2024 End: 03-10-2024 Patient encounter procedure 03/10/2024 10:40 AM EDT Routine Office Visit OB/Gynecology [address] [place] [address] Samantha Fields MD [address] [place] [address] HILARY OB/Gynecology Comment on above: HILARY Start: 02-27-2024 End: 05-28-2024 CBC W Auto Differential panel - Blood COMPLETE BLOOD COUNT AND DIFFERENTIAL Lab Routine 24 weeks gestation of AMA (advanced maternal age) multigravida 35+, second trimester Gestational diabetes mellitus (GDM) in second trimester, gestational diabetes method of control unspecified Expected: 02/27/2024 (Approximate), Expires: 05/28/2024 [facility] Work Phone: Comment on above: Expected: 02/27/2024 (Approximate), Expires: 05/28/2024 Start: 02-27-2024 End: 05-28-2024 SYPHILIS TOTAL W/REFLEX SYPHILIS TOTAL W/REFLEX Lab Routine 24 weeks gestation of AMA (advanced maternal age) multigravida 35+, second trimester Gestational diabetes mellitus (GDM) in second trimester, gestational diabetes method of control unspecified Expected: 02/27/2024 (Approximate), Expires: 05/28/2024 [facility] Comment on above: Expected: 02/27/2024 (Approximate), Expires: 05/28/2024 Start: 02-24-2024 End: 02-24-2024 Patient encounter procedure OB/Gynecology Comment on above: Growth OB Start: 02-04-2024 End: 02-04-2024 Patient encounter procedure 02/04/2024 10:00 AM EDT Office Visit Endocrinology [address] [place] [address] Faisal Carter MD [address] [place] [address] Consult Gestational diabetes Endocrinology Comment on above: Consult Gestational diabetes Start: 01-27-2024 End: 01-27-2024 Patient encounter procedure 01/27/2024 8:30 AM EDT Routine Office Visit OB/Gynecology [address] [place] [address] Isra Wade MD [address] [place] [address] OB OB/Gynecology Comment on above: OB Start: 12-04-2023 End: 03-04-2024 GEST GLUC ALMA, 3-HR, 100 GM, FASTING GEST GLUC ALMA, 3-HR, 100 GM, FASTING Lab Routine Elevated glucose tolerance test Expected: 12/04/2023, Expires: 03/04/2024 [facility] Work Phone: Comment on above: Expected: 12/04/2023 , Expires: 03/04/2024 Start: 11-25-2023 End: 02-24-2024 GEST GLUC SCREEN, 1-HR, 50 GM, NON-FASTING GEST GLUC SCREEN, 1-HR, 50 GM, NON-FASTING Lab Routine Elevated hemoglobin A1c Expected: 11/25/2023, Expires: 02/24/2024 [facility] Work Phone: Comment on above: Expected: 11/25/2023 , Expires: 02/24/2024 Start: 11-22-2023 End: 11-21-2024 OBSTETRIC ULTRASOUND [facility]I OBSTETRIC ULTRASOUND [facility] Anc Imaging Routine 15 weeks gestation of Encounter for supervision of high risk in first trimester, antepartum AMA (advanced maternal age) multigravida 35+, second trimester History of pulmonary embolism History of Family history of neural tube defect History of gestational diabetes in prior , currently Expected: 11/22/2023, Expires: 11/21/2024 [facility] Work Phone: Comment on above: Expected: 11/22/2023 , Expires: 11/21/2024 Start: 10-15-2023 Patient discharge [facility] Start: 10-14-2023 Consultation [facility] Start: 10-13-2023 Following clinical pathway protocol [facility] Start: 10-13-2023 Assessment of risk o f venous thromboembolism [facility] Start: 10-13-[address] [facility] Start: 10-13-2023 Elevation of affecte d extremity [facility] Start: 10-13-2023 Insertion of cathete r into peripheral vein [facility] Start: 10-13-2023 Measuring intake and output [facility] Start: 10-13-[address] [facility] Start: 10-13-2023 Patient referral to dietitian [facility] Start: 10-13-2023 Providing care accor ding to standard [facility] Start: 10-13-2023 Provision of activit y privileges [facility] Start: 10-13-2023 Referral to service [facility] Start: 10-13-2023 Self-administration of medication [facility] Start: 10-13-2023 [facility] Start: 10-13-2023 Verification routine [facility] Start: 10-13-2023 Admission procedure [facility] Start: 10-13-2023 Hospital admission, emergency, from emergency room, medical nature [facility] Start: 10-13-2023 [facility] Start: 09-23-2023 Behavioral Health Screening Behavioral Health Screening [facility] Start: 09-23-2023 Depression Assessment Depression Ass essment [facility] Start: 05-24-2023 Covid-19 Vaccine ( season) Covid-19 Vaccine ( season) [facility] Start: 05-24-2023 Influenza vaccination Influenza Vacc ine (#1) [facility] Start: 2014 Screening for malign ant neoplasm of cervix HPV Testing [facility] Start: 2005 Screening for malign ant neoplasm of cervix Pap Testing [facility] Start: 2003 Hepatitis B Vaccine (1 of 3 - 19+ 3-dose series) Hepatitis B Vaccine (1 of 3 - 19+ 3-dose series) [facility] Start: 2003 Urine microalbumin profile DTaP,Tdap,Td Vaccine (1 - Tdap) [facility] Start: 2002 Depression Screening Depression Scre ening [facility] Start: 2002 Hepatitis C screening Hepatitis C Sc reening [facility] Start: 2002 HIV screening HIV Screening [facility] Start: 04-19-1985 Covid-19 Vaccine (#1) Covid-19 Vacci ne (#1) [facility] Start: 1984 Hepatitis B Vaccine (1 of 3 - 3-dose series) Hepatitis B Vaccine (1 of 3 - 3-dose series) [facility] End: 05-25-2024 nonstress test NON-STRESS TEST Procedures Routine Pre-existing diabetes mellitus in in second trimester AMA (advanced maternal age) multigravida 35+, second trimester 28 weeks gestation of Once per week for 10 Occurrences starting 02/24/2024 until 05/25/2024 [facility] Work Phone: Comment on above: Once per week for 10 Occurrences starting 02/24/2024 until 05/25/2024 Insertion intrauteri ne device iud INSERT INTRAUTERINE DEVICE Procedures Routine Encounter for initial prescription of intrauterine contraceptive device (IUD) Ordered: 07/06/2024 [facility] Work Phone: Comment on above: Ordered: 07/06/2024 Insertion intrauteri ne device iud INSERT INTRAUTERINE DEVICE Procedures Routine Encounter for IUD insertion Ordered: 07/22/2024 [facility] Work Phone: Comment on above: Ordered: 07/22/2024 End: 05-24-2024 OBSTETRIC ULTRASOUND [facility]I OBSTETRIC ULTRASOUND [facility] Anc Imaging Routine 24 weeks gestation of AMA (advanced maternal age) multigravida 35+, second trimester Gestational diabetes mellitus (GDM) in second trimester, gestational diabetes method of control unspecified Once per month for 3 Occurrences starting 01/27/2024 until 05/24/2024 [facility] Comment on above: Once per month for 3 Occurrences starting 01/27/2024 until 05/24/2024 Patient referral [facility] Work Phone: POC SUPERVISOR TWISTING DEPARTMENT ULTRASOUND POC SUPERVISOR TWISTING DEPARTMENT ULTRASO UND Anc Imaging Routine with uncertain dates in first trimester Ordered: 10/25/2023 [facility] Work Phone: Comment on above: Ordered: 10/25/2023 ROUTINE, GR OUP B STREP PCR ROUTINE, GROUP B STREP PCR Microbiology Routine 35 weeks gestation of 04/16/2024 11:44 AM EDT [facility] Work Phone: [facility] Payers Date Payer Category Payer Unknown 2023 Self-pay [id number] 2023 Unknown [id number] Unknown [id number] 2.16.8 [id number] Unknown [id number] 2.16.8 [id number] Unknown [id number] 2.16.8 [id number] Unknown [id number] 2.16.8 [id number] Unknown [id number] 2.16.8 [id number] Unknown [id number] 2.16.8 [id number] Unknown [id number] 2.16.8 [id number] Unknown [id number] 2.16.8 [id number] Unknown [id number] 2.16.8 [id number] Unknown [id number] 2.16.8 [id number] Social History Date Type Detail Facility Start: 10-13-2023 End: 10-13-2023 Tobacco smoking status NHIS Unknown if ever smoked [facility] Start: 1985 Sex Assigned At Female [facility] Start: 08-23-2023 [facility] Start: 1985 Sex Assigned At Not on file [facility] Start: 10-23-2023 End: 10-30-2023 Gender identity Not on file [facility] Start: 10-30-2023 Tobacco smoking stat us NVIS Never smoked tobacco [facility] Start: 10-30-2023 Tobacco use and exposure Smokeless tobacco non-user [facility] Start: 10-30-2023 End: 08-21-2024 Alcohol intake Lifetime non-drinker (finding) [facility] Start: 10-23-2023 End: 10-30-2023 History of Social function [facility] National Score (1-100), lower number is lower risk 33 [facility] Medical Equipment Procedure Code Equipment Code Equipment Origin al Text Equipment Identifier Dates [id number], [id number], [id number], [id number], [id number], [id number], [id number] Start: 12-18-2023 End: 07-02-2024 Comment on above: Use as directed to c heck glucose levels up to seven times daily. Goals Date Patient Goal Desired Activity /State Functional Status Date Assessment Result Facility 10-15-2023 Functional status Up ad sushila [facility] Work Phone: Mental Status Date Assessment Result Facility 10-15-2023 Cognitive function Voice/Name [facility] Work Phone: 10-13-2023 Cognitive function Level Of Cons ciousness Awake;Alert;Appropriate;Follow s Commands [facility] Work Phone: Clinical Notes 10-13-2023 to 08-21-2024 Bobby Sharp APRN.HARSHAD - 08/21/2024 1:15 PM ESTTelephone Encounter - Lynn Kunz RN - 08/10/2024 2:30 PM ESTTelephone Encounter - Lynn Kunz RN - 08/10/2024 2:30 PM EST Note Date & Type Note Facility 08-21-2024 Note HNO ID: [id number] Author: BOBBY SHARP APRN.WHARF LABOURER Service: ? Author Type: Nurse Practitioner Type: Progress Notes Filed: 08/21/2024 13:32 Note Text: Automotive Salesperson offered: Patient declines. Augustin Garcia presents today for IUD check. She had a Paraguard placed on 07/29/2024. She has had no complications since placement. REVIEW OF SYSTEMS: SHIRT LINE OPERATOR: Negative for abnormal vaginal bleeding, abnormal vaginal discharge SENSITIVE EXAM: The sensitive examination was discussed with the Patient or Patient's Authorized Foundry Worker Apprentice. As applicable, any other physician, advance practice provider, medical student, or other health professional student that will be observing or involved in the sensitive examination for educational or training purposes was discussed with the Patient or Authorized Foundry Worker Apprentice. The Patient or Authorized Foundry Worker Apprentice has agreed to proceed with the sensitive examination. (Sensitive examination includes inspection and/or palpation of the breasts, pelvis, prostate and anorectal regions). PHYSICAL EXAMINATION: BP 118/60 Wt 195 lb (88.5kg) LMP 08/09/2023 ABDOMEN:soft, non-tender, no masses, no hepatosplenomegaly, and no lymphadenopathy EXTERNAL GENITALIA: Normal genitalia and Bartholins, Urethra, Sken'e normal CERVIX: smooth, no lesions and IUD strings visualized. IUD strings visible. UTERUS: normal size, regular, non-tender, and freely mobile ADNEXA: negative for tenderness or masses IMPRESSION/PLAN: IUD correctly positioned. Follow up for annual exam or sooner if needed. Medical Decision Making: Problems: Minimal: Self-limited or minor problem Risk: Minimal: Minimal risk from testing/treatment Moderate: Drug management Medical Decision Making Level: 2 - Straightforward [facility] 08-21-2024 History of Presen t illness Narrative Automotive Salesperson offered: Patient declines. Augustin Garcia presents today for IUD check. She had a Paraguard placed on 07/29/2024. She has had no complications since placement. REVIEW OF SYSTEMS: SHIRT LINE OPERATOR: Negative for abnormal vaginal bleeding, abnormal vaginal discharge SENSITIVE EXAM: The sensitive examination was discussed with the Patient or Patient's Authorized Foundry Worker Apprentice. As applicable, any other physician, advance practice provider, medical student, or other health professional student that will be observing or involved in the sensitive examination for educational or training purposes was discussed with the Patient or Authorized Foundry Worker Apprentice. The Patient or Authorized Foundry Worker Apprentice has agreed to proceed with the sensitive examination. (Sensitive examination includes inspection and/or palpation of the breasts, pelvis, prostate and anorectal regions). PHYSICAL EXAMINATION: BP 118/60 Wt 195 lb (88.5kg) LMP 08/09/2023 ABDOMEN:soft, non-tender, no masses, no hepatosplenomegaly, and no lymphadenopathy EXTERNAL GENITALIA: Normal genitalia and Bartholins, Urethra, Sken'e normal CERVIX: smooth, no lesions and IUD strings visualized. IUD strings visible. UTERUS: normal size, regular, non-tender, and freely mobile ADNEXA: negative for tenderness or masses IMPRESSION/PLAN: IUD correctly positioned. Follow up for annual exam or sooner if needed. Medical Decision Making: Problems: Minimal: Self-limited or minor problem Risk: Minimal: Minimal risk from testing/treatment Moderate: Drug management Medical Decision Making Level: 2 - Straightforward documented in this encounter [facility] 08-10-2024 Telephone encounter Note Patient had IUD inserted on 07/22/24. Lynn Kunz, RADHA [facility] 08-10-2024 Miscellaneous Notes Patient had IUD inserted on 07/22/24. Lynn Kunz RN Left message to call office. Next available date for surgery at [facility] is 08/18/2024 w/ Dr. Fields. Patient will need a pre-operative appointment Spoke with patient. She would like tubal sterilization. She has appointments with endocrinology and hematology on Saturday. Aware we will reach out to her with the next available date for [place]. Lynn Kunz RN Left message to call office. Does patient want to schedule tubal sterilization or have IUD inserted? Patient will need to have surgery at [facility] d/t being self pay. Patient will need medical clearance for surgery from endocrinology and hemalogy documented in this encounter [facility] 07-22-2024 Note Addended by: NAHOMY RUDD on: 07/22/2024 11:26 AM Modules accepted: Orders [facility] 07-22-2024 Miscellaneous Notes Addended by: NAHOMY RUDD on: 07/22/2024 11:26 AM Modules accepted: Orders documented in this encounter [facility] 07-22-2024 Instructions Monica García MA - 07/22/2024 10:19 AM EDT POST IUD INSTRUCTIONS You may have irregular bleeding during the first 3 months of use. You may have mild-severe cramping for the next 48 hours. You may use over the counter medication (Motrin, Tylenol) as needed. Your IUD must be removed or replaced based on the following table: IUD Type Removed or replaced within: Mary Ann 3 years Kyleena 5 years Mirena 8 years Liletta 8 years Paragard 10 years Call the office for signs/symptoms of infection such as severe cramping, fever, or unusual bleeding. Check for string placement as instructed by your doctor. If you have any additional questions, please contact the office. documented in this encounter [facility] 07-22-2024 Note HNO ID: [id number] Author: BOBBY SHARP APRN.WHARF LABOURER Service: ? Author Type: Nurse Practitioner Type: Progress Notes Filed: 07/29/2024 10:31 Note Text: Automotive Salesperson offered: Patient declines. Augustin presents today for IUD insertion for contraception. Patient's last menstrual period was 08/09/2023. GC/chlamydia: Not done: no risk factors and/or patient declines screening test: negative Side effects including irregular bleeding were discussed with the patient. The patient understands that it should be removed in 10 years or sooner if the patient desires a . IUD source: office provided IUD lot #: [id number] Exp date: 06/23/2029 UNIVERSAL PROTOCOL / SAFETY CHECKLIST Procedure to be Performed: Intrauterine Device (IUD) insertion Paraguard Sign In: A Moment of CARE was completed. Personnel directly involved with the procedure wore the appropriate PPE (Personal Protective Equipment). Patient/Surrogate Stated/Verified: PATIENT VERIFIED(optional for EMERGENT procedures): Patient name, Date of , Relevant allergies, and The intended procedure Time Out Communication: Intended patient and procedure match the source documents. Consent documented and matches the intended procedure. Sign Out: SIGN OUT (optional for EMERGENT procedures): No specimen collected. All instruments, equipment, possible retained foreign bodies accounted for. Post-procedure follow-up management communicated and Plan of Care Visit completed when applicable. Bobby Sharp APRN.WHARF LABOURER The cervix was prepped with betadine. The uterus sounded to 7 cm and the uterus is Midposition.. Using sterile technique, the ParaGuard IUD was inserted without difficulty and the string was cut to 2-3 cm from the external os of the cervix. Patient tolerated procedure well. PLAN: Patient was advised to observe for signs and symptoms of infection including but not limited to fever, malodorous vaginal discharge and/or pain. The patient was told to check the string monthly for accurate placement. Bleeding expectations were reviewed. Follow up in one month. Bobby Sharp APRN.CNP [facility] 07-22-2024 History of Presen t illness Narrative Automotive Salesperson offered: Patient declines. Augustin presents today for IUD insertion for contraception. Patient's last menstrual period was 08/09/2023. GC/chlamydia: Not done: no risk factors and/or patient declines screening test: negative Side effects including irregular bleeding were discussed with the patient. The patient understands that it should be removed in 10 years or sooner if the patient desires a . IUD source: office provided IUD lot #: [id number] Exp date: 06/23/2029 UNIVERSAL PROTOCOL / SAFETY CHECKLIST Procedure to be Performed: Intrauterine Device (IUD) insertion Jorge Sign In: A Moment of CARE was completed. Personnel directly involved with the procedure wore the appropriate PPE (Personal Protective Equipment). Patient/Surrogate Stated/Verified: PATIENT VERIFIED(optional for EMERGENT procedures): Patient name, Date of , Relevant allergies, and The intended procedure Time Out Communication: Intended patient and procedure match the source documents. Consent documented and matches the intended procedure. Sign Out: SIGN OUT (optional for EMERGENT procedures): No specimen collected. All instruments, equipment, possible retained foreign bodies accounted for. Post-procedure follow-up management communicated and Plan of Care Visit completed when applicable. Bobby Sharp APRN.HARSHAD The cervix was prepped with betadine. The uterus sounded to 7 cm and the uterus is Midposition.. Using sterile technique, the ParaGard IUD was inserted without difficulty and the string was cut to 2-3 cm from the external os of the cervix. Patient tolerated procedure well. PLAN: Patient was advised to observe for signs and symptoms of infection including but not limited to fever, malodorous vaginal discharge and/or pain. The patient was told to check the string monthly for accurate placement. Bleeding expectations were reviewed. Follow up in one month. Bobby Sharp APRN.HARSHAD documented in this encounter [facility] 07-22-2024 Note HNO ID: [id number] Author: KIESHA CHILDS, ? Service: ? Author Type: Nurse Practitioner Type: Progress Notes Filed: 07/24/2024 14:45 Note Text: Augustin Garcia 1985 HISTORY OF PRESENT ILLNESS: Augustin Garcia is a 38 year old female 17 weeks sudden onset dyspnea. Went to ER, CT scan showed multiple PE. Now on lovenox. Had possible similar symptoms last . Did not get it evaluated, and symptoms resolved in a few weeks. Now feels bettr on ac. 10 previous pregnancies went ok. Sister had a PE with . Other sisters with phlebitis. Here for follow up, 8 weeks post , off of lovenox. Reviewed hypercoag panel results with Dr. Love prior to visit. Interval Hx: Mrs. Garcia presents today for follow up of hypercoag workup. She reports feeling well. Denies new issues. No SOB, CP, palpitations. No edema. Denies bleeding or bruising. 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 Reviewed general preventative measures for DVTs. Reviewed that this is also hereditary. Pt acknowledged. CLINICAL IMPRESSION: PE in setting of , as such provoked Elevated Factor VII, demonstrated increased risk of blood clots - general prevention measures, no need for continued anticoagulation - expressed caution with hormonal OTCs RECOMMENDATION/PLAN: 1. Follow up as needed. Written and verbal health teaching given to patient, patient verbalizes understanding and agrees with treatment plan. PAST MEDICAL HISTORY Diagnosis Date Gestational diabetes Pulmonary embolism (HCC) 10/13/2023 PAST SURGICAL HISTORY Procedure Laterality Date DANDC, DIAG AND/OR THERAPEUTIC 2019 PAST SURGICAL HISTORY OF cyst removed from back FAMILY HISTORY Problem Relation Age of Onset No Known Problems Mother strong maternal side of diabetes - mother not officially diagnosed Hypertension Father DVT Sister other (gestational diabetes) Sister No Known Problems Sister No Known Problems Sister No Known Problems Sister No Known Problems Sister No Known Problems Sister No Known Problems Brother No Known Problems Brother No Known Problems Brother Diabetes Maternal Grandmother No Known Problems Maternal Grandfather No Known Problems Paternal Grandmother No Known Problems Paternal Grandfather Social History Tobacco Use Smoking status: Never Smokeless tobacco: Never Vaping Use Vaping status: Never Used Substance Use Topics Alcohol use: Never Drug use: Never ALLERGIES: ALLERGIES No Known Allergies CURRENT OUTPATIENT MEDICATIONS: metFORMIN (GLUCOPHAGE) 1,000 mg tablet Take 1 tablet by mouth two times a day. miconazole 2 % cream Apply a pea sized amount to nipples after each feed. Insulin Syringe-Needle U-100 0.3 mL 31 gauge x 5/16 1 Each two times a day as needed. HUMULIN N NPH U-100 INSULIN 100 unit/mL injection Administer 22 units before breakfast and 48 units before bed blood sugar diagnostic test strip Use as directed to check glucose levels up to seven times daily. Lancets Use as directed to check glucose levels up to seven times daily. alcohol swabs (ALCOHOL PREP PADS) Use as directed to check glucose levels up to seven times daily. PNV no.95/ferrous fum/folic ac ( ORAL) Take 1 Tablespoonful by mouth once daily. insulin lispro 100 unit/mL injection Inject 8 units subcutaneously before breakfast and dinner. ferrous sulfate 325 mg (65 mg iron) tablet Take 1 tablet by mouth every other day. (Patient not taking: Reported on 07/06/2024) Chromium Picolinate 200 mcg tab Take 1 tablet by mouth three times a day. folic acid 1 mg tablet Take 1 tablet by mouth once daily. (Patient not taking: Reported on 05/11/2024) OTC PRODUCT Super Greens: Take one capsule by mouth three times weekly. (Patient not taking: Reported on 07/06/2024) docosahexaenoic acid/epa (FISH OIL ORAL) Take 2 capsules by mouth three times a day. ascorbic acid (VITAMIN C ORAL) Take 1 tablet by mouth two times a day. REVIEW OF SYSTEMS: GENERAL: No fever, night sweats, weight loss or malaise. All other reviewed and negative other than HPI. All systems reviewed on 07/22/2024 with pertinent positives and negatives as outlined in the interval history. PHYSICAL EXAMINATION: VITAL SIGNS: BP 110/72 Pulse 93 Temp (Src) 97.1 (Temporal) Wt 194 lb (88.0kg) SpO2 97% LMP 08/09/2023 GENERAL APPEARANCE: Well appearing, in no acute distress, alert and oriented x3, well-hydrated, well nourished. LUNGS: Clear HEART: RRR EXTREMITIES: no edema SKIN: no bruising or petechia I have performed the physical exam today (07/22/2024) and have edited the note to correlate with current findings. Kiesha Childs APRN.WHARF LABOURER I spent a total of 30 minutes on the da (more content not included)... [facility] 07-22-2024 History of Presen t illness Narrative Augustin Garcia 1985 HISTORY OF PRESENT ILLNESS: Augustin Garcia is a 38 year old female 17 weeks sudden onset dyspnea. Went to ER, CT scan showed multiple PE. Now on lovenox. Had possible similar symptoms last . Did not get it evaluated, and symptoms resolved in a few weeks. Now feels bettr on ac. 10 previous pregnancies went ok. Sister had a PE with . Other sisters with phlebitis. Here for follow up, 8 weeks post , off of lovenox. Reviewed hypercoag panel results with Dr. Love prior to visit. Interval Hx: Mrs. Garcia presents today for follow up of hypercoag workup. She reports feeling well. Denies new issues. No SOB, CP, palpitations. No edema. Denies bleeding or bruising. 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 Reviewed general preventative measures for DVTs. Reviewed that this is also hereditary. Pt acknowledged. CLINICAL IMPRESSION: PE in setting of , as such provoked Elevated Factor VII, demonstrated increased risk of blood clots - general prevention measures, no need for continued anticoagulation - expressed caution with hormonal OTCs RECOMMENDATION/PLAN: 1. Follow up as needed. Written and verbal health teaching given to patient, patient verbalizes understanding and agrees with treatment plan. PAST MEDICAL HISTORY Diagnosis Date Gestational diabetes Pulmonary embolism (HCC) 10/13/2023 PAST SURGICAL HISTORY Procedure Laterality Date D&C, DIAG AND/OR THERAPEUTIC 2018 PAST SURGICAL HISTORY OF cyst removed from back FAMILY HISTORY Problem Relation Age of Onset No Known Problems Mother strong maternal side of diabetes - mother not officially diagnosed Hypertension Father DVT Sister other (gestational diabetes) Sister No Known Problems Sister No Known Problems Sister No Known Problems Sister No Known Problems Sister No Known Problems Sister No Known Problems Brother No Known Problems Brother No Known Problems Brother Diabetes Maternal Grandmother No Known Problems Maternal Grandfather No Known Problems Paternal Grandmother No Known Problems Paternal Grandfather Social History Tobacco Use Smoking status: Never Smokeless tobacco: Never Vaping Use Vaping status: Never Used Substance Use Topics Alcohol use: Never Drug use: Never ALLERGIES: ALLERGIES No Known Allergies CURRENT OUTPATIENT MEDICATIONS: metFORMIN (GLUCOPHAGE) 1,000 mg tablet Take 1 tablet by mouth two times a day. miconazole 2 % cream Apply a pea sized amount to nipples after each feed. Insulin Syringe-Needle U-100 0.3 mL 31 gauge x 5/16 1 Each two times a day as needed. HUMULIN N NPH U-100 INSULIN 100 unit/mL injection Administer 22 units before breakfast and 48 units before bed blood sugar diagnostic test strip Use as directed to check glucose levels up to seven times daily. Lancets Use as directed to check glucose levels up to seven times daily. alcohol swabs (ALCOHOL PREP PADS) Use as directed to check glucose levels up to seven times daily. PNV no.95/ferrous fum/folic ac ( ORAL) Take 1 Tablespoonful by mouth once daily. insulin lispro 100 unit/mL injection Inject 8 units subcutaneously before breakfast and dinner. ferrous sulfate 325 mg (65 mg iron) tablet Take 1 tablet by mouth every other day. (Patient not taking: Reported on 07/06/2024) Chromium Picolinate 200 mcg tab Take 1 tablet by mouth three times a day. folic acid 1 mg tablet Take 1 tablet by mouth once daily. (Patient not taking: Reported on 05/11/2024) OTC PRODUCT Super Greens: Take one capsule by mouth three times weekly. (Patient not taking: Reported on 07/06/2024) docosahexaenoic acid/epa (FISH OIL ORAL) Take 2 capsules by mouth three times a day. ascorbic acid (VITAMIN C ORAL) Take 1 tablet by mouth two times a day. REVIEW OF SYSTEMS: GENERAL: No fever, night sweats, weight loss or malaise. All other reviewed and negative other than HPI. All systems reviewed on 07/22/2024 with pertinent positives and negatives as outlined in the interval history. PHYSICAL EXAMINATION: VITAL SIGNS: BP 110/72 Pulse 93 Temp (Src) 97.1 (Temporal) Wt 194 lb (88.0kg) SpO2 97% LMP 08/09/2023 GENERAL APPEARANCE: Well appearing, in no acute distress, alert and oriented x3, well-hydrated, well nourished. LUNGS: Clear HEART: RRR EXTREMITIES: no edema SKIN: no bruising or petechia I have performed the physical exam today (07/22/2024) and have edited the note to correlate with current findings. Kiesha Childs APRN.[employer] I spent a total of 30 minutes on the date of the service which included preparing to see the patient, [id number] patient care, completing clinical documentation, performing a medically appropriate examination, counseling and educating the patient/family/caregiver, and communicating with other HCPs (not separately reported). Portions of this note including HPI, ROS, impression/plan may have been copied forward as to provide important historical information essential in contributing to medical decision making. Documentation has been reviewed and edited as necessary to support clinical decision making for today's visit and to reflect my own independent evaluation of this patient. documented in this encounter [facility] 07-17-2024 Telephone encounter Note Left message to call office. Next available date for surgery at [facility] is 08/18/2024 w/ Dr. Fields. Patient will need a pre-operative appointment [facility] 07-14-2024 Telephone encounter Note Rescheduled with patient [facility] Work Phone: 07-14-2024 Miscellaneous Notes Rescheduled with patient Lvm for patient to return the call. When patient calls back see if she can be moved to on the 07/22 Marianela Fall documented in this encounter [facility] 07-13-2024 Telephone encounter Note Lvm for patient to return the call. When patient calls back see if she can be moved to on the 07/22 Marianela Fall [facility] 07-06-2024 Note HNO ID: [id number] Author: ISRA WADE MD Service: ? Author Type: Physician Type: Progress Notes Filed: 07/09/2024 08:24 Note Text: Automotive Salesperson offered: Patient declines. VISIT Augustin Garcia is a 38 year old year old here for visit. Delivery Summary: 04/30/2024 ROS/ Recovery: Feeding: Breast feeding problems: None Menses since delivery: none Menstrual pattern prior to : Regular periods Emily since delivery: Not resumed Depression: denies symptoms of depression. OB Depression and Anxiety Screening- This Encounter (since 07/05/2024) Over the past 2 weeks have you felt down, depressed, or hopeless? Negative Over the past two weeks, have you felt little interest or pleasure in doing things?? Negative Feeling nervous, anxious or on edge 0-Not at all Not being able to stop or control worrying 0-Not al all Anxiety Pre-Screening Total (If >/= 3 additional questions will be reviewed) 0 Emotional support: Yes Bowel symptoms: Negative for abdominal discomfort, blood in stools or black stools and change in bowel habits Abdomen: N/A Bladder symptoms: No dysuria, gross hematuria, urinary frequency, urinary urgency, or incontinence Other issues: discuss sterilization Last Pap: 2023 normal HPV: negative PAST MEDICAL HISTORY Diagnosis Date Gestational diabetes Pulmonary embolism (HCC) 10/13/2023 PAST SURGICAL HISTORY Procedure Laterality Date DANDC, DIAG AND/OR THERAPEUTIC 2019 PAST SURGICAL HISTORY OF cyst removed from back FAMILY HISTORY Problem Relation Age of Onset No Known Problems Mother strong maternal side of diabetes - mother not officially diagnosed Hypertension Father DVT Sister other (gestational diabetes) Sister No Known Problems Sister No Known Problems Sister No Known Problems Sister No Known Problems Sister No Known Problems Sister No Known Problems Brother No Known Problems Brother No Known Problems Brother Diabetes Maternal Grandmother No Known Problems Maternal Grandfather No Known Problems Paternal Grandmother No Known Problems Paternal Grandfather Social History Tobacco Use Smoking status: Never Smokeless tobacco: Never Vaping Use Vaping status: Never Used Substance Use Topics Alcohol use: Never Drug use: Never PHYSICAL EXAMINATION: SENSITIVE EXAM: The sensitive examination was discussed with the Patient or Patient's Authorized Foundry Worker Apprentice. As applicable, any other physician, advance practice provider, medical student, or other health professional student that will be observing or involved in the sensitive examination for educational or training purposes was discussed with the Patient or Authorized Foundry Worker Apprentice. The Patient or Authorized Foundry Worker Apprentice has agreed to proceed with the sensitive examination. (Sensitive examination includes inspection and/or palpation of the breasts, pelvis, prostate and anorectal regions). BP 102/70 Wt 191 lb 3.2 oz (86.7kg) LMP 08/09/2023 GENERAL: pleasant, female in no apparent distress HEENT: Normocephalic and atraumatic NECK: full range of motion DERMATOLOGY: Normal, without lesions, non-icteric, and non-hirsute BREAST: soft, non-tender, symmetric, no dominant mass, normal nipple-areolar complex, no lymphadenopathy, and no nipple discharge CHEST: Normal inspiratory effort ABDOMEN: soft, non-tender, and no masses. INCISION: N/A PELVIC: external genitalia normal, normal Bartholin's glands, urethra, Lastrup's glands, no vulvar lesions, no cervical lesions, good vaginal support, physiologic discharge present, normal appearing perineal body and perianal region BIMANUAL: uterus normal size, shape and consistency, no adnexal masses, and non-tender NEURO: exam grossly non-focal EXTREMITIES: normal ASSESSMENT AND PLAN: 38 year old status post with normal course. Diabetes: Cont follow up with endocrinology. H/o PE: Just had coagulation panel drawn today and is following with mark. Contraception plan: Discussed r/b/a tubal sterilization vs IUD as patient and are considering both. For now patient desires IUD. She desires Mirena IUD - [employer] message sent to [facility]. Discussed with patient if balloon maker advises against progesterone IUD, recommend Paragard IUD and she is agreeable to this as well. Follow up: RTC for insertion of IUD Isra Wade DO [facility] 07-06-2024 History of Presen t illness Narrative Automotive Salesperson offered: Patient declines. VISIT Augustin Garcia is a 38 year old year old here for visit. Delivery Summary: 04/30/2024 ROS/ Recovery: Feeding: Breast feeding problems: None Menses since delivery: none Menstrual pattern prior to : Regular periods Emily since delivery: Not resumed Depression: denies symptoms of depression. OB Depression and Anxiety Screening- This Encounter (since 07/05/2024) Over the past 2 weeks have you felt down, depressed, or hopeless? Negative Over the past two weeks, have you felt little interest or pleasure in doing things? Negative Feeling nervous, anxious or on edge 0-Not at all Not being able to stop or control worrying 0-Not al all Anxiety Pre-Screening Total (If >/= 3 additional questions will be reviewed) 0 Emotional support: Yes Bowel symptoms: Negative for abdominal discomfort, blood in stools or black stools and change in bowel habits Abdomen: N/A Bladder symptoms: No dysuria, gross hematuria, urinary frequency, urinary urgency, or incontinence Other issues: discuss sterilization Last Pap: 2023 normal HPV: negative PAST MEDICAL HISTORY Diagnosis Date Gestational diabetes Pulmonary embolism (HCC) 10/13/2023 PAST SURGICAL HISTORY Procedure Laterality Date D&C, DIAG AND/OR THERAPEUTIC 2018 PAST SURGICAL HISTORY OF cyst removed from back FAMILY HISTORY Problem Relation Age of Onset No Known Problems Mother strong maternal side of diabetes - mother not officially diagnosed Hypertension Father DVT Sister other (gestational diabetes) Sister No Known Problems Sister No Known Problems Sister No Known Problems Sister No Known Problems Sister No Known Problems Sister No Known Problems Brother No Known Problems Brother No Known Problems Brother Diabetes Maternal Grandmother No Known Problems Maternal Grandfather No Known Problems Paternal Grandmother No Known Problems Paternal Grandfather Social History Tobacco Use Smoking status: Never Smokeless tobacco: Never Vaping Use Vaping status: Never Used Substance Use Topics Alcohol use: Never Drug use: Never PHYSICAL EXAMINATION: SENSITIVE EXAM: The sensitive examination was discussed with the Patient or Patient's Authorized Foundry Worker Apprentice. As applicable, any other physician, advance practice provider, medical student, or other health professional student that will be observing or involved in the sensitive examination for educational or training purposes was discussed with the Patient or Authorized Foundry Worker Apprentice. The Patient or Authorized Foundry Worker Apprentice has agreed to proceed with the sensitive examination. (Sensitive examination includes inspection and/or palpation of the breasts, pelvis, prostate and anorectal regions). BP 102/70 Wt 191 lb 3.2 oz (86.7kg) LMP 08/09/2023 GENERAL: pleasant, female in no apparent distress HEENT: Normocephalic and atraumatic NECK: full range of motion DERMATOLOGY: Normal, without lesions, non-icteric, and non-hirsute BREAST: soft, non-tender, symmetric, no dominant mass, normal nipple-areolar complex, no lymphadenopathy, and no nipple discharge CHEST: Normal inspiratory effort ABDOMEN: soft, non-tender, and no masses. INCISION: N/A PELVIC: external genitalia normal, normal Bartholin's glands, urethra, Lastrup's glands, no vulvar lesions, no cervical lesions, good vaginal support, physiologic discharge present, normal appearing perineal body and perianal region BIMANUAL: uterus normal size, shape and consistency, no adnexal masses, and non-tender NEURO: exam grossly non-focal EXTREMITIES: normal ASSESSMENT AND PLAN: 38 year old status post with normal course. Diabetes: Cont follow up with endocrinology. H/o PE: Just had coagulation panel drawn today and is following with [facility]. Contraception plan: Discussed r/b/a tubal sterilization vs IUD as patient and are considering both. For now patient desires IUD. She desires Mirena IUD - [employer] message sent to [facility]. Discussed with patient if balloon maker advises against progesterone IUD, recommend Paragard IUD and she is agreeable to this as well. Follow up: RTC for insertion of IUD Isra Wade DO documented in this encounter [facility] 07-06-2024 Instructions Faisal Carter MD - 07/06/2024 2:40 PM EDT Please stop lispro with dinner and start metformin with dinner Start Metformin as follows: 500 mg once a day, with food. If tolerating after a week, 500 mg twice a day, with food If tolerating after a week, 1000 mg and 500 mg, with food If tolerating after a week, full dose of 1000 mg twice a day ALWAYS WITH FOOD We shall reduce insulin NPH by 2 units when Blood glucose is consistently less than 80 mg/dl on fasting for 2 to 3 days documented in this encounter [facility] 07-06-2024 Note HNO ID: [id number] Author: FAISAL CARTER MD Service: ? Author Type: Physician Type: Progress Notes Filed: 07/12/2024 21:41 Note Text: [facility] Follow up note Referred by: Siri Narvaez APRN. CNM Chief complaint: Diabetes Mellitus during History of present illness: Augustin Garcia is a 38 year old female with history of bilateral PE at 9 weeks of who initially presented to Endocrinology for evlaution of gestational diabetes mellitus at 25 weeks of gestation This was her 11th . She was told that she had GDM during last and then now She declined going on basal bolus recommended for better control during gestation We kept adjusting the doses of insulin as OBGYN sent us her readings, but I did not see her after the initial visit Delivery was on April 30. She is 3 months now Current regimen: Insulin NPH 24 units at bedtime, lispro 5 units with dinner. Denies any oral medication use in the past Denies missing any doses, using abdomen for insulin injections, and for lovenox For Bilateral PE at 9 weeks of - she is on lovenox Hba1c 6.3% at 12-13 weeks of gestation No hyperglycemic symptoms reported No known micro or macrovascular complications. She denies any eye exam done between last and this She has not seen diabetes education/dietitian in the past. She was offered a booklet guide to diabetes management by OBGYN and reports being helpful . Blood sugars -Self monitoring of blood sugar via fingerstick: 4 x daily -Brought blood glucose log for review: yes -BG log reviewed: --Fastin-140s --2 hours post breakfast: ranging from 90s-150s --Prelunch -90s-140s --2 hours post lunch- ranging from 110s-150s -- Predinner- 100s-150s --2 hours post dinner- ranging from 100s-150s . Hypoglycemia -Hypoglycemic episodes: occasionally -Frequency and timing of hypoglycemia: most tines after breakfast, often occurs if she a low protein meal -Hypoglycemia awareness: yes, feels shaky . Lifestyle -Exercise: not much -Diet: Breakfast: Lunch: Dinner: she is trying to eat low carb meals Eye exam: December 2023, no retinopathy ?Neuropathy: tingling in feet for the last few years ROS: SYSTEMIC: Denies fatigue, malaise, energy, Weight has been stable, heat/cold intolerance, polydipsia EYES: Denies blurring of vision, diplopia, pain/discomfort, excessive tearing, swelling of eye lids, bulging, redness, dryness, NECK: Denies goiter, lump, pain/discomfort, dysphagia, hoarseness, sore thorat RESPIRATORY: Denies dyspnea at rest/with exertion, orthopnea cough, pleuritic chest pain, snoring, apnea episodes CARDIOVASCULAR: Chest pain, palpitations, irregular heart beats GASTRO-INTESTINAL:Denies Nausea, vomiting, abdominal pain, hyperdefecation, rectal bleeding NEUROLOGICAL: Denies dizziness, lightheadedness, weakness, cramping, numbness/tingling of extremities MUSCULOSKELETAL: Denies joint pain, stiffness, swelling, cramping or weakness. GENITOURINARY: Denies polyuria, recurrent UTI/yeast infections SKIN: Denies dryness, brittle nails, hair loss, alopecia, excessive sweating, flushing, darkening of skin PSYCHIATRIC: Denies anxiety, depression, panic attacks, irritability, mood swings Past Medical History PAST MEDICAL HISTORY Diagnosis Date Gestational diabetes Pulmonary embolism (HCC) 10/13/2023 Past Surgical History PAST SURGICAL HISTORY Procedure Laterality Date DANDC, DIAG AND/OR THERAPEUTIC 2019 PAST SURGICAL HISTORY OF cyst removed from back Family History FAMILY HISTORY Problem Relation Age of Onset No Known Problems Mother strong maternal side of diabetes - mother not officially diagnosed Hypertension Father DVT Sister other (gestational diabetes) Sister No Known Problems Sister No Known Problems Sister No Known Problems Sister No Known Problems Sister No Known Problems Sister No Known Problems Brother No Known Problems Brother No Known Problems Brother Diabetes Maternal Grandmother No Known Problems Maternal Grandfather No Known Problems Paternal Grandmother No Known Problems Paternal Grandfather Social History Social History Tobacco Use Smoking status: Never Smokeless tobacco: Never Vaping Use Vaping status: Never Used Substance Use Topics Alcohol use: Never Drug use: Never Allergies ALLERGIES No Known Allergies Current Medications Current Outpatient Medications Medication Sig Dispense Refill Insulin Syringe-Needle U-100 0.3 mL 31 gauge x 5/16 1 Each two times a day as needed. 60 Each 1 HUMULIN N NPH U-100 INSULIN 100 unit/mL injection Administer 22 units before breakfast and 48 units before bed 10 mL 1 insulin lispro 100 unit/mL injection Inject 8 units subcutaneously before breakfast and dinner. 3 mL 2 Chromium Picolinate 200 mcg tab Take 1 tablet by mouth three times a day. blood s (more content not included)... [facility] 07-06-2024 History of Presen t illness Narrative [facility] Follow up note Referred by: Siri Narvaez APRN. CNM Chief complaint: Diabetes Mellitus during History of present illness: Augustin Garcia is a 38 year old female with history of bilateral PE at 9 weeks of who initially presented to Endocrinology for evlaution of gestational diabetes mellitus at 25 weeks of gestation This was her 11th . She was told that she had GDM during last and then now She declined going on basal bolus recommended for better control during gestation We kept adjusting the doses of insulin as OBGYN sent us her readings, but I did not see her after the initial visit Delivery was on April 30. She is 3 months now Current regimen: Insulin NPH 24 units at bedtime, lispro 5 units with dinner. Denies any oral medication use in the past Denies missing any doses, using abdomen for insulin injections, and for lovenox For Bilateral PE at 9 weeks of - she is on lovenox Hba1c 6.3% at 12-13 weeks of gestation No hyperglycemic symptoms reported No known micro or macrovascular complications. She denies any eye exam done between last and this She has not seen diabetes education/dietitian in the past. She was offered a booklet guide to diabetes management by OBGYN and reports being helpful . Blood sugars -Self monitoring of blood sugar via fingerstick: 4 x daily -Brought blood glucose log for review: yes -BG log reviewed: --Fastin-140s --2 hours post breakfast: ranging from 90s-150s --Prelunch -90s-140s --2 hours post lunch- ranging from 110s-150s -- Predinner- 100s-150s --2 hours post dinner- ranging from 100s-150s . Hypoglycemia -Hypoglycemic episodes: occasionally -Frequency and timing of hypoglycemia: most tines after breakfast, often occurs if she a low protein meal -Hypoglycemia awareness: yes, feels shaky . Lifestyle -Exercise: not much -Diet: Breakfast: Lunch: Dinner: she is trying to eat low carb meals Eye exam: December 2023, no retinopathy ?Neuropathy: tingling in feet for the last few years ROS: SYSTEMIC: Denies fatigue, malaise, energy, Weight has been stable, heat/cold intolerance, polydipsia EYES: Denies blurring of vision, diplopia, pain/discomfort, excessive tearing, swelling of eye lids, bulging, redness, dryness, NECK: Denies goiter, lump, pain/discomfort, dysphagia, hoarseness, sore thorat RESPIRATORY: Denies dyspnea at rest/with exertion, orthopnea cough, pleuritic chest pain, snoring, apnea episodes CARDIOVASCULAR: Chest pain, palpitations, irregular heart beats GASTRO-INTESTINAL:Denies Nausea, vomiting, abdominal pain, hyperdefecation, rectal bleeding NEUROLOGICAL: Denies dizziness, lightheadedness, weakness, cramping, numbness/tingling of extremities MUSCULOSKELETAL: Denies joint pain, stiffness, swelling, cramping or weakness. GENITOURINARY: Denies polyuria, recurrent UTI/yeast infections SKIN: Denies dryness, brittle nails, hair loss, alopecia, excessive sweating, flushing, darkening of skin PSYCHIATRIC: Denies anxiety, depression, panic attacks, irritability, mood swings Past Medical History PAST MEDICAL HISTORY Diagnosis Date Gestational diabetes Pulmonary embolism (HCC) 10/13/2023 Past Surgical History PAST SURGICAL HISTORY Procedure Laterality Date D&C, DIAG AND/OR THERAPEUTIC 2019 PAST SURGICAL HISTORY OF cyst removed from back Family History FAMILY HISTORY Problem Relation Age of Onset No Known Problems Mother strong maternal side of diabetes - mother not officially diagnosed Hypertension Father DVT Sister other (gestational diabetes) Sister No Known Problems Sister No Known Problems Sister No Known Problems Sister No Known Problems Sister No Known Problems Sister No Known Problems Brother No Known Problems Brother No Known Problems Brother Diabetes Maternal Grandmother No Known Problems Maternal Grandfather No Known Problems Paternal Grandmother No Known Problems Paternal Grandfather Social History Social History Tobacco Use Smoking status: Never Smokeless tobacco: Never Vaping Use Vaping status: Never Used Substance Use Topics Alcohol use: Never Drug use: Never Allergies ALLERGIES No Known Allergies Current Medications Current Outpatient Medications Medication Sig Dispense Refill Insulin Syringe-Needle U-100 0.3 mL 31 gauge x 5/16 1 Each two times a day as needed. 60 Each 1 HUMULIN N NPH U-100 INSULIN 100 unit/mL injection Administer 22 units before breakfast and 48 units before bed 10 mL 1 insulin lispro 100 unit/mL injection Inject 8 units subcutaneously before breakfast and dinner. 3 mL 2 Chromium Picolinate 200 mcg tab Take 1 tablet by mouth three times a day. blood sugar diagnostic test strip Use as directed to check glucose levels up to seven times daily. 200 Strip 8 Lancets Use as directed to check glucose levels up to seven times daily. 200 Each 8 alcohol swabs (ALCOHOL PREP PADS) Use as directed to check glucose levels up to seven times daily. 200 Each 8 docosahexaenoic acid/epa (FISH OIL ORAL) Take 2 capsules by mouth three times a day. ascorbic acid (VITAMIN C ORAL) Take 1 tablet by mouth two times a day. PNV no.95/ferrous fum/folic ac ( ORAL) Take 1 Tablespoonful by mouth once daily. ferrous sulfate 325 mg (65 mg iron) tablet Take 1 tablet by mouth every other day. (Patient not taking: Reported on 07/06/2024) 30 tablet 2 folic acid 1 mg tablet Take 1 tablet by mouth once daily. (Patient not taking: Reported on 05/11/2024) 100 tablet 1 OTC PRODUCT Super Greens: Take one capsule by mouth three times weekly. (Patient not taking: Reported on 07/06/2024) No current facility-administered medications for this visit. Vitals: 07/06/24 1418 BP: 120/70 Pulse: 83 Temp: 36.6 C (97.9 F) TempSrc: Temporal Artery SpO2: 96% Weight: 86.7 kg (191 lb 3.2 oz) Height: 162.6 cm (5' 4) Physical Exam GENERAL: Well nourished, obese, well hydrated, in no distress and oriented x 3 EYES: no thyroid eye signs, EOMI NECK: , no tenderness and adenopathy THYROID: Non-tender to palpable, no evidence of goiter, no nodules palpable LUNGS: Unlabored on room air HEART: regular rate and rhythm GI: soft, nontender. Injections sites without lipodystrophy EXTREMITIES: no edema NEURO: normal strength, no tremor OTHER: Acanthosis None Labs: Latest Ref Rng 11/22/2023 12/03/2023 12/17/2023 Hemoglobin A1C 4.3 - 5.6 % 6.3 (H) Estimated Average Glucose mg/dL 134 Glucose Scrn, Preg 74 - 134 mg/dL 187 (H) Glucose GST, Fasting 74 - 94 mg/dL 164 (H) Glucose GST, 1 Hr 74 - 179 mg/dL 301 (H) Glucose GST, 2 Hr 74 - 154 mg/dL 229 (H) Glucose GST, 3 Hr 74 - 139 mg/dL 112 Legend: (H) High Assessment and Plan Augustin Garcia is a 38 year old female with diabetes mellitus during presenting for initial visit for evaluation and management of the same in January 2024 but did not follow up due to multiple appointments, with remote management of BG by Endo for few weeks initially, then she was managed by OBGYN. In addition, she has a hx of bilateral PE diagnosed at 9 weeks of , unclear etiology at this time, and is currently on lovenox She is presenting for follow up today and is 3 months Type 2 Diabetes mellitus -Current regimen: NPH 24 units at bedtime, 5 units lispro with dinner Plan: - recommended stopping lispro with dinner, and to start metformin 500 mg with dinner, with increasing doses by 500 mg each week to reach 100 mg BID, unless not tolerating doses titrated up. - advised lowering Insulin NPH by 2 units when BG less than 80 mg/dl on fasting for 2 to 3 days Recommended changes sites for insulin to thighs, upper buttocks and back of arms as needed to avoid injecting at same sites -Instructed on side effects of hypoglycemia. Reviewed possible increase in doses of insulin as advances -Check blood sugar on before meals, at bedtime -Call if blood sugar consistently <80 mg/dl or >200 mg/dl - Lifestyle modifications (avoiding refined carbs in diet, exercise as tolerated) have been discussed with the patient - recommended labs before next visit #Blood Pressure -Today BP 120/70 -Currently not on antihypertensive regimen # Lipids: - lipid panel before next visit - low cholesterol diet suggested, not on statins #Obesity class I with comorbidity - diet and exercise reviewed - started on metformin Scripts sent to pharmacy of pt choice: Yes RTC in 2 months I have confirmed and edited as necessary, the past medical, surgical, family, and social history as obtained by others. Medical Decision Making: Problems: Moderate: 1+ chronic illnesses with change Data: Unique test result(s) reviewed: 3+ Unique test(s) ordered: 3+ Risk: Moderate: Drug management Medical Decision Making Level: 4 - Moderate Faisal Carter MD Endocrinology Associate Staff [facility] Endocrinology and Metabolism [place] [phone] documented in this encounter [facility] 07-06-2024 Note HNO ID: [id number] Author: DONN LOVE MD Service: ? Author Type: Physician Type: Progress Notes Filed: 07/06/2024 12:06 Note Text: (Elements copied from my note dated December 03, 2023, have been reviewed and updated where appropriate, and all reflect current assessment and medical decision making from today's encounter, July 06, 2024) HISTORY OF PRESENT ILLNESS: Augustin Garcia is a 38 year old female 17 weeks sudden onset dyspnea. Went to ER, CT scan showed multiple PE. Now on lovenox. Had possible similar symptoms last . Did not get it evaluated, and symptoms resolved in a few weeks. Now feels bettr on ac. 10 previous pregnancies went ok. Sister had a PE with . Other sisters with phlebitis. Here for follow up, 8 weeks post , off of lovenox. CLINICAL IMPRESSION: PE in setting of , as such provoked RECOMMENDATION/PLAN: 1. Will check hypercoagulation panel now. Follow up in 2 weeks Written and verbal health teaching given to patient, patient verbalizes understanding and agrees with treatment plan. PAST MEDICAL HISTORY Diagnosis Date Gestational diabetes Pulmonary embolism (HCC) 10/13/2023 PAST SURGICAL HISTORY Procedure Laterality Date DANDC, DIAG AND/OR THERAPEUTIC 2019 PAST SURGICAL HISTORY OF cyst removed from back FAMILY HISTORY Problem Relation Age of Onset No Known Problems Mother strong maternal side of diabetes - mother not officially diagnosed Hypertension Father DVT Sister other (gestational diabetes) Sister No Known Problems Sister No Known Problems Sister No Known Problems Sister No Known Problems Sister No Known Problems Sister No Known Problems Brother No Known Problems Brother No Known Problems Brother Diabetes Maternal Grandmother No Known Problems Maternal Grandfather No Known Problems Paternal Grandmother No Known Problems Paternal Grandfather Social History Tobacco Use Smoking status: Never Smokeless tobacco: Never Vaping Use Vaping status: Never Used Substance Use Topics Alcohol use: Never Drug use: Never ALLERGIES: ALLERGIES No Known Allergies CURRENT OUTPATIENT MEDICATIONS: HUMULIN N NPH U-100 INSULIN 100 unit/mL injection Administer 22 units before breakfast and 48 units before bed insulin lispro 100 unit/mL injection Inject 8 units subcutaneously before breakfast and dinner. Chromium Picolinate 200 mcg tab Take 1 tablet by mouth three times a day. docosahexaenoic acid/epa (FISH OIL ORAL) Take 2 capsules by mouth three times a day. ascorbic acid (VITAMIN C ORAL) Take 1 tablet by mouth two times a day. PNV no.95/ferrous fum/folic ac ( ORAL) Take 1 Tablespoonful by mouth once daily. Insulin Syringe-Needle U-100 0.3 mL 31 gauge x 5/16 1 Each two times a day as needed. ferrous sulfate 325 mg (65 mg iron) tablet Take 1 tablet by mouth every other day. (Patient not taking: Reported on 07/06/2024) folic acid 1 mg tablet Take 1 tablet by mouth once daily. (Patient not taking: Reported on 05/11/2024) blood sugar diagnostic test strip Use as directed to check glucose levels up to seven times daily. Lancets Use as directed to check glucose levels up to seven times daily. alcohol swabs (ALCOHOL PREP PADS) Use as directed to check glucose levels up to seven times daily. OTC PRODUCT Super Greens: Take one capsule by mouth three times weekly. (Patient not taking: Reported on 07/06/2024) REVIEW OF SYSTEMS: GENERAL: No fever, night sweats, weight loss or malaise. All other reviewed and negative other than HPI. PHYSICAL EXAMINATION: VITAL SIGNS: BP 104/69 Pulse 71 Temp (Src) 97.2 (Temporal) Wt 193 lb 8 oz (87.8kg) SpO2 97% LMP 08/09/2023 GENERAL APPEARANCE: Well appearing, in no acute distress, alert and oriented x3, well-hydrated, well nourished. I spent a total of 20 minutes on the date of the service which included preparing to see the patient, [id number] patient care, completing clinical documentation, obtaining and/or reviewing separately obtained history, counseling and educating the patient/family/caregiver, independently interpreting results (not separately reported), and communicating results to the patient/family/caregiver. Electronically Signed: Donn Love MD July 06, 2024 [facility] 07-06-2024 History of Presen t illness Narrative (Elements copied from my note dated December 03, 2023, have been reviewed and updated where appropriate, and all reflect current assessment and medical decision making from today's encounter, July 06, 2024) HISTORY OF PRESENT ILLNESS: Augustin Garcia is a 38 year old female 17 weeks sudden onset dyspnea. Went to ER, CT scan showed multiple PE. Now on lovenox. Had possible similar symptoms last . Did not get it evaluated, and symptoms resolved in a few weeks. Now feels bettr on ac. 10 previous pregnancies went ok. Sister had a PE with . Other sisters with phlebitis. Here for follow up, 8 weeks post , off of lovenox. CLINICAL IMPRESSION: PE in setting of , as such provoked RECOMMENDATION/PLAN: 1. Will check hypercoagulation panel now. Follow up in 2 weeks Written and verbal health teaching given to patient, patient verbalizes understanding and agrees with treatment plan. PAST MEDICAL HISTORY Diagnosis Date Gestational diabetes Pulmonary embolism (HCC) 10/13/2023 PAST SURGICAL HISTORY Procedure Laterality Date D&C, DIAG AND/OR THERAPEUTIC 2018 PAST SURGICAL HISTORY OF cyst removed from back FAMILY HISTORY Problem Relation Age of Onset No Known Problems Mother strong maternal side of diabetes - mother not officially diagnosed Hypertension Father DVT Sister other (gestational diabetes) Sister No Known Problems Sister No Known Problems Sister No Known Problems Sister No Known Problems Sister No Known Problems Sister No Known Problems Brother No Known Problems Brother No Known Problems Brother Diabetes Maternal Grandmother No Known Problems Maternal Grandfather No Known Problems Paternal Grandmother No Known Problems Paternal Grandfather Social History Tobacco Use Smoking status: Never Smokeless tobacco: Never Vaping Use Vaping status: Never Used Substance Use Topics Alcohol use: Never Drug use: Never ALLERGIES: ALLERGIES No Known Allergies CURRENT OUTPATIENT MEDICATIONS: HUMULIN N NPH U-100 INSULIN 100 unit/mL injection Administer 22 units before breakfast and 48 units before bed insulin lispro 100 unit/mL injection Inject 8 units subcutaneously before breakfast and dinner. Chromium Picolinate 200 mcg tab Take 1 tablet by mouth three times a day. docosahexaenoic acid/epa (FISH OIL ORAL) Take 2 capsules by mouth three times a day. ascorbic acid (VITAMIN C ORAL) Take 1 tablet by mouth two times a day. PNV no.95/ferrous fum/folic ac ( ORAL) Take 1 Tablespoonful by mouth once daily. Insulin Syringe-Needle U-100 0.3 mL 31 gauge x 5/16 1 Each two times a day as needed. ferrous sulfate 325 mg (65 mg iron) tablet Take 1 tablet by mouth every other day. (Patient not taking: Reported on 07/06/2024) folic acid 1 mg tablet Take 1 tablet by mouth once daily. (Patient not taking: Reported on 05/11/2024) blood sugar diagnostic test strip Use as directed to check glucose levels up to seven times daily. Lancets Use as directed to check glucose levels up to seven times daily. alcohol swabs (ALCOHOL PREP PADS) Use as directed to check glucose levels up to seven times daily. OTC PRODUCT Super Greens: Take one capsule by mouth three times weekly. (Patient not taking: Reported on 07/06/2024) REVIEW OF SYSTEMS: GENERAL: No fever, night sweats, weight loss or malaise. All other reviewed and negative other than HPI. PHYSICAL EXAMINATION: VITAL SIGNS: BP 104/69 Pulse 71 Temp (Src) 97.2 (Temporal) Wt 193 lb 8 oz (87.8kg) SpO2 97% LMP 08/09/2023 GENERAL APPEARANCE: Well appearing, in no acute distress, alert and oriented x3, well-hydrated, well nourished. I spent a total of 20 minutes on the date of the service which included preparing to see the patient, [id number] patient care, completing clinical documentation, obtaining and/or reviewing separately obtained history, counseling and educating the patient/family/caregiver, independently interpreting results (not separately reported), and communicating results to the patient/family/caregiver. Electronically Signed: Donn Love MD July 06, 2024 documented in this encounter [facility] 07-02-2024 Telephone encounter Note RX signed. Hilda Pedro APRN.CNM [facility] 07-02-2024 Miscellaneous Notes RX signed. Hilda Pedro APRN.CNM Patient calling asking for a refill on her insulin syringes. Order pended. Patient has upcoming appointment on 07/06/24. Nahomy Rudd RN documented in this encounter [facility] 07-02-2024 Telephone encounter Note Patient calling asking for a refill on her insulin syringes. Order pended. Patient has upcoming appointment on 07/06/24. Nahomy Rudd RN [facility] 06-26-2024 Telephone encounter Note Spoke with patient. She would like tubal sterilization. She has appointments with endocrinology and hematology on Saturday. Aware we will reach out to her with the next available date for [place]. Lynn Kunz, RADHA [facility] 06-25-2024 Telephone encounter Note Left message to call office. Does patient want to schedule tubal sterilization or have IUD inserted? Patient will need to have surgery at [facility] d/t being self pay. Patient will need medical clearance for surgery from endocrinology and hemalogy [facility] 06-22-2024 Telephone encounter Note Pt has upcoming f/u appt with Dr. Carter 07/06/2024. Call placed to Pt and spouse and notified them of below notation per Dr. Carter, that insulin refill was sent to local pharmacy. Instructed Pt to keep her appt with endocrinology next month. Nereida Olmstead RN June 22, 2024 2:28 PM [facility] 06-22-2024 Miscellaneous Notes Pt has upcoming f/u appt with Dr. Carter 07/06/2024. Call placed to Pt and spouse and notified them of below notation per Dr. Carter, that insulin refill was sent to local pharmacy. Instructed Pt to keep her appt with endocrinology next month. Nereida Olmstead RN June 22, 2024 2:28 PM Last visit with endocrinology in 01/2024 when she was . Never seen her after due to her seeing multiple physicians , [place], checking on refill request. States patient is out of insulin. Please phone to let him know when this is sent to [facility]. [place]: [phone] The patient has been identified by name and date of : Yes Caregiver verified no other encounters exist for this prescription request: Yes Caregiver confirmed with patient/requestor that no other refills are due, in the near future, with this provider at this time: Yes The last office visit in the department: 05/11/2024 Does the patient have a future office visit with this provider/department: Yes 07/06/2024 Requested Prescriptions Pending Prescriptions Disp Refills HUMULIN N NPH U-100 INSULIN 100 unit/mL injection 10 mL 1 Sig: Administer 22 units before breakfast and 48 units before bed Dora Leach RN June 19, 2024 4:29 PM documented in this encounter [facility] 06-22-2024 Telephone encounter Note Last visit with endocrinology in 01/2024 when she was . Never seen her after due to her seeing multiple physicians [facility] 06-22-2024 Telephone encounter Note , Gato, checking on refill request. States patient is out of insulin. Please phone to let him know when this is [facility] to [facility]. Gato: [phone] [facility] 06-19-2024 Telephone encounter Note The patient has been identified by name and date of : Yes Caregiver verified no other encounters exist for this prescription request: Yes Caregiver confirmed with patient/requestor that no other refills are due, in the near future, with this provider at this time: Yes The last office visit in the department: 05/11/2024 Does the patient have a future office visit with this provider/department: Yes 07/06/2024 Requested Prescriptions Pending Prescriptions Disp Refills HUMULIN N NPH U-100 INSULIN 100 unit/mL injection 10 mL 1 Sig: Administer 22 units before breakfast and 48 units before bed Dora Leach RN June 19, 2024 4:29 PM [facility] 05-11-2024 Note HNO ID: [id number] Author: ISRA WADE MD Service: ? Author Type: Physician Type: Progress Notes Filed: 05/11/2024 09:58 Note Text: EARLY VISIT Augustin Garcia is a 38 year old here for 2 week visit. Delivery Summary: ROS: General: Denies any fever or chills Hypertension Screening: Headache? No. Visual Changes? No Epigastric Pain? No Increased Swelling? No Taking any BP medications at home? No If applicable, monitoring BP at home? (If Yes, include results) NA Mood: normal Depression: denies symptoms of depression. OB Depression and Anxiety Screening- This Encounter (since 05/10/2024) Over the past 2 weeks have you felt down, depressed, or hopeless? Negative Over the past two weeks, have you felt little interest or pleasure in doing things?? Negative Feeling nervous, anxious or on edge 1-Several days Not being able to stop or control worrying 0-Not al all Anxiety Pre-Screening Total (If >/= 3 additional questions will be reviewed) 1 Feeding: Breast feeding problems: None Bladder: No dysuria, gross hematuria, urinary frequency, urinary urgency, or incontinence Bowel symptoms: Negative for abdominal discomfort, blood in stools or black stools and change in bowel habits Abdomen: N/A Bleeding: spotting Bottom and Perineum: No issues Sleep: sleep concerns, does not feel rested Emily since delivery: Not resumed Emotional support: Yes Exercise: N/A Other issues: how long to stay on lovenox , discuss sterilization PHYSICAL EXAMINATION: BP 102/64 Wt 82.6 kg (182 lb) LMP 08/09/2023 Yes BMI 31.24 kg/m? General: pleasant,female in no apparent distress, AANDO x 3. Skin warm and intact. Breast: Deferred Abdomen: Deferred /Incision: N/A Pelvic: Deferred Bimanual: Deferred ASSESSMENT AND PLAN: 38 year old status post with normal course. Contraception plan: considering sterilization vs IUD . Reinforced 6-week pelvic rest. Encouraged condom usage should patient deviate. Discussed r/b/a Paragard IUD vs sterilization. Surgery sheet completed however she understands she needs clearance from heme and endo. Discussed importance of optimizing blood sugars prior to surgery, and she may need coagulation panel completed. She is considering the copper IUD. Education: resources provided - see MA/RN note Type 2 DM: Currently on 24 units NPH at bedtime and 5 units Lispro before breakfast and dinner. BG log reviewed and will give to endo who she saw in to review log and make adjustments as needed. Patient prefers for any recommendations to be left on voicemail system. Limitations with transportation at times. Will schedule with endo. Schedule follow up with heme. Refill sent on Lovenox. Follow up: Return to Clinic for 6 week visit and as needed Isra Wade DO [facility] 05-11-2024 History of Presen t illness Narrative EARLY VISIT Augustin Garcia is a 38 year old here for 2 week visit. Delivery Summary: ROS: General: Denies any fever or chills Hypertension Screening: Headache? No. Visual Changes? No Epigastric Pain? No Increased Swelling? No Taking any BP medications at home? No If applicable, monitoring BP at home? (If Yes, include results) NA Mood: normal Depression: denies symptoms of depression. OB Depression and Anxiety Screening- This Encounter (since 05/10/2024) Over the past 2 weeks have you felt down, depressed, or hopeless? Negative Over the past two weeks, have you felt little interest or pleasure in doing things? Negative Feeling nervous, anxious or on edge 1-Several days Not being able to stop or control worrying 0-Not al all Anxiety Pre-Screening Total (If >/= 3 additional questions will be reviewed) 1 Feeding: Breast feeding problems: None Bladder: No dysuria, gross hematuria, urinary frequency, urinary urgency, or incontinence Bowel symptoms: Negative for abdominal discomfort, blood in stools or black stools and change in bowel habits Abdomen: N/A Bleeding: spotting Bottom and Perineum: No issues Sleep: sleep concerns, does not feel rested Emily since delivery: Not resumed Emotional support: Yes Exercise: N/A Other issues: how long to stay on lovenox , discuss sterilization PHYSICAL EXAMINATION: BP 102/64 Wt 82.6 kg (182 lb) LMP 08/09/2023 Yes BMI 31.24 kg/m General: pleasant,female in no apparent distress, A&O x 3. Skin warm and intact. Breast: Deferred Abdomen: Deferred /Incision: N/A Pelvic: Deferred Bimanual: Deferred ASSESSMENT AND PLAN: 38 year old status post with normal course. Contraception plan: considering sterilization vs IUD . Reinforced 6-week pelvic rest. Encouraged condom usage should patient deviate. Discussed r/b/a Paragard IUD vs sterilization. Surgery sheet completed however she understands she needs clearance from heme and endo. Discussed importance of optimizing blood sugars prior to surgery, and she may need coagulation panel completed. She is considering the copper IUD. Education: resources provided - see MA/RN note Type 2 DM: Currently on 24 units NPH at bedtime and 5 units Lispro before breakfast and dinner. BG log reviewed and will give to endo who she saw in to review log and make adjustments as needed. Patient prefers for any recommendations to be left on voicemail system. Limitations with transportation at times. Will schedule with endo. Schedule follow up with heme. Refill sent on Lovenox. Follow up: Return to Clinic for 6 week visit and as needed Isra Wade DO documented in this encounter [facility] 05-01-2024 Note [facility] Medical Records Department [address] [place] [id number] Discharge Summary 05/01/24 0839 MR#: [id number] Acct: [id number] Name: AUGUSTIN GARCIA Rep #: [id number] : 1985 38 From: Lynn Ponce MD PCP: Dr. Arie Escoto DO Status:ADM IN Location: [id number] Providers Date of Admission: 04/30/24 Date of Discharge: 05/01/24 Primary Care Physician: Dr. Arie Escoto DO Reason For Visit: INDUCTION Diagnosis Discharge Diagnosis (1) Vaginal delivery: Status: Acute Code(s): O80 - Encounter for full-term uncomplicated delivery (2) GDM, class A2: Status: Acute Code(s): O24.419 - Gestational diabetes mellitus in , unspecified control (3) Advanced maternal age (AMA) in : Status: Acute (4) Bilateral pulmonary embolism: Status: Acute Code(s): I26.99 - Other pulmonary embolism without acute cor pulmonale Medications at Discharge Home Medications ferrous sulfate 325 mg (65 mg iron) tablet (FeroSul) 325 mg PO QODAY anemia #30 tabs 10/15/23 folic acid 1 mg tablet 1 mg PO DAILY #30 tabs 10/15/23 insulin NPH isoph U-100 human 100 unit/mL subcutaneous suspension (Humulin N NPH U-100 Insulin (isophane susp)) 22 unit subcut DAILY diabetes 04/30/24 insulin lispro 100 unit/mL subcutaneous solution 6 unit subcut DAILY diabetes 04/30/24 [id number] 5 ml PO DAILY 04/30/24 enoxaparin 80 mg/0.8 mL subcutaneous syringe 80 mg (0.8 mL) subcut Q12 pulmonary embolism 1 month #48 mL 05/01/24 Hospital Course Operations None Procedures None Summary of Care Provided Minutes Spent on Discharge: 22 Physical Exam Const alert and no apparent distress Narrative: Fundus firm, below umbilicus. Weight / BMI Weight Weight: 88.11 kg Body Mass Index (BMI) 32.3 ABG / Lab / Microbiology Data 04/30/24 07:50 Laboratory: Laboratory Results - last 24 hr 04/30/24 07:50: Syphilis Total Ab Non-reactive, Blood Type A POSITIVE, Antibody Screen NEGATIVE 04/30/24 09:23: POC Glucose 113 H 04/30/24 10:37: POC Glucose 115 H 04/30/24 11:38: POC Glucose 113 H 04/30/24 12:23: POC Glucose 93 04/30/24 14:50: POC Glucose 142 H 04/30/24 21:58: POC Glucose 119 H 05/01/24 06:15: POC Glucose 106 D/C Instructions May resume sexual activity in: 6 weeks Please Follow Up With: Samantha Fields MD When: Follow up with our office in 1-2 and 6 weeks or as needed. [phone] Meaningful Use Info Meaningful Use Meaningful Use Diagnoses (Choose all that apply): None applicable Ischemic Stroke Statin Dosing Therapy Reference: STATIN DOSE THERAPY REFERENCE: * Patients > 75 years receive moderate or high dose statin therapy. * Patients 75 years or YOUNGER should receive HIGH intensity statin dose unless contraindicated. You will be required to document reason for non-treatment if statin daily dose does not meet guidelines. HIGH DOSE STATIN THERAPY DAILY Atorvastatin > than or = to 40 mg Rosuvastatin > than or = to 20 mg Amlodipine + Atorvastatin > than or = to 2.5/40 mg Ezetimibe + Simvastatin 10/80 mg Simvastatin 80mg Discharge Plan Admission Admit Date/Time: 04/30/24 07:17 Primary Reason for Your Visit: IOL Attending Provider: Isra Wade Primary Care Provider: Arie Escoto Discharge Orders/Prescriptions Prescriptions: Continued folic acid 1 mg tablet 1 mg PO DAILY Qty: 30 2RF ferrous sulfate [FeroSul] 325 mg (65 mg iron) tablet 325 mg PO QODAY Qty: 30 2RF Humulin N NPH U-100 Insulin 100 unit/mL suspension 22 unit subcut DAILY Rx Instructions: 22 UNITS BEFORE BREAKFAST AND 48 UNITS BEFORE BED insulin lispro 100 unit/mL solution 6 unit subcut DAILY Rx Instructions: 8 UNITS WITH BREAKFAST AND 6 UNITS WITH DINNER [id number] Liquid 5 ml PO DAILY enoxaparin 80 mg/0.8 mL Syringe 80 mg subcut Q12 30 Days Qty: 48 1RF Rx Instructions: Enoxaparin to continue throughout to 6 weeks . Discontinued ascorbic acid (vitamin C) 500 mg tablet 500 mg PO BID Qty: 60 2RF Referrals / Follow Up: Arie Escoto DO [Primary Care Provider] - 05/01/24 0842 Cosigner Signature (if applicable): CC: Dr. Lynn Ponce MD; Dr. Arie Escoto DO Signed [facility] 04-24-2024 History of Presen t illness Narrative NST SUMMARY PROVIDER ASSESSMENT AND INTERPRETATION Augustin Garcia is a 38 year old female, , who is at 37w0d with an CLEO of 05/15/2024, by Last Menstrual Period dating method. Indications for NST: Gestational Diabetes - Insulin Controlled Baseline: 130 Variability: Moderate Accelerations: Present 15 X 15 Decelerations: None Contractions: TOCO: None Interpretation: Reactive SIGNATURE: Isra Wade DO documented in this encounter [facility] 04-24-2024 Progress note Formatting of t his note might be different from the original. SW- pt doing well. No regular ctx, vb, lof. Good FM PE: Gen- NAD, well appearing Abd- Soft, gravid, NT Cvx 2-3/60/-3, vertex See flowsheet A/p 37 wk gestation - A2GDM: Changes to insulin made. Patient scheduled for induction next week already given uncontrolled GDM. Reviewed process of induction and consent signed - PE: Cont Lovenox and hold 24 hours prior to induction Isra Wade DO [facility] 04-24-2024 Miscellaneous Notes SW- pt doing well. No regular ctx, vb, lof. Good FM PE: Gen- NAD, well appearing Abd- Soft, gravid, NT Cvx 2-3/60/-3, vertex See flowsheet A/p 37 wk gestation - A2GDM: Changes to insulin made. Patient scheduled for induction next week already given uncontrolled GDM. Reviewed process of induction and consent signed - PE: Cont Lovenox and hold 24 hours prior to induction Isra Wade DO documented in this encounter [facility] 04-24-2024 Instructions Dania Zapata MA - 04/24/2024 9:41 AM EDT SEQUENTIAL SCREENINGS The [facility] offers sequential screenings for women who are interested in screenings for chromosomal abnormalities and certain defects during a . The sequential screen combines ultrasound and blood tests to determine the risk of chromosomal abnormalities, including Down's Syndrome (Trisomy 21) and Trisomy 18, as well as open neural tube defects including spina bifida. Ultrasound examination is performed between 11 weeks and 13 weeks gestational age. Blood tests are drawn after the ultrasound and again later in the between 15 and 21 weeks gestational age. Please let your physician know if you are interested in this testing. It will require an appointment with our power technician. This is not an ultrasound performed by a physician in our office during a routine visit. SIGNS AND SYMPTOMS OF LABOR 1. Contractions every 10 minutes or more often 2. Clear, pink, or brownish fluid (water) leaking from vagina 3. Feeling that baby is pushing down, pressure 4. Low, dull backache 5. Cramps that feel like a period 6. Cramps with or without diarrhea If you notice any of the above symptoms, contact our office at [phone] and ask to speak with a nurse. After hours, you can call doctors registry at [phone] OR call [facility] at [phone] and ask to have the doctor consulting marine engineer paged. If you consider this an emergency, dial 9--1 or go to your nearest emergency department. NEED HELP? Are you dealing with a violent or abusive relationship? Are you a victim of rape or sexual assult? Call [facility] ([place]) 24 hour Crisis Hotline: 439.781.4761 or 410-808-7378. MANUAL Your Guide to a Healthy manual is now on-line. Visit [email or web address] to download your free copy documented in this encounter [facility] 04-16-2024 Telephone encounter Note Insulin adjusted at visit today. Thanks for the update. Jordy Marie MD [facility] 04-16-2024 Miscellaneous Notes Insulin adjusted at visit today. Thanks for the update. Jordy Marie MD She was referred to Gestational DM clinic by my Colleague, Dr. Chirinos in February 2024, but patient likely did not schedule this. In an attempt to avoid multiple doctor visits, OBGYN was to manage her blood glucose levels and this was communicated to me by Dr. Fields. I have not seen her after the initial visit and hence technically, I do not think Endocrinology is following her any more. But last week her Blood glucose levels have been forwarded to me by OB and hence tried to give some recommendations from my side. She will have to follow up with Endo either here or with gestational clinic to know what is going on as her sugars are still out of range with multiple adjustments. Please correct if any missed information Acacia SRB Spoke with patient's . He believes endo has been adjusting her insulin. Phone note was also routed to Dr. Carter. Lynn Kunz RN Please confirm that endocrinology is adjusting her insulin. Keep visit this week. Jordy Marie MD 35w4d Augustin Garcia is a 38 year old female who reports glucose readings as noted - fasting and 1 hour PP. DATE 04/10 04/11 04/12 04/13 04/14 Fasting 121 124 110 106 93 Post Meal #1 179 178 --- 189 181 Post Meal # 2 159 100 2hr 139 ---- Post Meal # 3 123 117 143 163 Patient has NST and OB visit with JILLIAN on 04/16. States she's been feeling more fatigued and it's been harder to get her breath these last 2 weeks. Aware that her BS readings would also be forwarded to Endocrinology. Lynn Kunz RN documented in this encounter [facility] 04-16-2024 History of Presen t illness Narrative NST SUMMARY PROVIDER ASSESSMENT AND INTERPRETATION Augustin Garcia is a 38 year old female, , who is at 35w6d with an CLEO of 05/15/2024, by Last Menstrual Period dating method. Indications for NST: AMA and Gestational Diabetes - Insulin Controlled Baseline: 150 Variability: Moderate Accelerations: Present 15 X 15 Decelerations: None Contractions: TOCO: None Interpretation: Reactive SIGNATURE: Jordy Marie MD documented in this encounter [facility] 04-16-2024 Progress note Formatting of t his note might be different from the original. KJ - VB No. LOF No. CTXS No. Movement: present. Other c/o: No. Medication list reviewed. Physical Exam See Flow Sheet Gen: no accute distress, well appearing Abd: soft, nontender, gravid A/P 35w6d Estimated Date of Delivery: 05/15/24 GDM - BS log reviewed & insulin adjusted again. Plan for induction at 37-38 weeks & tentatively scheduled 04/30/24 with SW. NST today H/o PE - continue lovenox. PTL precautions reviewed, Kick counts reviewed. Jordy Marie MD [facility] 04-16-2024 Miscellaneous Notes KJ - VB No. LOF No. CTXS No. Movement: present. Other c/o: No. Medication list reviewed. Physical Exam See Flow Sheet Gen: no accute distress, well appearing Abd: soft, nontender, gravid A/P 35w6d Estimated Date of Delivery: 05/15/24 GDM - BS log reviewed & insulin adjusted again. Plan for induction at 37-38 weeks & tentatively scheduled 04/30/24 with SW. NST today H/o PE - continue lovenox. PTL precautions reviewed, Kick counts reviewed. Jordy Marie MD documented in this encounter [facility] 04-16-2024 Instructions Malina Lockhart MA - 04/16/2024 10:16 AM EDT SEQUENTIAL SCREENINGS The [facility] offers sequential screenings for women who are interested in screenings for chromosomal abnormalities and certain defects during a . The sequential screen combines ultrasound and blood tests to determine the risk of chromosomal abnormalities, including Down's Syndrome (Trisomy 21) and Trisomy 18, as well as open neural tube defects including spina bifida. Ultrasound examination is performed between 11 weeks and 13 weeks gestational age. Blood tests are drawn after the ultrasound and again later in the between 15 and 21 weeks gestational age. Please let your physician know if you are interested in this testing. It will require an appointment with our power technician. This is not an ultrasound performed by a physician in our office during a routine visit. SIGNS AND SYMPTOMS OF LABOR 1. Contractions every 10 minutes or more often 2. Clear, pink, or brownish fluid (water) leaking from vagina 3. Feeling that baby is pushing down, pressure 4. Low, dull backache 5. Cramps that feel like a period 6. Cramps with or without diarrhea If you notice any of the above symptoms, contact our office at [phone] and ask to speak with a nurse. After hours, you can call doctors registry at [phone] OR call [facility] at [phone] and ask to have the doctor consulting marine engineer paged. If you consider this an emergency, dial 9--1 or go to your nearest emergency department. NEED HELP? Are you dealing with a violent or abusive relationship? Are you a victim of rape or sexual assult? Call [facility] ([place]) 24 hour Crisis Hotline: 688.795.9876 or 001-109-3905. MANUAL Your Guide to a Healthy manual is now on-line. Visit [email or web address] to download your free copy documented in this encounter [facility] 04-15-2024 Telephone encounter Note She was referred to Gestational DM clinic by my Colleague, Dr. Chirinos in February 2024, but patient likely did not schedule this. In an attempt to avoid multiple doctor visits, OBGYN was to manage her blood glucose levels and this was communicated to me by Dr. Fields. I have not seen her after the initial visit and hence technically, I do not think Endocrinology is following her any more. But last week her Blood glucose levels have been forwarded to me by OB and hence tried to give some recommendations from my side. She will have to follow up with Endo either here or with gestational clinic to know what is going on as her sugars are still out of range with multiple adjustments. Please correct if any missed information Acacia, SRB [facility] Work Phone: 04-14-2024 Telephone encounter Note Spoke with patient's . He believes endo has been adjusting her insulin. Phone note was also routed to Dr. Carter. Lynn Kunz RN T [facility] 04-14-2024 Telephone encounter Note Please confirm that endocrinology is adjusting her insulin. Keep visit this week. Jordy Marie MD T [facility] 04-14-2024 Telephone encounter Note 35w4d Augustin Garcia is a 38 year old female who reports glucose readings as noted - fasting and 1 hour PP. DATE 04/10 04/11 04/12 04/13 04/14 Fasting 121 124 110 106 93 Post Meal #1 179 178 --- 189 181 Post Meal # 2 159 100 2hr 139 ---- Post Meal # 3 123 117 143 163 Patient has NST and OB visit with JILLIAN on 04/16. States she's been feeling more fatigued and it's been harder to get her breath these last 2 weeks. Aware that her BS readings would also be forwarded to Endocrinology. Lynn Kunz, RADHA T [facility] 04-09-2024 Note Indication Evaluation of growth, Evaluation of well-being Advanced maternal age, Obesity, BMI >30, H/O PE on Lovenox, Gestational diabetes - insulin dependent Impression REMOTE READ - Single, live, intrauterine . - The biometry is consistent with the assigned gestational dating. - The EFW is 2841 g, at the 79%. AC is at the 97%. - The amniotic fluid volume is normal amount with an MVP of 5.2 cm and an NANCY of 13.4 cm - The placenta is posterior, fundal. - BPP 04/30. - No malformations visualized on a limited survey as detailed below. Recommendations Continue planned testing Maternal Assessment Height 165 cm Height (ft) 5 ft Height (in) 5 in Physical Exam Initial weight (lb) 185 lb Initial BMI 30.79 kg/m Maternal assessment other: 12 Para 9 Method Transabdominal ultrasound examination Zamora . Number of fetuses: 1 Dating LMP on: 08/09/2023 GA by LMP 34 w + 6 d CLEO by LMP: 05/15/2024 GA by prior assessment 34 w + 6 d CLEO by prior assessment: 05/15/2024 Ultrasound examination on: 04/09/2024 GA by U/S based upon: AC, BPD, Femur, HC GA by U/S 35 w + 4 d CLEO by U/S: 05/10/2024 Assigned: based on stated CLEO, selected on 04/09/2024 Assigned GA 34 w + 6 d Assigned CLEO: 05/15/2024 General Evaluation Cardiac activity present. FHR 159 bpm. movements: present. Presentation: cephalic Placenta: Placental site: posterior, fundal Umbilical cord: Cord vessels: 3 vessel cord Amniotic fluid: Amount of AF: normal amount. MVP 5.2 cm. NANCY 13.4 cm. Q1 3.3 cm, Q2 5.2 cm, Q3 2.1 cm, Q4 2.8 cm Biophysical Profile 2: breathing movements 2: Gross body movements 2: tone 2: Amniotic fluid volume 04/30 Biophysical profile score Growth Overview Exam date GA BPD (mm) HC (mm) AC (mm) FL (mm) HL (mm) EFW (g) 12/30/2023 20w 3d 47.2 43% 180.8 52% 169.4 87% 34.1 74% 31.8 58% 409 85% 02/24/2024 28w 3d 71.3 44% 268.9 58% 260.6 89% 53.8 64% 1406 77% 04/09/2024 34w 6d 88.1 73% 323.4 64% 332.1 97% 65.7 37% 2841 79% Biometry Standard BPD 88.1 mm 35w 4d 73% Hadlock OFD 113.7 mm 35w 2d 60% Nicolaides HC 323.4 mm 35w 5d 64% Devan AC 332.1 mm 37w 1d 97% Hadlock Femur 65.7 mm 33w 4d 37% Devan EFW 2,841 g 36w 1d 79% Hadlock EFW (lb) 6 lb EFW (oz) 4 oz EFW by: Hadlock (HC-AC-FL) Extended Manager Line 6.6 mm Extremities / Bony Struc FL / HC 0.20 Other Structures FHR 159 bpm Anatomy Lateral ventricles: normal Cavum septi pellucidi: normal Cerebellum: normal Cisterna magna: normal 4-chamber view: normal RVOT view: normal LVOT view: normal 3-vessel view: normal Heart / Thorax Situs: situs solitus (normal) Diaphragm: normal Stomach: normal Kidneys: normal Bladder: normal Gender: Unspecified Wants to know sex: no Performed By: Nahomy Lundberg, JOLIENJ, RVT Read By: Sheeba Alberts M.D. [facility] 04-09-2024 Progress note Formatting of t his note might be different from the original. SW- pt doing well. No ctx, ALEXANDRA, vb, lof. Good FM PE: Gen- NAD, well appearing Abd- Soft, NT, gravid See flowsheet A/p 34 wk gestation - A2GDM: Fasting and after dinner BG's elevated. Consulted with endo given amount of insulin pt is on, and continued elevated blood sugars. Confirmed patient is using insulin as prescribed. She introduced high protein snack at bedtime which has improved fasting values, however still elevated. Changes made per endo. May need to consult endo again at time of next visit. Growth US today and final report pending. BPP 04/30. NST next week - RTO 1 wk for NST. Discussed will likely need IOL scheduled for ~37-38 weeks Isra Wade DO [facility] 04-09-2024 Miscellaneous Notes SW- pt doing well. No ctx, ALEXANDRA, vb, lof. Good FM PE: Gen- NAD, well appearing Abd- Soft, NT, gravid See flowsheet A/p 34 wk gestation - A2GDM: Fasting and after dinner BG's elevated. Consulted with endo given amount of insulin pt is on, and continued elevated blood sugars. Confirmed patient is using insulin as prescribed. She introduced high protein snack at bedtime which has improved fasting values, however still elevated. Changes made per endo. May need to consult endo again at time of next visit. Growth US today and final report pending. BPP 04/30. NST next week - RTO 1 wk for NST. Discussed will likely need IOL scheduled for ~37-38 weeks Isra Wade DO documented in this encounter [facility] 04-09-2024 Instructions Dania Zapata MA - 04/09/2024 10:19 AM EDT SEQUENTIAL SCREENINGS The [facility] offers sequential screenings for women who are interested in screenings for chromosomal abnormalities and certain defects during a . The sequential screen combines ultrasound and blood tests to determine the risk of chromosomal abnormalities, including Down's Syndrome (Trisomy 21) and Trisomy 18, as well as open neural tube defects including spina bifida. Ultrasound examination is performed between 11 weeks and 13 weeks gestational age. Blood tests are drawn after the ultrasound and again later in the between 15 and 21 weeks gestational age. Please let your physician know if you are interested in this testing. It will require an appointment with our power technician. This is not an ultrasound performed by a physician in our office during a routine visit. SIGNS AND SYMPTOMS OF LABOR 1. Contractions every 10 minutes or more often 2. Clear, pink, or brownish fluid (water) leaking from vagina 3. Feeling that baby is pushing down, pressure 4. Low, dull backache 5. Cramps that feel like a period 6. Cramps with or without diarrhea If you notice any of the above symptoms, contact our office at [phone] and ask to speak with a nurse. After hours, you can call doctors registry at [phone] OR call [facility] at [phone] and ask to have the doctor consulting marine engineer paged. If you consider this an emergency, dial or go to your nearest emergency department. NEED HELP? Are you dealing with a violent or abusive relationship? Are you a victim of rape or sexual assult? Call [facility] ([place]) 24 hour Crisis Hotline: 795.326.9821 or 441-963-3352. MANUAL Your Guide to a Healthy manual is now on-line. Visit [email or web address] to download your free copy documented in this encounter [facility] 04-09-2024 Telephone encounter Note Message forwarded to Dr. Wade. [facility] 04-09-2024 Miscellaneous Notes Message forwarded to Dr. Wade. Please advise her to increase the morning dose of NPH to 18 units daily, and send the glucose log in 4 to 5 days after the mentioned change It is suggestible to eat complex carbs and more protein rich food, as opposed to simple/refined carbs which can spike the glucose levels Acacia, SRB Reviewed and fasting BG's and after dinner still elevated. It looks like she has seen endocrinology. Some concern for underlying diabetes, and the increases in NPH so far have not been bringing down her blood sugar. Will route to endo to assistance Augustin Garcia is a 38 year old female who reports glucose readings as noted. Meal # 1 = Breakfast or first meal of day, Meal # 2 = Lunch, # 3 = Evening meal DATE 04/03/24 04/04/24 04/05/24 04/06/24 Fasting 116 129 101 110 Post Meal #1 139 135 104 Post Meal # 2 133 192 Post Meal # 3 177 188 135 Any low blood sugars during this period of reporting No Patient's diabetes medications as follows: Humulin N NPH-14 units before breakfast and 46 units before bed Insulin Lispro-6 units daily with dinner Pt has upcoming appt 04/09/24. Marquita Cary RN documented in this encounter [facility] 04-08-2024 Telephone encounter Note Please advise her to increase the morning dose of NPH to 18 units daily, and send the glucose log in 4 to 5 days after the mentioned change It is suggestible to eat complex carbs and more protein rich food, as opposed to simple/refined carbs which can spike the glucose levels Acacia, SRB [facility] Work Phone: 04-06-2024 Telephone encounter Note Reviewed and fasting BG's and after dinner still elevated. It looks like she has seen endocrinology. Some concern for underlying diabetes, and the increases in NPH so far have not been bringing down her blood sugar. Will route to endo to assistance [facility] 04-06-2024 Telephone encounter Note Augustin Garcia is a 38 year old female who reports glucose readings as noted. Meal # 1 = Breakfast or first meal of day, Meal # 2 = Lunch, # 3 = Evening meal DATE 04/03/24 04/04/24 04/05/24 04/06/24 Fasting 116 129 101 110 Post Meal #1 139 135 104 Post Meal # 2 133 192 Post Meal # 3 177 188 135 Any low blood sugars during this period of reporting No Patient's diabetes medications as follows: Humulin N NPH-14 units before breakfast and 46 units before bed Insulin Lispro-6 units daily with dinner Pt has upcoming appt 04/09/24. Marquita Cary, RN [facility] 04-02-2024 History of Presen t illness Narrative NST SUMMARY PROVIDER ASSESSMENT AND INTERPRETATION Augustin Garcia is a 38 year old female, , who is at 33w6d with an CLEO of 05/15/2024, by Last Menstrual Period dating method. Indications for NST: Gestational Diabetes - Insulin Controlled Baseline: 135 Variability: Moderate Accelerations: Present 15 X 15 Decelerations: None Contractions: TOCO: None Interpretation: Reactive SIGNATURE: Jordy Marie MD documented in this encounter [facility] 04-02-2024 Progress note Formatting of t his note might be different from the original. KJ - VB No. LOF No. CTXS No. Movement: present. Other c/o: No. Medication list reviewed. Physical Exam See Flow Sheet Gen: no accute distress, well appearing A/P 33w6d Estimated Date of Delivery: 05/15/24 GDMA - [id number], PPBS are sometimes 2 hours after meals. PP breakfast 105-126. PPL 86-138. PP dinner 132-203. Encourage diet compliance & checking BS at a consistent time after meals. Will increase NPH and add lispro with dinner. Discussed importance of eating immediately after injecting lispro. All questions answered. Discussed that she may need delivery at 37-38 weeks for uncontrolled GDM Reactive NST today Growth US next week H/o PE - continue lovenox PTL precautions reviewed, Kick counts reviewed Medical Decision Making: Problems: Moderate: 1+ chronic illnesses with change Risk: Moderate: Drug management Medical Decision Making Level: 4 - Moderate Jordy Marie MD [facility] 04-02-2024 Miscellaneous Notes KJ - VB No. LOF No. CTXS No. Movement: present. Other c/o: No. Medication list reviewed. Physical Exam See Flow Sheet Gen: no accute distress, well appearing A/P 33w6d Estimated Date of Delivery: 05/15/24 GDMA - [id number], PPBS are sometimes 2 hours after meals. PP breakfast 105-126. PPL 86-138. PP dinner 132-203. Encourage diet compliance & checking BS at a consistent time after meals. Will increase NPH and add lispro with dinner. Discussed importance of eating immediately after injecting lispro. All questions answered. Discussed that she may need delivery at 37-38 weeks for uncontrolled GDM Reactive NST today Growth US next week H/o PE - continue lovenox PTL precautions reviewed, Kick counts reviewed Medical Decision Making: Problems: Moderate: 1+ chronic illnesses with change Risk: Moderate: Drug management Medical Decision Making Level: 4 - Moderate Jordy Marie MD documented in this encounter [facility] 04-02-2024 Instructions Malina Lockhart MA - 04/02/2024 1:20 PM EDT SEQUENTIAL SCREENINGS The [facility] offers sequential screenings for women who are interested in screenings for chromosomal abnormalities and certain defects during a . The sequential screen combines ultrasound and blood tests to determine the risk of chromosomal abnormalities, including Down's Syndrome (Trisomy 21) and Trisomy 18, as well as open neural tube defects including spina bifida. Ultrasound examination is performed between 11 weeks and 13 weeks gestational age. Blood tests are drawn after the ultrasound and again later in the between 15 and 21 weeks gestational age. Please let your physician know if you are interested in this testing. It will require an appointment with our power technician. This is not an ultrasound performed by a physician in our office during a routine visit. SIGNS AND SYMPTOMS OF LABOR 1. Contractions every 10 minutes or more often 2. Clear, pink, or brownish fluid (water) leaking from vagina 3. Feeling that baby is pushing down, pressure 4. Low, dull backache 5. Cramps that feel like a period 6. Cramps with or without diarrhea If you notice any of the above symptoms, contact our office at [phone] and ask to speak with a nurse. After hours, you can call [facility] at [phone] OR call [facility] at [phone] and ask to have the doctor consulting marine engineer paged. If you consider this an emergency, dial 9-1-4 or go to your nearest emergency department. NEED HELP? Are you dealing with a violent or abusive relationship? Are you a victim of rape or sexual assult? Call [facility] ([place]) 24 hour Crisis Hotline: 505.707.5628 or 152-921-3619. MANUAL Your Guide to a Healthy manual is now on-line. Visit [email or web address] ancyGuide to download your free copy documented in this encounter [facility] 03-24-2024 History of Presen t illness Narrative NST SUMMARY PROVIDER ASSESSMENT AND INTERPRETATION Augustin Garcia is a 38 year old female, , who is at 32w4d with an CLEO of 05/15/2024, by Last Menstrual Period dating method. Indications for NST: AMA and Diabetes - Insulin Controlled Baseline: 135 Variability: Moderate Accelerations: Present 15 X 15 Decelerations: None Contractions: TOCO: None Interpretation: Category I and Reactive SIGNATURE: Samantha Fields MD documented in this encounter [facility] 03-24-2024 Progress note Formatting of t his note might be different from the original. RR- VB No. LOF No. CTXS No. Movement: present. Other c/o: Had one low blood sugar in the 50s last week overnight. Medication list reviewed. Physical Exam See Flow Sheet Abd: soft, nontender, gravid Ext: edema: Trace A/P 32w4d Estimated Date of Delivery: 05/15/24 GDMA2- [place] still in the 110s or so. Encouraged snack before bed as goes at times 12 hrs without eating. Cont. current insulin doses with this adjustment of evening snack. Adjsted insulin to 40 units qhs yesterday. NST today reactive has growth US ordered f/u in 1 week or prn. AMA - cont. antepartum testing as scheduled US for growth scheduled Samantha Fields M.D. [facility] 03-24-2024 Miscellaneous Notes RR- VB No. LOF No. CTXS No. Movement: present. Other c/o: Had one low blood sugar in the 50s last week overnight. Medication list reviewed. Physical Exam See Flow Sheet Abd: soft, nontender, gravid Ext: edema: Trace A/P 32w4d Estimated Date of Delivery: 05/15/24 GDMA2- [place] still in the 110s or so. Encouraged snack before bed as goes at times 12 hrs without eating. Cont. current insulin doses with this adjustment of evening snack. Adjsted insulin to 40 units qhs yesterday. NST today reactive has growth US ordered f/u in 1 week or prn. AMA - cont. antepartum testing as scheduled US for growth scheduled Samantha Fields M.D. documented in this encounter [facility] 03-24-2024 Instructions Erica Mackay MA - 03/24/2024 1:43 PM EDT SEQUENTIAL SCREENINGS The [facility] offers sequential screenings for women who are interested in screenings for chromosomal abnormalities and certain defects during a . The sequential screen combines ultrasound and blood tests to determine the risk of chromosomal abnormalities, including Down's Syndrome (Trisomy 21) and Trisomy 18, as well as open neural tube defects including spina bifida. Ultrasound examination is performed between 11 weeks and 13 weeks gestational age. Blood tests are drawn after the ultrasound and again later in the between 15 and 21 weeks gestational age. Please let your physician know if you are interested in this testing. It will require an appointment with our power technician. This is not an ultrasound performed by a physician in our office during a routine visit. SIGNS AND SYMPTOMS OF LABOR 1. Contractions every 10 minutes or more often 2. Clear, pink, or brownish fluid (water) leaking from vagina 3. Feeling that baby is pushing down, pressure 4. Low, dull backache 5. Cramps that feel like a period 6. Cramps with or without diarrhea If you notice any of the above symptoms, contact our office at [phone] and ask to speak with a nurse. After hours, you can call doctors registry at [phone] OR call [facility] at [phone] and ask to have the doctor consulting marine engineer paged. If you consider this an emergency, dial 9--1 or go to your nearest emergency department. NEED HELP? Are you dealing with a violent or abusive relationship? Are you a victim of rape or sexual assult? Call [facility] ([place]) 24 hour Crisis Hotline: 411.352.1896 or 785-756-4129. MANUAL Your Guide to a Healthy manual is now on-line. Visit [email or web address] ancyGuide to download your free copy documented in this encounter [facility] 03-17-2024 Telephone encounter Note Patient given message. She is aware to call blood sugars in on Saturday. [facility] 03-17-2024 Miscellaneous Notes Patient given message. She is aware to call blood sugars in on Saturday. Left message for patient to call office. Lynn Kunz, RADHA Thank you for the update. I canceled the [facility] GDM consult so they shouldn't contact her anymore. She can call her BS to me. I am going to manage them w/ askiing [facility] if assistance needed. I would like her to increase her insulin to 30 units at bed and continue the 12 units before breakfast. Call BS at end of the week. Samantha Fields MD 31w3d Augustin Garcia is a 38 year old female who reports glucose readings as noted. States that she keeps receiving calls from [facility] Gestational Diabetes dept to schedule, but said RR told her that she did not need an appointment with them. Is this correct? She also has an eye exam with her family eye doctor, [facility] in [place] to have her eyes dilated. DATE 03/11 03/12 03/13 03/14 03/15 03/16 Fasting 137 134 117 153 142 162 Post Meal #1 102 137 --- 113 130 114 Post Meal # 2 111 116 86 --- 116 Post Meal # 3 151 137 153 149 139 Lynn Kunz, RN documented in this encounter [facility] 03-17-2024 Telephone encounter Note Left message for patient to call office. Lynn Kunz, RN [facility] 03-17-2024 Telephone encounter Note Thank you for the update. I canceled the [facility] GDM consult so they shouldn't contact her anymore. She can call her BS to me. I am going to manage them w/ askiing [facility] if assistance needed. I would like her to increase her insulin to 30 units at bed and continue the 12 units before breakfast. Call BS at end of the week. Samantha Fields MD [facility] 03-16-2024 Telephone encounter Note 31w3d Augustin Garcia is a 38 year old female who reports glucose readings as noted. States that she keeps receiving calls from [facility] Gestational Diabetes dept to schedule, but said RR told her that she did not need an appointment with them. Is this correct? She also has an eye exam with her family eye doctor, [facility] in [place] to have her eyes dilated. DATE 03/11 03/12 03/13 03/14 03/15 03/16 Fasting 137 134 117 153 142 162 Post Meal #1 102 137 --- 113 130 114 Post Meal # 2 111 116 86 --- 116 Post Meal # 3 151 137 153 149 139 Lynn Kunz, RN [facility] 03-10-2024 Note Addended by: SAMANTHA FIELDS on: 03/10/2024 11:09 AM Modules accepted: Orders [facility] 03-10-2024 Miscellaneous Notes Addended by: SAMANTHA FIELDS on: 03/10/2024 11:09 AM Modules accepted: Orders RR- VB No. LOF No. CTXS No. Movement: present. Other c/o: ALEXANDRA intermittent when it is hot,s he has had them her whole life w/ heat. Takes tylenol as needed Medication list reviewed. Physical Exam See Flow Sheet Abd: soft, nontender, gravid Ext: edema: 1+ A/P 30w4d Estimated Date of Delivery: 05/15/24 . GDM type 2, d/w her MFM consult, declines. D/w MFM her BS today and we will try to adjust am insulin to before breakfast 12 units and qhs TO 20 UNITS to see if we can get fasting BS down F/u for growth scan for AMA, GDM in 2 weeks start antepartum surveillance in 2 weeks kick counts h/o PE- on loevnox, cont. current dose ALEXANDRA intermittent, tylenol helps, declines rx for other med- reglan recommend opthomology consult due to suspected pregestational DM. D/w pt and order in. Samantha Fields M.D. documented in this encounter [facility] 03-10-2024 Progress note Formatting of t his note might be different from the original. RR- VB No. LOF No. CTXS No. Movement: present. Other c/o: ALEXANDRA intermittent when it is hot,s he has had them her whole life w/ heat. Takes tylenol as needed Medication list reviewed. Physical Exam See Flow Sheet Abd: soft, nontender, gravid Ext: edema: 1+ A/P 30w4d Estimated Date of Delivery: 05/15/24 . GDM type 2, d/w her MFM consult, declines. D/w MFM her BS today and we will try to adjust am insulin to before breakfast 12 units and qhs TO 20 UNITS to see if we can get fasting BS down F/u for growth scan for AMA, GDM in 2 weeks start antepartum surveillance in 2 weeks kick counts h/o PE- on loevnox, cont. current dose ALEXANDRA intermittent, tylenol helps, declines rx for other med- reglan recommend opthomology consult due to suspected pregestational DM. D/w pt and order in. Samantha Fields M.D. [facility] 03-10-2024 Instructions Erica Mackay MA - 03/10/2024 10:42 AM EDT SEQUENTIAL SCREENINGS The [facility] offers sequential screenings for women who are interested in screenings for chromosomal abnormalities and certain defects during a . The sequential screen combines ultrasound and blood tests to determine the risk of chromosomal abnormalities, including Down's Syndrome (Trisomy 21) and Trisomy 18, as well as open neural tube defects including spina bifida. Ultrasound examination is performed between 11 weeks and 13 weeks gestational age. Blood tests are drawn after the ultrasound and again later in the between 15 and 21 weeks gestational age. Please let your physician know if you are interested in this testing. It will require an appointment with our power technician. This is not an ultrasound performed by a physician in our office during a routine visit. SIGNS AND SYMPTOMS OF LABOR 1. Contractions every 10 minutes or more often 2. Clear, pink, or brownish fluid (water) leaking from vagina 3. Feeling that baby is pushing down, pressure 4. Low, dull backache 5. Cramps that feel like a period 6. Cramps with or without diarrhea If you notice any of the above symptoms, contact our office at [phone] and ask to speak with a nurse. After hours, you can call doctors registry at [phone] OR call [facility] at [phone] and ask to have the doctor consulting marine engineer paged. If you consider this an emergency, dial 9--7 or go to your nearest emergency department. NEED HELP? Are you dealing with a violent or abusive relationship? Are you a victim of rape or sexual assult? Call [facility] ([place]) 24 hour Crisis Hotline: 892.652.9402 or 119-539-9541. MANUAL Your Guide to a Healthy manual is now on-line. Visit [email or web address] ancyGuide to download your free copy documented in this encounter [facility] 03-09-2024 Telephone encounter Note Left voicemail for patient to call back to schedule MFM consult. [facility] 03-09-2024 Miscellaneous Notes Left voicemail for patient to call back to schedule MFM consult. documented in this encounter [facility] 03-04-2024 Telephone encounter Note Phoned patient. Left voicemail to relay message as below. Covering for Dr. Carter Can increase NPH 12 before lunch and 14 before dinner. Please ask her to send BG in a week again. I placed a referral to [facility], she should establish care with them. Thanks Lance Cui MD Endocrinology & Metabolism [place] Gave phone number in case patient has questions. Lynn Brand MA [facility] 03-04-2024 Miscellaneous Notes Phoned patient. Left voicemail to relay message as below. Covering for Dr. Carter Can increase NPH 12 before lunch and 14 before dinner. Please ask her to send BG in a week again. I placed a referral to [facility], she should establish care with them. Thanks Lance Cui MD Endocrinology & Metabolism [place] Gave phone number in case patient has questions. Lynn Brand MA Covering for Dr. Carter Can increase NPH 12 before lunch and 14 before dinner. Please ask her to send BG in a week again. I placed a referral to [facility], she should establish care with them. Does she have a CGM? If not, we can order one. Thanks Lance Cui MD Endocrinology & Metabolism [place] Looks like she is being managed by endocrinology. To route to endo thanks Patient 29w3d calling to report her blood sugars. Patient currently taking 10 units of NPH before lunch and 14 units before dinner. Patient has already been seen by endocrinology. DATE 02/24 02/25 02/26 02/27 02/28 03/01 03/02 Fasting 143 144 124 134 144 150 143 Post Meal #1 104 125 missed 126 121 106 Post Meal # 2 93 127 80 113 missed 145 Post Meal # 3 148 129 123 171 missed 172 Per patient post meals are 1-2 hours, not always the same. Patient states she has noticed since Saturday that she is so tired and does not have any energy at all. Patient is trying to walk after meals, but doesn't always have the energy to do it. Patient states she feels like she can sleep at any time. Patients next appointment on 03/10. Nahomy Rudd RN documented in this encounter [facility] 03-04-2024 Telephone encounter Note Covering for Dr. Carter Can increase NPH 12 before lunch and 14 before dinner. Please ask her to send BG in a week again. I placed a referral to [facility] DM clinic, she should establish care with them. Does she have a CGM? If not, we can order one. Thanks Lance Cui MD Endocrinology & Metabolism [place] [facility] 03-02-2024 Telephone encounter Note Looks like she is being managed by endocrinology. To route to endo thanks [facility] 03-02-2024 Telephone encounter Note Patient 29w3d calling to report her blood sugars. Patient currently taking 10 units of NPH before lunch and 14 units before dinner. Patient has already been seen by endocrinology. DATE 02/24 02/25 02/26 02/27 02/28 03/01 03/02 Fasting 143 144 124 134 144 150 143 Post Meal #1 104 125 missed 126 121 106 Post Meal # 2 93 127 80 113 missed 145 Post Meal # 3 148 129 123 171 missed 172 Per patient post meals are 1-2 hours, not always the same. Patient states she has noticed since Saturday that she is so tired and does not have any energy at all. Patient is trying to walk after meals, but doesn't always have the energy to do it. Patient states she feels like she can sleep at any time. Patients next appointment on 03/10. Nahomy Rudd RN [facility] 02-24-2024 Note Indication Evaluation of growth Advanced maternal age, Obesity, BMI >30, H/O PE on Lovenox, Gestational diabetes Impression REMOTE READ 1. Single, live, intrauterine . 2. Estimated weight is 1406g, 77%ile 3. Amniotic fluid is normal amount. 4. The placenta is posterior, fundal. 5. Normal limited anatomy as detailed below. Recommendations Growth in four weeks Maternal Assessment Height 165 cm Height (ft) 5 ft Height (in) 5 in Physical Exam Initial weight (lb) 185 lb Initial BMI 30.79 kg/m Maternal assessment other: 12 Para 9 Method Transabdominal ultrasound examination Zamora . Number of fetuses: 1 Dating LMP on: 08/09/2023 GA by LMP 28 w + 3 d CLEO by LMP: 05/15/2024 GA by prior assessment 28 w + 3 d CLEO by prior assessment: 05/15/2024 Ultrasound examination on: 02/24/2024 GA by U/S based upon: AC, BPD, Femur, HC GA by U/S 29 w + 0 d CLEO by U/S: 05/11/2024 Assigned: based on stated CLEO, selected on 02/24/2024 Assigned GA 28 w + 3 d Assigned CLEO: 05/15/2024 General Evaluation Cardiac activity present. FHR 158 bpm. movements: present. Presentation: cephalic Placenta: Placental site: posterior, fundal Umbilical cord: 3 vessel cord Amniotic fluid: Amount of AF: normal amount. MVP 5.1 cm. NANCY 15.5 cm. Q1 3.6 cm, Q2 5.1 cm, Q3 3.1 cm, Q4 3.8 cm Growth Overview Exam date GA BPD (mm) HC (mm) AC (mm) FL (mm) HL (mm) EFW (g) 12/30/2023 20w 3d 47.2 43% 180.8 52% 169.4 87% 34.1 74% 31.8 58% 409 85% 02/24/2024 28w 3d 71.3 44% 268.9 58% 260.6 89% 53.8 64% 1406 77% Biometry Standard BPD 71.3 mm 28w 4d 44% Hadlock OFD 96.1 mm 28w 3d 62% Nicolaides HC 268.9 mm 28w 5d 58% Devan AC 260.6 mm 30w 1d 89% Hadlock Femur 53.8 mm 28w 4d 64% Devan EFW 1,406 g 29w 1d 77% Hadlock EFW (lb) 3 lb EFW (oz) 2 oz EFW by: Hadlock (HC-AC-FL) Extended Manager Line 4.5 mm Extremities / Bony Struc FL / HC 0.20 Other Structures FHR 158 bpm Anatomy Lateral ventricles: normal Cavum septi pellucidi: normal Cerebellum: normal Cisterna magna: normal 4-chamber view: normal RVOT view: normal LVOT view: normal 3-vessel view: normal Heart / Thorax Situs: situs solitus (normal) Aortic arch view: normal Diaphragm: normal Stomach: normal Kidneys: normal Bladder: normal Cervical spine: normal Thoracic spine: normal Lumbar spine: normal Sacral spine: normal Gender: Unspecified Wants to know sex: no Performed By: Nahomy Lundberg RDMS, RVT Read By: Sheeba Alberts M.D. [facility] 02-24-2024 Progress note Formatting of t his note might be different from the original. SW- No vb, lof. Having irregular ctx's. Good FM PE: Gen- NAD, well appearing Abd- Gravid See flowsheet A/p 28 wk gestation - A2GDM: Continue following with endocrinology . Growth US today and final report pending. Serial growth q 4 weeks. Discussed twice weekly antepartum testing at 32 weeks, and patient understands the recommendation is for twice weekly but given distance from office and that she has to arrange transportation she requests weekly NST's at 32 weeks and daily FKC's. She understands risks with GDM in and delivery - LARC to sign next visit. She is undecided at this time - control counseling: Questions answered regarding risk with future pregnancies given h/o PE, AMA, and likely pre gestational diabetes. She would like sterilization if section. If vaginal delivery she is considering sterilization vs IUD. Handouts given on IUD's for her to review - 28 wk labs today - PE: Cont Lovenox - RTO 2 wks Isra Wade DO [facility] 02-24-2024 Miscellaneous Notes SW- No vb, lof. Having irregular ctx's. Good FM PE: Gen- NAD, well appearing Abd- Gravid See flowsheet A/p 28 wk gestation - A2GDM: Continue following with endocrinology . Growth US today and final report pending. Serial growth q 4 weeks. Discussed twice weekly antepartum testing at 32 weeks, and patient understands the recommendation is for twice weekly but given distance from office and that she has to arrange transportation she requests weekly NST's at 32 weeks and daily FKC's. She understands risks with GDM in and delivery - LARC to sign next visit. She is undecided at this time - control counseling: Questions answered regarding risk with future pregnancies given h/o PE, AMA, and likely pre gestational diabetes. She would like sterilization if section. If vaginal delivery she is considering sterilization vs IUD. Handouts given on IUD's for her to review - 28 wk labs today - PE: Cont Lovenox - RTO 2 wks Isra Wade DO documented in this encounter [facility] 02-24-2024 Instructions Dania aZpata MA - 02/24/2024 10:15 AM EDT SEQUENTIAL SCREENINGS The [facility] offers sequential screenings for women who are interested in screenings for chromosomal abnormalities and certain defects during a . The sequential screen combines ultrasound and blood tests to determine the risk of chromosomal abnormalities, including Down's Syndrome (Trisomy 21) and Trisomy 18, as well as open neural tube defects including spina bifida. Ultrasound examination is performed between 11 weeks and 13 weeks gestational age. Blood tests are drawn after the ultrasound and again later in the between 15 and 21 weeks gestational age. Please let your physician know if you are interested in this testing. It will require an appointment with our power technician. This is not an ultrasound performed by a physician in our office during a routine visit. SIGNS AND SYMPTOMS OF LABOR 1. Contractions every 10 minutes or more often 2. Clear, pink, or brownish fluid (water) leaking from vagina 3. Feeling that baby is pushing down, pressure 4. Low, dull backache 5. Cramps that feel like a period 6. Cramps with or without diarrhea If you notice any of the above symptoms, contact our office at [phone] and ask to speak with a nurse. After hours, you can call doctors registry at [phone] OR call [facility] at [phone] and ask to have the doctor consulting marine engineer paged. If you consider this an emergency, dial or go to your nearest emergency department. NEED HELP? Are you dealing with a violent or abusive relationship? Are you a victim of rape or sexual assult? Call [facility] ([place] 24 hour Crisis Hotline: 620.829.2900 or 156-819-2600. MANUAL Your Guide to a Healthy manual is now on-line. Visit [email or web address] ancyGuide to download your free copy documented in this encounter [facility] 02-19-2024 Telephone encounter Note Advise patient to increase night dose to 16 units daily please. Also recommend avoiding high carb meals or drinks. Given intermittent spikes post meal, it could most likely be diet related. But she can increase morning dose by 1 unit. Thanks, SRB [facility] 02-19-2024 Miscellaneous Notes Advise patient to increase night dose to 16 units daily please. Also recommend avoiding high carb meals or drinks. Given intermittent spikes post meal, it could most likely be diet related. But she can increase morning dose by 1 unit. Thanks, SRB Needs to be sent to endocrinology who is managing her preexisting DM 27w5d Patient called with most recent blood sugar readings. DATE 02/11 02/12 02/13 02/14 02/15 02/16 02/17 02/18 Fasting 116 122 123 117 141 137 112 144 Post Meal #1 112 98 141 94 No lunch Not done 111 81 Post Meal # 2 124 140 198 (fair food) 96 123 153 193 119 Post Meal # 3 Not done 121 124 Not done Not done 109 136 documented in this encounter [facility] 02-19-2024 Telephone encounter Note Needs to be sent to endocrinology who is managing her preexisting DM [facility] Work Phone: 02-19-2024 Telephone encounter Note 27w5d Patient called with most recent blood sugar readings. DATE 02/11 02/12 02/13 02/14 02/15 02/16 02/17 02/18 Fasting 116 122 123 117 141 137 112 144 Post Meal #1 112 98 141 94 No lunch Not done 111 81 Post Meal # 2 124 140 198 (fair food) 96 123 153 193 119 Post Meal # 3 Not done 121 124 Not done Not done 109 136 [facility] 02-14-2024 Telephone encounter Note Call attempt to Pt - [facility]. Nereida Olmstead RN February 14, 2024 3:35 PM [facility] 02-14-2024 Miscellaneous Notes Call attempt to Pt - [facility]. Nereida Olmstead RN February 14, 2024 3:35 PM Hi, She might need higher doses before dinner, advise increasing NPH to 14 units with dinner. Will she be able to do sliding scale insulin? Please let her know to continue logging her Blood glucose Thanks! If endocrinology is managing please defer to Dr. Carter 26w3d Patient calling in with blood sugar readings. Currently on NPH 10 units before breakfast and 12 units before dinner since 02/04/[address] Carter. DATE 02/03/24 02/04/24 02/05/24 02/06/24 02/07/24 02/08/24 02/09/24 02/10/24 Fasting 123 121 129 129 150 134 132 139 After Breakfast 116 96 64 102 105 108 90 After Lunch 150 142 117 115 171 142 After Dinner 148 131 146 164 122 140 146 Other Milkshake at dinner Cookie at lunch Sailaja Shelton RN documented in this encounter [facility] 02-13-2024 Telephone encounter Note Hi, She might need higher doses before dinner, advise increasing NPH to 14 units with dinner. Will she be able to do sliding scale insulin? Please let her know to continue logging her Blood glucose Thanks! [facility] 02-10-2024 Telephone encounter Note If endocrinology is managing please defer to Dr. Carter [facility] Work Phone: 02-10-2024 Telephone encounter Note 26w3d Patient calling in with blood sugar readings. Currently on NPH 10 units before breakfast and 12 units before dinner since 02/04/[address] Carter. DATE 02/03/24 02/04/24 02/05/24 02/06/24 02/07/24 02/08/24 02/09/24 02/10/24 Fasting 123 121 129 129 150 134 132 139 After Breakfast 116 96 64 102 105 108 90 After Lunch 150 142 117 115 171 142 After Dinner 148 131 146 164 122 140 146 Other Milkshake at dinner Cookie at lunch Sailaja Shelton RN [facility] 02-04-2024 Instructions Faisal Carter MD - 02/04/2024 10:32 AM EDT Please take 10 units of NPH before breakfast and 12 units in the before dinner documented in this encounter [facility] 02-04-2024 History of Presen t illness Narrative [facility] Initial Clinic Visit Note Referred by: Siri Narvaez APRN. CNM Chief complaint: Diabetes Mellitus during History of present illness: Augustin Garcia is a 38 year old female with history of bilateral PE at 9 weeks of is presenting for evlaution of diabetes mellitus This is her 11th . She was told that she had GDM during last and then now Now at 25 weeks of gestation. CLEO is May 15 She was started on NPH 12 units about 2 weeks ago and was increased 16 units a week later, then increased to 18 units last week Denies any oral medication use in the past Denies missing any doses, using abdomen for insulin injections, and for lovenox For Bilateral PE at 9 weeks of - she is on lovenox Hba1c 6.3% at 12-13 weeks of gestation No hyperglycemic symptoms reported No known micro or macrovascular complications. She denies any eye exam done between last and this She has not seen diabetes education/dietitian in the past. She was offered a booklet guide to diabetes management by OBGYN and reports being helpful . Blood sugars -Self monitoring of blood sugar via fingerstick: 4 x daily -Brought blood glucose log for review: yes -BG log reviewed: --Fastins-140s --2 hours post breakfast: ranging from 100s-120s, one reading with 80 --2 hours post lunch- ranging from 110s-150s --2 hours post dinner- ranging from 100s-150s . Hypoglycemia -Hypoglycemic episodes: occasionally -Frequency and timing of hypoglycemia: most often occurs if she eats a high protein meal -Hypoglycemia awareness: yes, feels shaky . Lifestyle -Exercise: walks only on some days of the week -Diet: Breakfast: Lunch: Dinner: eating keto food items on few meals ROS: SYSTEMIC: Denies fatigue, malaise, energy, Weight has been stable, heat/cold intolerance, polydipsia EYES: Denies blurring of vision, diplopia, pain/discomfort, excessive tearing, swelling of eye lids, bulging, redness, dryness, NECK: Denies goiter, lump, pain/discomfort, dysphagia, hoarseness, sore thorat RESPIRATORY: Denies dyspnea at rest/with exertion, orthopnea cough, pleuritic chest pain, snoring, apnea episodes CARDIOVASCULAR: Chest pain, palpitations, irregular heart beats GASTRO-INTESTINAL:Denies Nausea, vomiting, abdominal pain, hyperdefecation, rectal bleeding NEUROLOGICAL: Denies dizziness, lightheadedness, weakness, cramping, numbness/tingling of extremities MUSCULOSKELETAL: Denies joint pain, stiffness, swelling, cramping or weakness. GENITOURINARY: Denies polyuria, recurrent UTI/yeast infections SKIN: Denies dryness, brittle nails, hair loss, alopecia, excessive sweating, flushing, darkening of skin PSYCHIATRIC: Denies anxiety, depression, panic attacks, irritability, mood swings Past Medical History PAST MEDICAL HISTORY Diagnosis Date Gestational diabetes Pulmonary embolism (HCC) 10/13/2023 Past Surgical History PAST SURGICAL HISTORY Procedure Laterality Date D&C, DIAG AND/OR THERAPEUTIC 2019 PAST SURGICAL HISTORY OF cyst removed from back Family History FAMILY HISTORY Problem Relation Age of Onset No Known Problems Mother strong maternal side of diabetes - mother not officially diagnosed Hypertension Father DVT Sister other (gestational diabetes) Sister No Known Problems Sister No Known Problems Sister No Known Problems Sister No Known Problems Sister No Known Problems Sister No Known Problems Brother No Known Problems Brother No Known Problems Brother Diabetes Maternal Grandmother No Known Problems Maternal Grandfather No Known Problems Paternal Grandmother No Known Problems Paternal Grandfather Social History Social History Tobacco Use Smoking status: Never Smokeless tobacco: Never Vaping Use Vaping Use: Never used Substance Use Topics Alcohol use: Never Drug use: Never Allergies ALLERGIES No Known Allergies Current Medications Current Outpatient Medications Medication Sig Dispense Refill Chromium Picolinate 200 mcg tab Take 1 tablet by mouth three times a day. HUMULIN N NPH U-100 INSULIN 100 unit/mL injection Inject 18 Units subcutaneously daily at bedtime. 10 mL 1 enoxaparin (LOVENOX) 80 mg/0.8 mL INJECT CONTENTS OF ONE SYRINGE SUBCUTANEOUSLY EVERY TWELVE HOURS 0.8 mL 2 Insulin Syringe-Needle U-100 0.3 mL 31 gauge x 5/16 1 Each daily at bedtime. 100 Each 1 folic acid 1 mg tablet Take 1 tablet by mouth once daily. 100 tablet 1 ferrous sulfate 325 mg (65 mg iron) tablet Take 1 tablet by mouth every other day. 30 tablet 2 blood sugar diagnostic test strip Use as directed to check glucose levels up to seven times daily. 200 Strip 8 Lancets Use as directed to check glucose levels up to seven times daily. 200 Each 8 alcohol swabs (ALCOHOL PREP PADS) Use as directed to check glucose levels up to seven times daily. 200 Each 8 docosahexaenoic acid/epa (FISH OIL ORAL) Take 2 capsules by mouth three times a day. ascorbic acid (VITAMIN C ORAL) Take 1 tablet by mouth two times a day. PNV no.95/ferrous fum/folic ac ( ORAL) Take 1 Tablespoonful by mouth once daily. OTC PRODUCT Super Greens: Take one capsule by mouth three times weekly. (Patient not taking: Reported on 02/04/2024) No current facility-administered medications for this visit. Vitals: 02/04/24 0956 BP: 102/76 BP Site: Right Arm BP Position: Sitting BP Cuff Size: Regular Adult Pulse: 90 Resp: 17 SpO2: 97% Weight: 85.5 kg (188 lb 9.6 oz) Height: 162.6 cm (5' 4) Physical Exam GENERAL: Well nourished, obese, well hydrated, in no distress and oriented x 3 EYES: no thyroid eye signs, EOMI NECK: , no tenderness and adenopathy THYROID: Non-tender to palpable, no evidence of goiter, no nodules palpable LUNGS: Unlabored on room air HEART: regular rate and rhythm GI: Gravid abdomen, nontender. Injections sites without lipodystrophy EXTREMITIES: no edema NEURO: normal strength, no tremor OTHER: Acanthosis None Labs: Latest Ref Rng 11/22/2023 12/03/2023 12/17/2023 Hemoglobin A1C 4.3 - 5.6 % 6.3 (H) Estimated Average Glucose mg/dL 134 Glucose Scrn, Preg 74 - 134 mg/dL 187 (H) Glucose GST, Fasting 74 - 94 mg/dL 164 (H) Glucose GST, 1 Hr 74 - 179 mg/dL 301 (H) Glucose GST, 2 Hr 74 - 154 mg/dL 229 (H) Glucose GST, 3 Hr 74 - 139 mg/dL 112 Legend: (H) High Assessment and Plan Augustin Garcia is a 38 year old female with diabetes mellitus during presenting for initial visit for evaluation and management of the same In addition, she has a hx of bilateral PE diagnosed at 9 weeks of , unclear etiology at this time, and is currently on lovenox Pre-existing DM type 2, complicated by , now in second trimester -A1c 6.3% at 12 to 13 weeks of gestation and hence likely has pre-existing diabetes -Current regimen: NPH 18 units at bedtime -Will change regimen to NPH 10 units before breakfast and 12 units before dinner Recommended changes sites for insulin to thighs, upper buttocks and back of arms as needed to avoid injecting at same sites -Instructed on side effects of hypoglycemia. Reviewed possible increase in doses of insulin as advances -Check blood sugar on fasting and 2 hrs after meals -Call if blood sugar consistently <80 mg/dl or >200 mg/dl -Lifestyle modifications (avoiding refined carbs in diet, exercise as tolerated)have been discussed with the patient --Offered dietitian visit for meal planning but she would like to try with resources given on today's visit and by OBGYN - reviewed complications from uncontrolled BG during #Blood Pressure -Today BP 102/76 -Currently not on antihypertensive regimen # Lipids: - might be altered by . - no indication for statins - low cholesterol diet suggested Scripts sent to pharmacy of pt choice: Yes RTC in 1 month I have confirmed and edited as necessary, the past medical, surgical, family, and social history as obtained by others. Medical Decision Making: Problems: Moderate: New problem with uncertain prognosis Data: Unique source(s) for external note(s) reviewed: 1 Unique test result(s) reviewed: 3+ Unique test(s) ordered: 3+ Independent interpretation of test from other physician/QHCP Risk: Moderate: Drug management Medical Decision Making Level: 4 - Moderate Faisal Carter MD Endocrinology Associate Staff [facility] Endocrinology and Metabolism [place] [phone] documented in this encounter [facility] 02-03-2024 Telephone encounter Note Patient notified and voiced understanding of below information and instructions. Nahomy Rudd RN [facility] 02-03-2024 Miscellaneous Notes Patient notified and voiced understanding of below information and instructions. Nahomy Rudd RN Left message to call office. Nahomy Rudd RN If SOB and tachycardia was short lived after exercise, would not be concerned. If has only happened twice in 2 weeks not concerned about recurrent PE. Fatigue is common in . If persistent SOB or significant chest pain that persists then to ED for eval. I won't adjust insulin, will wait for endocrine input tomorrow. Push fluids, try to keep blood sugars stable and do some light exercise daily to increase exercise tolerance. Samantha Fields MD Patient 25w3d calling to update office with her blood sugars. Patient last seen in office on 01/27/24. See below. DATE 01/27 01/28 01/29 (patient cheated this day) 01/30 01/31 02/01 02/02 Fasting 106 140 144 145 144 148 123 Post Meal #1 107 134 161 80 122 139 (3 hours after meal) 116 Post Meal # 2 122 177 120 124 192 (no exercise) Post Meal # 3 108 151 151 148 154 (no exercise) Patient's diabetes medications as follows: NPH insulin 18 units at bedtime Patient seeing endocrinology tomorrow Patient also concerned about increased heart rate episode 2 weeks ago. Patient states her heart rate was in the 130's after walking and then she was short of breath for a few minutes, but is concerned that she became so exhausted the remainder of the day. Patient states another episode occurred this Saturday as well. Patient does have a history of B/L PE this . Nahomy Rudd RN documented in this encounter [facility] 02-03-2024 Telephone encounter Note Left message to call office. Nahomy Rudd RN [facility] 02-03-2024 Telephone encounter Note If SOB and tachycardia was short lived after exercise, would not be concerned. If has only happened twice in 2 weeks not concerned about recurrent PE. Fatigue is common in . If persistent SOB or significant chest pain that persists then to ED for eval. I won't adjust insulin, will wait for endocrine input tomorrow. Push fluids, try to keep blood sugars stable and do some light exercise daily to increase exercise tolerance. Samantha Fields MD [facility] 02-03-2024 Telephone encounter Note Patient 25w3d calling to update office with her blood sugars. Patient last seen in office on 01/27/24. See below. DATE 01/27 01/28 01/29 (patient cheated this day) 01/30 01/31 02/01 02/02 Fasting 106 140 144 145 144 148 123 Post Meal #1 107 134 161 80 122 139 (3 hours after meal) 116 Post Meal # 2 122 177 120 124 192 (no exercise) Post Meal # 3 108 151 151 148 154 (no exercise) Patient's diabetes medications as follows: NPH insulin 18 units at bedtime Patient seeing endocrinology tomorrow Patient also concerned about increased heart rate episode 2 weeks ago. Patient states her heart rate was in the 130's after walking and then she was short of breath for a few minutes, but is concerned that she became so exhausted the remainder of the day. Patient states another episode occurred this Saturday as well. Patient does have a history of B/L PE this . Nahomy Rudd RN [facility] 01-27-2024 Telephone encounter Note Noted thanks [facility] 01-27-2024 Miscellaneous Notes Noted thanks Received call from [facility] pharmacy. Lovenox RX was written to dispense 0.8 ml which would only last her a day. Pharmacy will dispense 48 ml which is a 30 days supply. ALHAJI. Lynn Kunz RN documented in this encounter [facility] 01-27-2024 Telephone encounter Note Received call from [facility] pharmacy. Lovenox RX was written to dispense 0.8 ml which would only last her a day. Pharmacy will dispense 48 ml which is a 30 days supply. FYI. Lynn Kunz RN [facility] 01-27-2024 Miscellaneous Notes SW- Pt doing well. No pain, vb, lof. +FM. PE: Gen- NAD, well appearing Abd- Soft, gravid NT, FHT 160 bpm See flowsheet Ap 24 wk gestation - 28 wk labs ordered - A2GDM: All fasting BG's elevated. Increase NPH at bedtime to 18 units. Discussed risks with diabetes in . Growth US's ordered q 4 weeks - Refill sent of Lovenox - RTP 4 wks for US and visit after Isra Wade DO documented in this encounter [facility] 01-27-2024 Progress note Formatting of t his note might be different from the original. SW- Pt doing well. No pain, vb, lof. +FM. PE: Gen- NAD, well appearing Abd- Soft, gravid NT, FHT 160 bpm See flowsheet Ap 24 wk gestation - 28 wk labs ordered - A2GDM: All fasting BG's elevated. Increase NPH at bedtime to 18 units. Discussed risks with diabetes in . Growth US's ordered q 4 weeks - Refill sent of Lovenox - RTP 4 wks for US and visit after Isra Wade DO [facility] 01-27-2024 Instructions Dania Zapata MA - 01/27/2024 8:20 AM EDT SEQUENTIAL SCREENINGS The [facility] offers sequential screenings for women who are interested in screenings for chromosomal abnormalities and certain defects during a . The sequential screen combines ultrasound and blood tests to determine the risk of chromosomal abnormalities, including Down's Syndrome (Trisomy 21) and Trisomy 18, as well as open neural tube defects including spina bifida. Ultrasound examination is performed between 11 weeks and 13 weeks gestational age. Blood tests are drawn after the ultrasound and again later in the between 15 and 21 weeks gestational age. Please let your physician know if you are interested in this testing. It will require an appointment with our power technician. This is not an ultrasound performed by a physician in our office during a routine visit. SIGNS AND SYMPTOMS OF LABOR 1. Contractions every 10 minutes or more often 2. Clear, pink, or brownish fluid (water) leaking from vagina 3. Feeling that baby is pushing down, pressure 4. Low, dull backache 5. Cramps that feel like a period 6. Cramps with or without diarrhea If you notice any of the above symptoms, contact our office at [phone] and ask to speak with a nurse. After hours, you can call doctors registry at [phone] OR call [facility] at [phone] and ask to have the doctor consulting marine engineer paged. If you consider this an emergency, dial -- or go to your nearest emergency department. NEED HELP? Are you dealing with a violent or abusive relationship? Are you a victim of rape or sexual assult? Call [facility] ([place]) 24 hour Crisis Hotline: 483.910.2492 or 324-721-8419. MANUAL Your Guide to a Healthy manual is now on-line. Visit [email or web address] ancyGuide to download your free copy documented in this encounter [facility] 01-21-2024 Telephone encounter Note Left detailed message on identified voicemail. Lynn Kunz RN [facility] 01-21-2024 Miscellaneous Notes Left detailed message on identified voicemail. Lynn Kunz RN Noted. Please have her call Saturday with her fasting blood sugars so we can increase insulin then if needed. Jordy Marie MD Patient calling in with blood sugar results as requested by Dr. Marie Fasting 1hour PP 1 hour PP 1 hour PP dinner 01/16 111 88 99 144 (at birthday democrat) 01/17 144 102 144 142 01/18 151 132 105 134 01/19 160 109 141 can't remember -forgot to write it down 01/20 152 76 Insulin got delivered today. She will start taking it this PM. documented in this encounter [facility] 01-21-2024 Telephone encounter Note Noted. Please have her call Saturday with her fasting blood sugars so we can increase insulin then if needed. Jordy Marie MD [facility] 01-21-2024 Telephone encounter Note Patient calling in with blood sugar results as requested by Dr. Marie Fasting 1hour PP 1 hour PP 1 hour PP dinner 01/16 111 88 99 144 (at birthday democrat) 01/17 144 102 144 142 01/18 151 132 105 134 01/19 160 109 141 can't remember -forgot to write it down 01/20 152 76 Insulin got delivered today. She will start taking it this PM. [facility] 01-16-2024 Progress note Formatting of t his note might be different from the original. KJ - VB No. LOF No. CTXS No. Movement: present. Other c/o: No. Medication list reviewed. Physical Exam See Flow Sheet Gen: no accute distress, well appearing Abd: soft, nontender, gravid A/P 22w6d Estimated Date of Delivery: 05/15/24 PE during this - continue lovenox & sees [facility] heme GDM - patient screened positive early in thus suspect pregestional DM. Endocrinology consult scheduled. BS log reviewed and PPBS overall normal. FBS elevated to 140s. Will start 12 NPH insulin at bedtime. Patient to update office on FBS Saturday so insuling can be adjusted if needed. All questions answered. Jordy Marie MD [facility] 01-16-2024 Miscellaneous Notes KJ - VB No. LOF No. CTXS No. Movement: present. Other c/o: No. Medication list reviewed. Physical Exam See Flow Sheet Gen: no accute distress, well appearing Abd: soft, nontender, gravid A/P 22w6d Estimated Date of Delivery: 05/15/24 PE during this - continue lovenox & sees [facility] heme GDM - patient screened positive early in thus suspect pregestional DM. Endocrinology consult scheduled. BS log reviewed and PPBS overall normal. FBS elevated to 140s. Will start 12 NPH insulin at bedtime. Patient to update office on FBS Saturday AM so insuling can be adjusted if needed. All questions answered. Jordy Marie MD documented in this encounter [facility] 01-16-2024 Instructions Malina Lockhart MA - 01/16/2024 8:44 AM EDT SEQUENTIAL SCREENINGS The [facility] offers sequential screenings for women who are interested in screenings for chromosomal abnormalities and certain defects during a . The sequential screen combines ultrasound and blood tests to determine the risk of chromosomal abnormalities, including Down's Syndrome (Trisomy 21) and Trisomy 18, as well as open neural tube defects including spina bifida. Ultrasound examination is performed between 11 weeks and 13 weeks gestational age. Blood tests are drawn after the ultrasound and again later in the between 15 and 21 weeks gestational age. Please let your physician know if you are interested in this testing. It will require an appointment with our power technician. This is not an ultrasound performed by a physician in our office during a routine visit. SIGNS AND SYMPTOMS OF LABOR 1. Contractions every 10 minutes or more often 2. Clear, pink, or brownish fluid (water) leaking from vagina 3. Feeling that baby is pushing down, pressure 4. Low, dull backache 5. Cramps that feel like a period 6. Cramps with or without diarrhea If you notice any of the above symptoms, contact our office at [phone] and ask to speak with a nurse. After hours, you can call doctors registry at [phone] OR call [facility] at [phone] and ask to have the doctor consulting marine engineer paged. If you consider this an emergency, dial or go to your nearest emergency department. NEED HELP? Are you dealing with a violent or abusive relationship? Are you a victim of rape or sexual assult? Call [facility] ([place]) 24 hour Crisis Hotline: 129.462.8840 or 175-601-2700. MANUAL Your Guide to a Healthy manual is now on-line. Visit [email or web address] ancyGuide to download your free copy documented in this encounter [facility] 12-30-2023 Miscellaneous Notes NILAM-S: Augustin Garcia is a 38 year old female who presents at 20w3d with CLEO:05/15/2024, by Last Menstrual Period for a routine visit. Denies headache, visual changes, chest pain, shortness of breath, vaginal bleeding, leakage of fluid, or dysuria. Feeling well, no complaints. Anatomy US today. O: See flow sheet Gen: No apparent distress Abd: Gravid, nontender HgbA1C 6.3, 3hr GTT Fasting 120-180, 1hr 121-200, did not bring log today. Only testing for last week. ASSESSMENT/PLAN: 1. Gestational diabetes mellitus (GDM) in second trimester, gestational diabetes method of control unspecified 2. AMA (advanced maternal age) multigravida 35+, second trimester 3. 20 weeks gestation of P: 1) PTL precautions reviewed and when to call 2) RTO in 2 weeks for follow up as patient does not have phone, mychart, and uncertain of soonest endo appointment. If sooner appt ok to return in 4 week. 3) Endocrinology consult due to elevated fasting and PP numbers, early GDM diagnosis vs preexisting DM, probable insulin for management, and education. To continue testing fasting and 1hr PP and bring log to each visit. 4) Fine Arts Model Referral as patient has many questions about diet, consult placed. 5) Completed hematology consult, continue Lovenox Siri Narvaez APRN.CNM documented in this encounter [facility] 12-30-2023 Taryn Bolden Waldo, MA - 12/30/2023 2:11 PM EDT SEQUENTIAL SCREENINGS The [facility] offers sequential screenings for women who are interested in screenings for chromosomal abnormalities and certain defects during a . The sequential screen combines ultrasound and blood tests to determine the risk of chromosomal abnormalities, including Down's Syndrome (Trisomy 21) and Trisomy 18, as well as open neural tube defects including spina bifida. Ultrasound examination is performed between 11 weeks and 13 weeks gestational age. Blood tests are drawn after the ultrasound and again later in the between 15 and 21 weeks gestational age. Please let your physician know if you are interested in this testing. It will require an appointment with our power technician. This is not an ultrasound performed by a physician in our office during a routine visit. SIGNS AND SYMPTOMS OF LABOR 1. Contractions every 10 minutes or more often 2. Clear, pink, or brownish fluid (water) leaking from vagina 3. Feeling that baby is pushing down, pressure 4. Low, dull backache 5. Cramps that feel like a period 6. Cramps with or without diarrhea If you notice any of the above symptoms, contact our office at [phone] and ask to speak with a nurse. After hours, you can call doctors registry at [phone] OR call [facility] at [phone] and ask to have the doctor consulting marine engineer paged. If you consider this an emergency, dial 9-1-1 or go to your nearest emergency department. NEED HELP? Are you dealing with a violent or abusive relationship? Are you a victim of rape or sexual assult? Call [facility] [place] ([place]) 24 hour Crisis Hotline: 465.917.5345 or 377-867-3574. MANUAL Your Guide to a Healthy manual is now on-line. Visit [email or web address] to download your free copy documented in this encounter [facility] 12-04-2023 Miscellaneous Notes Patient given message. 3 hour GTT scheduled Left message for patient to call office. Lynn Kunz RN Please notify patient: Elevated 1 hour. Recommend 3 hour. Order placed. Bobby Sharp APRN.CNP documented in this encounter [facility] 12-03-2023 History of Presen t illness Narrative HISTORY OF PRESENT ILLNESS: Augustin Garcia is a 38 year old female 17 weeks sudden onset dyspnea. Went to ER, CT scan showed multiple PE. Now on lovenox. Had possible similar symptoms last . Did not get it evaluated, and symptoms resolved in a few weeks. Now feels bettr on ac. 10 previous pregnancies went ok. Sister had a PE with . Other sisters with phlebitis. CLINICAL IMPRESSION: PE in setting of , as such provoked RECOMMENDATION/PLAN: 1. Plan ac through delivery and 6 weeks post . Can re assess after that to check hypercoagulation panel. Written and verbal health teaching given to patient, patient verbalizes understanding and agrees with treatment plan. PAST MEDICAL HISTORY Diagnosis Date Gestational diabetes Pulmonary embolism (HCC) 10/13/2023 PAST SURGICAL HISTORY Procedure Laterality Date D&C, DIAG AND/OR THERAPEUTIC 2018 PAST SURGICAL HISTORY OF cyst removed from back FAMILY HISTORY Problem Relation Age of Onset No Known Problems Mother Hypertension Father DVT Sister Diabetes Sister No Known Problems Sister No Known Problems Sister No Known Problems Sister No Known Problems Sister No Known Problems Sister No Known Problems Brother No Known Problems Brother No Known Problems Brother Diabetes Maternal Grandmother No Known Problems Maternal Grandfather No Known Problems Paternal Grandmother No Known Problems Paternal Grandfather Social History Tobacco Use Smoking status: Never Smokeless tobacco: Never Vaping Use Vaping Use: Never used Substance Use Topics Alcohol use: Never Drug use: Never ALLERGIES: ALLERGIES No Known Allergies CURRENT OUTPATIENT MEDICATIONS: OTC PRODUCT Super Greens: Take one capsule by mouth three times weekly. docosahexaenoic acid/epa (FISH OIL ORAL) Take 2 capsules by mouth three times a day. ferrous sulfate 325 mg (65 mg iron) tablet Take 325 mg by mouth every other day. folic acid 1 mg tablet Take 1 mg by mouth once daily. ascorbic acid (VITAMIN C ORAL) Take 1 tablet by mouth two times a day. PNV no.95/ferrous fum/folic ac ( ORAL) Take 1 Tablespoonful by mouth once daily. enoxaparin (LOVENOX) 80 mg/0.8 mL INJECT CONTENTS OF ONE SYRINGE SUBCUTANEOUSLY EVERY TWELVE HOURS REVIEW OF SYSTEMS: GENERAL: No fever, night sweats, weight loss or malaise. All other reviewed and negative other than HPI. PHYSICAL EXAMINATION: VITAL SIGNS: BP 114/74 Pulse 84 Temp (Src) 98.3 (Temporal) Ht 5' 3.5 (1.61m) Wt 188 lb (85.3kg) SpO2 98% LMP 08/09/2023 BMI 32.78 kg/(m^2). GENERAL APPEARANCE: Well appearing, in no acute distress, alert and oriented x3, well-hydrated, well nourished. I spent a total of 30 minutes on the date of the service which included preparing to see the patient, [id number] patient care, completing clinical documentation, obtaining and/or reviewing separately obtained history, counseling and educating the patient/family/caregiver, independently interpreting results (not separately reported), and communicating results to the patient/family/caregiver. Electronically Signed: Donn Love MD December 03, 2023 11:37 AM documented in this encounter [facility] 11-25-2023 Miscellaneous Notes Patient notified. Lab appointment scheduled. Sailaja Shelton RN Left message for patient to call office. MAKAYLA JOHNSON RN Please notify patient: Hemoglobin A1C elevated, indicating pre diabetes. Early 1 hour indicated. Ordered. Please give instructions to Augustin. Rubella status nonimmune. Vaccination not recommended during . Can have if she wants. To avoid potential infection, although most of the population is immune. Bobby Sharp APRN.HARSHAD documented in this encounter [facility] 11-22-2023 Miscellaneous Notes RR- VB No. LOF No. CTXS No. Movement: absent. Other c/o: No. Medication list reviewed. Physical Exam See Flow Sheet Abd: soft, nontender, gravid, some echymosis from injection sites, no erythema Ext: edema: Trace, multiple soft varicosities A/P 15w0d Estimated Date of Delivery: 05/15/24 Labs: PN labs today declines aneuploidy screeening and carrier screen and hgb screen cancel MFM consult, keep heme consult and cont. lovenox for PE in plans delivery at [facility] Anatomy US scheduled. . Samantha Fields M.D. documented in this encounter [facility] 11-22-2023 Instructions Erica Mackay Ma - 11/22/2023 10:00 AM EST SEQUENTIAL SCREENINGS The [facility] offers sequential screenings for women who are interested in screenings for chromosomal abnormalities and certain defects during a . The sequential screen combines ultrasound and blood tests to determine the risk of chromosomal abnormalities, including Down's Syndrome (Trisomy 21) and Trisomy 18, as well as open neural tube defects including spina bifida. Ultrasound examination is performed between 11 weeks and 13 weeks gestational age. Blood tests are drawn after the ultrasound and again later in the between 15 and 21 weeks gestational age. Please let your physician know if you are interested in this testing. It will require an appointment with our power technician. This is not an ultrasound performed by a physician in our office during a routine visit. SIGNS AND SYMPTOMS OF LABOR 1. Contractions every 10 minutes or more often 2. Clear, pink, or brownish fluid (water) leaking from vagina 3. Feeling that baby is pushing down, pressure 4. Low, dull backache 5. Cramps that feel like a period 6. Cramps with or without diarrhea If you notice any of the above symptoms, contact our office at [phone] and ask to speak with a nurse. After hours, you can call doctors registry at [phone] OR call [facility] at [phone] and ask to have the doctor consulting marine engineer paged. If you consider this an emergency, dial 3--5 or go to your nearest emergency department. NEED HELP? Are you dealing with a violent or abusive relationship? Are you a victim of rape or sexual assult? Call [facility] ([place]) 24 hour Crisis Hotline: 363.821.7952 or 558-582-0743. MANUAL Your Guide to a Healthy manual is now on-line. Visit [email or web address] ancyGuide to download your free copy SEQUENTIAL SCREENINGS The [facility] offers sequential screenings for women who are interested in screenings for chromosomal abnormalities and certain defects during a . The sequential screen combines ultrasound and blood tests to determine the risk of chromosomal abnormalities, including Down's Syndrome (Trisomy 21) and Trisomy 18, as well as open neural tube defects including spina bifida. Ultrasound examination is performed between 11 weeks and 13 weeks gestational age. Blood tests are drawn after the ultrasound and again later in the between 15 and 21 weeks gestational age. Please let your physician know if you are interested in this testing. It will require an appointment with our power technician. This is not an ultrasound performed by a physician in our office during a routine visit. SIGNS AND SYMPTOMS OF LABOR 1. Contractions every 10 minutes or more often 2. Clear, pink, or brownish fluid (water) leaking from vagina 3. Feeling that baby is pushing down, pressure 4. Low, dull backache 5. Cramps that feel like a period 6. Cramps with or without diarrhea If you notice any of the above symptoms, contact our office at [phone] and ask to speak with a nurse. After hours, you can call doctors registry at [phone] OR call [facility] at [phone] and ask to have the doctor consulting marine engineer paged. If you consider this an emergency, dial 8-9-2 or go to your nearest emergency department. NEED HELP? Are you dealing with a violent or abusive relationship? Are you a victim of rape or sexual assult? Call [facility] ([place]) 24 hour Crisis Hotline: 966.669.2303 or 257-117-3634. MANUAL Your Guide to a Healthy manual is now on-line. Visit [email or web address] ancyGuide to download your free copy documented in this encounter [facility] 10-30-2023 Miscellaneous Notes Patient called back and scheduled for 12/03/23 [facility] . Patient requested this date, due to having another appointment Zahida Bonilla I called and left a message for patient to call back to schedule a new patient consult for hematology with the first available provider for history of pulmonary embolism. Zahida Bonilla Pt was inpt at [facility]. I requested images to be pushed (CXR, CTA, and venous doppler) Schedule first available. Carrie Goldman LPN New Patient referral from Bobby Sharp. Please review and advise re; scheduling. Dora Robles documented in this encounter [facility] 10-30-2023 History of Presen t illness Narrative OB point of care ultrasound was performed. Images were not able to be attached to patient's name. Images reviewed by Nahomy Lundberg, who agrees that dates are consistent with LMP. Bobby Sharp APRN.HARSHAD documented in this encounter [facility] 10-25-2023 History of Past i llness Narrative Problem Noted Date Diagnosed Date Resolved Date with uncertain ewa es in first trimester 10/25/2023 11/22/2023 Overview: POCUS consistent with LMP. EH. POCUS images could not be attached to patient's name. Tanja Lundberg reviewed images and attempted to attach to name. Dating consistent with LMP. Keep current CLEO of 05/15/24. Next ultrasound will be anatomy. EH. documented as of this encounter (statuses as of 11/22/2023) [facility] History of Past illness Narrative* Problem Noted Date Diagnosed Date Resolved Date with uncertain ewa es in first trimester 10/25/2023 11/22/2023 Overview: POCUS consistent with LMP. EH. POCUS images could not be attached to patient's name. Tanja Lundberg reviewed images and attempted to attach to name. Dating consistent with LMP. Keep current CLEO of 05/15/24. Next ultrasound will be anatomy. EH. documented as of this encounter (statuses as of 11/25/2023) [facility] History of Past illness Narrative* Problem Noted Date Diagnosed Date Resolved Date with uncertain ewa es in first trimester 10/25/2023 11/22/2023 Overview: POCUS consistent with LMP. EH. POCUS images could not be attached to patient's name. Tanja Lundberg reviewed images and attempted to attach to name. Dating consistent with LMP. Keep current CLEO of 05/15/24. Next ultrasound will be anatomy. EH. documented as of this encounter (statuses as of 12/04/2023) [facility] History of Past illness Narrative* Problem Noted Date Diagnosed Date Resolved Date with uncertain ewa es in first trimester 10/25/2023 11/22/2023 Overview: POCUS consistent with LMP. EH. POCUS images could not be attached to patient's name. Tanja Lundberg reviewed images and attempted to attach to name. Dating consistent with LMP. Keep current CLEO of 05/15/24. Next ultrasound will be anatomy. EH. documented as of this encounter (statuses as of 12/04/2023) [facility] History of Past illness Narrative* Problem Noted Date Diagnosed Date Resolved Date with uncertain ewa es in first trimester 10/25/2023 11/22/2023 Overview: POCUS consistent with LMP. EH. POCUS images could not be attached to patient's name. Tanja Lundberg reviewed images and attempted to attach to name. Dating consistent with LMP. Keep current CLEO of 05/15/24. Next ultrasound will be anatomy. EH. documented as of this encounter (statuses as of 12/30/2023) [facility] History of Past illness Narrative* Problem Noted Date Diagnosed Date Resolved Date with uncertain ewa es in first trimester 10/25/2023 11/22/2023 Overview: POCUS consistent with LMP. EH. POCUS images could not be attached to patient's name. Tanja Lundberg reviewed images and attempted to attach to name. Dating consistent with LMP. Keep current CLEO of 05/15/24. Next ultrasound will be anatomy. EH. documented as of this encounter (statuses as of 12/31/2023) [facility] History of Present illness Narrative* Scalrett Zee LPN - 10/25/2023 7:13 AM EST OB point of care ultrasound was performed. See imaging tab for details. Scarlett Zee LPN [facility] Miscellaneous Notes* Telephone Encounter - Andree Leigh RN - 10/18/2023 12:52 PM EST Spoke with patients . He just spoke with a Physician from [facility] and stated there was an error in the referral. They will be having follow up at [facility]. Andree Leigh RN * Telephone Encounter - Alexandria Taveras - 10/18/2023 11:36 AM EST Spouse called stating that patient is being referred by [facility]. He states [facility] told him that he does not need a referral. Please advise. Entered self pay referral. [facility] Discharge summary Author Gilson Daily [facility] October 15, 2023 8:28am Note Date/Time October 15, 2023 8 :13am [facility] Medical Records Department [address] [place] [address] Discharge Summary 10/15/23 0813 MR#: [id number] Acct: [id number] Name: AUGUSTIN GARCIA Rep #:[id number] : 1985 37 From: Gilson Hernández PCP: Dr. Arie Escoto DO Status:ADM IN Location: [place] [address] Providers Date of Admission: 10/13/23 Primary Care Physician: Dr. Arie Escoto DO Consultations 10/13/23 19:35 Consult: [facility] Technician / Pulmonary Medicine Routine Consulting Provider: Intensivists/Pulmonary Med Reason for Consult: PE EMERGENT Consult: No MD Notified: No Date Notified: 10/13/23 Time Notified: 18:13 10/14/23 00:23 Consult: [facility] Technician / Pulmonary Medicine Routine Consulting Provider: Intensivists/Pulmonary Med Reason for Consult: PE EMERGENT Consult: No Notified: Yes Date Notified: 10/14/23 Time Notified: 00:23 Method of Notification: Verbal Reason For Visit: B PULMONARY EMBOLI Diagnosis Discharge Diagnosis (1) Bilateral pulmonary embolism: Status: Acute Code(s): I26.99 - Other pulmonary embolism without acute cor pulmonale (2) Anemia affecting ninth : Status: Acute Code(s): O99.019 - Anemia complicating , unspecified trimester; O09.40 - Supervision of with grand multiparity, unspecified trimester (3) Hypokalemia: Status: Acute Code(s): E87.6 - Hypokalemia Plan This is a 37-year-old female was admitted with shortness of breath, midsternal chest discomfort and found to be 9 weeks . No previous history of thromboembolic disease. Bilateral pulmonary emboli resulting into moderate RV dilatation/right heart failure and elevated troponin -Not saddle on CT -No right heart strain seen on CT , troponin elevated 866, 1840 and 1985. -BNP is normal -2D echo shows moderate dilatation of RV. EF 60%. Consistent with mild pulmonary hypertension -Patient's heparin drip changed to Lovenox. I talked to balloon maker Dr. Call. He recommended to continue enoxaparin 1 mg/kg body weight till 6 weeks . The patient needs to see him after she completes enoxaparin in hematology clinic for workup for hypercoagulable disorder. -Pulmonary medicine consultation reviewed and appreciated. 10/15: Tachypnea has resolved. Pulse ox 96% on room air. Hypokalemia -40 mill equivalents p.o. potassium Hypokalemia resolved. Abnormal TSH -TSH on presentation was 0.22. Free T4 normal at 0.96. -Suspect euthyroid sick. Repeat thyroid function test after 6 weeks. Microcytic anemia -Suspect patient may be iron deficiency as she is Serum iron 20, TIBC normal. Iron saturation of 5.5% ferritin 16 consistent withiron deficiency anemia. IV iron infusion ordered and then continue oral iron supplement 10/15: Prescriptions given for ferrous sulfate and ascorbic acid and folic acid. 9 week -Nonviable at this point so no PROPERTY CLERK involvement needed at this time -She is -Ultrasound was performed and did demonstrate a viable fetus with a heart rate of 170 -Outpatient follow-up after discharge DVT prophylaxis -Full anticoagulation as noted above CODE STATUS Full code Discharge medication reconciliation done. Discharge follow-up instructions completed. Discharge process discussed with the patient and all questions wereanswered to patient's satisfaction. Follow with PCP in 1 to 2 weeks Total time spent, exact 35 minutes on discharge meds reconciliation, examination, coordination of care with nurses and ancillary staff, review of imaging and blood test and discussion with the patient on follow-up instructions. Clinical Impression(s) from Imaging Studies Chest X-Ray 10/13/23 15:14 IMPRESSION: No radiographic evidence of acute cardiopulmonary disease. Electronically Signed: Bryan Aguirre MD at 15:31 EST , Chest CTA 10/13/23 15:38 IMPRESSION: (NOT LISTED IN ORDER OF SIGNIFICANCE) There is no saddle embolus. There is no heart strain. Bilateral pulmonary emboli. Non standard communication findings protocol was initiated. 10/13/2023 4:29 PM Electronically Signed: Bryan Aguirre MD at 16:31 EST , ADDENDUM: 10/13/23 1647 IMPRESSION: (NOT LISTED IN ORDER OF SIGNIFICANCE) There is no saddle embolus. There is no heart strain. Bilateral pulmonary emboli. Non standard communication findings protocol was initiated. 10/13/2023 4:29 PM N.B. : The above Results were Read Back by Bryan Aguirre MD to AUSTIN George, and understanding confirmed on 10/13/2023 16:40:11 (ET). Electronically Signed: Bryan Aguirre MD at 16:31 EST , Obstetrics Ultrasound 10/13/23 15:38 IMPRESSION: There is a single live intrauterine with a heart rate of 170 bpm. Electronically Signed: Bryan Aguirre MD at 17:45 EST , Echocardiogram 10/14/23 05:55 Interpretation Summary Normal LV size. Left ventricular systolic function is normal. The estimated ejection fraction is 60 %. D shaped septum in diastole. Stage 1 diastolic dysfunction. Moderately dilated right ventricle. Apical sparing noted Mild pulmonary hypertension. Medications at Discharge Home Medications ascorbic acid (vitamin C) 500 mg tablet 500 mg PO BID #60 tabs 10/15/23 enoxaparin 80 mg/0.8 mL subcutaneous syringe 80 mg (0.8 mL) subcut Q12 1 month #48 mL 10/15/23 ferrous sulfate 325 mg (65 mg iron) tablet (FeroSul) 325 mg PO QODAY #30 tabs 10/15/23 folic acid 1 mg tablet 1 mg PO DAILY #30 tabs 10/15/23 Physical Exam Narrative Patient does not have chest pain or shortness of breath. Shortness of breath isimproved. Patient had mild tiny bit coughed up some blood. Seen and examined. Physical exam General: Alert, Oriented x3, Cooperative HEENT: Atraumatic, PERRLA, EOMI, Normocephalic Oral: Oral mucosa moist. No Gingival or Mucosal Lesions/ Ulcerations Neck: Supple, No JVD, Negative Carotid Bruits Lungs: Air entry equal in bilateral lung bases. No crepitation/rhonchi Cardiovascular: Regular rate, Regular Rhythm, P2 not loud. No murmurs Abdomen: Bowel Sounds Present, Soft, Non Tender, Non-Distended : No renal angle tenderness. No suprapubic tenderness. Extremities: No edema, Capillary Refill Less than 3 Seconds Skin: No rashes, No breakdown Musculoskeletal: No Tenderness to Palpation of Joints or Extremities Neurological: Cranial nerves II-XII grossly intact, DTR 2+/4. No acute focal neurological deficit. Psych/Mental Status: Flat affect Weight / BMI Weight Weight: 183 lb 6.793 oz Body Mass Index (BMI) 30.5 ABG / Lab / Microbiology Data 10/14/23 06:35 10/14/23 06:35 Laboratory: Laboratory Results - last 24 hr 10/14/23 06:35: APTT 40.3 H Microbiology: Microbiology 10/13/23 14:55 Mucosa - Nose SARS-CoV-2, Influenza & RSV (PCR) - Final Radiography Diagnostic Testing: Radiology Impression Venous Doppler Study 10/13/23 19:35 Interpretation Summary Deep veins of the bilateral lower extremities are patent and compressible segmentally. There is no evidence of bilateral lower extremity deep vein thrombosis. The bilateral great saphenous veins appear patent and compressible segmentally. Ordering Physician: Lachelle Fletcher Referring Physician: Arie Escoto Performed By: Pauline Martínez RDCS, RVT Echocardiogram 10/14/23 05:55 Interpretation Summary Normal LV size. Left ventricular systolic function is normal. The estimated ejection fraction is 60 %. D shaped septum in diastole. Stage 1 diastolic dysfunction. Moderately dilated right ventricle. Apical sparing noted Mild pulmonary hypertension. Ordering Physician: Lachelle Fletcher Referring Physician: Arie Escoto Performed By: Maria T Aflord RDCS D/C Instructions Discharge Diet: No restrictions Weight Bearing Status: Weight bearing as tolerated Call your doctor if you observe: Fever of 101 or Higher, Coldness, Increased Pain, Numbness or Tingling, Change in Color, Inability to urinate, Inability to have a bowel movement, Using more than 1 pad per hour, Shortness of breath, Dizziness, Fainting spells, Swelling in the ankles, Chest pain, Prolonged hiccupping, Increased palpitations (irregular heartbeat) and Calf discomfort When: IN 2 WEEKS Meaningful Use Info Meaningful Use Diagnoses (Choose all that apply): VTE VTE Anticoag overlap given w/in hospital stay or rx'd at dc?: Yes Pt receive overlap for 5 days?: No Reason overlap not ordered, prescribed, or given for 5 days: Treatment Not Indicated Discharge Plan Admission Admit Date/Time: 10/13/23 18:11 Attending Provider: Gilson Daily Primary Care Provider: Arie Escoto Consulting Providers: Richy Kitchen; Valdez Sullivan; Kaden Mireles; Alex Gardner; Tiffani Pereira; Telly Franklin; Brandi Madera; Maggy Adhikari; Esau Davis; Tony Giang; Xavier Colón; Alejandro Herrera; Lachelle Fletcher Discharge Orders/Prescriptions Prescriptions: New enoxaparin 80 mg/0.8 mL Syringe 80 mg subcut Q12 30 Days Qty: 48 0RF Rx Instructions: Enoxaparin to continue throughout to 6 weeks . folic acid 1 mg tablet 1 mg PO DAILY Qty: 30 2RF ferrous sulfate [FeroSul] 325 mg (65 mg iron) tablet 325 mg PO QODAY Qty: 30 2RF ascorbic acid (vitamin C) 500 mg tablet 500 mg PO BID Qty: 60 2RF Referrals / Follow Up: Donn Love MD [Med Staff - Active Staff] - Within 1 Month (Follow up bloodclot in lungs) Lesley Castillo MD [Med Staff - Active Staff] - See Referral Note (After delivery of the baby.) Arie Escoto DO [Primary Care Provider] - Within 1 Week Kaden Mireles DO [Med Staff - Active Staff] - Within 1 Month (Bilateral pulmonaryembolism with RV dilatation) Disposition Disposition (needs filled in before D/C Order can be placed): Home, Self Care Charges/Coding Visit Charges Inpatient E&M: 69311 Disch Hosp >30min 10/15/23 0828 <Electronically signed by Gilson Daily MD> Cosigner Signature (if applicable): CC: Dr. Kaden Mireles DO; Dr. Arie Escoto DO; Dr. Gilson Daily MD~ Signed [facility] Work Phone: 1(891) 712-755101-23-2024 Discharge summary Author Gilson Daily [facility] October 15, 2023 8:13am Note Date/Time October 15, 2023 8 :08am [facility] Medical Records Department [address] [place] [id number] Instructions for Home/Discharge Instructions 10/15/23 0808 MR#: [id number] Acct: [id number] Name: AUGUSTIN GARCIA Rep #:[id number] : 1985 37 From: Gilson Hernández PCP: Dr. Arie Escoto DO Status:ADM IN Discharge Instructions Diet Discharge Diet: No restrictions Activity Discharge Activity: Return to Normal Activity Weight Bearing Status: Weight bearing as tolerated Dressing / Incision Call your doctor if you observe: Fever of 101 or Higher, Coldness, Increased Pain, Numbness or Tingling, Change in Color, Inability to urinate, Inability to have a bowel movement, Using more than 1 pad per hour, Shortness of breath, Dizziness, Fainting spells, Swelling in the ankles, Chest pain, Prolonged hiccupping, Increased palpitations (irregular heartbeat) and Calf discomfort Follow Up Care When: IN 2 WEEKS Test Results: Test results from this visit will be discussed in further detail at your follow- up appointment, if applicable. Discharge Plan Admission Admit Date/Time: 10/13/23 18:11 Attending Provider: Gilson Daily Primary Care Provider: rAie Escoto Consulting Providers: Richy Kitchen; Valdez Sullivan; Kaden Mireles; Alex Gardner; Tiffani Pereira; Telly Franklin; Brandi Madera; Maggy Adhikari; Esau Davis; Tony Giang; Xavier Colón; Alejandro Herrera; Lachelle Fletcher Discharge Orders/Prescriptions Prescriptions: New enoxaparin 80 mg/0.8 mL Syringe 80 mg subcut Q12 30 Days Qty: 48 0RF Rx Instructions: Enoxaparin to continue throughout to 6 weeks . folic acid 1 mg tablet 1 mg PO DAILY Qty: 30 2RF ferrous sulfate [FeroSul] 325 mg (65 mg iron) tablet 325 mg PO QODAY Qty: 30 2RF ascorbic acid (vitamin C) 500 mg tablet 500 mg PO BID Qty: 60 2RF Referrals / Follow Up: Donn Love MD [Med Staff - Active Staff] - Within 1 Month (Follow up bloodclot in lungs) Lesley Castillo MD [Med Staff - Active Staff] - See Referral Note (After delivery of the baby.) Tigist,Arie, DO [Primary Care Provider] - Within 1 Week Disposition Disposition (needs filled in before D/C Order can be placed): Home, Self Care 10/15/23812<Electronically signed by Gilson Daily MD>Gilson Daily MD CC: Dr. Richy Kitchen MD; Dr. Valdez Sullivan MD; Dr. Kaden Mireles DO; Dr. Alex Gardner MD; Dr. Telly Franklin MD; Dr. Lachelle Fletcher DO; Dr. Brandi Madera MD; Dr. Maggy Adhikari MD; Dr. Arie Escoto DO; Dr. Esau Davis MD; Dr. Kaushal MD; Dr. Xavier Colón MD; Dr. Alejandro Herrera MD; Dr. Tiffani Pereira MD ~ Signed [facility] Work Phone: 1(987) 926-915401-23-2024 [facility] Medical Records Department [address] [place] [address] Discharge Summary 10/15/23812 MR#: [id number] Acct: [id number] Name: AUGUSTIN GARCIA Rep #: [id number] : 1985 37 From: Gilson Daily MD PCP: Dr. Arie Escoto DO Status:DIS IN Location: [facility] [id number] Providers Date of Admission: 10/13/23 Primary Care Physician: Dr. Arie Escoto DO Consultations 10/13/23 19:35 Consult: [facility] Techn[facility] / Pulmonary Medicine Routine Consulting Provider: Intensivists/Pulmonary Med Reason for Consult: PE EMERGENT Consult: Bernice JUAREZ Notified: No Date Notified: 10/13/23 Time Notified: 18:13 10/14/23 00:23 Consult: [facility] Techn[facility] / Pulmonary Medicine Routine Consulting Provider: Intensivists/Pulmonary Med Reason for Consult: PE EMERGENT Consult: Bernice JUAREZ Notified: Yes Date Notified: 10/14/23 Time Notified: 00:23 Method of Notification: Verbal Reason For Visit: B PULMONARY EMBOLI Diagnosis Discharge Diagnosis (1) Bilateral pulmonary embolism: Status: Acute Code(s): I26.99 - Other pulmonary embolism without acute cor pulmonale (2) Anemia affecting ninth : Status: Acute Code(s): O99.019 - Anemia complicating , unspecified trimester; O09.40 - Supervision of with grand multiparity, unspecified trimester (3) Hypokalemia: Status: Acute Code(s): E87.6 - Hypokalemia Plan This is a 37-year-old female was admitted with shortness of breath, midsternal chest discomfort and found to be 9 weeks . No previous history of thromboembolic disease. Bilateral pulmonary emboli resulting into moderate RV dilatation/right heart failure and elevated troponin -Not saddle on CT -No right heart strain seen on CT , troponin elevated 866, 1840 and 1985. -BNP is normal -2D echo shows moderate dilatation of RV. EF 60%. Consistent with mild pulmonary hypertension -Patient's heparin drip changed to Lovenox. I talked to balloon maker Dr. Call. He recommended to continue enoxaparin 1 mg/kg body weight till 6 weeks . The patient needs to see him after she completes enoxaparin in hematology clinic for workup for hypercoagulable disorder. -Pulmonary medicine consultation reviewed and appreciated. 10/15: Tachypnea has resolved. Pulse ox 96% on room air. Hypokalemia -40 mill equivalents p.o. potassium Hypokalemia resolved. Abnormal TSH -TSH on presentation was 0.22. Free T4 normal at 0.96. -Suspect euthyroid sick. Repeat thyroid function test after 6 weeks. Microcytic anemia -Suspect patient may be iron deficiency as she is Serum iron 20, TIBC normal. Iron saturation of 5.5% ferritin 16 consistent with iron deficiency ane sudhir. IV iron infusion ordered and then continue oral iron supplement 10/15: Prescriptions given for ferrous sulfate and ascorbic acid and folic acid. 9 week -Nonviable at this point so no PROPERTY CLERK involvement needed at this time -She is -Ultrasound was performed and did demonstrate a viable fetus with a heart rate of 170 -Outpatient follow-up after discharge DVT prophylaxis -Full anticoagulation as noted above CODE STATUS Full code Discharge medication reconciliation done. Discharge follow-up instructions completed. Discharge process discussed with the patient and all questions were answered to patient's satisfaction. Follow with PCP in 1 to 2 weeks Total time spent, exact 35 minutes on discharge meds reconciliation, examination, coordination of care with nurses and ancillary staff, review of imaging and blood test and discussion with the patient on follow-up instructions. Clinical Impression(s) from Imaging Studies Chest X-Ray 10/13/23 15:14 IMPRESSION: No radiographic evidence of acute cardiopulmonary disease. Electronically Signed: Bryan Aguirre MD at 15:31 EST , Chest CTA 10/13/23 15:38 IMPRESSION: (NOT LISTED IN ORDER OF SIGNIFICANCE) There is no saddle embolus. There is no heart strain. Bilateral pulmonary emboli. Non standard communication findings protocol was initiated. 10/13/2023 4:29 PM Electronically Signed: Bryan Aguirre MD at 16:31 EST , ADDENDUM: 10/13/23 1647 IMPRESSION: (NOT LISTED IN ORDER OF SIGNIFICANCE) There is no saddle embolus. There is no heart strain. Bilateral pulmonary emboli. Non standard communication findings protocol was initiated. 10/13/2023 4:29 PM N.B. : The above Results were Read Back by Bryan Aguirre MD to AUSTIN George, and understanding confirmed on 10/13/2023 16:40:11 (ET). Electronically Signed: Bryan Aguirre MD at 16:31 EST R (more content not included)...[facility]-22-2024 Progress note Author Gilson Daily [facility] October 14, 2023 2:37pm Note Date/Time October 14, 2023 8 :09am [facility] Medical Records Department [address] [place] [address] Progress Note - Hospitalist 10/14/23 0809 MR#: [id number] Acct: [id number] Name: RADHAAUGUSTIN Junie Rep #:[id number] : 1985 37 From: Gilson Hernández PCP: Dr. Arie Escoto, DO Status:ADM IN Location: [place] [address]- Reason for Visit Reason for Visit: Diagnoses Hypokalemia (10/13/23) Other pulmonary embolism without acute cor pulmonale (10/13/23) Supervision of with grand multiparity, unspecified trimester (10/13/23) Anemia complicating , unspecified trimester (10/13/23) Tachycardia, unspecified (10/13/23) Other specified abnormal findings of blood chemistry (10/13/23) Objective Data Objective Data Vital Signs: Vital Signs Temp Pulse Resp BP Pulse Ox O2 Del Method 98.4 F 100 18 98/77 99 Room Air 10/14/23 05:29 10/14/23 05:29 10/14/23 05:29 10/14/23 05:29 10/14/23 05:29 10/14/23 05:29 Oxygen Delivery Method Room Air Weight: 183 lb 6.793 oz Body Mass Index (BMI) 30.5 Intake & Output: Intake and Output for Last 24 Hours 10/12/23 10/13/23 10/14/23 23:59 23:59 23:59 Intake Total 1000 / 1000 72.33 / 72.33 Balance 1000 / 1000 72.33 / 72.33 Lab / Micro Data 10/14/23 06:35 10/14/23 06:35 Labs: Laboratory Results - last 24 hr 10/13/23 15:00: WBC 8.5, RBC 4.70, Hgb 11.9 L, Hct 37.6, MCV 80.0 L, MCH 25.3 L,MCHC 31.6 L, RDW Std Deviation 45.8 H, RDW Coeff of Garima 15.9 H, Plt Count 215, MPV 9.7, Immature Gran % (Auto) 0.200, Neut % (Auto) 78.6 H, Lymph % (Auto) 15.8L, [place]rara % (Auto) 4.5, Eos % (Auto) 0.7, Baso % (Auto) 0.2, Absolute Neuts (auto)6.7, Absolute Lymphs (auto) 1.35, Nucleated RBC % 0, PT 13.2, INR 1.0, APTT 25.1, Sodium 140, Potassium 3.1 L, Chloride 109 H, Carbon Dioxide 25.0, Anion Gap 6, BUN 5 L, Creatinine 0.74, Est GFR (MDRD) Af Amer 113, Est GFR (MDRD) Non-Af 93, BUN/Creatinine Ratio 6.8 L, Glucose 174 H, Calcium 9.1, Troponin I High Sens 866 H*, B- Natriuretic Peptide 39.4, TSH 0.22 L 10/13/23 17:49: Iron 20 L, TIBC 365, Iron Saturation 5.5 L, Ferritin 16, Troponin I High Sens 1840 H*, Free T4 0.96 10/13/23 21:44: Troponin I High Sens 1985 H* 10/13/23 22:55: APTT 36.5 H 10/14/23 06:35: WBC 7.9, RBC 4.33, Hgb 11.0 L, Hct 34.3 L, MCV 79.2 L, MCH 25.4 L, MCHC 32.1, RDW Std Deviation 45.9 H, RDW Coeff of Garima 15.9 H, Plt Count 228, MPV 9.6, Immature Gran % (Auto) 0.500, Neut % (Auto) 67.6, Lymph % (Auto) 25.9, [place]rara % (Auto) 5.2, Eos % (Auto) 0.5, Baso % (Auto) 0.3, Absolute Neuts (auto) 5.3, Absolute Lymphs (auto) 2.04, Nucleated RBC % 0, Sodium 138, Potassium 3.6, Chloride 112 H, Carbon Dioxide 20.0 L, Anion Gap 6, BUN 6 L, Creatinine 0.45 L, Estim Creat Clear Calc 180.57, Est GFR (MDRD) Af Amer 200, Est GFR (MDRD) Non-Af165, BUN/Creatinine Ratio 13.4, Glucose 157 H, Calcium 8.5, Phosphorus 2.6, Magnesium 1.9, Total Bilirubin 0.30, AST 29, ALT 58 H, Alkaline Phosphatase 75, Total Protein 6.2 L, Albumin 2.8 L, Globulin 3.4, Albumin/Globulin Ratio 0.8 L Micro: Microbiology 10/13/23 14:55 Mucosa - Nose SARS-CoV-2, Influenza & RSV (PCR) - Final Radiography Diagnostic Testing: Radiology Impression Chest X-Ray 10/13/23 15:14 IMPRESSION: No radiographic evidence of acute cardiopulmonary disease. Electronically Signed: Bryan Aguirre MD at 15:31 EST , Chest CTA 10/13/23 15:38 IMPRESSION: (NOT LISTED IN ORDER OF SIGNIFICANCE) There is no saddle embolus. There is no heart strain. Bilateral pulmonary emboli. Non standard communication findings protocol was initiated. 10/13/2023 4:29 PM Obstetrics Ultrasound 10/13/23 15:38 IMPRESSION: There is a single live intrauterine with a heart rate of 170 bpm. Rhythm Strip Rhythm Strip: Sinus Tach Rate: 110 Ectopy: None Physical Exam Narrative Patient is short of breath, dyspnea at rest. Denies chest pain or tightness. Seen and examined. Physical exam General: Alert, Oriented x3, Cooperative HEENT: Atraumatic, PERRLA, EOMI, Normocephalic Oral: No Gingival or Mucosal Lesions/ Ulcerations Neck: Supple, No JVD, Negative Carotid Bruits Lungs: Air entry diminished in bilateral lung bases. No crepitation/rhonchi Cardiovascular: Regular rate, Regular Rhythm, P2 not loud. No murmurs Abdomen: Bowel Sounds Present, Soft, Non Tender, Non-Distended : No renal angle tenderness. No suprapubic tenderness. Extremities: No edema, Capillary Refill Less than 3 Seconds Skin: No rashes, No breakdown Musculoskeletal: No Tenderness to Palpation of Joints or Extremities Neurological: Cranial nerves II-XII grossly intact, DTR 2+/4. No acute focal neurological deficit. Psych/Mental Status: Flat affect Assessment & Plan Assessment/Plan (1) Bilateral pulmonary embolism: (2) Anemia affecting ninth : (3) Hypokalemia: PLAN: Plan This is a 37-year-old female was admitted with shortness of breath, midsternal chest discomfort and found to be 9 weeks . No previous history of thromboembolic disease. Bilateral pulmonary emboli resulting into moderate RV dilatation/right heart failure and elevated troponin -Not saddle on CT -No right heart strain seen on CT , troponin elevated 866, 1840 and 1985. -BNP is normal -2D echo shows moderate dilatation of RV. EF 60%. Consistent with mild pulmonary hypertension -Patient's heparin drip changed to Lovenox. I talked to balloon maker Dr. Call. He recommended to continue enoxaparin 1 mg/kg body weight till 6 weeks . Needs to see her after she completes enoxaparin after liver. -Pulmonary medicine consultation reviewed and appreciated. Hypokalemia -40 mill equivalents p.o. potassium -Recheck in a.m. -Check a magnesium level Abnormal TSH -TSH on presentation was 0.22. Free T4 normal at 0.96. -Suspect euthyroid sick. Repeat thyroid function test after 6 weeks. Microcytic anemia -Suspect patient may be iron deficiency as she is Serum iron 20, TIBC normal. Iron saturation of 5.5% ferritin 16 consistent withiron deficiency anemia. IV iron infusion ordered and then continue oral iron supplement 9 week -Nonviable at this point so no PROPERTY CLERK involvement needed at this time -She is -Ultrasound was performed and did demonstrate a viable fetus with a heart rate of 170 -Outpatient follow-up after discharge DVT prophylaxis -Full anticoagulation as noted above CODE STATUS Full code Clinical Impression(s) from Imaging Studies Chest X-Ray 10/13/23 15:14 IMPRESSION: No radiographic evidence of acute cardiopulmonary disease. Electronically Signed: Bryan Aguirre MD at 15:31 EST , Chest CTA 10/13/23 15:38 IMPRESSION: (NOT LISTED IN ORDER OF SIGNIFICANCE) There is no saddle embolus. There is no heart strain. Bilateral pulmonary emboli. Non standard communication findings protocol was initiated. 10/13/2023 4:29 PM Electronically Signed: Bryan Aguirre MD at 16:31 EST , ADDENDUM: 10/13/23 1647 IMPRESSION: (NOT LISTED IN ORDER OF SIGNIFICANCE) There is no saddle embolus. There is no heart strain. Bilateral pulmonary emboli. Non standard communication findings protocol was initiated. 10/13/2023 4:29 PM N.B. : The above Results were Read Back by Bryan Aguirre MD to AUSTIN George, and understanding confirmed on 10/13/2023 16:40:11 (ET). Electronically Signed: Bryan Aguirre MD at 16:31 EST , Obstetrics Ultrasound 10/13/23 15:38 IMPRESSION: There is a single live intrauterine with a heart rate of 170 bpm. Electronically Signed: Bryan Aguirre MD at 17:45 EST , Echocardiogram 10/14/23 05:55 Interpretation Summary Normal LV size. Left ventricular systolic function is normal. The estimated ejection fraction is 60 %. D shaped septum in diastole. Stage 1 diastolic dysfunction. Moderately dilated right ventricle. Apical sparing noted Mild pulmonary hypertension. Charges/Coding Visit Charges Inpatient E&M: 03559 Subs Hosp L2 10/14/23 1437 <Electronically signed by Gilson Daily MD> Cosigner Signature (if applicable): CC: ~ Signed [facility] Work Phone: 1(645) 841-524801-22-2024 Consult note Author Kaden Mireles [facility] October 14, 2023 11:19am Note Date/Time October 14, 2023 8 :05am [facility] Medical Records Department [address] [place] [address] Consultation - [facility] 10/14/23 0800 MR#: [id number] Acct: [id number] Name: RADHAAUGUSTIN Junie Rep #:[id number] : 1985 37 From: Kaden Mireles DO PCP: Dr. Arie Esocto DO Status:ADM IN Location: [place] [address] Assessment & Plan Assessment/Plan (1) Bilateral pulmonary embolism: PLAN: Plan RECOMMENDATIONS: 1. Okay to transition from heparin to Lovenox. 2. Await results of echocardiogram. 3. The patient may ultimately benefit from evaluation for any hypercoagulable conditions on an outpatient basis. 4. Perform walking oximetry study prior to consideration for discharge home. IMPRESSIONS: 1. Bilateral pulmonary embolism The patient presented with shortness of breath and chest discomfort with radiographic evidence of extensive bilateral pulmonary emboli, without evidence of right heart strain. Although BNP was normal, the patient did have an elevated troponin. Her thromboembolism is likely precipitated by her underlyingpregnancy. She has no pre-existing hypercoagulable conditions. The patient wasinitially managed with a heparin infusion. Okay from my perspective to transition to Lovenox. Her echocardiogram is still pending. I would recommend that she complete a walking oximetry study prior to consideration for discharge home. Otherwise, the patient will need to remain on Lovenox throughout the remainder of her . She may ultimately benefit from outpatient hematology evaluation for any underlying hypercoagulable conditions. This note was generated with [employer] software. It may contain incorrectwords, spelling, and punctuation that were not noted in checking the note beforesigning. HPI Consult Data Date of Consult: 10/14/23 HPI Narrative Reason for Consultation: Bilateral pulmonary emboli HPI Narrative: The patient is a 37-year-old female, with a history as outlined below, who presented to the emergency department on October 13 with shortness of breath. This was associated with midsternal chest discomfort as well. The patient is currently 9 weeks . She denied a history of venous thromboembolic disease. The patient did report that her sister was diagnosed with a DVT during herlast 1 year ago. However, there is no family history of any hypercoagulable conditions. The patient denies any recent travel or prolonged immobility. On presentation to the emergency department, the patient was noted to be afebrile and hemodynamically stable. She was initially maintaining appropriate oxygen saturations on room air. Laboratory evaluation revealed no evidence of aleukocytosis. Chemistry profile was notable for a potassium of 3.1 and normal creatinine. BNP was normal. However, troponin was elevated initially at 866 and has climbed to 1985. CTA chest showed bilateral pulmonary emboli without evidence of right heart strain. The patient was subsequently placed on a heparin infusion and admitted to the progressive care unit for further management. Echocardiogram is still pending. [facility] Medical History no medical history Home Medications No Known/Unobtainable [No Known Home Medications] 06/16/14 [History Last Taken Unknown] Allergy/AdvReac Type Severity Reaction Status Date / Time No Known Allergies Allergy Verified 05/07/18 19:42 Family History (Updated 10/13/23 @ 18:[address] Lachelle Fletcher, ) Sister FH: thromboembolic disease Surgical History no surgical history Social History (Updated 10/13/23 @ 18:[address] 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 Smoking Status: Never smoker alcohol intake: never substance use type: does not use ROS ROS Narrative 10 systems were reviewed with pertinent positives as noted in the HPI above. Physical Exam Const alert and no apparent distress General Appearance: cooperative HEENT normocephalic, head/scalp atraumatic and moist oral mucous membranes Eyes PERRL, EOMs intact bilaterally and conjunctivae normal Neck supple General: trachea midline Chest inspection of chest normal Resp normal respiratory effort Auscultation: Negative for rales, rhonchi or wheezes Cardio regular rate and regular rhythm GI normal to inspection, nondistended, normoactive bowel sounds Extremity no clubbing, cyanosis or edema Skin no rashes or lesions noted Neuro CN's II-XII intact bilaterally, moves all extremities and no focal motor deficits Psych cooperative and affect normal Lab / Micro Data 10/14/23 06:35 10/14/23 06:35 Labs: Laboratory Results - last 24 hr 10/13/23 15:00: WBC 8.5, RBC 4.70, Hgb 11.9 L, Hct 37.6, MCV 80.0 L, MCH 25.3 L,MCHC 31.6 L, RDW Std Deviation 45.8 H, RDW Coeff of Garima 15.9 H, Plt Count 215, MPV 9.7, Immature Gran % (Auto) 0.200, Neut % (Auto) 78.6 H, Lymph % (Auto) 15.8L, Niobrara % (Auto) 4.5, Eos % (Auto) 0.7, Baso % (Auto) 0.2, Absolute Neuts (auto)6.7, Absolute Lymphs (auto) 1.35, Nucleated RBC % 0, PT 13.2, INR 1.0, APTT 25.1, Sodium 140, Potassium 3.1 L, Chloride 109 H, Carbon Dioxide 25.0, Anion Gap 6, BUN 5 L, Creatinine 0.74, Est GFR (MDRD) Af Amer 113, Est GFR (MDRD) Non-Af 93, BUN/Creatinine Ratio 6.8 L, Glucose 174 H, Calcium 9.1, Troponin I High Sens 866 H*, B- Natriuretic Peptide 39.4, TSH 0.22 L 10/13/23 17:49: Iron 20 L, TIBC 365, Iron Saturation 5.5 L, Ferritin 16, Troponin I High Sens 1840 H*, Free T4 0.96 10/13/23 21:44: Troponin I High Sens 1985 H* 10/13/23 22:55: APTT 36.5 H 10/14/23 06:35: WBC 7.9, RBC 4.33, Hgb 11.0 L, Hct 34.3 L, MCV 79.2 L, MCH 25.4 L, MCHC 32.1, RDW Std Deviation 45.9 H, RDW Coeff of Garima 15.9 H, Plt Count 228, MPV 9.6, Immature Gran % (Auto) 0.500, Neut % (Auto) 67.6, Lymph % (Auto) 25.9, Niobrara % (Auto) 5.2, Eos % (Auto) 0.5, Baso % (Auto) 0.3, Absolute Neuts (auto) 5.3, Absolute Lymphs (auto) 2.04, Nucleated RBC % 0, Sodium 138, Potassium 3.6, Chloride 112 H, Carbon Dioxide 20.0 L, Anion Gap 6, BUN 6 L, Creatinine 0.45 L, Estim Creat Clear Calc 180.57, Est GFR (MDRD) Af Amer 200, Est GFR (MDRD) Non-Af165, BUN/Creatinine Ratio 13.4, Glucose 157 H, Calcium 8.5, Phosphorus 2.6, Magnesium 1.9, Total Bilirubin 0.30, AST 29, ALT 58 H, Alkaline Phosphatase 75, Total Protein 6.2 L, Albumin 2.8 L, Globulin 3.4, Albumin/Globulin Ratio 0.8 L Micro: Microbiology 10/13/23 14:55 Mucosa - Nose SARS-CoV-2, Influenza & RSV (PCR) - Final Rhythm Strip Rhythm Strip: Sinus Tach Rate: 110 Ectopy: None Imagaing Radiology Impression Chest X-Ray 10/13/23 15:14 IMPRESSION: No radiographic evidence of acute cardiopulmonary disease. Electronically Signed: Bryan Aguirre MD at 15:31 EST , Chest CTA 10/13/23 15:38 IMPRESSION: (NOT LISTED IN ORDER OF SIGNIFICANCE) There is no saddle embolus. There is no heart strain. Bilateral pulmonary emboli. Non standard communication findings protocol was initiated. 10/13/2023 4:29 PM Electronically Signed: Bryan Aguirre MD at 16:31 EST , ADDENDUM: 10/13/23 1647 IMPRESSION: (NOT LISTED IN ORDER OF SIGNIFICANCE) There is no saddle embolus. There is no heart strain. Bilateral pulmonary emboli. Non standard communication findings protocol was initiated. 10/13/2023 4:29 PM N.B. : The above Results were Read Back by Bryan Aguirre MD to AUSTIN George, and understanding confirmed on 10/13/2023 16:40:11 (ET). Electronically Signed: Bryan Aguirre MD at 16:31 EST , Obstetrics Ultrasound 10/13/23 15:38 IMPRESSION: There is a single live intrauterine with a heart rate of 170 bpm. Electronically Signed: Bryan Aguirre MD at 17:45 EST , Charges/Coding Visit Charges Inpatient E&M: 37113 Init Hosp L2 10/14/23 1119 <Electronically signed by Kaden Mireles DO> Cosigner Signature (if applicable): CC: Dr. Richy Kitchen MD; Dr. Valdez Sullivan MD; Dr. Kaden Mireles DO; Dr. Alex Gardner MD; Dr. Telly Franklin MD; Dr. Lachelle Fletcher DO; Dr. Brandi Madera MD; Dr. Maggy Adhikari MD; Dr. Arie Escoto DO; Dr. Esau Davis MD; Dr. Kaushal MD; Dr. Xavier Colón MD; Dr. Alejandro Herrera MD; Dr. Tiffani Pereira MD~ Signed [facility] Work Phone: 1(556) 553-313701-21-2024 Discharge summary Author Rita [facility] October 13, 2023 8:19pm Note Date/Time October 13, 2023 2 :49pm [facility] Medical Records Department [address] [place] [address] Emergency Department Summary 10/13/23 MR#: [id number] Acct: [id number] Name: AUGUSTIN GARCIA Rep #:[id number] : 1985 37 From: Rita Maya PCP: Dr. Arie Escoto DO Status:ADM IN Location: [place] [address]- 1 HPI <AUSTIN George - Last Filed: 10/13/23 18:31> History of Present Illness Chief Complaint: Shortness of Breath Narrative Narrative: Patient presenting today due to shortness of breath that started suddenly this afternoon. She reports that she was walking down to the basement to grab clothes for her children when she had sudden onset shortness of breath. She reports midsternal chest pain with breathing. She reports on Saturday she had a few episodes of vomiting which has resolved. She denies any fevers, chills, abdominal pain. She is 9 weeks , she is . She denies any chronic health conditions. PFSH <AUSTIN George - Last Filed: 10/13/23 18:31> PFS Home Medications No Known/Unobtainable [No Known Home Medications] 06/16/14 [History Last Taken Unknown] Allergy/AdvReac Type Severity Reaction Status Date / Time No Known Allergies Allergy Verified 05/07/18 19:42 Family History (Updated 10/13/23 @ 18:[address] Lachelle Fletcher DO) Sister FH: thromboembolic disease Social History (Updated 10/13/23 @ 18:[address] 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 Smoking Status: Never smoker alcohol intake: never substance use type: does not use ROS <AUSTIN George - Last Filed: 10/13/23 18:31> ROS ED Constitutional Constitutional ED: Denies chills or fever(s) Cardiovascular Cardiovascular: Reports chest pain; Denies palpitations Respiratory/Chest Respiratory/Chest: Reports dyspnea, dyspnea on exertion and tachypnea; Denies cough Gastrointestinal Gastrointestinal: Denies abdominal pain, nausea or vomiting Genitourinary Genitourinary ED: Denies dysuria, hematuria or urinary frequency Musculoskeletal Musculoskeletal: Denies arthralgias or myalgias Integumentary Denies rash Neurologic Neurologic: Denies weakness EXAM <AUSTIN George - Last Filed: 10/13/23 18:31> Physical Exam Const Vital Signs: 10/13/23 14:00 10/13/23 14:04 10/13/23 14:05 Temperature 97.6 F L Temperature Source Temporal Pulse Rate 112 H Respiratory Rate 24 H Respiratory Effort Short of Breath Respiratory Depth Normal Respiratory Pattern Tachypnea Blood Pressure 152/91 H Blood Pressure Mean 111 Pulse Ox 99 Oxygen Delivery Method Room Air Room Air 10/13/23 15:31 10/13/23 16:00 10/13/23 17:56 Temperature Temperature Source Pulse Rate 115 H 108 H 111 H Respiratory Rate 20 H 22 H 20 H Respiratory Effort Respiratory Depth Respiratory Pattern Blood Pressure 144/94 H 123/83 H 125/95 H Blood Pressure Mean 110 96 105 Pulse Ox 98 98 98 Oxygen Delivery Method Room Air Room Air Room Air 10/13/23 18:00 Temperature Temperature Source Pulse Rate 108 H Respiratory Rate 23 H Respiratory Effort Respiratory Depth Respiratory Pattern Blood Pressure 120/88 H Blood Pressure Mean 98 Pulse Ox 97 Oxygen Delivery Method Room Air Positive well nourished, well developed and no apparent distress General Appearance ED: well developed HEENT Reports normocephalic and head/scalp atraumatic Mouth ED: Yes moist mucous membranes normal Eyes PERRL and EOMs intact bilaterally Neck full ROM and supple Chest Wall inspection of chest normal Resp clear to auscultation bilaterally Resp Narrative: Tachypneic. Cardio regular rate and regular rhythm GI soft to palpation, non-tender, non-distended and no masses Back/Spine normal ROM and normal to inspection Extremity normal to inspection and full ROM Neuro oriented x3, CN's II-XII intact bilaterally, moves all extremities, no focal motor deficits and no sensory deficits noted Sensorium / Orientation: awake and alert Psych mental status grossly normal and thought process normal Skin no rashes or lesions noted and no wounds <Dr. Rita Austin DO - Last Filed: 10/13/23 20:19> Physical Exam Const Vital Signs: 10/13/23 14:00 10/13/23 14:04 10/13/23 14:05 Temperature 97.6 F L Temperature Source Temporal Pulse Rate 112 H Respiratory Rate 24 H Respiratory Effort Short of Breath Respiratory Depth Normal Respiratory Pattern Tachypnea Blood Pressure 152/91 H Blood Pressure Mean 111 Pulse Ox 99 Oxygen Delivery Method Room Air Room Air 10/13/23 15:31 10/13/23 16:00 10/13/23 17:56 Temperature Temperature Source Pulse Rate 115 H 108 H 111 H Respiratory Rate 20 H 22 H 20 H Respiratory Effort Respiratory Depth Respiratory Pattern Blood Pressure 144/94 H 123/83 H 125/95 H Blood Pressure Mean 110 96 105 Pulse Ox 98 98 98 Oxygen Delivery Method Room Air Room Air Room Air 10/13/23 18:00 Temperature Temperature Source Pulse Rate 108 H Respiratory Rate 23 H Respiratory Effort Respiratory Depth Respiratory Pattern Blood Pressure 120/88 H Blood Pressure Mean 98 Pulse Ox 97 Oxygen Delivery Method Room Air [facility] <AUSTIN George - Last Filed: 10/13/23 18:31> [facility] Narrative Medical decision making narrative: Patient presenting due to sudden onset shortness of breath. Symptoms started when she was walking down into her basement this afternoon. did call squad. She does appears tachypneic. She reported having a history of a DVT during her last , however she said that this was never confirmed. She had swelling in one of her legs but never underwent an ultrasound or took blood thinners to treat this. She has no history of known blood clots. She reports that her sister did have a PE during her . Patient is currently 9 weeks , she has not had any issues to date but has not had an ultrasoundto confirm intrauterine . Labs obtained and patient has a troponin of 866. Differentials include NSTEMI, myocarditis, pericarditis, PE. Cardiology was consulted, they recommend obtaining a CTA. I did speak with the radiologistwho reports that CTA shows bilateral PEs, no evidence of right-sided heart strain. Dr. Marie with OB was consulted, he recommends treating with heparin. Transvaginal ultrasound will be obtained to confirm intrauterine . Pulmonology was consulted, this agreed that patient can stay here for treatment versus being transferred. Will speak with the hospitalist for admission. She has been started on a heparin drip. Lab Data Attestation: I reviewed the patient's lab results. Lab results narrative: Hemoglobin 11.9, potassium 3.1, troponin 866, TSH 0.22 Labs: Laboratory Results - last 24 hr 10/13/23 10/13/23 15:00 17:49 WBC 8.5 RBC 4.70 Hgb 11.9 L Hct 37.6 MCV 80.0 L MCH 25.3 L MCHC 31.6 L RDW Std Deviation 45.8 H RDW Coeff of Garima 15.9 H Plt Count 215 MPV 9.7 Immature Gran % (Auto) 0.200 Neut % (Auto) 78.6 H Lymph % (Auto) 15.8 L [place] % (Auto) 4.5 Eos % (Auto) 0.7 Baso % (Auto) 0.2 Absolute Neuts (auto) 6.7 Absolute Lymphs (auto) 1.35 Nucleated RBC % 0 PT 13.2 INR 1.0 APTT 25.1 Sodium 140 Potassium 3.1 L Chloride 109 H Carbon Dioxide 25.0 Anion Gap 6 BUN 5 L Creatinine 0.74 Est GFR (MDRD) Af Amer 113 Est GFR (MDRD) Non-Af 93 BUN/Creatinine Ratio 6.8 L Glucose 174 H Calcium 9.1 Iron 20 L TIBC 365 Iron Saturation 5.5 L Ferritin 16 Troponin I High Sens 866 H* 1840 H* B-Natriuretic Peptide 39.4 TSH 0.22 L Free T4 0.96 Radiography Diagnostic Testing: Clinical Impression(s) from Imaging Studies Chest X-Ray 10/13/23 15:14 IMPRESSION: No radiographic evidence of acute cardiopulmonary disease. Electronically Signed: Bryan Aguirre MD at 15:31 EST , Chest CTA 10/13/23 15:38 IMPRESSION: (NOT LISTED IN ORDER OF SIGNIFICANCE) There is no saddle embolus. There is no heart strain. Bilateral pulmonary emboli. Non standard communication findings protocol was initiated. 10/13/2023 4:29 PM Electronically Signed: Bryan Aguirre MD at 16:31 EST , ADDENDUM: 10/13/23 1647 IMPRESSION: (NOT LISTED IN ORDER OF SIGNIFICANCE) There is no saddle embolus. There is no heart strain. Bilateral pulmonary emboli. Non standard communication findings protocol was initiated. 10/13/2023 4:29 PM N.B. : The above Results were Read Back by Bryan Aguirre MD to AUSTIN George, and understanding confirmed on 10/13/2023 16:40:11 (ET). Electronically Signed: Bryan Aguirre MD at 16:31 EST , Obstetrics Ultrasound 10/13/23 15:38 IMPRESSION: There is a single live intrauterine with a heart rate of 170 bpm. Electronically Signed: Bryan Aguirre MD at 17:45 EST , EKG Initial EKG: Comments: 110 bpm, sinus tachycardia, ST depression in leads II, III, and aVF. <Dr. Rita Austin, DO - Last Filed: 10/13/23 20:19> [facility] Lab Data Labs: Laboratory Results - last 24 hr 10/13/23 10/13/23 15:00 17:49 WBC 8.5 RBC 4.70 Hgb 11.9 L Hct 37.6 MCV 80.0 L MCH 25.3 L MCHC 31.6 L RDW Std Deviation 45.8 H RDW Coeff of Garima 15.9 H Plt Count 215 MPV 9.7 Immature Gran % (Auto) 0.200 Neut % (Auto) 78.6 H Lymph % (Auto) 15.8 L [place] % (Auto) 4.5 Eos % (Auto) 0.7 Baso % (Auto) 0.2 Absolute Neuts (auto) 6.7 Absolute Lymphs (auto) 1.35 Nucleated RBC % 0 PT 13.2 INR 1.0 APTT 25.1 Sodium 140 Potassium 3.1 L Chloride 109 H Carbon Dioxide 25.0 Anion Gap 6 BUN 5 L Creatinine 0.74 Est GFR (MDRD) Af Amer 113 Est GFR (MDRD) Non-Af 93 BUN/Creatinine Ratio 6.8 L Glucose 174 H Calcium 9.1 Iron 20 L TIBC 365 Iron Saturation 5.5 L Ferritin 16 Troponin I High Sens 866 H* 1840 H* B-Natriuretic Peptide 39.4 TSH 0.22 L Free T4 0.96 Radiography Diagnostic Testing: Clinical Impression(s) from Imaging Studies Chest X-Ray 10/13/23 15:14 IMPRESSION: No radiographic evidence of acute cardiopulmonary disease. Electronically Signed: Bryan Aguirre MD at 15:31 EST , Chest CTA 10/13/23 15:38 IMPRESSION: (NOT LISTED IN ORDER OF SIGNIFICANCE) There is no saddle embolus. There is no heart strain. Bilateral pulmonary emboli. Non standard communication findings protocol was initiated. 10/13/2023 4:29 PM Electronically Signed: Bryan Aguirre MD at 16:31 EST , ADDENDUM: 10/13/23 1647 IMPRESSION: (NOT LISTED IN ORDER OF SIGNIFICANCE) There is no saddle embolus. There is no heart strain. Bilateral pulmonary emboli. Non standard communication findings protocol was initiated. 10/13/2023 4:29 PM N.B. : The above Results were Read Back by Bryan Aguirre MD to AUSTIN George, and understanding confirmed on 10/13/2023 16:40:11 (ET). Electronically Signed: Bryan Aguirre MD at 16:31 EST , Obstetrics Ultrasound 10/13/23 15:38 IMPRESSION: There is a single live intrauterine with a heart rate of 170 bpm. Electronically Signed: Bryan Aguirre MD at 17:45 EST , Rhythm Strip Rhythm Strip: Sinus Tach Rate: 110 Ectopy: None EKG Initial EKG: Attestation: I personally reviewed and interpreted this EKG as follows: Management Discussion w/another healthcare provider: Hospitalist and Supervisor Glycerin (SHIRT LINE OPERATOR, Cardiology, Pulm) Treatment and Re-Evaluation :: I have personally performed a face to face assessment of the patient and have reviewed the [place] Note. I performed a substantive portion of the visit including all aspects of the following. My rico findings include: History is patient is a 37-year-old female with no significant past medical history of the (questionable history of DVT but states she never had it formallydiagnosed or treated) presenting with worsening shortness of breath that startedtoday. She had some mild stomach flu a couple days ago. She is not having significant chest pain but there is a can pleuritic component to her shortness of breath. Patient is currently approximately 9 weeks with her last menstrual period approximately the middle of July. She is . She follows with a dulser [facility]. Has not had any evaluation for this yet. On arrival patient is ill-appearing. She is tachypneic andtachycardic. She is pale. Clear breath sounds. Abdomen soft and nontender. EKG shows tachycardia with ST depressions in the inferior and lateral leads. Differential includes pulmonary emboli, myocarditis, pericarditis, sepsis, pneumonia and symptomatic anemia and less likely ACS given the story. Patient is found to have significant elevation of her high-sensitivity troponin. Other labs largely normal. BNP is added on. Case is discussed with Dr. Godinez,cardiology on-call given her EKG abnormalities and his elevated troponin. He agrees that PE, aortic dissection and myocarditis are on the differential. He recommends a CTA. If there is no PE or aortic dissection likely transfer for further evaluation myocarditis. Defer aspirin until results come back. Discussed risk and benefits of contrast and radiation associated with early and at this time I feel that the benefits greatly with the risk. Patient and agreeable with obtaining a CT. CTA shows bilateral submassive pulmonary emboli. There is no signs of heart strain. Her BNP is surprisingly normal. Patient is given IV fluids and Tylenolwith improvement of symptoms in the ER. She is hemodynamically stable and having no O2 requirements. Case then discussed with Dr. Mireles, pulmonology on-call who feels that without true signs of right heart strain (CT findings or elevated BNP) patient was unlikely to be a candidate for clot retrieval and could stay here. They will perform an echocardiogram. Case is discussed with gynecology on-call, Dr. Marsha Marie, who will is in agreement that it is best her mother is with [facility] baby and to start the patient on heparin drip. Did discuss with patient if she would like to be transferred for second opinion about clot retrieval at a tertiary facility. She is comfortable staying here and starting the heparin drip. Patient is admitted to hospital service, Dr. Fletcher. Transvaginal ultrasound does confirm single intrauterine gestation with heart tones present. Patient is uptrending troponin in the emergency room I suspect that is from the pulmonary emboli. Cardiology is aware of her EKG and troponin levels. Other additions or changes: [None] <Dr. Rita Austin, DO - Last Filed: 10/13/23 20:19> Critical Care Time Critical Care Time: Yes Critical care time (excluding procedures): 30-74 minutes (35), Discussing w/Patient &/or Family/Railroad Purchasing Agent, Discussing w/Consultants, Arranging Admission or Transfer and Performing Direct Patient Care at Bedside Discharge Plan Dx/Rx/DC Orders Clinical Impression: Elevated troponin I level, , Abnormal TSH, Bilateral pulmonary embolism, Hypokalemia Disposition Disposition: Acute Care Hospital [facility] Discharge Date/Time: 10/13/23 19:28 What to do if you have Problems For any increased pain, shortness of breath, bleeding, nausea or vomiting, chest pain, or any unexpected problems, contact your Primary Care Provider. Call [facility] ([phone]) or report to the closest Emergency Room. Call 911 if necessary. 10/13/232018 <Electronically signed by Rita Austin DO> Cosigner Signature (if applicable): 10/13/23 183 <Electronically signed by Basilia AVILA> CC: Dr. Arie Escoto DO ~ Signed [facility] Work Phone: 1(136) 771-583201-21-2024 History and physical note Author Lachelle Fletcher [facility] October 13, 2023 6:41pm Note Date/Time October 13, 2023 6 :24pm [facility] System Medical Records Department [address] [place] [id number] H&P Exam - Hospitalist 10/13/23 1815 MR#: [id number] Acct: [id number] Name: AUGUSTIN GARCIA Rep #:[id number] : 1985 37 From: Lachelle Fletcher DO PCP: Dr. Arie Escoto DO Status:ADM IN Location: [address] HPI - General General Date of Admission: 10/13/23 Date of Service: 10/13/23 Chief Complaint: Shortness of breath HPI Narrative AUGUSTIN GARCIA, is a 37 F who presented to the emergency department at [facility] on 10/13/2023 due to acute onset shortness of breath. Patientreported that she was walking down to the basement to grab close for her children when she had sudden onset of shortness of breath. She reported that she also noted midsternal chest pain that was pleuritic in nature at that time as well. She had been feeling well overall other than last Saturday she had a couple episodes of vomiting but has had no other issues since. She is at 9 weeks and is . She has never had any previous thromboembolic eventswith primary pregnancies. She does have a sister who had a thromboembolic eventduring and was on Lovenox during her and for about 6 months following was anticoagulated. She has no other family members that she knows ofwho have had previous clotting disorders. Vital signs on presentation showed a temperature of 97.6, heart rates between 108 and 115, blood pressures 120/88, respiratory rate has been between 20 and 24and oxygen saturations are 97 to 99% on room air. CBC shows a normal white count with a mild left shift at a 78.6% neutrophilia and I suspect this is a stress response as she has no signs of infection. Hemoglobin is 11.9 and she has microcytic which may be iron deficiency anemia related to so iron studies are pending. Coags were normal. Her chemistry panel revealed hypokalemia with a potassium of 3.1, normal renal function and a TSH of 0.22. BNP was normal at 39.4. Initial troponin was 866. EKG was sinus tachycardia with an S1Q3T3, normal intervals and no ST-T wave changes concerning for acute ischemia. Chest x-ray was unremarkable. CT of the chest showed no saddle emboli and no heart strain however she does have large bilateral PE that extend from the main branch to the first and second order branches. Obstetrics ultrasound was performed with 9 weeks and demonstrated a single live intrauterine with a heart rate of 170 bpm estimated 8 weeks and 6 days. Cervix was closed. No adnexal masses or complex lesions were identified and there was no fluid in the cul-de-sac. The case was discussed with pulmonary medicine and then they indicated that theywould be willing to admit her here and she did not need thrombus retrieval. Recommended initiating heparin drip. PFSH no medical history Home Medications No Known/Unobtainable [No Known Home Medications] 06/16/14 [History Last Taken Unknown] Allergy/AdvReac Type Severity Reaction Status Date / Time No Known Allergies Allergy Verified 05/07/18 19:42 Family History (Updated 10/13/23 @ 18:[address] Lachelle Fletcher DO) Sister FH: thromboembolic disease no surgical history Social History (Updated 10/13/23 @ 18:[address] 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 Smoking Status: Never smoker alcohol intake: never substance use type: does not use ROS Constitutional Constitutional: Reports fatigue; Denies anorexia, change in weight, chills, fever(s), malaise, night sweats, weakness or other Eyes Eyes: Denies blurry vision, change in eye color, change in vision, discharge from eye(s), double vision, erythema, eye pain, loss of vision or other ENT HEENT: Denies abnormal hearing, dysphagia, ear pain, epistaxis, headache(s), hearing loss, nasal congestion, nasal discharge, post nasal drip, sinus pressure, sore throat or other Cardiovascular Cardiovascular: Reports chest pain and dyspnea on exertion; Denies claudication,edema, lightheadedness, orthopnea, palpitations, paroxysmal nocturnal dyspnea, rapid heart rate, syncope or other Respiratory/Chest Respiratory/Chest: Reports dyspnea and shortness of breath with exertion; Deniescough, excessive phlegm production, hemoptysis, productive cough, shortness of breath at rest, wheezing or other Gastrointestinal Gastrointestinal: Denies abdominal pain, coffee ground emesis, constipation, diarrhea, dyspepsia, hematemesis, hematochezia, loose stools, melena, nausea, vomiting or other Genitourinary Genitourinary: Denies burning urination, difficulty urinating, dysuria, hematuria, nocturia, urinary frequency, urinary hesitancy, urinary incontinence,urinary urgency or other Musculoskeletal Musculoskeletal: Denies arthralgias, back pain, joint pain, joint stiffness, joint swelling, myalgias, neck pain or other Neurologic Neurologic: Denies abnormal gait, abnormal speech, confusion, disequilibrium, dizziness, focal weakness, headache(s), numbness, paresthesias, seizure-like activity, seizures, syncope, tingling, tremor(s) or other Psychiatric Psychiatric: Denies anxiety, depression, homicidal ideation, suicidal ideation or other Endocrine Endocrinology: Denies change in body appearance, cold intolerance, excessive sweating, heat intolerance, polydipsia, polyuria or other Hematologic/Lymphatic Hematologic/Lymphatic: Denies anemia, easy bleeding, easy bruising, lymphadenopathy or other Allergic/Immunologic Allergic/Immunologic: Denies rhinitis, hives, eczemia, asthma or other Vital Signs Vital Signs Vital Signs: 10/13/23 14:00 10/13/23 14:04 10/13/23 14:05 Temperature 97.6 F L Temperature Source Temporal Pulse Rate 112 H Respiratory Rate 24 H Respiratory Effort Short of Breath Respiratory Depth Normal Respiratory Pattern Tachypnea Blood Pressure 152/91 H Blood Pressure Mean 111 Pulse Ox 99 Oxygen Delivery Method Room Air Room Air 10/13/23 15:31 10/13/23 16:00 10/13/23 17:56 Temperature Temperature Source Pulse Rate 115 H 108 H 111 H Respiratory Rate 20 H 22 H 20 H Respiratory Effort Respiratory Depth Respiratory Pattern Blood Pressure 144/94 H 123/83 H 125/95 H Blood Pressure Mean 110 96 105 Pulse Ox 98 98 98 Oxygen Delivery Method Room Air Room Air Room Air Weight Weight: 87.7 kg Body Mass Index (BMI) 32.1 Physical Exam Const alert, oriented x3, no apparent distress, healthy appearing and well nourished; Negative for average body habitus Constitutional Narrative: Obese, Hinduism, white female, lying in bed, appears comfortable, nontoxic, husbandat bedside General Appearance: cooperative HEENT normocephalic, head/scalp atraumatic, hearing grossly normal bilaterally and moist oral mucous membranes Eyes PERRL and EOMs intact bilaterally Eyes Narrative: No scleral icterus Resp normal respiratory effort, no retractions, no use of accessory muscles and clearto auscultation bilaterally Auscultation: Negative for rales, rhonchi or wheezes Cardio regular rhythm, S1 normal heart sound, S2 normal heart sound, no murmurs, no rub, no gallops and no clicks Cardio Narrative: Tachycardic GI normal to inspection, nondistended, normoactive bowel sounds, soft to palpation and non-tender Extremity no clubbing, cyanosis or edema Extremity Narrative: Pedal pulses are 2+ Neuro oriented x3, moves all extremities and no focal motor deficits Speech: speech normal Psych affect normal Psych Narrative: Very pleasant, interacts appropriately Results Lab / Micro Data 10/13/23 15:00 10/13/23 15:00 Labs: Laboratory Results - last 24 hr 10/13/23 15:00: WBC 8.5, RBC 4.70, Hgb 11.9 L, Hct 37.6, MCV 80.0 L, MCH 25.3 L,MCHC 31.6 L, RDW Std Deviation 45.8 H, RDW Coeff of Garima 15.9 H, Plt Count 215, MPV 9.7, Immature Gran % (Auto) 0.200, Neut % (Auto) 78.6 H, Lymph % (Auto) 15.8L, [place] % (Auto) 4.5, Eos % (Auto) 0.7, Baso % (Auto) 0.2, Absolute Neuts (auto)6.7, Absolute Lymphs (auto) 1.35, Nucleated RBC % 0, PT 13.2, INR 1.0, APTT 25.1, Sodium 140, Potassium 3.1 L, Chloride 109 H, Carbon Dioxide 25.0, Anion Gap 6, BUN 5 L, Creatinine 0.74, Est GFR (MDRD) Af Amer 113, Est GFR (MDRD) Non-Af 93, BUN/Creatinine Ratio 6.8 L, Glucose 174 H, Calcium 9.1, Troponin I High Sens 866 H*, B- Natriuretic Peptide 39.4, TSH 0.22 L Micro: Microbiology 10/13/23 14:55 Mucosa - Nose SARS-CoV-2, Influenza & RSV (PCR) - Final Imagaing Radiology Impression Chest X-Ray 10/13/23 15:14 IMPRESSION: No radiographic evidence of acute cardiopulmonary disease. Electronically Signed: Bryan Aguirre MD at 15:31 EST , Chest CTA 10/13/23 15:38 IMPRESSION: (NOT LISTED IN ORDER OF SIGNIFICANCE) There is no saddle embolus. There is no heart strain. Bilateral pulmonary emboli. Non standard communication findings protocol was initiated. 10/13/2023 4:29 PM Electronically Signed: Bryan Aguirre MD at 16:31 EST , ADDENDUM: 10/13/23 1647 IMPRESSION: (NOT LISTED IN ORDER OF SIGNIFICANCE) There is no saddle embolus. There is no heart strain. Bilateral pulmonary emboli. Non standard communication findings protocol was initiated. 10/13/2023 4:29 PM N.B. : The above Results were Read Back by Byran Aguirre MD to AUSTIN George, and understanding confirmed on 10/13/2023 16:40:11 (ET). Electronically Signed: Bryan Aguirre MD at 16:31 EST , Obstetrics Ultrasound 10/13/23 15:38 IMPRESSION: There is a single live intrauterine with a heart rate of 170 bpm. Electronically Signed: Bryan Aguirre MD at 17:45 EST , Assessment & Plan Assessment/Plan (1) Bilateral pulmonary embolism: (2) Anemia affecting ninth : (3) Tachycardia: (4) Hypokalemia: (5) Elevated troponin I level: (6) Abnormal TSH: PLAN: Plan Bilateral pulmonary emboli -Not saddle on CT -No right heart strain seen on CT however troponin is elevated -Will cycle enzymes -BNP is normal -Check echocardiogram -Continue heparin drip initiated the emergency department -Will need Lovenox on discharge due to -This would be considered provoked as she is --> patient has not had anyprevious venous thromboembolic event with prior pregnancies -Pulmonary medicine consultation -Would recommend hematology follow-up as an outpatient to rule out any genetic predisposition given family history and Hinduism background Tachycardia -Suspect related to acute PE -Will monitor as she is treated Hypokalemia -40 mill equivalents p.o. potassium -Recheck in a.m. -Check a magnesium level Elevated troponin -Suspect related to acute PE -Check echocardiogram -Cycle cardiac enzymes Abnormal TSH -TSH on presentation was 0.22 -Suspect euthyroid sick -Check free T4 Microcytic anemia -Suspect patient may be iron deficiency as she is -Check iron studies 9 week -Nonviable at this point so no PROPERTY CLERK involvement needed at this time -She is -Ultrasound was performed and did demonstrate a viable fetus with a heart rate of 170 -Outpatient follow-up after discharge -Will need to be discharged on Lovenox DVT prophylaxis -Full anticoagulation as noted above CODE STATUS Full code Charges/Coding Visit Charges Inpatient E&M: 05040 Init Hosp L2 10/13/23 1841 <Electronically signed by Lachelle Fletcher DO> Cosigner Signature (if applicable): CC: Dr. Lachelle Fletcher DO; Dr. Arie Escoto DO~ Signed [facility] Work Phone: Evaluation note* Diagnosis Onset Date Resolution Status Abnormal TSH acute Anemia affecting ninth acute Bilateral pulmonary embolism acute Elevated troponin I level ac rolando Hypokalemia acute Tachycardia acute [facility] Work Phone: Evaluation note* Diagnosis with uncertain dates in first trimester- Primary documented in this encounter [facility] note* Diagnosis Encounter for supervision of high risk in first trimester, antepartum- Primary with uncertain dates in first trimester 10 weeks gestation of state, incidental Advanced maternal age in multigravida, first trimester History of pulmonary embolism Personal history of pulmonary embolism documented [facility]* Diagnosis Encounter for supervision of high risk in first trimester, antepartum- Primary 15 weeks gestation of state, incidental AMA (advanced maternal age) multigravida 35+, second trimester History of pulmonary embolism Personal history of pulmonary embolism History of Family history of neural tube defect Family history of other neurological diseases History of gestational diabetes in prior , currently with other poor obstetric history documented in this encounter [facility]* Diagnosis Elevated hemoglobin A1c- Primary Other abnormal blood chemistry documented in this encounter [facility]* Diagnosis History of pulmonary embolism Personal history of pulmonary embolism documented in this encounter [facility]* Diagnosis Elevated glucose tolerance test- Primary Impaired glucose tolerance test documented in this encounter [facility]* Diagnosis Gestational diabetes mellitus (GDM) in second trimester, gestational diabetes method of control unspecified- Primary AMA (advanced maternal age) multigravida 35+, second trimester 20 weeks gestation of state, incidental [facility] Diagnosis Encounter for anatomic survey- Primary AMA (advanced maternal age) multigravida 35+, second trimester Obesity affecting in second trimester, unspecified obesity type 20 weeks gestation of state, incidental documented in this [facility]* Diagnosis 22 weeks gestation of - Primary state, incidental AMA (advanced maternal age) multigravida 35+, second trimester Gestational diabetes mellitus (GDM) in second trimester, gestational diabetes method of control unspecified [facility]* Diagnosis 24 weeks gestation of - Primary state, incidental AMA (advanced maternal age) multigravida 35+, second trimester Gestational diabetes mellitus (GDM) in second trimester, gestational diabetes method of control unspecified History of blood clots Personal history of venous thrombosis and embolism [facility]* Diagnosis Pre-existing diabetes mellitus in in second trimester- Primary Diabetes mellitus, antepartum 20 weeks gestation of state, incidental [facility] Diagnosis Encounter for ultrasound to check growth- Primary Encounter for routine screening for malformation using ultrasonics AMA (advanced maternal age) multigravida 35+, second trimester Gestational diabetes mellitus (GDM) in second trimester, gestational diabetes method of control unspecified 28 weeks gestation of state, incidental [facility]* Diagnosis Pre-existing diabetes mellitus in in second trimester- Primary Diabetes mellitus, antepartum AMA (advanced maternal age) multigravida 35+, second trimester 28 weeks gestation of state, incidental Request for sterilization [facility]* Diagnosis Pre-existing diabetes mellitus in in second trimester- Primary Diabetes mellitus, antepartum [facility]* Diagnosis Supervision of high risk in third trimester- Primary Unspecified high-risk AMA (advanced maternal age) multigravida 35+, third trimester Pre-existing diabetes mellitus in in third trimester Diabetes mellitus, antepartum History of blood clot to lungs during Personal history of venous thrombosis and embolism 30 weeks gestation of state, incidental Headache in , antepartum, third trimester [facility]* Diagnosis Supervision of high risk in third trimester- Primary Unspecified high-risk AMA (advanced maternal age) multigravida 35+, third trimester Pre-existing diabetes mellitus in in third trimester Diabetes mellitus, antepartum 32 weeks gestation of state, incidental History of blood clot to lungs during Personal history of venous thrombosis and embolism [facility]* Diagnosis 33 weeks gestation of - Primary state, incidental AMA (advanced maternal age) multigravida 35+, third trimester Pre-existing diabetes mellitus in in third trimester Diabetes mellitus, antepartum Supervision of high risk in third trimester Unspecified high-risk documented [facility]* Diagnosis 34 weeks gestation of - Primary state, incidental AMA (advanced maternal age) multigravida 35+, third trimester Pre-existing diabetes mellitus in in third trimester Diabetes mellitus, antepartum Supervision of high risk in third trimester Unspecified high-risk documented [facility]* Diagnosis Gestational diabetes mellitus (GDM) in second trimester, gestational diabetes method of control unspecified- Primary AMA (advanced maternal age) multigravida 35+, second trimester 34 weeks gestation of state, incidental [facility]* Diagnosis 35 weeks gestation of - Primary state, incidental AMA (advanced maternal age) multigravida 35+, third trimester Supervision of high risk in third trimester Unspecified high-risk Pre-existing diabetes mellitus in in third trimester Diabetes mellitus, antepartum [facility]* Diagnosis 37 weeks gestation of - Primary state, incidental AMA (advanced maternal age) multigravida 35+, third trimester Supervision of high risk in third trimester Unspecified high-risk Pre-existing diabetes mellitus in in third trimester Diabetes mellitus, antepartum documented [facility]* Diagnosis Routine follow-up- Primary documented [facility]* Diagnosis Routine follow-up documented [facility]* Diagnosis History of pulmonary embolism- Primary Personal history of pulmonary embolism documented [facility]* Diagnosis care and examination- Primary Routine follow-up Encounter for initial prescription of intrauterine contraceptive device (IUD) problem [facility]* Diagnosis Type 2 diabetes mellitus without complication, with long-term current use of insulin (HCC)- Primary [facility]* Diagnosis Encounter for IUD insertion- Primary Encounter for insertion of intrauterine contraceptive device [facility]* Diagnosis 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 October 13, 2023 6:41pm Note Date/Time October 13, 2023 6 :24pm [facility] Medical Records Department [address] [place] [address] H&P Exam - Hospitalist 10/13/23 1815 MR#: [id number] Acct: [id number] Name: AUGUSTIN GARCIA Rep #:[id number] : 1985 37 From: Lachelle Fletcher DO PCP: Dr. Arie Escoto DO Status:ADM IN Location: [facility] [id number] HPI - General General Date of Admission: 10/13/23 Date of Service: 10/13/23 Chief Complaint: Shortness of breath HPI Narrative AUGUSTIN GARCIA, is a 37 F who presented to the emergency department at [facility] on 10/13/2023 due to acute onset shortness of breath. Patientreported that she was walking down to the basement to grab close for her children when she had sudden onset of shortness of breath. She reported that she also noted midsternal chest pain that was pleuritic in nature at that time as well. She had been feeling well overall other than last Saturday she had a couple episodes of vomiting but has had no other issues since. She is at 9 weeks and is . She has never had any previous thromboembolic eventswith primary pregnancies. She does have a sister who had a thromboembolic eventduring and was on Lovenox during her and for about 6 months following was anticoagulated. She has no other family members that she knows ofwho have had previous clotting disorders. Vital signs on presentation showed a temperature of 97.6, heart rates between 108 and 115, blood pressures 120/88, respiratory rate has been between 20 and 24and oxygen saturations are 97 to 99% on room air. CBC shows a normal white count with a mild left shift at a 78.6% neutrophilia and I suspect this is a stress response as she has no signs of infection. Hemoglobin is 11.9 and she has microcytic which may be iron deficiency anemia related to so iron studies are pending. Coags were normal. Her chemistry panel revealed hypokalemia with a potassium of 3.1, normal renal function and a TSH of 0.22. BNP was normal at 39.4. Initial troponin was 866. EKG was sinus tachycardia with an S1Q3T3, normal intervals and no ST-T wave changes concerning for acute ischemia. Chest x-ray was unremarkable. CT of the chest showed no saddle emboli and no heart strain however she does have large bilateral PE that extend from the main branch to the first and second order branches. Obstetrics ultrasound was performed with 9 weeks and demonstrated a single live intrauterine with a heart rate of 170 bpm estimated 8 weeks and 6 days. Cervix was closed. No adnexal masses or complex lesions were identified and there was no fluid in the cul-de-sac. The case was discussed with pulmonary medicine and then they indicated that theywould be willing to admit her here and she did not need thrombus retrieval. Recommended initiating heparin drip. PFSH no medical history Home Medications No Known/Unobtainable [No Known Home Medications] 06/16/14 [History Last Taken Unknown] Allergy/AdvReac Type Severity Reaction Status Date / Time No Known Allergies Allergy Verified 05/07/18 19:42 Family History (Updated 10/13/23 @ 18:[address] Lachelle Fletcher DO) Sister FH: thromboembolic disease no surgical history Social History (Updated 10/13/23 @ 18:[address] 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 Smoking Status: Never smoker alcohol intake: never substance use type: does not use ROS Constitutional Constitutional: Reports fatigue; Denies anorexia, change in weight, chills, fever(s), malaise, night sweats, weakness or other Eyes Eyes: Denies blurry vision, change in eye color, change in vision, discharge from eye(s), double vision, erythema, eye pain, loss of vision or other ENT HEENT: Denies abnormal hearing, dysphagia, ear pain, epistaxis, headache(s), hearing loss, nasal congestion, nasal discharge, post nasal drip, sinus pressure, sore throat or other Cardiovascular Cardiovascular: Reports chest pain and dyspnea on exertion; Denies claudication,edema, lightheadedness, orthopnea, palpitations, paroxysmal nocturnal dyspnea, rapid heart rate, syncope or other Respiratory/Chest Respiratory/Chest: Reports dyspnea and shortness of breath with exertion; Deniescough, excessive phlegm production, hemoptysis, productive cough, shortness of breath at rest, wheezing or other Gastrointestinal Gastrointestinal: Denies abdominal pain, coffee ground emesis, constipation, diarrhea, dyspepsia, hematemesis, hematochezia, loose stools, melena, nausea, vomiting or other Genitourinary Genitourinary: Denies burning urination, difficulty urinating, dysuria, hematuria, nocturia, urinary frequency, urinary hesitancy, urinary incontinence,urinary urgency or other Musculoskeletal Musculoskeletal: Denies arthralgias, back pain, joint pain, joint stiffness, joint swelling, myalgias, neck pain or other Neurologic Neurologic: Denies abnormal gait, abnormal speech, confusion, disequilibrium, dizziness, focal weakness, headache(s), numbness, paresthesias, seizure-like activity, seizures, syncope, tingling, tremor(s) or other Psychiatric Psychiatric: Denies anxiety, depression, homicidal ideation, suicidal ideation or other Endocrine Endocrinology: Denies change in body appearance, cold intolerance, excessive sweating, heat intolerance, polydipsia, polyuria or other Hematologic/Lymphatic Hematologic/Lymphatic: Denies anemia, easy bleeding, easy bruising, lymphadenopathy or other Allergic/Immunologic Allergic/Immunologic: Denies rhinitis, hives, eczemia, asthma or other Vital Signs Vital Signs Vital Signs: 10/13/23 14:00 10/13/23 14:04 10/13/23 14:05 Temperature 97.6 F L Temperature Source Temporal Pulse Rate 112 H Respiratory Rate 24 H Respiratory Effort Short of Breath Respiratory Depth Normal Respiratory Pattern Tachypnea Blood Pressure 152/91 H Blood Pressure Mean 111 Pulse Ox 99 Oxygen Delivery Method Room Air Room Air 10/13/23 15:31 10/13/23 16:00 10/13/23 17:56 Temperature Temperature Source Pulse Rate 115 H 108 H 111 H Respiratory Rate 20 H 22 H 20 H Respiratory Effort Respiratory Depth Respiratory Pattern Blood Pressure 144/94 H 123/83 H 125/95 H Blood Pressure Mean 110 96 105 Pulse Ox 98 98 98 Oxygen Delivery Method Room Air Room Air Room Air Weight Weight: 87.7 kg Body Mass Index (BMI) 32.1 Physical Exam Const alert, oriented x3, no apparent distress, healthy appearing and well nourished; Negative for average body habitus Constitutional Narrative: Obese, Hinduism, white female, lying in bed, appears comfortable, nontoxic, husbandat bedside General Appearance: cooperative HEENT normocephalic, head/scalp atraumatic, hearing grossly normal bilaterally and moist oral mucous membranes Eyes PERRL and EOMs intact bilaterally Eyes Narrative: No scleral icterus Resp normal respiratory effort, no retractions, no use of accessory muscles and clearto auscultation bilaterally Auscultation: Negative for rales, rhonchi or wheezes Cardio regular rhythm, S1 normal heart sound, S2 normal heart sound, no murmurs, no rub, no gallops and no clicks Cardio Narrative: Tachycardic GI normal to inspection, nondistended, normoactive bowel sounds, soft to palpation and non-tender Extremity no clubbing, cyanosis or edema Extremity Narrative: Pedal pulses are 2+ Neuro oriented x3, moves all extremities and no focal motor deficits Speech: speech normal Psych affect normal Psych Narrative: Very pleasant, interacts appropriately Results Lab / Micro Data 10/13/23 15:00 10/13/23 15:00 Labs: Laboratory Results - last 24 hr 10/13/23 15:00: WBC 8.5, RBC 4.70, Hgb 11.9 L, Hct 37.6, MCV 80.0 L, MCH 25.3 L,MCHC 31.6 L, RDW Std Deviation 45.8 H, RDW Coeff of Garima 15.9 H, Plt Count 215, MPV 9.7, Immature Gran % (Auto) 0.200, Neut % (Auto) 78.6 H, Lymph % (Auto) 15.8L, [place] % (Auto) 4.5, Eos % (Auto) 0.7, Baso % (Auto) 0.2, Absolute Neuts (auto)6.7, Absolute Lymphs (auto) 1.35, Nucleated RBC % 0, PT 13.2, INR 1.0, APTT 25.1, Sodium 140, Potassium 3.1 L, Chloride 109 H, Carbon Dioxide 25.0, Anion Gap 6, BUN 5 L, Creatinine 0.74, Est GFR (MDRD) Af Amer 113, Est GFR (MDRD) Non-Af 93, BUN/Creatinine Ratio 6.8 L, Glucose 174 H, Calcium 9.1, Troponin I High Sens 866 H*, B- Natriuretic Peptide 39.4, TSH 0.22 L Micro: Microbiology 10/13/23 14:55 Mucosa - Nose SARS-CoV-2, Influenza & RSV (PCR) - Final Imagaing Radiology Impression Chest X-Ray 10/13/23 15:14 IMPRESSION: No radiographic evidence of acute cardiopulmonary disease. Electronically Signed: Bryan Aguirre MD at 15:31 EST , Chest CTA 10/13/23 15:38 IMPRESSION: (NOT LISTED IN ORDER OF SIGNIFICANCE) There is no saddle embolus. There is no heart strain. Bilateral pulmonary emboli. Non standard communication findings protocol was initiated. 10/13/2023 4:29 PM Electronically Signed: Bryan Aguirre MD at 16:31 EST , ADDENDUM: 10/13/23 1647 IMPRESSION: (NOT LISTED IN ORDER OF SIGNIFICANCE) There is no saddle embolus. There is no heart strain. Bilateral pulmonary emboli. Non standard communication findings protocol was initiated. 10/13/2023 4:29 PM N.B. : The above Results were Read Back by Bryan Aguirre MD to AUSTIN George, and understanding confirmed on 10/13/2023 16:40:11 (ET). Electronically Signed: Bryan Aguirre MD at 16:31 EST , Obstetrics Ultrasound 10/13/23 15:38 IMPRESSION: There is a single live intrauterine with a heart rate of 170 bpm. Electronically Signed: Bryan Aguirre MD at 17:45 EST , Assessment & Plan Assessment/Plan (1) Bilateral pulmonary embolism: (2) Anemia affecting ninth : (3) Tachycardia: (4) Hypokalemia: (5) Elevated troponin I level: (6) Abnormal TSH: PLAN: Plan Bilateral pulmonary emboli -Not saddle on CT -No right heart strain seen on CT however troponin is elevated -Will cycle enzymes -BNP is normal -Check echocardiogram -Continue heparin drip initiated the emergency department -Will need Lovenox on discharge due to -This would be considered provoked as she is --> patient has not had anyprevious venous thromboembolic event with prior pregnancies -Pulmonary medicine consultation -Would recommend hematology follow-up as an outpatient to rule out any genetic predisposition given family history and Hinduism background Tachycardia -Suspect related to acute PE -Will monitor as she is treated Hypokalemia -40 mill equivalents p.o. potassium -Recheck in a.m. -Check a magnesium level Elevated troponin -Suspect related to acute PE -Check echocardiogram -Cycle cardiac enzymes Abnormal TSH -TSH on presentation was 0.22 -Suspect euthyroid sick -Check free T4 Microcytic anemia -Suspect patient may be iron deficiency as she is -Check iron studies 9 week -Nonviable at this point so no PROPERTY CLERK involvement needed at this time -She is -Ultrasound was performed and did demonstrate a viable fetus with a heart rate of 170 -Outpatient follow-up after discharge -Will need to be discharged on Lovenox DVT prophylaxis -Full anticoagulation as noted above CODE STATUS Full code Charges/Coding Visit Charges Inpatient E&M: 53206 Init Hosp L2 10/13/23 1841 <Electronically signed by Lachelle Fletcher DO> Cosigner Signature (if applicable): CC: Dr. Lachelle Fletcher DO; Dr. Arie Escoto DO~ Signed [facility] Work Phone: Reason for referral (narrative)* Diagnostic Procedure Only (Routine) - Pending Review Specialty Diagnoses / Procedures Referred By Olena t Referred To Contact [facility] Diagnoses 15 weeks gestation of Encounter for supervision of high risk in first trimester, antepartum AMA (advanced maternal age) multigravida 35+, second trimester History of pulmonary embolism History of Family history of neural tube defect History of gestational diabetes in prior , currently Procedures OBSTETRIC ULTRASOUND WHI US PREG UTERUS AFTER 1ST TRIMEST GESTATION Samantha Fields MD [address] [place] [address] [address] Referral ID Status Reason Start Date Expiration Date Visits Requested Visits Authorized [id number] Pending Review Auto-Generat ed Referral 11/22/2023 11/21/2024 1 1 [facility] for referral (narrative)* Diagnostic Procedure Only (Routine) - Pending Review Specialty Diagnoses / Procedures Referred By Olena t Referred To Contact [facility] Diagnoses 24 weeks gestation of AMA (advanced maternal age) multigravida 35+, second trimester Gestational diabetes mellitus (GDM) in second trimester, gestational diabetes method of control unspecified Procedures OBSTETRIC ULTRASOUND WHI US PREG UTERUS AFTER 1ST TRIMEST GESTATION Isra Wade MD [address] [address] [address] Referral ID Status Reason Start Date Expiration Date Visits Requested Visits Authorized [id number] Pending Review Auto-Generat ed Referral 01/27/2024 01/26/[address] [facility] for referral (narrative)* Outpatient Procedure (Routine) - Pending Review Specialty Diagnoses / Procedures Referred By Olena t Referred To Contact [facility] Diagnoses Pre-existing diabetes mellitus in in second trimester AMA (advanced maternal age) multigravida 35+, second trimester 28 weeks gestation of Procedures NON-STRESS TEST NON-STRESS TEST Isra Wade MD [address] [facility] [address] [address] Referral ID Status Reason Start Date Expiration Date Visits Requested Visits Authorized [id number] Pending Review Auto-Generat ed Referral 02/24/2024 02/23/[address] [facility] [address] [facility] for referral (narrative)* Outpatient Procedure (Routine) - Pending Review Specialty Diagnoses / Procedures Referred By Contac t Referred To Contact [facility] Diagnoses Encounter for initial prescription of intrauterine contraceptive device (IUD) Procedures INSERT INTRAUTERINE DEVICE LEVONORGESTREL IU 52MG 5 YR INSERT INTRAUTERINE DEVICE Isra Wade MD [address] [place] [address] [facility] [address] [place] [id number] Referral ID Status Reason Start Date Expiration Date Visits Requested Visits Authorized [id number] Pending Review Auto-Generat ed Referral 07/06/[address] [facility] for referral (narrative)* Outpatient Procedure (Routine) - New Request Specialty Diagnoses / Procedures Referred By Contac t Referred To Contact [facility] Diagnoses Encounter for IUD insertion Procedures INSERT INTRAUTERINE DEVICE LEVONORGESTREL IU 52MG 5 YR INSERT INTRAUTERINE DEVICE Bobby Sharp APRN.CNP [address] [place] [address] [facility] [address] [place] [address] Referral ID Status Reason Start Date Expiration Date Visits Requested Visits Authorized [id number] New Request Auto-Generat ed Referral 4 07/22/2025 1 1 [facility] Summary Purpose Family History No Family History Records Found Relationship Condition Age at Onset Recorded Date/T julio césar sister Family history of thromboembolic disease Unknown Advance Directives No Advanced Directives Records Found Advance Directive Response Recorded Date/ Time Living Will No October 13 2:04pm Power of Esl Instructional Assistant No October 13, 2023 2:04pm Advance Directive Response Recorded Date/ Time Living Will No October 13 7:46pm Power of Esl Instructional Assistant No October 13, 2023 7:46pm Chief Complaint and Reason for Visit Chief Complaint B PULMONARY EMBOLI B PULMONARY EMBOLI Reason for Visit Abnormal TSH Anemia affecting ninth Bilateral pulmonary embolism Elevated troponin I level Hypokalemia Tachycardia Chief Complaint B PULMONARY EMBOLI B PULMONARY EMBOLI B PULMONARY EMBOLI B PULMONARY EMBOLI B PULMONARY EMBOLI Reason for Visit Abnormal TSH Anemia affecting ninth Bilateral pulmonary embolism Elevated troponin I level Hypokalemia Tachycardia Reason for Referral Specialty Diagnoses / Procedures Referred By Contac t Referred To Contact Endocrinology Diagnoses 20 weeks gestation of Procedures CONSULT TO ENDOCRINOLOGY OFFICE/OUTPATIENT [facility] 60 MINUTES Siri Narvaez APRN.CNTay [address] [place] [address] Referral ID Status Reason Start Date Expiration Date Visits Requested Visits Authorized [id number] Authorized PCP Requested Referral 12/30/2023 12/29/2024 1 1 Specialty Diagnoses / Procedures Referred By Contac t Referred To Contact Ophthalmology Diagnoses Pre-existing diabetes mellitus in in third trimester Supervision of high risk in third trimester Procedures CONSULT TO OPHTHALMOLOGY OFFICE/OUTPATIENT [facility] 60 MINUTES Samantha Fields MD [address] [place] [address] Referral ID Status Reason Start Date Expiration Date Visits Requested Visits Authorized [id number] Authorized PCP Requested Referral 03/10/2024 03/10/2025 1 1 Additional Source Comments INFORMATION SOURCE (unrecogn ized section and content) DATE CREATED AUTHOR 07/01/2019 [facility] DATE CREATED AUTHOR AUTHOR'S ORGANIZ ATION 09/03/2022 [facility] DATE CREATED AUTHOR AUTHOR'S ORGANIZ ATION 09/21/2022 [facility] DATE CREATED AUTHOR AUTHOR'S ORGANIZ ATION 05/02/2024 [facility] DATE CREATED AUTHOR AUTHOR'S ORGANIZ ATION 05/03/2025 [facility] Care Teams (unrecognized sec tion and content) Team Status: Active Member Role Status Dates Dr. Arie Escoto , Family Provider Active Dr. Arie Escoto , DO Primary Care Provider Active Team Status: Active Member Role Status Dates Dr. Arie Escoto , DO Primary Care Provider Active Dr. Rita Austin , DO Emergency Provider Active Dr. Lachelle Fletcher , DO Admit Provider, Att ending Provider, Other Provider Active Team Status: Active Member Role Status Dates Dr. Arie Escoto , DO Primary Care Provider Active Dr. Rita Austin , DO Emergency Provider Active Dr. Lachelle Fletcher , DO Admit Provider, Attending Provide r Active Team Status: Active Member Role Status Dates Dr. Arie Escoto , DO Primary Care Provider Active Dr. Rita Austin , DO Emergency Provider Active Dr. Lachelle Fletcher , DO Admit Provider, Other Provider Ac tive Dr. Richy Kitchen MD Other Provider Active Dr. Valdez Sullivan MD Other Provider Active Dr. Kaden Mireles , DO Attending Provider, Other Provide r Active Dr. Alex Gardner MD Other Provider Active Dr. Tiffani Pereira MD Other Provider Active Dr. Telly Franklin MD Other Provider Active Dr. Brandi Madera MD Other Provider Active Dr. Maggy Adhikari MD Other Provider Active Dr. Esau Davis MD Other Provider Active Dr. Tony Giang MD Other Provider Active Dr. Xavier Colón MD Other Provider Active Dr. Alejandro Herrera MD Other Provider Active Dr. Gilson Daily MD Other Provider Active Team Status: Active Member Role Status Dates Dr. Arie Escoto , DO Primary Care Provider Active Dr. John Teixeira MD Attending Provider Active Team Status: Active Member Role Status Dates Dr. Arie Escoto , DO Primary Care Provider Active Dr. Rita Austin , DO Emergency Provider Active Dr. Lachelle Fletcher , DO Admit Provider, Other Provider Ac tive Dr. Richy Kitchen MD Other Provider Active Dr. Valdez Sullivan MD Other Provider Active Dr. Kaden Mireles , Other Provider Active Dr. Alex Gardner MD Other Provider Active Dr. Tiffani Pereira MD Other Provider Active Dr. Telly Franklin MD Other Provider Active Dr. Brandi Madera MD Other Provider Active Dr. Maggy Adhikari MD Other Provider Active Dr. Esau Davis MD Other Provider Active Dr. Tony Giang MD Other Provider Active Dr. Xavier Colón MD Other Provider Active Dr. Alejandro Herrera MD Other Provider Active Dr. Gilson Daily MD Attending Provider, Other Provi jessie Active Team Status: Active Member Role Status Dates Dr. Arie Escoto , DO Primary Care Provider Active Dr. Jairon Delgado MD Attending Provider Active Team Status: Inactive Member Role Status Dates Dr. Arie Escoto , DO Primary Care Provider Active Dr. Rita Austin , Emergency Provider Active Dr. Lachelle Fletcher , DO Admit Provider, Other Provider Ac tive Dr. Richy Kitchen MD Other Provider Active Dr. Valdez Sullivan MD Other Provider Active Dr. Kaden Mireles , DO Other Provider Active Dr. Alex Gardner MD Other Provider Active Dr. Tiffani Pereira MD Other Provider Active Dr. Telly Franklin MD Other Provider Active Dr. Brandi Madera MD Other Provider Active Dr. Maggy Adhikari MD Other Provider Active Dr. Esau Davis MD Other Provider Active Dr. Tony Giang MD Other Provider Active Dr. Xavier Colón MD Other Provider Active Dr. Alejandro Herrera MD Other Provider Active Dr. Gilson Daily MD Attending Provider Active Negative Cutter Relationship Specialty [place] [address] [address] PCP - General Internal Medicine 02/04/24 Negative Cutter Relationship Specialty [place] [address] [address] PCP - General Internal Medicine 02/04/24 Negative Cutter Relationship Specialty [place] [address] [address] PCP - General Internal Medicine 02/04/24 Negative Cutter Relationship Specialty [place] [address] [place] [address] PCP - General Internal Medicine 02/04/24 Negative Cutter Relationship Specialty [place] [address] [place] [address] PCP - General Internal Medicine 02/04/24 Negative Cutter Relationship Specialty [place] [address] [place] [address] PCP - General Internal Medicine 02/04/24 Negative Cutter Relationship Specialty [place] [address] [place] [address] PCP - General Internal Medicine 02/04/24 Negative Cutter Relationship Specialty [place] [address] [place] [address] PCP - General Internal Medicine 02/04/24 Negative Cutter Relationship Specialty Start Date End Date Arie Escoto, [address] [place] [address] PCP - General Internal Medicine 02/04/24 Negative Cutter Relationship Specialty [place] [address] [place] [address] PCP - General Internal Medicine 02/04/24 Negative Cutter Relationship Specialty [place] [address] [address] PCP - General Internal Medicine 02/04/24 Negative Cutter Relationship Specialty [place] [address] [address] PCP - General Internal Medicine 02/04/24 Negative Cutter Relationship Specialty [place] [address] [address] PCP - General Internal Medicine 02/04/24 Negative Cutter Relationship Specialty Start Date End Date Arie Escoto, [address] [address] PCP - General Internal Medicine 02/04/24 Negative Cutter Relationship Specialty [place] [address] [address] PCP - General Internal Medicine 02/04/24 Negative Cutter Relationship Specialty [place] [address] [address] PCP - General Internal Medicine 02/04/24 Negative Cutter Relationship Specialty [place] [address] [address] PCP - General Internal Medicine 02/04/24 Negative Cutter Relationship Specialty [place] [address] [address] PCP - General Internal Medicine 02/04/24 Goals (unrecognized section and content) Goals may be documented in a n alternate section Source Comments (unrecognize d section and content) In the event this informatio n is protected by the Federal Confidentiality of Alcohol and Drug Abuse Patient Records regulations: The Federal rules restrict any use of the information to criminally investigate or prosecute any alcohol or drug abuse patient.[facility] the event this information is protected by the Federal Confidentiality of Alcohol and Drug Abuse Patient Records regulations: The Federal rules restrict any use of the information to criminally investigate or prosecute any alcohol or drug abuse patient.[facility] Hospital[facility] the event this information is protected by the Federal Confidentiality of Alcohol and Drug Abuse Patient Records regulations: The Federal rules restrict any use of the information to criminally investigate or prosecute any alcohol or drug abuse patient.[facility] HospitalIn the event this information is protected by the Federal Confidentiality of Alcohol and Drug Abuse Patient Records regulations: The Federal rules restrict any use of the information to criminally investigate or prosecute any alcohol or drug abuse patient.[facility] HospitalIn the event this information is protected by the Federal Confidentiality of Alcohol and Drug Abuse Patient Records regulations: The Federal rules restrict any use of the information to criminally investigate or prosecute any alcohol or drug abuse patient.[facility] HospitalIn the event this information is protected by the Federal Confidentiality of Alcohol and Drug Abuse Patient Records regulations: The Federal rules restrict any use of the information to criminally investigate or prosecute any alcohol or drug abuse patient.[facility] HospitalIn the event this information is protected by the Federal Confidentiality of Alcohol and Drug Abuse Patient Records regulations: The Federal rules restrict any use of the information to criminally investigate or prosecute any alcohol or drug abuse patient.[facility] HospitalIn the event this information is protected by the Federal Confidentiality of Alcohol and Drug Abuse Patient Records regulations: The Federal rules restrict any use of the information to criminally investigate or prosecute any alcohol or drug abuse patient.[facility] HospitalIn the event this information is protected by the Federal Confidentiality of Alcohol and Drug Abuse Patient Records regulations: The Federal rules restrict any use of the information to criminally investigate or prosecute any alcohol or drug abuse patient.[facility] HospitalIn the event this information is protected by the Federal Confidentiality of Alcohol and Drug Abuse Patient Records regulations: The Federal rules restrict any use of the information to criminally investigate or prosecute any alcohol or drug abuse patient.[facility] HospitalIn the event this information is protected by the Federal Confidentiality of Alcohol and Drug Abuse Patient Records regulations: The Federal rules restrict any use of the information to criminally investigate or prosecute any alcohol or drug abuse patient.[facility] HospitalIn the event this information is protected by the Federal Confidentiality of Alcohol and Drug Abuse Patient Records regulations: The Federal rules restrict any use of the information to criminally investigate or prosecute any alcohol or drug abuse patient.[facility] HospitalIn the event this information is protected by the Federal Confidentiality of Alcohol and Drug Abuse Patient Records regulations: The Federal rules restrict any use of the information to criminally investigate or prosecute any alcohol or drug abuse patient.[facility] HospitalIn the event this information is protected by the Federal Confidentiality of Alcohol and Drug Abuse Patient Records regulations: The Federal rules restrict any use of the information to criminally investigate or prosecute any alcohol or drug abuse patient.[facility] HospitalIn the event this information is protected by the Federal Confidentiality of Alcohol and Drug Abuse Patient Records regulations: The Federal rules restrict any use of the information to criminally investigate or prosecute any alcohol or drug abuse patient.[facility]In the event this information is protected by the Federal Confidentiality of Alcohol and Drug Abuse Patient Records regulations: The Federal rules restrict any use of the information to criminally investigate or prosecute any alcohol or drug abuse patient.[facility] HospitalIn the event this information is protected by the Federal Confidentiality of Alcohol and Drug Abuse Patient Records regulations: The Federal rules restrict any use of the information to criminally investigate or prosecute any alcohol or drug abuse patient.[facility] HospitalIn the event this information is protected by the Federal Confidentiality of Alcohol and Drug Abuse Patient Records regulations: The Federal rules restrict any use of the information to criminally investigate or prosecute any alcohol or drug abuse patient.[facility] HospitalIn the event this information is protected by the Federal Confidentiality of Alcohol and Drug Abuse Patient Records regulations: The Federal rules restrict any use of the information to criminally investigate or prosecute any alcohol or drug abuse patient.[facility] HospitalIn the event this information is protected by the Federal Confidentiality of Alcohol and Drug Abuse Patient Records regulations: The Federal rules restrict any use of the information to criminally investigate or prosecute any alcohol or drug abuse patient.[facility] HospitalIn the event this information is protected by the Federal Confidentiality of Alcohol and Drug Abuse Patient Records regulations: The Federal rules restrict any use of the information to criminally investigate or prosecute any alcohol or drug abuse patient.[facility] HospitalIn the event this information is protected by the Federal Confidentiality of Alcohol and Drug Abuse Patient Records regulations: The Federal rules restrict any use of the information to criminally investigate or prosecute any alcohol or drug abuse patient.[facility] HospitalIn the event this information is protected by the Federal Confidentiality of Alcohol and Drug Abuse Patient Records regulations: The Federal rules restrict any use of the information to criminally investigate or prosecute any alcohol or drug abuse patient.[facility] HospitalIn the event this information is protected by the Federal Confidentiality of Alcohol and Drug Abuse Patient Records regulations: The Federal rules restrict any use of the information to criminally investigate or prosecute any alcohol or drug abuse patient.[facility] HospitalIn the event this information is protected by the Federal Confidentiality of Alcohol and Drug Abuse Patient Records regulations: The Federal rules restrict any use of the information to criminally investigate or prosecute any alcohol or drug abuse patient.[facility] HospitalIn the event this information is protected by the Federal Confidentiality of Alcohol and Drug Abuse Patient Records regulations: The Federal rules restrict any use of the information to criminally investigate or prosecute any alcohol or drug abuse patient.[facility] HospitalIn the event this information is protected by the Federal Confidentiality of Alcohol and Drug Abuse Patient Records regulations: The Federal rules restrict any use of the information to criminally investigate or prosecute any alcohol or drug abuse patient.[facility] HospitalIn the event this information is protected by the Federal Confidentiality of Alcohol and Drug Abuse Patient Records regulations: The Federal rules restrict any use of the information to criminally investigate or prosecute any alcohol or drug abuse patient.[facility] HospitalIn the event this information is protected by the Federal Confidentiality of Alcohol and Drug Abuse Patient Records regulations: The Federal rules restrict any use of the information to criminally investigate or prosecute any alcohol or drug abuse patient.[facility] HospitalIn the event this information is protected by the Federal Confidentiality of Alcohol and Drug Abuse Patient Records regulations: The Federal rules restrict any use of the information to criminally investigate or prosecute any alcohol or drug abuse patient.[facility] HospitalIn the event this information is protected by the Federal Confidentiality of Alcohol and Drug Abuse Patient Records regulations: The Federal rules restrict any use of the information to criminally investigate or prosecute any alcohol or drug abuse patient.[facility] HospitalIn the event this information is protected by the Federal Confidentiality of Alcohol and Drug Abuse Patient Records regulations: The Federal rules restrict any use of the information to criminally investigate or prosecute any alcohol or drug abuse patient.[facility] HospitalIn the event this information is protected by the Federal Confidentiality of Alcohol and Drug Abuse Patient Records regulations: The Federal rules restrict any use of the information to criminally investigate or prosecute any alcohol or drug abuse patient.[facility] HospitalIn the event this information is protected by the Federal Confidentiality of Alcohol and Drug Abuse Patient Records regulations: The Federal rules restrict any use of the information to criminally investigate or prosecute any alcohol or drug abuse patient.[facility] HospitalIn the event this information is protected by the Federal Confidentiality of Alcohol and Drug Abuse Patient Records regulations: The Federal rules restrict any use of the information to criminally investigate or prosecute any alcohol or drug abuse patient.[facility] HospitalIn the event this information is protected by the Federal Confidentiality of Alcohol and Drug Abuse Patient Records regulations: The Federal rules restrict any use of the information to criminally investigate or prosecute any alcohol or drug abuse patient.[facility] HospitalIn the event this information is protected by the Federal Confidentiality of Alcohol and Drug Abuse Patient Records regulations: The Federal rules restrict any use of the information to criminally investigate or prosecute any alcohol or drug abuse patient.[facility] HospitalIn the event this information is protected by the Federal Confidentiality of Alcohol and Drug Abuse Patient Records regulations: The Federal rules restrict any use of the information to criminally investigate or prosecute any alcohol or drug abuse patient.[facility] HospitalIn the event this information is protected by the Federal Confidentiality of Alcohol and Drug Abuse Patient Records regulations: The Federal rules restrict any use of the information to criminally investigate or prosecute any alcohol or drug abuse patient.[facility] HospitalIn the event this information is protected by the Federal Confidentiality of Alcohol and Drug Abuse Patient Records regulations: The Federal rules restrict any use of the information to criminally investigate or prosecute any alcohol or drug abuse patient.[facility] HospitalIn the event this information is protected by the Federal Confidentiality of Alcohol and Drug Abuse Patient Records regulations: The Federal rules restrict any use of the information to criminally investigate or prosecute any alcohol or drug abuse patient.[facility] HospitalIn the event this information is protected by the Federal Confidentiality of Alcohol and Drug Abuse Patient Records regulations: The Federal rules restrict any use of the information to criminally investigate or prosecute any alcohol or drug abuse patient.[facility] HospitalIn the event this information is protected by the Federal Confidentiality of Alcohol and Drug Abuse Patient Records regulations: The Federal rules restrict any use of the information to criminally investigate or prosecute any alcohol or drug abuse patient.[facility] HospitalIn the event this information is protected by the Federal Confidentiality of Alcohol and Drug Abuse Patient Records regulations: The Federal rules restrict any use of the information to criminally investigate or prosecute any alcohol or drug abuse patient.[facility] HospitalIn the event this information is protected by the Federal Confidentiality of Alcohol and Drug Abuse Patient Records regulations: The Federal rules restrict any use of the information to criminally investigate or prosecute any alcohol or drug abuse patient.[facility] Reason for Visit (unrecogniz ed section and content) Reason Comments Established Patient Specialty Diagnoses / Procedures Referred By Contac t Referred To Contact HEMATOLOGY/ONCOLOGY Diagnoses ov Procedures ov Self Donn Love MD [address] [place] [address] Referral ID Status Reason Start Date Expiration Date Visits Requested Visits Authorized [id number] Authorized Financial Clearance Required - Self Pay Clearance not met - patient not scheduled & unable to contact patient Referred for KARINA Patient Cleared - Qualified [id number] 05/13/2024 08/11/2024 99 99 Reason Onset Date Comments Insertion Of IUD 07/22/2024 Specialty Diagnoses / Procedures Referred By Contac t Referred To Contact HEMATOLOGY/ONCOLOGY Diagnoses ov Procedures ov Self Donn Love MD [address] [place] [address] Reason Comments High Blood Sugar , delivere d 04/30/24 Reason Onset Date Comments Care 04/16/2024 Specialty Diagnoses / Procedures Referred By Contac t Referred To Contact Endocrinology / ENDOCRINOLOGY Diagnoses 20 weeks gestation of Procedures CONSULT TO ENDOCRINOLOGY OFFICE/OUTPATIENT NEW HIGH MDM 60 MINUTES Siri Narvaez APRN.CN [address] [place] [address] [facility] [address] [place] [address] Referral ID Status Reason Start Date Expiration Date Visits Requested Visits Authorized [id number] Authorized Patient Cleared - Qualified 100% FAS 01/24/2024 04/23/2024 99 99 Reason Comments US Reason Onset Date Comments Care 04/09/2024 Reason Onset Date Comments Care 04/02/2024 Reason Onset Date Comments Care 03/24/2024 Reason Onset Date Comments Care 03/10/2024 Specialty Diagnoses / Procedures Referred By Contac t Referred To Contact Endocrinology / ENDOCRINOLOGY Diagnoses 20 weeks gestation of Procedures CONSULT TO ENDOCRINOLOGY OFFICE/OUTPATIENT [facility] 60 MINUTES Siri Narvaez APRN.CN [address] [place] [address] [facility] [address] [place] [address] Reason Onset Date Comments Care 02/24/2024 Reason Onset Date Comments Care 12/30/2023 Specialty Diagnoses / Procedures Referred By Contac t Referred To Contact Diagnoses 1st ob Procedures OFFICE CONSULTATION NEW/ESTAB PATIENT 15 MIN new whi pt Self [facility] [place] [address] Referral ID Status Reason Start Date Expiration Date Visits Requested Visits Authorized [id number] Authorized Patient Cleared - Qualified 100% FAS 10/22/2023 01/20/2024 99 99 Reason Onset Date Comments Care 11/22/2023 Reason Comments New Patient Reason Comments Results Orders Reason Comments New Patient Evaluation Specialty Diagnoses / Procedures Referred By Contac t Referred To Contact Hematology Diagnoses History of pulmonary embolism Procedures CONSULT TO HEMATOLOGY OFFICE/OUTPATIENT [facility] 60 MINUTES Bobby Sharp, HEALTH PHYSICS TECHNICIAN.[employer]ARF [employer]OURER [address] [place] [address] Referral ID Status Reason Start Date Expiration Date V isits Requested Visits Authorized [id number] Closed PCP Requested Referral 10/30/2023 10/29/2024 1 1 Reason Comments Results Specialty Diagnoses / Procedures Referred By Contac t Referred To Contact Diagnoses 1st ob Procedures OFFICE CONSULTATION NEW/ESTAB PATIENT 15 MIN new whi pt Self [facility] [place] [address] Reason Onset Date Comments Care 01/16/2024 Reason Onset Date Comments Care 01/27/2024 Reason Comments Medication Problem Reason Comments blood sugars Reason Comments Gestational Diabetes Reason Comments Blood Sugar Reading Reason Comments BS Log Reason Comments OB Blood Sugars Reason Comments OB Blood Sugar Readings Reason Onset Date Comments Care 04/24/2024 Reason Comments Early Specialty Diagnoses / Procedures Referred By Contac t Referred To Contact PROPERTY CLERK Diagnoses ov Procedures 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 Isra Wade MD [address] [place] [address] [employer] [address] [place] [address] Referral ID Status Reason Start Date Expiration Date V isits Requested Visits Authorized [id number] Closed Financial Clearance Required - Self Pay Patient Cleared - True Self-Pay required payment collected 05/07/2024 08/05/2024 1 1 Reason Onset Date Comments Refill Request 06/19/2024 Reason Onset Date Comments Refill Request 07/02/2024 Reason Comments Well Woman Reason Comments Appointment Reason Comments Schedule Surgery Reason Comments Follow Up IUD check Specialty Diagnoses / Procedures Referred By Olena pugh Referred To Contact Skid Adzer / PROPERTY CLERK Diagnoses IUD follow up Procedures [facility] PATIENT Self Aron BobbyNOREEN.[employer]ARF LABOURER [address] [place] [address] Referral ID Status Reason Start Date Expiration Date Visits Requested Visits Authorized [id number] Authorized Patient Cleared - Qualified 100% FAS 4 11/10/2024 99 99 FOR RECORDS PERTAINING TO PATIENTS WHO ARE [...] BE BASED ON THE PRIMARY CLINICAL RECORDS. [email or web address] provides no warranty or guarantee of the accuracy or completeness of information in this document.
[2025-05-28 23:21] VITALS: BP 116/65; PULSE 65; RESP 18; TEMP 36.6; O2SAT 100
== END 2025-05-28 23:25 | disposition home or self-care (01) ==
PROVIDERS: Emergency Provider Emergency Medicine; PCP Nurse Practitioner Family; Visit Provider Emergency Medicine
DX: S70.11XA Contusion of right thigh, initial encounter (principal); X58.XXXA Exposure to other specified factors, initial encounter; Z86.711 Personal history of pulmonary embolism
CPT/HCPCS: 99282